=== PATIENT | female | born 1970 | race Caucasian/White ===

== ENCOUNTER → 2018-01-03 11:31 | Outpatient (CLI) | payer OTHER, SELFPAY ==
[2018-01-03 16:05] LABS: Cholesterol 165 mg/dL (200); Glucose 85 mg/dL (74-106); High Density Lipoprotein 39 mg/dL; T4 Free Direct 1.28 ng/dL (0.76-1.46); Thyroid Stim Hormone (TSH) 2.58 uIU/mL (0.358-3.74); Triglycerides 93 mg/dL; Very Low Density Lipoprotein 19 mg/dL (5-40)
== END ==
PROVIDERS: Family Provider Family Medicine; PCP Family Medicine; Visit Provider Family Medicine
DX: E03.9 Hypothyroidism, unspecified (principal); Z13.1 Encounter for screening for diabetes mellitus
CPT/HCPCS: 36415; 80061; 82947; 84439; 84443

== ENCOUNTER → 2018-07-21 08:22 | Outpatient (CLI) | payer OTHER, SELFPAY ==
[2018-07-21 12:10] LABS: Basophil# 0.02 X10^3/uL; Basophil% 0.4 % (0-1); Eosinophil# 0.02 X10^3/uL; Eosinophils% 0.4 % (0-5); Hematocrit 40.8 % (37-47); Hemoglobin 13.6 g/dl (12.0-15.0); Lymphocyte % 30.6 % (19-41); Mean Corp Hgb Conc 33.3 g/gl (32-36); Mean Corpuscular Volume 89.9 fL (81-99); Monocyte# 0.38 X10^3/uL; Monocyte% 7.8 % (0-10); Neutrophil # 2.97 X10^3/uL (2.7-7.7); Neutrophil % 60.6 % (47-70); Platelet Count 266 K/mm3 (150-450); RBC Distribution Width SD 45.6 fl (35.1-43.9); Red Blood Count 4.54 M/mm3 (4.2-5.4); White Blood Count 4.9 K/mm3 (4.4-11.0)
[2018-07-21 12:14] LABS: POSITIVE COUNT NO; POSITIVE DIFFERENTIAL NO; POSITIVE MORPHOLOGY NO
[2018-07-21 12:38] LABS: Anion Gap 9 (5-15); BUN 12 mg/dL (7-18); BUN/Creat Ratio 14.6 RATIO (10-20); Calcium,Total 8.8 mg/dL (8.5-10.1); Chloride 105 mmol/L (98-107); Creatinine, Serum 0.82 mg/dL (0.55-1.02); EST Glomerular Filtration Rate 79 mL/min (>60); Est Glom Filt Rate - Afr Amer 96 mL/min (>60); Glucose 87 mg/dL (74-106); Sodium Level 140 mmol/L (136-145); T4 Free Direct 1.25 ng/dL (0.76-1.46); Thyroid Stim Hormone (TSH) 4.13 uIU/mL (0.358-3.74)
== END ==
PROVIDERS: Visit Provider Family Medicine
DX: E03.9 Hypothyroidism, unspecified (principal); R53.83 Other fatigue
CPT/HCPCS: 36415; 80048; 84439; 84443; 85025

== ENCOUNTER 2019-01-28 16:47 | Emergency (ER) | payer OTHER, SELFPAY ==
[2019-01-28 16:49] VITALS: BP 125/76; PULSE 104; RESP 20; TEMP 37.5; O2SAT 100; BMI 37.8
--- NOTE | 2019-01-28 17:33 | ED.VIS.GEN ---
History of Present Illness Chief Complaint: General Illness Detail of Chief Complaint: Flulike symptoms Informant: Patient Onset: Yesterday Context: Sudden Onset Timing: Continuous Quality: Right-sided head pain, right ocular pain, respiratory symptoms Location: Not applicable Current Severity: Mild Maximum Severity: Moderate Worsened by: Lightheadedness with standing Relieved by: Nothing Associated Symptoms: Read narrative Narrative: Mike is a middle-aged woman who presents with flulike symptoms that started within the last 24 hours. She complains of headache predominant the right side, right eye pain, photophobia right eye only, nasal congestion, mouth and throat pain, facial rash with burning sensation, nonproductive cough and documented temperature to 101.0 degrees. She also reports generalized weakness. She states she feels wheezy when she is upright and walks. She has been in bed all day. She has not eaten much. She has had many ill contacts. She apparently is been in the hospital past week with her mother. Prior similar symptoms: No Recent Illness/Hospitalization: No Past Medical History - Allergies and Home Meds Allergies/Adverse Reactions: Allergies azithromycin [From Zithromax Z-Miky] Allergy (Verified 01/28/19 16:49) Hives cyclobenzaprine HCl [From Flexeril] Allergy (Verified 01/28/19 16:49) Unknown esomeprazole magnesium [From Nexium] Allergy (Verified 01/28/19 16:49) Unknown Sulfa (Sulfonamide Antibiotics) Allergy (Verified 01/28/19 16:49) Unknown Primary Care Physician: Octaviano Olvera MD [Primary Care Provider] - Prior records reviewed: Yes Surgical History: noncontributory Lives: Spouse/ Significant Other, With Family Smoking Status: Never smoker Alcohol: Rare Drugs: None Review of Systems General: Reports: Chills, Fever, Malaise, Sweats. Denies: Weight loss Eyes: Denies: Visual changes - bilaterally, Blurred vision - left - Is pretty funny, Blurred Vision - bilaterally ENT: Reports: Rhinorrhea, Sore throat. Denies: Bilateral ear pain Cardiovascular: Denies: Chest pain, Palpitations Respiratory: Reports: Dyspnea, Cough, Dyspnea on exertion, Paroxysmal nocturnal dyspnea. Denies: Sputum, Orthopnea Gastrointestinal: Denies: Abdominal pain, Nausea, Vomiting, Diarrhea, Melena, Hematochezia Genitourinary: Denies: Dysuria, Hematuria, Frequency Musculoskeletal: Reports: Myalgias. Denies: Neck pain, Back pain, Swelling Skin: Denies: Rash, Wounds Neurological: Reports: Headache, Weakness. Denies: Parasthesia, Numbness Hematologic: Denies: Easy bruising, Easy bleeding Allergy: Denies: Uticaria Physical Exam Vital Signs/Narrative: Vital Signs Temp Pulse Resp BP Pulse Ox 01/28/19 16:49 99.5 F H 104 H 20 H 125/76 H 100 Inital Vital Signs reviewed: Yes General: Well nourished, Well developed, Obese, No Acute Distress Head: Normocephalic, Atraumatic Eyes: Perrl, EOMI, - - Conjunctive are injected bilaterally without drainage. Funduscopic exam reveals normal cup-to-disc ratio. There is no papilledema. Vessels appear normal. Venous pulsations were noted bilaterally.. Negative for: Pale conjunctiva, Scleral icterus ENT: Moist mucous membranes, No rhinorrhea, TM's clear, Sinus tenderness - Right frontal region, - - Slight erythema to face. No induration, warmth. There is no fluctuance. Back: Nontender, Normal Inspection. Negative for: CVA tenderness Extremities: Nontender, No edema. Negative for: Calf Tenderness Skin: Normal color, No rash. Negative for: Cyanosis, Diaphoresis, Jaundice, Rash Neurological: Alert, Oriented x3, Cranial nerves II-XII grossly intact, Normal Strength, Normal Sensation, Normal DTR Psychological: Normal affect Diagnostic/Tx/Re-eval 01/28/19 17:50 Mucosa - Nose Influenza Types A,B Direct FA (EMILY) - Final - Medical Decision Making , Patient with viral-like symptoms. Suspect she has influenza. Will obtain rapid influenza test. Since patient has no photophobia no nuchal rigidity or meningeal findings lumbar puncture is not indicated. Influenza screen was negative. Patient was informed symptomatic treatment i.e. rest, oral antipyretics and drink plenty of fluids. She was informed she may be ill for another 7-10 days. ED Disposition - Plan for ED Patient: Disposition: Home or Assisted Living Diagnosis: Viral upper respiratory tract infection Instructions: ED Viral Syndrome Referrals: Octaviano Olvera MD [Primary Care Provider] - 10-14 Days if not better Additional Instructions: You may be ill for additional 7-10 days.
[2019-01-28 18:40] VITALS: TEMP 38.1
== END 2019-01-28 19:07 | disposition home or self-care (01) ==
PROVIDERS: Emergency Provider Emergency Medicine; Family Provider Family Medicine; PCP Family Medicine
DX: J06.9 Acute upper respiratory infection, unspecified (principal); H53.8 Other visual disturbances; E66.9 Obesity, unspecified; Z79.899 Other long term (current) drug therapy
CPT/HCPCS: 87804; 99282

== ENCOUNTER → 2019-02-27 10:33 | Outpatient (CLI) | payer OTHER, SELFPAY ==
[2019-01-28 16:49] VITALS: BMI 37.8
[2019-02-27 12:39] LABS: Thyroid Stim Hormone (TSH) 0.86 uIU/mL (0.358-3.74)
== END ==
LOC: LAB.FUTURE 01-23 14:59 → BFHLAB 01-23 14:59
PROVIDERS: Family Provider Family Medicine; PCP Family Medicine; Visit Provider Family Medicine
DX: E03.9 Hypothyroidism, unspecified (principal)
CPT/HCPCS: 36415; 84439; 84443

== ENCOUNTER → 2019-12-26 08:15 | Outpatient (CLI) | payer OTHER, SELFPAY ==
[2019-12-26 13:25] LABS: Hepatitis B Surface Antibody Non-Reactive
== END ==
PROVIDERS: PCP Family Medicine; Visit Provider Family Medicine
DX: Z11.59 Encounter for screening for other viral diseases (principal)
CPT/HCPCS: 36415; 86706

== ENCOUNTER → 2020-01-16 13:39 | Outpatient (CLI) | payer OTHER, SELFPAY ==
[2020-01-16 15:48] LABS: Absolute Lymphocyte Count 2.15 X10^3/uL (0.83-4.51); Absolute Neutrophil Count 3.5 X10^3/uL (2.0-7.7); Basophil# 0.03 X10^3/uL; Basophil% 0.5 % (0-1); Eosinophil# 0.05 X10^3/uL; Eosinophils% 0.8 % (0-5); Hematocrit 43.4 % (37-47); Hemoglobin 13.9 g/dL (12.0-15.0); Lymphocyte # 2.15 X10^3/ul (4.0); Mean Corpuscular Hgb 28.4 pg (27.0-32.0); Mean Corpuscular Volume 88.6 fL (81-99); Mean Platelet Vol. 9.9 fl (6.2-12.0); Monocyte% 6.5 % (0-10); NRBC Flagged by Analyzer 0 % (0-5); Neutrophil # 3.49 X10^3/uL (2.7-7.7); Neutrophil % 56.9 % (47-70); Platelet Count 255 K/mm3 (150-450); RBC Distribution Width CV 13.7 % (11.6-14.6); RBC Distribution Width SD 44.5 fl (35.1-43.9); White Blood Count 6.1 K/mm3 (4.4-11.0)
[2020-01-16 16:17] LABS: T4 Free Direct 1.24 ng/dL (0.76-1.46); Thyroid Stim Hormone (TSH) 2.58 uIU/mL (0.358-3.74)
[2020-01-18 16:11] LABS: CMV Acute Antibody IgM < 30.0 AU/mL (0.0-29.9); CMV Antibody IgG > 10.00 U/mL (0.00-0.59); EBV Acute VCA IgM < 36.0 U/mL (0.0-35.9)
== END ==
PROVIDERS: PCP Family Medicine; Visit Provider Family Medicine
DX: E03.9 Hypothyroidism, unspecified (principal); B27.90 Infectious mononucleosis, unspecified without complication
CPT/HCPCS: 36415; 84439; 84443; 85025; 86644; 86645; 86664; 86665

== ENCOUNTER → 2020-07-22 15:57 | Outpatient (CLI) | payer OTHER, SELFPAY ==
[2020-07-22 17:40] LABS: T4 Free Direct 1.47 ng/dL (0.76-1.46); Thyroid Stim Hormone (TSH) 0.54 uIU/mL (0.358-3.74)
== END ==
PROVIDERS: PCP Family Medicine; Visit Provider Family Medicine
DX: E03.9 Hypothyroidism, unspecified (principal)
CPT/HCPCS: 36415; 84439; 84443

== ENCOUNTER → 2020-07-25 17:38 | Outpatient (CLI) | payer OTHER, SELFPAY | PROVIDERS: PCP Family Medicine | DX: U07.1 COVID-19 (principal) | CPT/HCPCS: 87635; C9803; U0003 ==

== ENCOUNTER → 2020-10-31 11:42 | Outpatient (CLI) | payer OTHER, SELFPAY ==
--- NOTE | 2020-10-31 11:45 | RAD_ITS ---
HISTORY: right hand injury a week ago, crushed from thumb to 3rd mcstill having pain and swelling Technique: Right hand AP, lateral, and oblique radiographs Comparison: None available Findings: No acute fracture or dislocation. Osseous mineralization, joint spaces, and alignment otherwise appear preserved as imaged. No focal abnormality or radiopaque foreign body is seen in the surrounding soft tissues. RAD/Hand Min 3 Views IMPRESSION: No acute osseous abnormality identified in the Right hand. at 0545 Reported and signed by: Say Das MD Electronically Signed: Say Das MD at 5:44 EST Tel , Service support ,
== END ==
PROVIDERS: PCP Family Medicine; Referring Provider Family Medicine; Visit Provider Family Medicine
DX: S67.01XA Crushing injury of right thumb, initial encounter (principal); S67.21XA Crushing injury of right hand, initial encounter; X58.XXXA Exposure to other specified factors, initial encounter
CPT/HCPCS: 73130

== ENCOUNTER 2022-07-29 22:35 | Emergency (ER) | payer BC, SELFPAY ==
[2022-07-29 22:36] VITALS: BP 170/95; PULSE 82; RESP 15; TEMP 36.8; O2SAT 96; BMI 42.5
--- NOTE | 2022-07-29 23:06 | EKG12_ITS ---
Test Reason : ABD PAIN Blood Pressure : / mmHG Vent. Rate : 072 BPM Atrial Rate : 072 BPM P-R Int : 146 ms QRS Dur : 092 ms QT Int : 394 ms P-R-T Axes : 024 004 019 degrees QTc Int : 431 ms Normal sinus rhythm Normal ECG Confirmed by FRANDY AGUILLON, JUSTICE ([id number]), sports editor SUSANNA MARINA ([id number]) on 08/02/2022 10:50:17 AM Referred By: JESSY Confirmed By:JUSTICE WISE MD
--- NOTE | 2022-07-29 23:07 | CT_ITS ---
EXAM: CT Abdomen And Pelvis W/ Contrast Injection HISTORY: upper abd pain TECHNIQUE: CT Abdomen And Pelvis W/ Contrast Injection A radiation dose optimization technique was used for this scan. COMPARISON: CT abdomen pelvis 10/13/2015 LIMITATIONS: None. FINDINGS: LOWER CHEST: Normal. LIVER: Normal. GALLBLADDER/BILE DUCTS: Normal. PANCREAS: Normal. SPLEEN: Normal. ADRENAL GLANDS: Normal. KIDNEYS/URETERS/BLADDER: Normal. RETROPERITONEUM/AORTA: Normal. BOWEL/MESENTERY: No bowel dilatation or bowel wall thickening. Mild increased stool. APPENDIX: Identified and normal. PERITONEUM: Normal. REPRODUCTIVE ORGANS: Myomatous uterus. BONES/SOFT TISSUES: No acute abnormality. OTHER: None. CT/Abdomen/Pelvis W IV Cont ONLY IMPRESSION: No acute intra-abdominal process. Mild increased stool. Electronically Signed: Kojo Velasquez MD at 0:34 EDT ,
[2022-07-29] MEDS: 0.9% Normal Saline 1,000 ML 1000 ML IV (23:29)
[2022-07-29] MEDS: Morphine 4 MG/ML Syringe IV (23:30)
[2022-07-29] MEDS: Ondansetron 4 MG/2 ML Vial IV (23:30)
[2022-07-29] MEDS: Famotidine 200 MG/20 ML MDV 20 MG in 0.9% Normal Saline (Pres. free 8 ML 300 MG IV (23:30)
[2022-07-29 23:31] LABS: Absolute Lymphocyte Count 2.59 X10^3/uL (0.83-4.51); Absolute Neutrophil Count 5.6 X10^3/uL (2.0-7.7); Basophil# 0.04 X10^3/uL; Basophil% 0.5 % (0-1); Eosinophil# 0.06 X10^3/uL; Eosinophils% 0.7 % (0-5); Hematocrit 39.4 % (37-47); Hemoglobin 12.9 g/dL (12.0-15.0); Lymphocyte # 2.59 X10^3/ul (0.83-4.51); Lymphocyte % 29.2 % (19-41); Mean Corp Hgb Conc 32.7 g/dL (32-36); Mean Corpuscular Hgb 28.5 pg (27.0-32.0); Mean Corpuscular Volume 87.2 fL (81-99); Mean Platelet Vol. 9.7 fl (6.2-12.0); Monocyte# 0.56 X10^3/uL; Monocyte% 6.3 % (0-10); Mucous, Urine 0 SEEN /hpf (<or=2+); NRBC Flagged by Analyzer 0 % (0-5); Neutrophil # 5.58 X10^3/uL (2.7-7.7); Neutrophil % 62.8 % (47-70); Platelet Count 270 K/mm3 (150-450); RBC Distribution Width CV 13.8 % (11.6-14.6); RBC Distribution Width SD 43.8 fl (35.1-43.9); Red Blood Count 4.52 M/mm3 (4.2-5.4); White Blood Count 8.9 K/mm3 (4.4-11.0)
[2022-07-29 23:33] LABS: Color, Urine Yellow (Yellow); Glucose, Dipstick Normal (Normal); Ketone-Dipstick Negative (Negative); Leukocyte Esterase-Dipstick 25 /ul (Negative); Nitrite-Dipstick Negative (Negative); Occult Blood-Urine 25 /ul (Negative); Protein-Dipstick Negative (Negative); Urine Bilirubin Dipstick Negative (Negative); Urine Clarity Clear (Clear); Urine Urobilinogen Normal (Normal)
[2022-07-29 23:51] LABS: ALB/GLOB Ratio 0.7 RATIO (0.9-2.4); AST(SGOT) 13 U/L (15-37); Alanine Aminotransfer ALT/SGPT 16 U/L (13-56); Albumin, Serum 3.1 g/dL (3.2-5.0); Alkaline Phosphatase 139 U/L (45-117); Anion Gap 9 (5-15); BUN 17 mg/dL (7-18); BUN/Creat Ratio 22.9 RATIO (10-20); Bacteria 2+ /hpf (None Seen); Calcium,Total 9.2 mg/dL (8.5-10.1); Chloride 101 mmol/L (98-107); Creatinine, Serum 0.74 mg/dL (0.55-1.02); EST Glomerular Filtration Rate 88 mL/min (>60); Est Glom Filt Rate - Afr Amer 106 mL/min (>60); Estimated Creatinine Clearance 91.75 ml/min; Globulin 4.4 g/dL (2.2-4.2); Glucose 100 mg/dL (74-106); Lipase 177 U/L (73-393); Potassium 3.9 mmol/L (3.5-5.1); Protein, Total 7.5 g/dL (6.4-8.2); Red Blood Cells-Urine 0-5 SEEN /hpf (0-5); Sodium Level 137 mmol/L (136-145); Squamous Epithelial Cells - UA 0-5 SEEN /hpf (5-10); Troponin-I HS 4 pg/mL (3.0-54.0); White Blood Cells 0-5 SEEN /hpf (0-5)
--- NOTE | 2022-07-30 00:18 | EDS_ITS ---
HPI History of Present Illness Chief Complaint: Other, Pain/Inj Informant: patient Narrative Narrative: Patient is a 51-year-old female with history of hypothyroid, depression and GERD presenting with abdominal pain. Patient states she has been feeling unwell for the past few days and saw her doctor. She had lab work including titers for Ronnie-Dennison virus as well as a CMP. She states her liver enzymes are elevated and her monotest was positive. She knows she is had mono in the past. She showed me the results on her phone and she had positive IgG but equivocal IgM and her elevated liver enzyme was an alkaline phosphatase of 151 with a normal AST and ALT. She is a history of cholecystectomy. Patient states she has been feeling worse today and every time she tries to drink or eat anything her stomach hurts. Is in her epigastric region and radiates to her back. She has nausea but no vomiting. She feels that her face has been flushing. She did have diarrhea earlier today but denies any blood in her stool. States she cannot lay down because it hurts to mention her back. She did take Motrin around 7 PM which worked for about an hour and a half and then her pain came back. No other complaints at this time. [facility] Medical History Anxiety Asthma Hypothyroidism Non-smoker Home Medications levothyroxine 125 mcg tablet 125 mcg PO DAILY 01/28/19 [History Last Taken Unknown] escitalopram oxalate 20 mg tablet 20 mg PO DAILY 07/29/22 [History Last Taken Unknown] omeprazole 20 mg capsule,delayed release 20 mg PO DAILY 07/29/22 [History Last Taken Unknown] ondansetron 4 mg disintegrating tablet 4 mg PO Q6H PRN nausea and vomiting #10 tabs 07/30/22 [Rx Last Taken Unknown] Allergy/AdvReac Type Severity Reaction Status Date / Time azithromycin Allergy Hives Verified 07/29/22 22:41 [From Zithromax Z-Miky] cyclobenzaprine HCl Allergy Unknown Verified 07/29/22 22:41 [From Flexeril] esomeprazole magnesium Allergy Unknown Verified 07/29/22 22:41 [From Nexium] Sulfa (Sulfonamide Allergy Unknown Verified 07/29/22 22:41 Antibiotics) Surgical History History of cholecystectomy Social History Smoking Status: Never smoker ROS ROS ED Constitutional Constitutional ED: Denies chills or fever(s) Eyes Eyes: Denies change in vision ENT ENT ED: Denies rhinorrhea or sore throat Cardiovascular Cardiovascular: Denies chest pain or palpitations Respiratory/Chest Respiratory/Chest: Denies cough or dyspnea Gastrointestinal Gastrointestinal: Reports abdominal pain, diarrhea, nausea and vomiting Genitourinary Genitourinary ED: Denies dysuria or hematuria Musculoskeletal Musculoskeletal: Reports back pain; Denies arthralgias or myalgias Integumentary Denies rash Neurologic Neurologic: Denies headache(s), paresthesias or weakness Psychiatric Psychiatric: Reports anxiety EXAM Physical Exam Const Vital Signs: 07/29/22 22:36 07/29/22 22:44 07/30/22 01:59 Temperature 98.3 F Temperature Source Temporal Pulse Rate 82 74 Respiratory Rate 15 17 Respiratory Effort Normal Respiratory Pattern Normal Blood Pressure 170/95 H 156/90 H Blood Pressure Mean 120 112 Pulse Ox 96 98 Oxygen Delivery Method Room Air Room Air Positive well nourished and well developed General Appearance ED: well developed and NAD HEENT Reports moist mucous membranes Eyes PERRL and EOMs intact bilaterally Neck supple Chest Wall inspection of chest normal Resp normal respiratory effort and clear to auscultation bilaterally Cardio regular rate, regular rhythm and no murmurs GI normal to inspection, nondistended, normoactive bowel sounds and non-distended Palpation: tender epigastric; Negative for guarding Back/Spine no CVA tenderness Thoracic Spine / Upper Back: paraspinal muscle tenderness; Negative for thoracic spinal tenderness Lumbar Spine / Lower Back: Negative for lumbar spinal tenderness Neuro oriented x3 Neuro Narrative: No focal deficits appreciated Sensorium / Orientation: alert Motor Exam: Negative for general weakness Psych mental status grossly normal Mood & Affect: tearful Skin no rashes or lesions noted MDM MDM MDM Narrative Medical decision making narrative: Patient is evaluated for abdominal pain, back pain and generalized fatigue. Abdominal exam is nonspecific. She has muscle skeletal back pain. Patient is given IV Pepcid, morphine and Zofran as well as IV fluids. On repeat evaluation she is feeling a little better but continues to have back pain. She is given Tylenol and a GI cocktail. She has improvement of her symptoms with this. Her work-up is largely unremarkable. She does not have a transaminitis. Her alkaline phosphatase is 139 which is downtrending compared to her recent blood work where it was 150. Urinalysis is not consistent with infection. CT of a bdomen pelvis shows no acute intra-abdominal process but does show mild increased stool. The exact cause for patient's discomfort is not clear however I do not think there is an acute surgical emergency. I suspect it is either of viral syndrome versus a flareup of her GERD/gastritis.no signs of acute bacterial intra-abdominal infection requiring antibiotics or admission at this time. Patient be discharged with a prescription for Zofran. Instructed to follow-up with primary care doctor. Lab Data Attestation: I reviewed the patient's lab results. Labs: Laboratory Results - last 24 hr 07/29/22 07/29/22 07/29/22 23:24 23:24 23:24 WBC 8.9 RBC 4.52 Hgb 12.9 Hct 39.4 MCV 87.2 MCH 28.5 MCHC 32.7 RDW Std Deviation 43.8 RDW Coeff of Renée 13.8 Plt Count 270 MPV 9.7 Immature Gran % (Auto) 0.500 Neut % (Auto) 62.8 Lymph % (Auto) 29.2 [place] % (Auto) 6.3 Eos % (Auto) 0.7 Baso % (Auto) 0.5 Absolute Neuts (auto) 5.6 Absolute Lymphs (auto) 2.59 Nucleated RBC % 0 Sodium 137 Potassium 3.9 Chloride 101 Carbon Dioxide 27.0 Anion Gap 9 BUN 17 Creatinine 0.74 Estim Creat Clear Calc 91.75 Est GFR (MDRD) Af Amer 106 Est GFR (MDRD) Non-Af 88 BUN/Creatinine Ratio 22.9 H Glucose 100 Calcium 9.2 Total Bilirubin 0.20 AST 13 L ALT 16 Alkaline Phosphatase 139 H Troponin I High Sens 4 Total Protein 7.5 Albumin 3.1 L Globulin 4.4 H Albumin/Globulin Ratio 0.7 L Lipase 177 Urine Color Yellow Urine Clarity Clear Urine pH 6.0 Ur Specific [place] 1.010 Urine Protein Negative Urine Glucose (UA) Normal Urine Ketones Negative Urine Occult Blood 25 H Urine Nitrite Negative Urine Bilirubin Negative Urine Urobilinogen Normal Ur Leukocyte Esterase 25 H Urine RBC 0-5 SEEN Urine WBC 0-5 SEEN Ur Squamous Epith Cells 0-5 SEEN Urine Bacteria 2+ Urine Mucus 0 SEEN Radiography Diagnostic Testing: Clinical Impression(s) from Imaging Studies Abdomen/Pelvis CT 07/29/22 23:07 IMPRESSION: No acute intra-abdominal process. Mild increased stool. Electronically Signed: Kojo Velasquez MD at 0:34 EDT , Rhythm Strip Rhythm Strip: Sinus Rhythm Rate: 72 Ectopy: None EKG Initial EKG: Attestation: I personally reviewed and interpreted this EKG as follows: Interpretation: Sinus Rhythm Comments: Normal sinus rhythm at a rate of 72 Normal axis Normal intervals Normal ST segments Discharge Plan Triage Chief Complaint: Other, Pain/Inj ED Provider: Yulia Philippe Dx/Rx/DC Orders Clinical Impression: Abdominal pain, Nausea & vomiting, Malaise and fatigue, Muscle strain of upper back Instructions: ED Abdominal Pain Unkn Cause Fem, ED Back Sprain/Strain Prescriptions: New ondansetron 4 mg tablet,disintegrating 4 mg PO Q6H PRN (Reason: nausea and vomiting) Qty: 10 0RF No Action levothyroxine 125 MCG tablet 125 mcg PO DAILY omeprazole 20 mg capsule,delayed release(DR/EC) 20 mg PO DAILY escitalopram oxalate 20 mg tablet 20 mg PO DAILY Primary Care Provider: BHAVIN STEVENS Referrals: BHAVIN STEVENS [Other] Activity Restrictions/Additional Instructions: take frequent small sips. Take Tylenol, not Ibuprofen/motrin for pain. Disposition Disposition: Home, Self Care Discharge Date/Time: 07/30/22 02:08
[2022-07-30] MEDS: Acetaminophen 325 MG Tablet 650 MG PO (01:31)
[2022-07-30] MEDS: Mag Hydrox/Al Hydrox/Simeth 30 ML UDC PO (01:31)
[2022-07-30 01:59] VITALS: BP 156/90; PULSE 74; RESP 17; O2SAT 98
== END 2022-07-30 02:08 | disposition home or self-care (01) ==
PROVIDERS: Emergency Provider Emergency Medicine; Visit Provider Emergency Medicine
DX: R10.9 Unspecified abdominal pain (principal); S39.012A Strain of muscle, fascia and tendon of lower back, initial encounter; R74.8 Abnormal levels of other serum enzymes; K21.9 Gastro-esophageal reflux disease without esophagitis; R11.2 Nausea with vomiting, unspecified; R53.83 Other fatigue; Z90.49 Acquired absence of other specified parts of digestive tract; E03.9 Hypothyroidism, unspecified; F32.A Depression, unspecified
CPT/HCPCS: 74177; 80053; 81001; 83690; 84484; 85025; 93005; 96361; 96374; 96375; 99285; J7030; Q9967; A4216; J2405; J3490

== ENCOUNTER → 2022-09-14 | Outpatient (CLI) | payer BC, SELFPAY ==
--- NOTE | 2022-09-14 07:51 | US_ITS ---
STUDY: ABDOMINAL ULTRASOUND - ELASTOGRAPHY REASON FOR VISIT: Female, 51 years old. Fatty infiltration of liver. TECHNIQUE: Liver stiffness measurements were obtained on a [employer] RS 85 ultrasound machine using a CA 1-7 probe following the SRU guidelines. 3 measurements were obtained using a 2-D-SWE method. The IQR/M was 21% suggesting a quality data set. TECHNICAL QUALITY: Adequate. COMPARISON: Comparison is made with prior study done earlier today. FINDINGS: Liver: Fatty infiltration of the liver. Median liver stiffness measured 8.3 kPa. US/Elastography Parenchyma/Organ IMPRESSION: Liver stiffness measures 8.3 kPa compatible with F2-F3 (Mild to moderate liver fibrosis) Metavir score. Electronically Signed: Michi Vega MD at 13:47 EDT ,
--- NOTE | 2022-09-14 07:52 | US_ITS ---
STUDY: ABDOMINAL ULTRASOUND - RIGHT UPPER QUADRANT REASON FOR VISIT: Female, 51 years old . Fatty infiltration of the liver. TECHNIQUE: Ultrasound evaluation of the right upper quadrant was performed with real-time and static olguin-scale imaging. TECHNICAL QUALITY: Adequate. COMPARISON: Comparison is made with prior CT scan abdomen and pelvis dated 07/30/2022. FINDINGS: Liver: The liver is enlarged and measures 17.4 cm. There is increased echogenicity consistent with fatty infiltration. The bile ducts are within normal limits. There is hepatic color flow. The direction of portal flow is hepatopetal. There is no demonstrated mass lesion. Gallbladder: The patient is status post cholecystectomy. Common Bile Duct (C.B.D.): The common bile duct measures 5.6 mm. Pancreas: Normal size of the head, body and tail of the pancreas. There is increased echogenicity of the pancreas. There is no demonstrated pancreatic mass or cyst. Right Kidney: Normal size of the right kidney. The right kidney measures 10.8 cm x 4.6 cm x 3.8 cm. Normal renal cortex. The right cortex measures 1.2 cm. There is no demonstrated renal mass or cyst. There is no right hydronephrosis. US/Abdomen Limited IMPRESSION: Hepatomegaly and fatty infiltration of the liver. Electronically Signed: Michi Vega MD at 13:39 EDT ,
[2022-09-14 08:55] LABS: International Normalized Ratio 1.1
[2022-09-14 08:56] LABS: Erythrocyte Sedimentation Rate 37 mm/hr (0-30)
[2022-09-14 08:57] LABS: Absolute Lymphocyte Count 2.02 X10^3/uL (0.83-4.51); Absolute Neutrophil Count 3.4 X10^3/uL (2.0-7.7); Basophil# 0.02 X10^3/uL; Basophil% 0.3 % (0-1); Eosinophil# 0.03 X10^3/uL; Eosinophils% 0.5 % (0-5); Hematocrit 39.9 % (37-47); Hemoglobin 13.1 g/dL (12.0-15.0); Lymphocyte # 2.02 X10^3/ul (0.83-4.51); Lymphocyte % 34.3 % (19-41); Mean Corp Hgb Conc 32.8 g/dL (32-36); Mean Corpuscular Hgb 28.7 pg (27.0-32.0); Mean Corpuscular Volume 87.3 fL (81-99); Mean Platelet Vol. 9.8 fl (6.2-12.0); Monocyte# 0.38 X10^3/uL; Monocyte% 6.5 % (0-10); NRBC Flagged by Analyzer 0 % (0-5); Neutrophil # 3.42 X10^3/uL (2.7-7.7); Neutrophil % 58.1 % (47-70); Platelet Count 246 K/mm3 (150-450); RBC Distribution Width CV 14.9 % (11.6-14.6); RBC Distribution Width SD 47.6 fl (35.1-43.9); Red Blood Count 4.57 M/mm3 (4.2-5.4); White Blood Count 5.9 K/mm3 (4.4-11.0)
[2022-09-14 09:15] LABS: ALB/GLOB Ratio 0.8 RATIO (0.9-2.4); AST(SGOT) 15 U/L (15-37); Alanine Aminotransfer ALT/SGPT 17 U/L (13-56); Alkaline Phosphatase 113 U/L (45-117); Anion Gap 4 (5-15); BUN 7 mg/dL (7-18); BUN/Creat Ratio 9.9 RATIO (10-20); Calcium,Total 8.6 mg/dL (8.5-10.1); Chloride 107 mmol/L (98-107); Creatinine, Serum 0.71 mg/dL (0.55-1.02); EST Glomerular Filtration Rate 93 mL/min (>60); Est Glom Filt Rate - Afr Amer 112 mL/min (>60); Ferritin 51 ng/mL (8-252); Globulin 3.9 g/dL (2.2-4.2); Glucose 85 mg/dL (74-106); LDH 147 U/L (84-246); Potassium 3.7 mmol/L (3.5-5.1); Protein, Total 6.9 g/dL (6.4-8.2); Sodium Level 138 mmol/L (136-145)
[2022-09-14 09:19] LABS: Hemoglobin A1c 5.3 % (3.8-5.6)
[2022-09-14 09:40] LABS: HIV - WCH Non-Reactive (Nonreactive)
[2022-09-15 15:08] LABS: Anti-Centromere B Ab <0.2 AI (0.0-0.9); Anti-Chromatin <0.2 AI (0.0-0.9); Anti-Jo <0.2 AI (0.0-0.9); Anti-Scleroderma-70 AB <0.2 AI (0.0-0.9); RNP Ab 0.2 AI (0.0-0.9); SJOGREN'S Anti-SS-A test < 0.2 AI (0.0-0.9); SJOGREN'S Anti-SS-B test < 0.2 AI (0.0-0.9); Smith Ab <0.2 AI (0.0-0.9)
[2022-09-16 15:08] LABS: Angiotensin Convert Enzyme 29 U/L (14-82); Ceruloplasmin 29.7 mg/dL (19.0-39.0); Cytoplasmic Ab (C-ANCA) <1:20 titer (Neg:<1:20); HEPATITIS B SURFACE AG Negative (Negative); Hep C Antibodies <0.1 s/co ratio (0.0-0.9); Hepatitis A IgM Antibody Negative (Negative); Hepatitis B Core AB IgM Negative (Negative)
[2022-09-16 17:24] LABS: Anti-Mitochondrial AB <20.0 Units (0.0-20.0); Anti-dsDNA Ab <1 IU/mL (0-9)
[2022-09-17 15:42] LABS: AFP, Tumor Marker 1.3 ng/mL (0.0-6.4); Anti-Smooth Muscle ABS 8 Units (0-19); Copper, Serum or Plasma 125 ug/dL (80-158); Haptoglobin 217 mg/dL (42-296); Perinuclear Ab (P-ANCA) <1:20 titer (Neg:<1:20)
== END | disposition home or self-care (01) ==
PROVIDERS: PCP Family Medicine; Referring Provider Nurse Practitioner Adult Health; Visit Provider Nurse Practitioner Adult Health
DX: K76.0 Fatty (change of) liver, not elsewhere classified (principal)
CPT/HCPCS: 36415; 76705; 76981; 80053; 80074; 82105; 82140; 82164; 82390; 82525; 82728; 83010; 83036; 83516; 83615; 85025; 85610; 85652; 86140; 86225; 86235; 86256; 86703

== ENCOUNTER 2022-11-01 08:35 | Day surgery (SDC) | payer BC, SELFPAY ==
[2022-11-01] VITALS (7 sets, daily range): BP systolic 98–131; BP diastolic 64–93; PULSE 58–76; RESP 16–18; TEMP 36.2–36.6; O2SAT 93–98; BMI 41.8
--- NOTE | 2022-11-01 08:47 | HP.PCM_ITS ---
History and Physical Date of Admission: 11/01/22 ?51 F who presents to the office today for epigastric pain. She presented to [facility] ED on 07/30/22 for epigastric pain, nausea, pain radiated through to her back. [place] somewhat similar to when she had gallbladder pain. She was diagnosed with mono at that ED visit. Has had an US since then which showed fatty liver. She is very concerned that alk phos was high, AST and ALT were normal. Her nephew had HCC diagnosed age 13, age 16. She was referred to GI at [facility]; treated with PPI and sucralfate, but unable to get endoscopy til next yr, therefore she wants to establish here. No nausea or vomiting, no dysphagia. GI increased her omeprazole to 40 mg daily. Taking sucralfate, still with mild epigastric discomfort but tolerable. Started having acid reflux at age 18.? She takes meloxicam daily. Remote hx of upper and lower endoscopy. Just saw Manager Training [facility] Development at [facility], plan is to start Ozempic 08/25/22 US: Mildly heterogeneous echotexture of the liver with increased echogenicity likely representing hepatic steatosis.? No splenomegaly 07/29/22 CT/Abdomen/Pelvis W IV Cont ONLY IMPRESSION: No acute intra-abdominal process. Mild increased stool. ROS Const Constitutional: No fatigue ENT ENT: No difficulty swallowing Gastro GI: No abdominal pain, belching, bloating, change in bowel habits, change in stool character, coffee ground emesis, constipation, cramping, diarrhea, hear tburn, difficulty swallowing, feeling full early, excessive flatus, incontinent of stools, Vomiting blood/hematemesis, Blood in stool, loose stools, Black,tarry stools, nausea/dyspepsia, pain with swallowing, vomiting or other Musc Musculoskeletal: No joint pain Skin Skin: No yellowing of the eye or itchy eyes Psych Psychiatric: No anxiety and No depression Endo Endocrine: No fatigue Aller/Imm Allergy/Immunologic: No itchy eyes Iban/Lymp Hematologic/Lymphatic: No easy bleeding or easy bruising Exam Const General: cooperative, comfortable and no acute distress Nutritional Appearance: obese Orientation: alert, awake and oriented x3 HENMT Head: normal to inspection Eyes General: appearance normal, both eyes and all related structures Resp Effort & Inspection: normal respiratory effort GI Inspection: obesity Palpation: soft, no hepatosplenomegaly, no masses and nontender Quality Reporting Tobacco Screening ([facility] 138) Smoking Status: Never smoker Assessment and Plan Assessment and Plan (1) Epigastric pain: ?Status:?Acute ?Plan: 51-year-old female with a long history of GERD already on omeprazole 20 mg daily developed epigastric pain last month, she was seen at the ER where she was diagnosed with mono.? She is worried because alk phos is elevated.? She had an ultrasound at [facility] which showed a fatty liver, normal spleen.? She saw a GI nurse practitioner at [facility], omeprazole was increased to 40 mg daily and she was put on sucralfate 4 times daily which has helped significantly with the abdominal pain.? She is unable to get an appointment for endoscopy until next year there, therefore she would like to establish with us.? We will schedule her for EGD to evaluate for esophagitis, hiatal hernia, Gray's, peptic ulcer disease, gastritis, H. pylori.? We will schedule her for a screening colonoscopy. (2) Fatty liver: ?Status:?Acute ?Plan: We discussed the finding of fatty liver on her recent ultrasound.? We discussed the work-up of liver elastography and biochemical evaluation.? She plans to check with insurance and if covered she will proceed with the work-up. (3) GERD (gastroesophageal reflux disease): ?Status:?Acute ?Plan: As above ? ? ? Orders: Orders HIV - [facility] Today K76.0 - Fatty (change of) liver, not elsewhere classified ? Comprehensive Metabolic Profil Today K76.0 - Fatty (change of) liver, not elsewhere classified ? CRP Today K76.0 - Fatty (change of) liver, not elsewhere classified ? Ferritin Today K76.0 - Fatty (change of) liver, not elsewhere classified ? LDH Today K76.0 - Fatty (change of) liver, not elsewhere classified ? Hemoglobin A1c Today K76.0 - Fatty (change of) liver, not elsewhere classified ? Prothrombin Time w/INR Today K76.0 - Fatty (change of) liver, not elsewhere classified ? CBC W/Diff, Automated Today K76.0 - Fatty (change of) liver, not elsewhere classified ? Erythrocyte Sed Rate Today K76.0 - Fatty (change of) liver, not elsewhere classified ? Anti-Mitochondrial AB Today K76.0 - Fatty (change of) liver, not elsewhere classified ? REBEKAH Comprehensive Panel Today K76.0 - Fatty (change of) liver, not elsewhere classified ? Hepatitis Panel Acute Today K76.0 - Fatty (change of) liver, not elsewhere classified ? Angiotensin Convert Enzyme Today K76.0 - Fatty (change of) liver, not elsewhere classified ? AFP, Tumor Marker Today K76.0 - Fatty (change of) liver, not elsewhere classified ? ANCA Today K76.0 - Fatty (change of) liver, not elsewhere classified ? Anti-Smooth Muscle ABS Today K76.0 - Fatty (change of) liver, not elsewhere classified ? Ceruloplasmin Today K76.0 - Fatty (change of) liver, not elsewhere classified ? Copper, Serum or Plasma Today K76.0 - Fatty (change of) liver, not elsewhere classified ? Haptoglobin Today K76.0 - Fatty (change of) liver, not elsewhere classified ? Ammonia Today K76.0 - Fatty (change of) liver, not elsewhere classified ? Abdomen Limited Today K76.0 - Fatty (change of) liver, not elsewhere classified ? Elastography Parenchyma/Organ Today K76.0 - Fatty (change of) liver, not elsewhere classified ? I have examined the patient and the H&P has been reviewed. There are no clinical changes since date of exam.
[2022-11-01] MEDS: Lactated Ringers 1,000 ML 15 ML IV (09:18)
[2022-11-01 09:19] LABS: Internal QC Validated? YES +Cl - CLEAR BKGD; Pregnancy, Urine Negative Negative
--- NOTE | 2022-11-01 09:45 | IMM_PTH ---
PATIENT: JAMMIE TROY LOC: EN U#:[id number] AGE/SX: 52/F ROOM: RE11/01/[address]: Dr. Christian Sarmiento DO : 1970 BED: DIS: 11/01/2022 SPEC #: [id number] RECD: 11/02/22 08:52 STATUS: DASIA REQ #: [id number] ZA: 11/01/22 09:[address]: Christian Sarmiento DEPT: IMMUNOHISTOCHEMISTRY RECD BY: Sulma Madrigal ENTERED: 11/02/22 08:53 SP TYPE: IMMUNO OTHR DR: Leticia Amor, [employer]-C Tissues: C - Stomach, NOS Procedures: H Pylori (initial) PHYSICIAN & INSTITUTION [place] [id number] SPECIMEN INFORMATION: Tissue Source: C ? Antrum Clinical Info: Epigastric pain Specimen Number: [id number] CPT code: 22721 METHODOLOGY: Deparaffinized sections of prefer/formalin-fixed tissue or PAP/DQ stained slides are incubated with monoclonal/polyclonal antibodies/oligonucleotide probes. Localization is made via biotin free immunoperoxidase method. Appropriate controls are performed and reacted as expected. Results on target cell population are indicated in the following table: RESULTS: ANTIBODY / CLONE RESULT Block C H Pylori (polyclonal) negative These tests were developed and their performance characteristics determined by [facility]. They may not have been cleared or approved by the U.S. Food and Drug Administration. The FDA has determined that such clearance or approval is not necessary. The above immunohistochemical/dualISH markers are ordered and reviewed by the Pathologist. INTERPRETATION: C. Antrum, biopsy: Negative for Helicobacter pylori organisms. AM:roselyn 11/03/2022
--- NOTE | 2022-11-01 09:45 | EGD_PTH ---
PATIENT: JAMMIE TROY LOC: EN U#:[id number] AGE/SX: 52/F ROOM: RE11/01/[address]: Dr. Christian Sarmiento DO : 1970 BED: DIS: 11/01/2022 SPEC #: [id number] RECD: 11/01/22 14:02 STATUS: DASIA REJarad #: [id number] ZA: 11/01/22 09:[address]: Christian Sarmiento DEPT: SURGICAL PATHOLOGY RECD BY: Hanny Gardner ENTERED: 11/02/22 07:31 SP TYPE: EGD BIOPSY OTHR DR: Leticia Amor, SMALL ORDER CUTTER-C Tissues: A - Esophagus, NOS B - Gastric mucous membrane C - Gastric mucous membrane Procedures: Special Stain Group II Surgery Specimen Level IV Alcian Blue/PAS (control) HEADER OPERATION: Colonoscopy, EGD ([facility] [place]) PRE-OP DIAGNOSIS: Epigastric pain TISSUE SUBMITTED: A ? Distal esophagus biopsy, B ? Gastric body biopsy, C ? Antrum for H. pylori and path MICROSCOPIC DIAGNOSIS A. Distal esophagus, biopsy: Gastroesophageal junctional mucosa with chronic inflammation. Focal changes of reflux. No evidence of goblet cell metaplasia. See comment. B. Gastric body, biopsy: Chronic gastritis. C. Gastric antrum, biopsy: Chronic gastritis. See comment. AM:roselyn 11/03/2022 COMMENT A. Alcian blue/PAS stain with matched control supports the above diagnosis. C. The results of immunohistochemistry for Helicobacter pylori will be reported separately ([id number]). MICROSCOPIC DESCRIPTION Slides are reviewed. GROSS DESCRIPTION A - Received in fixative is one container labeled with the patient's name and designated distal esophagus biopsy. The specimen consists of multiple irregular fragments of light colin soft tissue that in aggregate measure 1 x 0.4 x 0.1 cm. The specimen is totally submitted in one cassette. B - Received in fixative is one container labeled with the patient's name and designated gastric body biopsy. The specimen consists of two irregular fragments of light colin soft tissue that in aggregate measure 0.7 x 0.4 x 0.1 cm. The specimen is totally submitted in one cassette. C - Received in fixative is one container labeled with the patient's name and designated antrum biopsy. The specimen consists of two irregular fragments of light colin soft tissue that in aggregate measure 0.6 x 0.5 x 0.1 cm. The specimen is totally submitted in one cassette. / SJ:rg 11/02/2022 TC:3 CPT: 77247 x3, [id number]
--- NOTE | 2022-11-01 09:45 | SUR.PREOP ---
Pt questioning bowel prep after questioning, determined pt is still having some formed stool with liquid, enema given till clear in BR.
--- NOTE | 2022-11-01 10:49 | OP.CCLET_ITS ---
11/01/2022 Leticia Amor Re : Upper GI endoscopy procedure for Dae Dukeberyl Amor This procedure was performed on Tuesday, November 01, 2022. My impressions and recommendations are as follows: Impressions : - Z-line irregular, 38 cm from the incisors. Biopsied. - Small hiatal hernia. - Gastritis. Biopsied. - No gross lesions in the first portion of the duodenum. Recommendations : - Discharge patient to home. - Resume previous diet. - Continue present medications. - Await pathology results. My findings are described in the full procedure note, which is enclosed. If I can be of further assistance, please feel free to contact me at . Sincerely, Christian Sarmiento, 11/01/2022 10:49:16 AM This report has been signed electronically.
--- NOTE | 2022-11-01 10:49 | OP.EGD_ITS ---
Patient Name: Dae Lucas Procedure Date: 11/01/2022 10:17 AM Date of : 1970 Age: 52 Procedure: Upper GI endoscopy Indications: Epigastric abdominal pain Providers: Christian Sarmiento DO Referring MD: Leticia Amor Medicines: Monitored Anesthesia Care Patient Profile: This is a 52 year old female. Refer to note in patient chart for documentation of history and physical. Patient has symptoms of acute epigastric abdominal pain and chronic dyspepsia. Complications: No immediate complications. Procedure: Pre-Anesthesia Assessment: - Prior to the procedure, a History and Physical was performed, and patient medications and allergies were reviewed. The risks and benefits of the procedure and the sedation options and risks were discussed with the patient. All questions were answered and informed consent was obtained. Patient identification and proposed procedure were verified by the physician. Mental Status Examination: normal. Respiratory Examination: clear to auscultation. CV Examination: normal. Prophylactic Antibiotics: The patient does not require prophylactic antibiotics. Prior Anticoagulants: The patient has taken no previous anticoagulant or antiplatelet agents. After reviewing the risks and benefits, the patient was deemed in satisfactory condition to undergo the procedure. The anesthesia plan was to use monitored anesthesia care (MAC). Immediately prior to administration of medications, the patient was re-assessed for adequacy to receive sedatives. The heart rate, respiratory rate, oxygen saturations, blood pressure, adequacy of pulmonary ventilation, and response to care were monitored throughout the procedure. The physical status of the patient was re-assessed after the procedure. After obtaining informed consent, the endoscope was passed under direct vision. Throughout the procedure, the patient's blood pressure, pulse, and oxygen saturations were monitored continuously. The pediatric colonoscope was introduced through the mouth, and advanced to the second part of duodenum. The upper GI endoscopy was accomplished without difficulty. The patient tolerated the procedure well. Scope In: 10:25:07 AM Scope Out: 10:30:03 AM Total Procedure Duration Time 0 hours 4 minutes 56 seconds Findings: The Z-line was irregular and was found 38 cm from the incisors. Biopsies were taken with a cold forceps for histology. Verification of patient identification for the specimen was done. Estimated blood loss was minimal. A small hiatal hernia was present. Patchy mild inflammation characterized by congestion (edema) was found in the gastric body. Biopsies were taken with a cold forceps for histology. Verification of patient identification for the specimen was done. Estimated blood loss was minimal. No gross lesions were noted in the first portion of the duodenum. Impression: - Z-line irregular, 38 cm from the incisors. Biopsied. - Small hiatal hernia. - Gastritis. Biopsied. - No gross lesions in the first portion of the duodenum. Recommendation: - Discharge patient to home. - Resume previous diet. - Continue present medications. - Await pathology results. Procedure Code(s): --- Professional --- 95290, Esophagogastroduodenoscopy, flexible, transoral; with biopsy, single or multiple CPT copyright 2017 [employer]. All rights reserved. The codes documented in this report are preliminary and upon lining ironer review may be revised to meet current compliance requirements. Christian Sarmiento DO 11/01/2022 10:49:16 AM This report has been signed electronically. Number of Addenda: 0 Note Initiated On: 11/01/2022 10:17 AM
--- NOTE | 2022-11-01 10:52 | OP.CCLET_ITS ---
11/01/2022 Leticia Amor Re : Colonoscopy procedure for Dae Christensen Zuleyma This procedure was performed on Tuesday, November 01, 2022. My impressions and recommendations are as follows: Impressions : - Preparation of the colon was poor. - Stool in the rectum, in the recto-sigmoid colon, in the sigmoid colon, in the descending colon, at the splenic flexure, in the transverse colon, in the ascending colon and in the cecum. - No specimens collected. Recommendations : - Discharge patient to home. - Resume previous diet. - Continue present medications. - Await pathology results. - Repeat colonoscopy in 6 months because the bowel preparation was poor. My findings are described in the full procedure note, which is enclosed. If I can be of further assistance, please feel free to contact me at . Sincerely, Christian Sarmiento, 11/01/2022 10:52:34 AM This report has been signed electronically.
--- NOTE | 2022-11-01 10:52 | OP.COLON_ITS ---
Patient Name: Dae Lucas Procedure Date: 11/01/2022 10:30 AM Date of : 1970 Age: 52 Procedure: Colonoscopy Indications: Screening for colorectal malignant neoplasm Providers: DO Elham Magaña MD: Leticia Amor Medicines: Monitored Anesthesia Care Patient Profile: This is a 52 year old female. Refer to note in patient chart for documentation of history and physical. Patient has symptoms of acute epigastric abdominal pain and chronic dyspepsia. Last Colonoscopy: none. The patient's first colonoscopy is today. Complications: No immediate complications. Procedure: Pre-Anesthesia Assessment: - Prior to the procedure, a History and Physical was performed, and patient medications and allergies were reviewed. The risks and benefits of the procedure and the sedation options and risks were discussed with the patient. All questions were answered and informed consent was obtained. Patient identification and proposed procedure were verified by the physician. Mental Status Examination: normal. Respiratory Examination: clear to auscultation. CV Examination: normal. Prophylactic Antibiotics: The patient does not require prophylactic antibiotics. Prior Anticoagulants: The patient has taken no previous anticoagulant or antiplatelet agents. After reviewing the risks and benefits, the patient was deemed in satisfactory condition to undergo the procedure. The anesthesia plan was to use monitored anesthesia care (MAC). Immediately prior to administration of medications, the patient was re-assessed for adequacy to receive sedatives. The heart rate, respiratory rate, oxygen saturations, blood pressure, adequacy of pulmonary ventilation, and response to care were monitored throughout the procedure. The physical status of the patient was re-assessed after the procedure. After I obtained informed consent, the scope was passed under direct vision. Throughout the procedure, the patient's blood pressure, pulse, and oxygen saturations were monitored continuously. The colonoscope was introduced through the anus and advanced to the cecum, identified by appendiceal orifice and ileocecal valve. The colonoscopy was performed without difficulty. The patient tolerated the procedure well. The quality of the bowel preparation was poor. Scope In: 10:32:33 AM Scope Withdrawal Time 0 hours 4 minutes 20 seconds Scope Out: 10:40:01 AM Total Procedure Duration Time 0 hours 7 minutes 28 seconds Findings: The perianal and digital rectal examinations were normal. A large amount of stool was found in the rectum, in the recto-sigmoid colon, in the sigmoid colon, in the descending colon, at the splenic flexure, in the transverse colon, in the ascending colon and in the cecum, interfering with visualization. Impression: - Preparation of the colon was poor. - Stool in the rectum, in the recto-sigmoid colon, in the sigmoid colon, in the descending colon, at the splenic flexure, in the transverse colon, in the ascending colon and in the cecum. - No specimens collected. Recommendation: - Discharge patient to home. - Resume previous diet. - Continue present medications. - Await pathology results. - Repeat colonoscopy in 6 months because the bowel preparation was poor. Procedure Code(s): --- Professional --- G0121, Colorectal cancer screening; colonoscopy on individual not meeting criteria for high risk CPT copyright 2017 [employer]. All rights reserved. The codes documented in this report are preliminary and upon computer language coder review may be revised to meet current compliance requirements. Christian Sarmiento DO 11/01/2022 10:52:34 AM This report has been signed electronically. Number of Addenda: 0 Note Initiated On: 11/01/2022 10:30 AM
== END 2022-11-01 11:28 | disposition home or self-care (01) ==
LOC: EN 08:35 → AC 08:36
PROVIDERS: Anesthesiology; PCP Registered Nurse; Referring Provider Registered Nurse; Visit Provider Internal Medicine Gastroenterology
PROC: 0DJD8ZZ Inspection of Lower Intestinal Tract, Via Natural or Artificial Opening Endoscopic (ICD-10-PCS; CPT 45378; principal; 2022-11-01 09:40)
DX: K44.9 Diaphragmatic hernia without obstruction or gangrene (principal); K29.50 Unspecified chronic gastritis without bleeding; K31.89 Other diseases of stomach and duodenum; K21.00 Gastro-esophageal reflux disease with esophagitis, without bleeding; K76.0 Fatty (change of) liver, not elsewhere classified; E66.9 Obesity, unspecified; E03.9 Hypothyroidism, unspecified; Z79.899 Other long term (current) drug therapy
CPT/HCPCS: 43239; 45378; 81025; 88305; 88313; 88342; J7120; J2405

== ENCOUNTER → 2023-03-02 | Outpatient (CLI) | payer BC, SELFPAY ==
--- NOTE | 2023-03-02 08:01 | US_ITS ---
STUDY: ABDOMINAL ULTRASOUND - ELASTOGRAPHY REASON FOR VISIT: Female, 52 years old. NAFLD TECHNIQUE: Liver stiffness measurements were obtained on a [employer] RS 85 ultrasound machine using a CA 1-7 probe following the SRU guidelines. 3 measurements were obtained using a 2-D-SWE method. TheIQR/M was 21 % suggesting a quality data set. TECHNICAL QUALITY: Adequate. COMPARISON: Comparison is made with prior study done earlier in the day. FINDINGS: Liver: Fatty infiltration of the liver. Mild hepatomegaly. Median liver stiffness measured 7.3 kPa. Abdomen: There is no demonstrated mass lesion. US/ABD Limited w/ Elastography IMPRESSION: Liver stiffness measures 7.3 kPa compatible with F2-F3 (Mild to moderate liver fibrosis) Metavir score. Electronically Signed: Michi Vega MD at 11:15 EDT ,
[2023-03-02 09:46] LABS: Erythrocyte Sedimentation Rate 37 mm/hr (0-30)
[2023-03-02 10:14] LABS: AST(SGOT) 15 U/L (15-37); Alanine Aminotransfer ALT/SGPT 15 U/L (13-56); Albumin, Serum 3.1 g/dL (3.2-5.0); Alkaline Phosphatase 152 U/L (45-117); Bilirubin, Direct 0.07 mg/dL (0.00-0.30); CRP 9.17 mg/L (0.0-3.0); Globulin 4.1 g/dL (2.2-4.2); Protein, Total 7.2 g/dL (6.4-8.2)
== END | disposition home or self-care (01) ==
PROVIDERS: PCP Registered Nurse; Referring Provider Nurse Practitioner Adult Health; Visit Provider Nurse Practitioner Adult Health
DX: K76.0 Fatty (change of) liver, not elsewhere classified (principal)
CPT/HCPCS: 36415; 76705; 76981; 80076; 85652; 86140

== ENCOUNTER 2023-07-11 18:25 | Emergency (ER) | payer BC, SELFPAY ==
[2023-07-11 18:28] VITALS: BP 156/82; PULSE 85; RESP 20; TEMP 36.3; O2SAT 98; BMI 44.8
--- NOTE | 2023-07-11 19:38 | ED.VIS.DYS ---
HPI History of Present Illness Chief Complaint: Shortness of Breath Narrative Narrative: 52-year-old female presenting with shortness of breath. She states this is becoming somewhat chronic in nature. She has a history of asthma and she states that yearly she has an exacerbation and she is typically treated with antibiotics and steroids. She states she initially had a round of Augmentin and a Medrol Dosepak. This did not work so she was given a second round of Medrol and placed on doxycycline. Apparently she has been placed on about 8 weeks of this because she has some kind of chronic rash on the lower lip and she has been taking this. She now has a hoarse voice and feels like her lungs are irritated. She has not had fever, chills. She does feel like she might be a little short of breath. Patient states has been able to eat and drink normally. She has been making normal urine and stools. She denies outright chest pain. No history of DVT/PE. PE Risk Factors: Negative for Cancer, OCP + Smoking + > 35, Prior DVT or PE, Recent immobilization, Recent surgery or Recent travel [facility] Medical History Anxiety Arthritis Asthma Gastric reflux History of echocardiogram History of IBS History of steroid therapy Hypothyroidism Non-smoker Thyroid disease Home Medications levothyroxine 125 mcg tablet 137 mcg PO DAILY 01/28/19 [History Last Taken 10/31/22] escitalopram oxalate 20 mg tablet 20 mg PO DAILY 07/29/22 [History Last Taken 10/31/22] omeprazole 20 mg capsule,delayed release 40 mg PO DAILY 07/29/22 [History Last Taken 10/31/22] albuterol sulfate 90 mcg/actuation aerosol inhaler 1 - 2 puff inhalation PRN PRN ASTHMA 10/29/22 [History Last Taken 10/31/22] doxycycline hyclate 100 mg tablet 100 mg PO Q12H 07/11/23 [History Last Taken Unknown] ursodiol 250 mg tablet 250 mg PO DAILY 07/11/23 [History Last Taken Unknown] Allergy/AdvReac Type Severity Reaction Status Date / Time azithromycin Allergy Hives Verified 07/11/23 18:27 [From Zithromax Z-Miky] cyclobenzaprine HCl Allergy Unknown Verified 07/11/23 18:27 [From Flexeril] esomeprazole magnesium Allergy Unknown Verified 07/11/23 18:27 [From Nexium] Sulfa (Sulfonamide Allergy Unknown Verified 07/11/23 18:27 Antibiotics) Surgical History History of cholecystectomy Hx of foot surgery Hx of knee surgery Hx of tonsillectomy Social History Smoking Status: Never smoker ROS ROS ED Constitutional Constitutional ED: Denies chills, fever(s) or sweats Eyes Eyes: Denies blurry vision or change in vision ENT ENT ED: Denies ear pain or sore throat Cardiovascular Cardiovascular: Denies chest pain, palpitations or racing heartbeat Respiratory/Chest Respiratory/Chest: Reports dyspnea; Denies cough or sputum Gastrointestinal Gastrointestinal: Denies abdominal pain, constipation, diarrhea, nausea or vomiting Genitourinary Genitourinary ED: Denies dysuria, hematuria or urinary frequency Musculoskeletal Musculoskeletal: Denies arthralgias, myalgias or neck pain Integumentary Denies abscess, Abrasions or rash Neurologic Neurologic: Denies headache(s), paresthesias or weakness Psychiatric Psychiatric: Denies anxiety, depression, suicidal ideation or suicidal thoughts Endocrine Endocrinology: Denies polydipsia or polyuria EXAM Physical Exam Const Vital Signs: 07/11/23 18:28 07/11/23 19:02 07/11/23 20:45 Temperature 97.4 F L Temperature Source Temporal Pulse Rate 85 65 Respiratory Rate 20 H 18 Respiratory Effort Normal Non-Labored Respiratory Depth Normal Respiratory Pattern Normal Blood Pressure 156/82 H Blood Pressure Mean 106 Pulse Ox 98 Oxygen Delivery Method Room Air 07/11/23 21:29 Temperature Temperature Source Pulse Rate Respiratory Rate Respiratory Effort Respiratory Depth Respiratory Pattern Blood Pressure 174/68 H Blood Pressure Mean 103 Pulse Ox Oxygen Delivery Method Positive well nourished General Appearance ED: NAD; Negative for pallor HEENT Reports dry mucous membranes Mouth ED: Yes dry mucous membranes Mouth: dry mucous membranes Neck no lymphadenopathy and supple Resp normal respiratory effort and clear to auscultation bilaterally Cardio regular rate and regular rhythm GI non-tender and non-distended Auscultation: normoactive bowel sounds Extremity normal to inspection Neuro oriented x3 and CN's II-XII intact bilaterally Sensorium / Orientation: alert Psych mental status grossly normal Skin no wounds General Skin Exam: Negative for jaundice or pallor MDM MDM MDM Narrative Medical decision making narrative: 52-year-old female presenting with discomfort in her chest but not really a cardiac issue. She had this since she had a viral syndrome and she has been on 2 courses of Medrol Dosepak without any relief. She is also been on Augmentin and doxycycline and this is not improving her symptoms either. She sees a nurse practitioner. She states that she supposed to be on an extended course of doxycycline because she had some irritation of the skin on her lip and her nurse practitioner wanted to treat this long-term to see if it would improve with doxycycline. Patient states that she was sent here to be reevaluated because she is not getting better with the treatment that she is on. She has a hoarse voice which has been there since her initial treatment. Her physical exam is within normal limits and her heart is regular rate and rhythm without murmur. Respiratory rate is normal. Lungs clear to auscultation bilaterally. Patient is not describing any sort of chest pain at all more of a dyspnea. She does have a history of asthma in the past but she is not wheezing on exam. Differential does include pneumonia or postviral syndrome. I do not suspect ACS or PE. She is currently PERC negative. Wells score for PE is also 0. I will obtain a chest x-ray two-view to rule out pneumonia. CBC and BMP were ordered to assess her hemoglobin, white blood cell count, electrolytes, renal function. These are all normal. We did discuss doing a DuoNeb to see if this would open up a little bit she says she feels better after a DuoNeb. This point feel the patient stable for discharge. I will have her follow-up with her PCP to ensure resolution. Impression: 1. Dyspnea Lab Data Attestation: I reviewed the patient's lab results. Labs: Laboratory Results - last 24 hr 07/11/23 19:10 WBC 9.3 RBC 4.73 Hgb 13.1 Hct 41.1 MCV 86.9 MCH 27.7 MCHC 31.9 L RDW Std Deviation 47.1 H RDW Coeff of Renée 14.7 H Plt Count 258 MPV 9.9 Immature Gran % (Auto) 0.800 Neut % (Auto) 52.1 Lymph % (Auto) 38.7 [place] % (Auto) 7.2 Eos % (Auto) 0.9 Baso % (Auto) 0.3 Absolute Neuts (auto) 4.8 Absolute Lymphs (auto) 3.59 Nucleated RBC % 0 Sodium 138 Potassium 3.5 Chloride 104 Carbon Dioxide 28.0 Anion Gap 6 BUN 21 H Creatinine 0.92 Estim Creat Clear Calc 72.98 Est GFR (MDRD) Af Amer 83 Est GFR (MDRD) Non-Af 69 BUN/Creatinine Ratio 22.9 H Glucose 108 H Calcium 8.9 Radiography Diagnostic Testing: Clinical Impression(s) from Imaging Studies Chest X-Ray 07/11/23 19:55 IMPRESSION: 1. No radiographic evidence of acute cardiopulmonary disease. Electronically Signed: Tariq Dueñas DO at 20:37 EDT , Discharge Plan Triage Chief Complaint: Shortness of Breath Other Complaint: Chest Pain ED Provider: Donald Arthur Dx/Rx/DC Orders Instructions: ED Dyspnea Prescriptions: No Action levothyroxine 125 MCG tablet 137 mcg PO DAILY omeprazole 20 mg capsule,delayed release(DR/EC) 40 mg PO DAILY escitalopram oxalate 20 mg tablet 20 mg PO DAILY albuterol sulfate 90 mcg/actuation HFA aerosol inhaler 1 - 2 puff INHALATION PRN PRN (Reason: ASTHMA) Patient Comments: INHALE 2 PUFFS BY MOUTH EVERY 4 TO 6 HOURS ursodiol 250 mg tablet 250 mg PO DAILY doxycycline hyclate 100 mg tablet 100 mg PO Q12H Primary Care Provider: Leticia Amor NP Referrals: Leticia Amor NP, [employer] [Primary Care Provider] - Disposition Disposition: Home, Self Care Discharge Date/Time: 07/11/23 21:30
--- NOTE | 2023-07-11 19:55 | RAD_ITS ---
INDICATION: dyspnea EXAMINATION/TECHNIQUE: X-RAY - XR Chest 2 Views COMPARISON: Chest x-ray October 09, 2015. FINDINGS: LINES/DEVICES: None. LUNGS: Symmetric normal lung volumes. No airspace opacity or abnormal interstitial pattern. No nodule or mass. No pleural effusion or pneumothorax. MEDIASTINUM AND CARDIOVASCULAR STRUCTURES: Normal size and contour of the cardiomediastinal silhouette. No evidence of pulmonary vascular congestion. BONES AND SOFT TISSUES: No fracture or focal osseous lesion. RAD/Chest PA and Lateral IMPRESSION: 1. No radiographic evidence of acute cardiopulmonary disease. Electronically Signed: Tariq Dueñas DO at 20:37 EDT ,
[2023-07-11 19:56] LABS: Absolute Lymphocyte Count 3.59 X10^3/uL (0.83-4.51); Absolute Neutrophil Count 4.8 X10^3/uL (2.0-7.7); Basophil# 0.03 X10^3/uL; Basophil% 0.3 % (0-1); Eosinophil# 0.08 X10^3/uL; Eosinophils% 0.9 % (0-5); Hematocrit 41.1 % (37-47); Hemoglobin 13.1 g/dL (12.0-15.0); Lymphocyte # 3.59 X10^3/ul (0.83-4.51); Lymphocyte % 38.7 % (19-41); Mean Corp Hgb Conc 31.9 g/dL (32-36); Mean Corpuscular Hgb 27.7 pg (27.0-32.0); Mean Corpuscular Volume 86.9 fL (81-99); Mean Platelet Vol. 9.9 fl (6.2-12.0); Monocyte# 0.67 X10^3/uL; Monocyte% 7.2 % (0-10); NRBC Flagged by Analyzer 0 % (0-5); Neutrophil # 4.83 X10^3/uL (2.7-7.7); Neutrophil % 52.1 % (47-70); Platelet Count 258 K/mm3 (150-450); RBC Distribution Width CV 14.7 % (11.6-14.6); RBC Distribution Width SD 47.1 fl (35.1-43.9); Red Blood Count 4.73 M/mm3 (4.2-5.4); White Blood Count 9.3 K/mm3 (4.4-11.0)
[2023-07-11 20:11] LABS: Anion Gap 6 (5-15); BUN 21 mg/dL (7-18); BUN/Creat Ratio 22.9 RATIO (10-20); Calcium,Total 8.9 mg/dL (8.5-10.1); Chloride 104 mmol/L (98-107); Creatinine, Serum 0.92 mg/dL (0.55-1.02); EST Glomerular Filtration Rate 69 mL/min (>60); Est Glom Filt Rate - Afr Amer 83 mL/min (>60); Estimated Creatinine Clearance 72.98 ml/min; Glucose 108 mg/dL (74-106); Potassium 3.5 mmol/L (3.5-5.1); Sodium Level 138 mmol/L (136-145)
[2023-07-11 20:45] VITALS: PULSE 65; RESP 18
[2023-07-11] MEDS: Ipratropium/Albuterol Sulfate 3 ML AMPUL.NEB INHALATION (20:45)
[2023-07-11 21:29] VITALS: BP 174/68
== END 2023-07-11 21:30 | disposition home or self-care (01) ==
PROVIDERS: Emergency Provider Student in an Organized Health Care Education/Training Program; PCP Registered Nurse; Visit Provider Student in an Organized Health Care Education/Training Program
DX: R06.02 Shortness of breath (principal)
CPT/HCPCS: 71046; 80048; 85025; 94640; 99284; A4216

== ENCOUNTER → 2023-09-28 | Outpatient (CLI) | payer BC, SELFPAY ==
--- NOTE | 2023-09-30 07:59 | PFTCOMP ---
COMPLETE PULMONARY FUNCTION TEST INTERPRETATION Brief HPI: Patient is a 52-year-old female, currently under the care of myself, who presents to [facility] for complete pulmonary function tests secondary to diagnosis of dyspnea. Respiratory therapist reports good effort and reproducible results. Interpretation: Forced expiration spirometry shows no large airways obstructive ventilatory defect with an FEV1 of 94% predicted. There is no significant bronchodilator response by strict ATS criteria. Spirograms are of good quality and plateau slowly, indicating slowly emptying areas of the lungs. The respiratory flow volume loop shows decreased expiratory flow rates at high lung volumes consistent with small airways obstruction. Lung volumes by body plethysmography show a normal total lung capacity at 5.4 L, 96% predicted. All other lung volumes are within normal limits. Diffusion capacity by carbon monoxide is normal at 100% predicted. The airway resistance is normal. No previous pulmonary function tests were available for review. Impression: These pulmonary function tests are grossly within normal limits, but there is some suggestion of possible small airways disease. Consider methacholine challenge if asthma is being considered
== END | disposition home or self-care (01) ==
LOC: PSN 09:30
PROVIDERS: PCP Registered Nurse; Referring Provider Internal Medicine Critical Care Medicine; Visit Provider Internal Medicine Critical Care Medicine
DX: R06.02 Shortness of breath (principal)
CPT/HCPCS: 94060; 94726; 94729

== ENCOUNTER → 2023-10-25 | Outpatient (CLI) | payer BC, SELFPAY | END | disposition home or self-care (01) | LOC: SL 09:20 | PROVIDERS: PCP Registered Nurse; Referring Provider Internal Medicine Critical Care Medicine; Visit Provider Internal Medicine Critical Care Medicine | DX: G47.10 Hypersomnia, unspecified (principal) | CPT/HCPCS: 95806 ==

== ENCOUNTER → 2023-12-14 | Outpatient (CLI) | payer BC, SELFPAY ==
--- OUTSIDE RECORDS SUMMARY | 2023-12-14 07:17 | XMS RPT_ITS | CCD ---
Author Name Unknown Address [address] [place] [address] Organization [facility] Care Team Providers Care Operator Electronic War[employer] Name Role Phone VICKI BOOKER Unavailable Unavailable ADE VICKI Unavailable Unavailable RENATE AUSTIN Unavailable Unavailable Machelle Harry MD Primary Care Provider Machelle Harry MD Primary Care Provider Machelle Harry MD Primary Care Provider DR MACHELLE HARRY MD Primary Care Physician PIERO AGUILLON., DR. CARTY Primary Care Unavail able JEFF CHILDERS Attending Unavailable PIREO AMARAL, DR. CARTY Primary Care Unavail JEFF Campos Attending Unavailable Machelle Harry MD Primary Care Provider LETICIA AMOR Referring Unavailable MACHELLE HARRY Primary Care Unavailable FREDDIE HANNA Referring Unavailable MACHELLE HARRY Primary Care Unavailable KATHE PARKER Attending Unavailable FREDDIE HANNA Referring Unavailable MACHELLE HARRY Primary Care Unavailable KATHE PARKER Attending Unavailable TESTFREDDIE ALMENDAREZ Referring Unavailable MACHELLE HARRY Primary Care Unavailable TESTFREDDIE ALMENDAREZ Attending Unavailable MACHELLE HARRY Primary Care Unavailable DIOGENES LETICIA Referring Unavailable MACHELLE HARRY Primary Care Unavailable DIOGENES LETICIA Attending Unavailable MACHELLE HARRY Primary Care Unavailable EVA GRIFFITH Attending Unavailable JODI KATHE Attending Unavailable TESTRADIONNE, FREDDIE Referring Unavailable MACHELLE HARRY Primary Care Unavailable PARKER, KATHE Attending Unavailable TESTRADIONNE, FREDDIE Referring Unavailable MACHELLE HARRY Primary Care Unavailable CHRIS PARKERA Attending Unavailable TESTRAFREDDIE TRUONG Referring Unavailable ELDERBROCK, MACHELLE D Primary Care Unavailable ELDERBROCK, MACHELLE D Primary Care Unavailable EVA GRIFFITH Referring Unavailable ELDERBROCK, MACHELLE D Primary Care Unavailable HAAGEN, LETICIA Referring Unavailable ELDERBROCK, MACHELLE D Primary Care Unavailable LORENZO MARS Referring Unavailable NEVILLE GRULLON Attending Unavailable TESTFREDDIE ALMENDAREZ Attending Unavailable TESTRAKE, FREDDIE Referring Unavailable ELDERBROCK, MACHELLE D Primary Care Unavailable ELDERBROCK, MACHELLE D Primary Care Unavailable KRISTIN CABRERA Attending Unavailab le ELDERBROCK, MACHELLE D Primary Care Unavailable HAAGEN, LETICIA Attending Unavailable ELDERBROCK, MACHELLE D Primary Care Unavailable HAAGEN, LETICIA Attending Unavailable ELDERBROCK, MACHELLE D Primary Care Unavailable HAAGEN, LETICIA Referring Unavailable ANTOINE NAM Attending Unavailable ELDERBROCK, MACHELLE D Primary Care Unavailable HAAGEN, LETICIA Referring Unavailable ELDERBROCK, MACHELLE D Primary Care Unavailable LAUREN CRISOSTOMO Attending Unavailable ELDERBROCK, MACHELLE D Primary Care Unavailable ELDERBROCK, MACHELLE D Primary Care Unavailable ELDERBROCK, MACHELLE D Primary Care Unavailable HAAGEN, LETICIA Attending Unavailable ELDERBROCK, MACHELLE D Primary Care Unavailable HAAGEN, LETICIA Attending Unavailable TESTFREDDIE ALMENDAREZ Referring Unavailable ELDERBROCK, MACHELLE D Primary Care Unavailable ELDERBROCK, MACHELLE D Primary Care Unavailable HAAGEN, LETICIA Attending Unavailable ELDERBROCK, MACHELLE D Primary Care Unavailable ELDERBROCK, MACHELLE D Primary Care Unavailable HAAGEN, LETICIA Attending Unavailable ELDERBROCK, MACHELLE D Primary Care Unavailable HAAGEN, LETICIA Attending Unavailable CRISOSTOMO, LAUREN Attending Unavailable ELDERBROCK, MACHELLE D Primary Care Unavailable ELDERBROCK, MACHELLE D Primary Care Unavailable ELDERBROCK, MACHELLE D Primary Care Unavailable SILVIA THOMAS R Referring Unavailable ELDERBROCK, MACHELLE D Primary Care Unavailable DURGA MARSE Attending Unavailable ELDERBROCK, MACHELLE D Primary Care Unavailable Allergies Allergy Classification Reported Allergen(s) Allergy Type Date of Onset Reaction(s) Facility (20 sources) Adhesive Tape; Translations: [ADHESIVE TAPE (ROSINS)] Allergy to substance 07-15-20 11 Rash, Swelling [facility] Work Phone: (20 sources) cyclobenzaprine; Translations: [CYCLOBENZAPRINE HCL] Drug Allergy 07-07-20 06 [facility] Work Phone: (20 sources) Esomeprazole; Translations: [ESOMEPRAZOLE MAGNESIUM] Drug Allergy 07-07-20 [facility] Work Phone: (20 sources) Minocycline; Translations: [MINOCYCLINE] Drug Allergy 07-21-20 11 GI Upset [facility] (20 sources) Sulfamethoxazole / Trimethoprim; Translations: [SULFAMETHOXAZOLE-TR IMETHOPRIM] Drug Allergy 07-07-20 [facility] Work Phone: [phone] (20 sources) Sulfonamides (Antibiotic); Translations: [sulfa drugs] Propensity to adverse reactions 07-07-20 Fever, Hives [facility] Work Phone: (20 sources) zithromaxz [Other] Propensity to adverse reactions 07-07-20 [facility] Work Phone: (2 sources) Codeine; Translations: [codeine] Drug Allergy [facility] Medications Current Medications Medication Drug Class(es) Dates Sig (Normalized) Sig (Original) albuterol MDI (90 mcg/inh) CFC free inhalation aerosol (2 sources) Start: 09-27-2022 take 2 puff(s) by inhalation every six hours as needed for wheezing albuterol MDI (90 mcg/inh) CFC free inhalation aerosol 2 puff(s), Inhalation, q6h, PRN as needed for wheezing, # 8.5 gram(s), 0 Refill(s) Start Date: 09/27/22 Status: Ordered amoxicillin 875 mg / clavulanate 125 mg oral tablet (3 sources) Penicillin-class Antibacterial Start: 06-01-2023 End: 06-06-2023 take 1 tablet by mouth twice daily amoxicillin-clav ulanic acid (AUGMENTIN) 875-125 mg per tablet Take 1 tablet by mouth twice daily for 5 days. 10 tablet 0 06/01/2023 06/06/2023 Active Completed/Discontinued Medications Medication Drug Class(es) Dates Sig (Normalized) Sig (Original) [id number] 200 actuat albuterol 0.09 mg/actuat metered dose inhaler (9 sources) beta2-Adrenergic Agonist Start: 11-09-2023 take 2 puff(s) by inhalation every four hours as needed for wheezing albuterol HFA (VENTOLIN HFA) 90 mcg/actuation inhaler Inhale 2 Puffs as instructed every 4 hours as needed for wheezing/shortnes s of breath. 1 Each 0 11/09/2023 Active Problems Active Problems Problem Classification Problem Date Documented Da te Episodic/Chronic Abdominal pain (3 sources) Epigastric pain; Translations: [Epigastric pain] Episodic Anxiety disorders (20 sources) Generalized anxiety disorder; Translations: [Generalized anxiety disorder] Onset: 06-11-2022 06-11-2022 Chronic Diabetes mellitus without complication (1 source) Impaired fasting glycemia; Translations: [Impaired fasting glucose] 07-20-2023 Episodic Influenza (2 sources) Influenza due to Influenza A virus; Translations: [Influenza due to other identified influenza virus with other respiratory manifestations] 11-10-2023 Episodic Malaise and fatigue (1 source) Fatigue; Translations: [Other fatigue] Episodic Neoplasms of unspecified nature or uncertain behavior (3 sources) Neoplasm of ear; 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] Onset: 10-19-2023 10-04-2023 Episodic Other connective tissue disease (2 sources) Muscle pain; Translations: [Myalgia, unspecified site] Episodic Other connective tissue disease (13 sources) Pain in both feet; Translations: [Pain in right foot] Onset: 02-16-2023 Episodic Other connective tissue disease (13 sources) Plantar fasciitis; Translations: [Plantar fascial fibromatosis] Onset: 02-16-2023 Episodic Other connective tissue disease (1 source) Subjective muscle weakness; Translations: [Muscle weakness (generalized)] Episodic Other connective tissue disease (1 source) Right achilles tendonitis; Translations: [Achilles tendinitis, right leg] 2023 Episodic Other ear and sense organ disorders (8 sources) Otalgia, left ear; Translations: [Otalgia, unspecified] Onset: 10-04-2023 10-04-2023 Episodic Other inflammatory condition of skin (1 source) Perioral dermatitis; Translations: [Perioral dermatitis] 07-04-2023 Chronic Other inflammatory condition of skin (1 source) Perioral dermatitis; Translations: [Perioral dermatitis] Onset: 07-04-2023 Chronic Other injuries and conditions due to external causes (1 source) Contusion; Translations: [Other injury of unspecified body region, initial encounter] Episodic Other injuries and conditions due to external causes (1 source) Local infection of wound; Translations: [Other injury of unspecified body region, initial encounter] Episodic Other injuries and conditions due to external causes (1 source) Injury of right ankle; Translations: [Unspecified injury of right ankle, initial encounter] 2023 Episodic Other injuries and conditions due to external causes (1 source) Unspecified injury of right ankle, initial encounter; Translations: [Injury of right ankle, initial encounter] Onset: 2023 Episodic Other liver diseases (5 sources) Alkaline phosphatase raised; Translations: [Abnormal levels of other serum enzymes] Episodic Other lower respiratory disease (2 sources) Cough; Translations: [Acute cough] Episodic Other lower respiratory disease (1 source) Dyspnea; Translations: [Shortness of breath] 07-11-2023 Episodic Other nervous system disorders (1 source) Other chronic pain; Translations: [Chronic pain of right ankle] Onset: 03-30-2023 Chronic Other non-traumatic joint disorders (6 sources) Acute ankle pain; Translations: [Pain in right ankle and joints of right foot] Episodic Other non-traumatic joint disorders (3 sources) Chronic ankle pain; Translations: [Pain in right ankle and joints of right foot] Episodic Other non-traumatic joint disorders (1 source) Joint pain; Translations: [Pain in unspecified joint] Episodic Other non-traumatic joint disorders (1 source) Pain in right hip joint; Translations: [Pain in right hip] Episodic Other nutritional; endocrine; and metabolic disorders (20 sources) Body mass index 40+ - severely obese; Translations: [Morbid (severe) obesity due to excess calories] Onset: 09-01-2022 Chronic Other nutritional; endocrine; and metabolic disorders (2 sources) Weight gain; Translations: [Abnormal weight gain] Episodic Other upper respiratory infections (4 sources) Chronic sinusitis; Translations: [Chronic sinusitis, unspecified] Onset: 07-04-2023 Chronic Other upper respiratory infections (2 sources) Acute sinusitis; Translations: [Other acute sinusitis] Episodic Residual codes; unclassified (2 sources) Pain; Translations: [Pain, unspecified] Episodic Thyroid disorders (20 sources) Hypothyroidism; Translations: [Hypothyroidism, unspecified] Onset: 10-10-2017 02-14-2019 Chronic Unclassified (1 source) Acute cough; Translations: [Acute cough] Onset: 06-01-2023 Viral infection (3 sources) Viral disease; Translations: [Viral infection, unspecified] Episodic Past or Other Problems Problem Classification Problem Date Documented Da te Episodic/Chronic Allergic reactions (3 sources) Disorder of lip; Translations: [Dermatitis, unspecified] Onset: 03-09-2023 Episodic Anal and rectal conditions (20 sources) Anal fissure; Translations: [Anal fissure, unspecified] Onset: 07-07-2006 07-07-2006 Episodic Chronic obstructive pulmonary disease and bronchiectasis (1 source) Bronchitis, not specified as acute or chronic; Translations: [Sinobronchitis] Onset: 07-04-2023 Episodic Nonspecific chest pain (2 sources) Chest discomfort; Translations: [Other chest pain] Onset: 07-11-2023 07-11-2023 Episodic Other connective tissue disease (20 sources) Paraparesis; Translations: [Other symptoms and signs involving the musculoskeletal system] Onset: 04-22-2021 04-22-2021 Episodic Other connective tissue disease (1 source) Other symptoms and signs involving the musculoskeletal system; Translations: [Other musculoskeletal symptoms referable to limbs] Onset: 04-22-2021 04-22-2021 Episodic Other connective tissue disease (1 source) Myalgia, unspecified site; Translations: [Myalgia] Onset: 05-25-2023 Episodic Other connective tissue disease (1 source) Plantar fascial fibromatosis; Translations: [Plantar fasciitis] Onset: 02-16-2023 Episodic Other connective tissue disease (1 source) Pain in right foot; Translations: [Foot pain, bilateral] Onset: 02-09-2023 Episodic Other connective tissue disease (1 source) Pain in left foot; Translations: [Foot pain, bilateral] Onset: 02-09-2023 Episodic Other gastrointestinal disorders (20 sources) Diarrhea; Translations: [Diarrhea, unspecified] Onset: 08-11-2006 08-11-2006 Episodic Other inflammatory condition of skin (20 sources) Pruritus ani; Translations: [Pruritus ani] Onset: 07-07-2006 07-07-2006 Episodic Other injuries and conditions due to external causes (2 sources) Other injury of unspecified body region, initial encounter; Translations: [Bruising] Onset: 03-09-2023 Episodic Other lower respiratory disease (1 source) Shortness of breath; Translations: [SOB (shortness of breath)] Onset: 07-11-2023 Episodic Other nervous system disorders (20 sources) Paresthesia of lower extremity; Translations: [Anesthesia of skin] Onset: 04-22-2021 04-22-2021 Episodic Other non-traumatic joint disorders (20 sources) Hip pain; Translations: [Pain in right hip] Onset: 04-22-2021 04-22-2021 Episodic Other non-traumatic joint disorders (7 sources) Pain in left knee; Translations: [Pain in joint, lower leg] Onset: 03-09-2023 Episodic Other non-traumatic joint disorders (2 sources) Pain in right ankle and joints of right foot; Translations: [Chronic pain of right ankle] Onset: 03-09-2023 Episodic Other non-traumatic joint disorders (1 source) Pain in unspecified joint; Translations: [Arthralgia, unspecified joint] Onset: 05-25-2023 Episodic Other screening for suspected conditions (not mental disorders or infectious disease) (10 sources) Patient encounter status; Translations: [Encounter for screening mammogram for malignant neoplasm of breast] Onset: 03-09-2023 Episodic Residual codes; unclassified (1 source) Pain, unspecified; Translations: [Pain] Onset: 02-09-2023 Episodic Results Test Name Value Interpretation Reference Range Facil ity Vital Signs Date Time Vital Sign Value Performing Clinician Faci yasmine 11-10-2023 10:15-0500 Body temperature 99 [degF] Dallas Cardenas MD Work Phone: [facility] 11-10-2023 10:15-0500 Body weight 127.73 kg Dallas Cardenas MD Work Phone: [facility] 11-10-2023 10:15-0500 Diastolic blood pressure 90 mm[Hg] Dallas Cardenas MD Work Phone: [facility] 11-10-2023 10:15-0500 Heart rate 115 /min Dallas Cardenas MD Work Phone: [facility] 11-10-2023 10:15-0500 Respiratory rate 21 /min Dallas Cardenas MD Work Phone: [facility] 11-10-2023 10:15-0500 SaO2% (BldA) [Mass fraction] 97 % Dallas Cardenas MD Work Phone: [facility] 11-10-2023 10:15-0500 Systolic blood pressure 132 mm[Hg] Dallas Cardenas MD Work Phone: [facility] 2023 08:34-0500 Body temperature 97.3 [degF] Silvia Athy PA-C Work Phone: [facility] 2023 08:34-0500 Diastolic blood pressure 81 mm[Hg] Silvia Athy PA-C Work Phone: [facility] 2023 08:34-0500 Heart rate 76 /min Silvia Athy PA-C Work Phone: [facility] 2023 08:34-0500 Respiratory rate 18 /min Silvia Athy PA-C Work Phone: [facility] 2023 08:34-0500 SaO2% (BldA) [Mass fraction] 98 % Silvia Athy PA-C Work Phone: [facility] 2023 08:34-0500 Systolic blood pressure 119 mm[Hg] Silvia Athy PA-C Work Phone: [facility] 10-04-2023 09:30-0500 Body height 172.7 cm Eva Griffith DO Work Phone: [facility] 10-04-2023 09:30-0500 Body weight 127.01 kg Eva Griffith DO Work Phone: [facility] 10-04-2023 09:30-0500 Diastolic blood pressure 85 mm[Hg] Eva Griffith DO Work Phone: [facility] 10-04-2023 09:30-0500 Heart rate 67 /min Eva Griffith DO Work Phone: [facility] 10-04-2023 09:30-0500 Systolic blood pressure 124 mm[Hg] Eva Griffith DO Work Phone: [facility] 07-20-2023 08:36-0400 Body weight 133.18 kg Lauren Crisostomo DIRECT ENTRY MIDWIFE.C INFANTRYMAN Work Phone: [facility] 07-20-2023 08:36-0400 Diastolic blood pressure 70 mm[Hg] Lauren Crisostomo DIRECT ENTRY MIDWIFE.[employer] Work Phone: [facility] 07-20-2023 08:36-0400 Heart rate 64 /min Lauren Crisostomo DIRECT ENTRY MIDWIFE.C INFANTRYMAN Work Phone: [facility] 07-20-2023 08:36-0400 Respiratory rate 14 /min Lauren Crisostomo DIRECT ENTRY MIDWIFE.C INFANTRYMAN Work Phone: [facility] 07-20-2023 08:36-0400 Systolic blood pressure 138 mm[Hg] Lauren Crisostomo DIRECT ENTRY MIDWIFE.[employer] Work Phone: [facility] 07-11-2023 17:26-0400 Diastolic blood pressure 92 mm[Hg] Leticia Haagen DIRECT ENTRY MIDWIFE.[employer] Work Phone: [facility] 07-11-2023 17:26-0400 Heart rate 76 /min Leticia Haagen DIRECT ENTRY MIDWIFE.[employer] Work Phone: [facility] 07-11-2023 17:26-0400 Respiratory rate 16 /min Leticia Haagen DIRECT ENTRY MIDWIFE.[employer] Work Phone: [facility] 07-11-2023 17:26-0400 SaO2% (BldA) [Mass fraction] 96 % Leticia Haagen DIRECT ENTRY MIDWIFE.[employer] Work Phone: [facility] 07-11-2023 17:26-0400 Systolic blood pressure 138 mm[Hg] Leticia Haagen DIRECT ENTRY MIDWIFE.[employer] Work Phone: [facility] 07-04-2023 17:36-0400 Body temperature 98.71 [degF] Leticia Haagen DIRECT ENTRY MIDWIFE.[employer] Work Phone: [facility] 07-04-2023 17:36-0400 Diastolic blood pressure 90 mm[Hg] Leticia Haagen DIRECT ENTRY MIDWIFE.[employer] Work Phone: [facility] 07-04-2023 17:36-0400 Heart rate 64 /min Leticia Haagen DIRECT ENTRY MIDWIFE.[employer] Work Phone: [facility] 07-04-2023 17:36-0400 Respiratory rate 16 /min Leticia Haagen DIRECT ENTRY MIDWIFE.[employer] Work Phone: [facility] 07-04-2023 17:36-0400 SaO2% (BldA) [Mass fraction] 98 % Leticia Haagen DIRECT ENTRY MIDWIFE.[employer] Work Phone: [facility] 07-04-2023 17:36-0400 Systolic blood pressure 128 mm[Hg] Leticia Haagen DIRECT ENTRY MIDWIFE.[employer] Work Phone: [facility] 06-01-2023 14:33-0400 Body temperature 98.6 [degF] Krislyn Aberegg PA Work Phone: [facility] 06-01-2023 14:33-0400 Body weight 131.54 kg Krislyn Aberegg PA Work Phone: [facility] 06-01-2023 14:33-0400 Diastolic blood pressure 64 mm[Hg] Krislyn Aberegg PA Work Phone: [facility] 06-01-2023 14:33-0400 Heart rate 84 /min Krislyn Aberegg PA Work Phone: [facility] 06-01-2023 14:33-0400 Respiratory rate 18 /min Krislyn Aberegg PA Work Phone: [facility] 06-01-2023 14:33-0400 SaO2% (BldA) [Mass fraction] 97 % Krislyn Aberegg PA Work Phone: [facility] 06-01-2023 14:33-0400 Systolic blood pressure 106 mm[Hg] Krislyn Aberegg PA Work Phone: [facility] 05-25-2023 08:04-0400 Body temperature 98.01 [degF] Neville Ziganti PA-C Work Phone: [facility] 05-25-2023 08:04-0400 Body weight 131.72 kg Neville Ikerganti PA-C Work Phone: [facility] 05-25-2023 08:04-0400 Diastolic blood pressure 74 mm[Hg] Neville Ziganti PA-C Work Phone: [facility] 05-25-2023 08:04-0400 Heart rate 74 /min Nevillejustin Rutledgeti PA-C Work Phone: [facility] 05-25-2023 08:04-0400 Systolic blood pressure 125 mm[Hg] Neville Ziganti PA-C Work Phone: [facility] 05-21-2023 13:02-0400 Body temperature 98.01 [degF] Betty Veras APRN.[employer] Work Phone: [facility] 05-21-2023 13:02-0400 Diastolic blood pressure 78 mm[Hg] Betty Veras APRN.[employer] Work Phone: [facility] 05-21-2023 13:02-0400 Heart rate 80 /min Betty eVras APRN.[employer] Work Phone: [facility] 05-21-2023 13:02-0400 Respiratory rate 16 /min Betty Veras APRN.[employer] Work Phone: [facility] 05-21-2023 13:02-0400 SaO2% (BldA) [Mass fraction] 97 % Betty Veras APRN.[employer] Work Phone: [facility] 05-21-2023 13:02-0400 Systolic blood pressure 132 mm[Hg] Betty Veras APRN.[employer] Work Phone: [facility] 05-09-2023 08:38-0400 Body temperature 98.6 [degF] Lorenzo Bennett DIRECT ENTRY MIDWIFE.[employer] Work Phone: [facility] 05-09-2023 08:38-0400 Body weight 130.09 kg Lorenzo Bennett DIRECT ENTRY MIDWIFE.[employer] Work Phone: [facility] 05-09-2023 08:38-0400 Diastolic blood pressure 83 mm[Hg] Lorenzo Bennett DIRECT ENTRY MIDWIFE.[employer] Work Phone: [facility] 05-09-2023 08:38-0400 Heart rate 79 /min Lorenzo Bennett DIRECT ENTRY MIDWIFE.[employer] Work Phone: [facility] 05-09-2023 08:38-0400 Respiratory rate 16 /min Lorenzo Bennett DIRECT ENTRY MIDWIFE.[employer] Work Phone: [facility] 05-09-2023 08:38-0400 SaO2% (BldA) [Mass fraction] 97 % Lorenzo Mars DIRECT ENTRY MIDWIFE.[employer] Work Phone: [facility] 05-09-2023 08:38-0400 Systolic blood pressure 128 mm[Hg] Lorenzo Bennett DIRECT ENTRY MIDWIFE.[employer] Work Phone: [facility] 03-21-2023 08:00-0400 Body height 174 cm Antoine Nam MD Work Phone: [facility] 03-21-2023 08:00-0400 Body weight 122.47 kg Antoine Nam MD Work Phone: [facility] 03-09-2023 08:39-0400 Diastolic blood pressure 82 mm[Hg] Leticia Amor DIRECT ENTRY MIDWIFE.[employer] Work Phone: [facility] 03-09-2023 08:39-0400 Heart rate 82 /min Leticia Amor DIRECT ENTRY MIDWIFE.[employer] Work Phone: [facility] 03-09-2023 08:39-0400 Respiratory rate 18 /min Leticia Amor DIRECT ENTRY MIDWIFE.[employer] Work Phone: [facility] 03-09-2023 08:39-0400 SaO2% (BldA) [Mass fraction] 96 % Leticia Amor DIRECT ENTRY MIDWIFE.[employer] Work Phone: [facility] 03-09-2023 08:39-0400 Systolic blood pressure 132 mm[Hg] Leticia Haagen DIRECT ENTRY MIDWIFE.[employer] Work Phone: [facility] 01-24-2023 18:47-0500 Diastolic blood pressure 88 mm[Hg] Leticia Haagen DIRECT ENTRY MIDWIFE.[employer] Work Phone: [facility] 01-24-2023 18:47-0500 Heart rate 73 /min Leitcia Haagen DIRECT ENTRY MIDWIFE.[employer] Work Phone: [facility] 01-24-2023 18:47-0500 Respiratory rate 16 /min Leticia Haagen DIRECT ENTRY MIDWIFE.[employer] Work Phone: [facility] 01-24-2023 18:47-0500 SaO2% (BldA) [Mass fraction] 98 % Leticia Haagen DIRECT ENTRY MIDWIFE.[employer] Work Phone: [facility] 01-24-2023 18:47-0500 Systolic blood pressure 128 mm[Hg] Leticia Haagen DIRECT ENTRY MIDWIFE.[employer] Work Phone: [facility] 01-19-2023 09:42-0500 Body height 172.7 cm Kristin Montiel i, MD Work Phone: [facility] 01-19-2023 09:42-0500 Body weight 124.74 kg Kristin Montiel i, MD Work Phone: [facility] 01-19-2023 09:42-0500 Diastolic blood pressure 75 mm[Hg] Kristin Cabrera MD Work Phone: [facility] 01-19-2023 09:42-0500 Heart rate 75 /min Kristin Montiel i, MD Work Phone: [facility] 01-19-2023 09:42-0500 SaO2% (BldA) [Mass fraction] 98 % Kristin Cabrera MD Work Phone: [facility] 01-19-2023 09:42-0500 Systolic blood pressure 118 mm[Hg] Kristin Cabrera MD Work Phone: [facility] 10-18-2022 08:49-0500 Body height 172.[address] [facility] 10-18-2022 08:49-0500 Body weight 125.[address] [facility] 10-01-2022 10:00-0500 Diastolic Blood Pressure Non-Invasive 71 1 JEFF SUPPAN DPM [facility] 10-01-2022 10:00-0500 Heart rate 56 /min JEFF SUPPAN DPM [facility] 10-01-2022 10:00-0500 Systolic Blood Pressure Non-Invasive 108 1 JEFF SUPPAN DPM [facility] 10-01-2022 09:45-0500 Diastolic Blood Pressure Non-Invasive 66 1 JEFF SUPPAN DPM [facility] 10-01-2022 09:45-0500 Heart rate 60 /min JEFF SUPPAN DPM [facility] 10-01-2022 09:45-0500 Systolic Blood Pressure Non-Invasive 112 1 JEFF SUPPAN DPM [facility] 10-01-2022 09:40-0500 Diastolic Blood Pressure Non-Invasive 57 1 JEFF SUPPAN DPM [facility] 10-01-2022 09:40-0500 Heart rate 60 /min JEFF SUPPAN DPM [facility] 10-01-2022 09:40-0500 Systolic Blood Pressure Non-Invasive 107 1 JEFF SUPPAN DPM [facility] 10-01-2022 09:30-0500 Body temperature 97.7 [degF] JEFF SUPPAN DPM [facility] 10-01-2022 09:30-0500 Respiratory Rate - Anes 0 br/min JEFF SUPPAN DPM [facility] 10-01-2022 09:25-0500 Respiratory Rate - Anes 10 br/min JEFF SUPPAN DPM [facility] 10-01-2022 09:20-0500 Respiratory Rate - Anes 10 br/min JEFF SUPPAN DPM [facility] 10-01-2022 07:46-0500 Body height 172.7 cm JEFF SUPPAN DPM [facility] 10-01-2022 07:46-0500 Body temperature 97.52 [degF] JEFF SUPPAN DPM [facility] 10-01-2022 07:46-0500 Body weight 127.3 kg JEFF SUPPAN DPM [facility] 10-01-2022 07:46-0500 Heart rate 63 /min JEFF SUPPAN DPM [facility] 10-01-2022 07:46-0500 Respiratory rate 13 /min JEFF SUPPAN DPM [facility] 09-27-2022 10:40-0500 Body height 172.7 cm JEFF SUPPAN DPM [facility] 09-27-2022 10:40-0500 Body weight 127.3 kg JEFF SUPPAN DPM [facility] 09-27-2022 10:40-0500 Body weight 42.68 kg/m2 JEFF SUPPAN DPM [facility] 09-27-2022 10:40-0500 diastolic 88 mm[Hg] JEFF SUPPAN DPM [facility] 09-27-2022 10:40-0500 Heart rate 72 /min JEFF SUPPAN DPM [facility] 09-27-2022 10:40-0500 Respiratory rate 16 /min JEFF SUPPAN DPM [facility] 09-27-2022 10:40-0500 systolic 120 mm[Hg] JEFF SUPPAN DPM [facility] 09-20-2022 12:12-0400 Body height 172.7 cm Earlene Lima [facility] 09-20-2022 12:12-0400 Body weight 127.91 kg Earlene Lima [facility] 09-01-2022 08:53-0400 Body height 172.7 cm Kristin Montiel i, MD Work Phone: [facility] 09-01-2022 08:53-0400 Body weight 132 kg Kristin Montiel i, MD Work Phone: [facility] 09-01-2022 08:53-0400 Diastolic blood pressure 76 mm[Hg] Kristin Cabrera MD Work Phone: [facility] 09-01-2022 08:53-0400 Heart rate 68 /min Kristin Montiel i, MD Work Phone: [facility] 09-01-2022 08:53-0400 SaO2% (BldA) [Mass fraction] 98 % Kristin Cabrera MD Work Phone: [facility] 09-01-2022 08:53-0400 Systolic blood pressure 116 mm[Hg] Kristin Cabrera MD Work Phone: [facility] 08-12-2022 15:20-0400 Body weight 132 kg Stephanie Pack DIRECT ENTRY MIDWIFE[employer] Work Phone: [facility] 08-12-2022 15:20-0400 Diastolic blood pressure 83 mm[Hg] Stephanie Pack DIRECT ENTRY MIDWIFE[employer] Work Phone: [facility] 08-12-2022 15:20-0400 Heart rate 80 /min Stephanie Pack DIRECT ENTRY MIDWIFE[employer] Work Phone: [facility] 08-12-2022 15:20-0400 Systolic blood pressure 134 mm[Hg] Stephanie Pack DIRECT ENTRY MIDWIFE[employer] Work Phone: [facility] 06-01-2022 14:40-0400 Body temperature 97.81 [degF] Betty Veras APRN.[employer] Work Phone: [facility] 06-01-2022 14:40-0400 Body weight 130.64 kg Betty Veras APRN.[employer] Work Phone: [facility] 06-01-2022 14:40-0400 Diastolic blood pressure 78 mm[Hg] Betty Veras APRN.[employer] Work Phone: [facility] 06-01-2022 14:40-0400 Heart rate 68 /min Betty Veras APRN.[employer] Work Phone: [facility] 06-01-2022 14:40-0400 Respiratory rate 16 /min Betty Veras APRN.[employer] Work Phone: [facility] 06-01-2022 14:40-0400 SaO2% (BldA) [Mass fraction] 96 % Betty Veras APRN.[employer] Work Phone: [facility] 06-01-2022 14:40-0400 Systolic blood pressure 122 mm[Hg] Betty Veras APRN.[employer] Work Phone: [facility] 05-24-2022 08:23-0400 Body temperature 97.39 [degF] Ole Alegria DIRECT ENTRY MIDWIFE[employer] Work Phone: [facility] 05-24-2022 08:23-0400 Body weight 130.09 kg Ole Pendlebury DIRECT ENTRY MIDWIFE[employer] Work Phone: [facility] 05-24-2022 08:23-0400 Diastolic blood pressure 92 mm[Hg] Ole Pendlebury DIRECT ENTRY MIDWIFE[employer] Work Phone: [facility] 05-24-2022 08:23-0400 Heart rate 90 /min Ole Pendlebury DIRECT ENTRY MIDWIFE[employer] Work Phone: [facility] 05-24-2022 08:23-0400 Respiratory rate 20 /min Ole Pendlebury DIRECT ENTRY MIDWIFE[employer] Work Phone: [facility] 05-24-2022 08:23-0400 SaO2% (BldA) [Mass fraction] 98 % Ole Pendlebury DIRECT ENTRY MIDWIFE[employer] Work Phone: [facility] 05-24-2022 08:23-0400 Systolic blood pressure 118 mm[Hg] Ole Pendlebury DIRECT ENTRY MIDWIFE[employer] Work Phone: [facility] 04-13-2022 08:26-0400 Diastolic blood pressure 86 mm[Hg] Leticia Haagen DIRECT ENTRY MIDWIFE[employer] Work Phone: [facility] 04-13-2022 08:26-0400 Heart rate 68 /min Leticia Haagen DIRECT ENTRY MIDWIFE[employer] Work Phone: [facility] 04-13-2022 08:26-0400 Respiratory rate 18 /min Leticia Haagen DIRECT ENTRY MIDWIFE[employer] Work Phone: [facility] 04-13-2022 08:26-0400 SaO2% (BldA) [Mass fraction] 98 % Leticia Haagen DIRECT ENTRY MIDWIFE[employer] Work Phone: [facility] 04-13-2022 08:26-0400 Systolic blood pressure 118 mm[Hg] Leticia Haagen DIRECT ENTRY MIDWIFE[employer] Work Phone: [facility] 03-04-2022 12:04-0400 Body temperature 97.7 [degF] Ole Pendlebury DIRECT ENTRY MIDWIFE[employer] Work Phone: [facility] 03-04-2022 12:04-0400 Body weight 129.28 kg Ole Raji DIRECT ENTRY MIDWIFE[employer] Work Phone: [facility] 03-04-2022 12:04-0400 Diastolic blood pressure 80 mm[Hg] Ole Alegria DIRECT ENTRY MIDWIFE[employer] Work Phone: [facility] 03-04-2022 12:04-0400 Respiratory rate 18 /min Ole Alegria DIRECT ENTRY MIDWIFE[employer] Work Phone: [facility] 03-04-2022 12:04-0400 SaO2% (BldA) [Mass fraction] 98 % Ole Raji DIRECT ENTRY MIDWIFE[employer] Work Phone: [facility] 03-04-2022 12:04-0400 Systolic blood pressure 124 mm[Hg] [facility]TRY MIDWIFE.[employer] Work Phone: [facility] Encounters Encounter Date Encounter Type Care Provider Facility Start: 11-16-2023 End: 11-16-2023 ambulatory [facility] Facility:[facility] Start: 11-10-2023 End: 11-10-2023 [facility] Facility:[facility] Start: 11-10-2023 End: 11-10-2023 Patient encounter procedure Dallas Cardenas MD Work Phone: [facility] Procedures Date Procedure Procedure Detail Performing Clinician Start: 11-10-2023 INFLUENZA A&B MOLECULAR (POC) Dallas Ca MD Work Phone: Start: 10-19-2023 Electroencephalogram w/rec awake&drowsy Eva Griffith DO Work Phone: Start: 03-30-2023 Mri any jt lower extrem w/o contrast matrl Freddie Hanna Work Phone: Start: 02-09-2023 Radex foot complete minimum 3 views Freddie Hanna Work Phone: Start: 08-25-2022 Us abdominal real time w/image limited Leticia Amor DIRECT ENTRY MIDWIFE[employer] Work Phone: Start: 05-24-2022 STREP A MOLECULAR (POC) Ole infante DIRECT ENTRY MIDWIFE[employer] Work Phone: Start: 12-08-2021 Lipid 1996 panel - Serum or Plasma Xr Mob Work Phone: Start: 03-13-2021 Endoscopic plantar fasciotomy JEFF SUPP AN DPM Plan of Treatment Date Care Activity Detail Author Start: 03-31-2030 Urine microalbumin profile [facility] Start: 12-08-2026 Lipid 1996 panel - S dc or Plasma Lipid Screening [facility] Start: 12-08-2026 Lipid panel Lipid Screening [facility] Start: 12-08-2026 LIPID SCREEN LIPID SCREEN [facility] Start: 07-21-2025 DIABETES SCREEN DIABETES SCREEN [facility] Start: 07-21-2025 Diabetes Screening Diabetes Screenin g [facility] Start: 04-13-2025 DIABETES SCREEN DIABETES SCREEN [facility] Start: 12-08-2024 DIABETES SCREEN DIABETES SCREEN [facility] Start: 11-09-2024 Annual PCP Team Licensed Insurance Sales Agent julio Disease Visit Annual PCP Team Chronic Disease Visit [facility] Start: 09-19-2024 Annual PCP Team Licensed Insurance Sales Agent julio Disease Visit Annual PCP Team Chronic Disease Visit [facility] Start: 07-20-2024 ANNUAL PCP TEAM SANITARIAN JULIO DISEASE VISIT ANNUAL PCP TEAM CHRONIC DISEASE VISIT [facility] Start: 07-20-2024 COVID-19 VACCINE (3 - Pfizer series) COVID-19 VACCINE (3 - Pfizer series) [facility] Immunizations Immunization Date Immunization Notes Care Provider Nirav washington 07-07-2021 COVID-19 vaccine, ag e 12+ yr (PFIZER-BIONTECH - PURPLE TOP) Ole Alegria DIRECT ENTRY MIDWIFE[employer] Work Phone: [facility] 03-31-2020 tetanus toxoid, reduced diphtheria toxoid, and acellular pertussis vaccine, adsorbed Ole Alegria DIRECT ENTRY MIDWIFE[employer] Work Phone: [facility] Work Phone: 03-31-2020 tetanus toxoid, reduced diphtheria toxoid, and acellular pertussis vaccine, adsorbed JEFF CHILDERS DPM [facility] 07-28-2007 measles, mumps and rubella virus vaccine Ole Alegria APRN.[employer] Work Phone: [facility] Work Phone: Payers Date Payer Category Payer Unknown [id number] 2022 Unknown [id number] 2021 Unknown [employer] PPO [id number] 2021-Present [phone] [address] [place] [address] PPO [id number] 2021 Unknown [id number] 1971 Unknown [id number] 1971 Unknown [id number] Unknown [id number] Social History Date Type Detail Facility Start: 06-16-2011 End: 03-31-2020 Tobacco smoking status NHIS Never smoked tobacco [facility] Work Phone: Start: 03-04-2022 End: 11-10-2023 Alcohol intake Current non-drinker of alcohol (finding) [facility] Start: 02-24-2021 End: 02-02-2023 History SDOH Alcohol Frequency 1 [facility] Start: 02-24-2021 End: 02-02-2023 History SDOH Social Connections Phone 4 [facility] Start: 02-24-2021 End: 02-02-2023 History SDOH Social Connections Get Together 2 [facility] Start: 02-24-2021 End: 02-02-2023 History SDOH Social Connections Living 3 [facility] Start: 02-24-2021 History SDOH Physica l Activity MPS 6 [facility] Start: 02-24-2021 End: 02-02-2023 History SDOH Financial 5 [facility] Start: 02-24-2021 Education 17 [facility] Start: 1970 Sex Assigned At Female [facility] Start: 02-22-2022 End: 09-01-2022 Exposure to SARS-CoV-2 (event) Not sure [facility] Start: 06-16-2011 Tobacco use and exposure Smoke less tobacco non-user [facility] Work Phone: Start: 02-02-2023 History SDOH Alcohol Std Drinks 0 [facility] Start: 02-02-2023 History SDOH Social Connections Meetings 98 [facility] Start: 02-02-2023 End: 05-09-2023 History of Social function [facility] Start: 02-02-2023 End: 05-09-2023 Social connection and isolation panel [facility] Do you belong to any clubs or organizations such as yazdanism groups, unions, fraternal or athletic groups, or school groups? No [facility] How often do you att end meetings of the clubs or organizations you belong to? Patient refused [facility] Are you now , , , , never or living with a partner? [facility] How often to you hav e a drink containing alcohol? Never [facility] Do you feel stress - tense, restless, nervous, or anxious, or unable to sleep at night because your mind is troubled all the time - these days [OSQ] Only a little [facility] (I/We) worried wheth er (my/our) food would run out before (I/we) got money to buy more. Never true [facility] Start: 02-09-2021 Gender identity Identifies as female gender (finding) [facility] Functional Status Date Assessment Result Facility 10-01-2022 Functional Status Awake, Up ad olga [facility] 10-01-2022 Functional Status Maintained [facility] lonnie [facility] 09-27-2022 Functional Status Sensory Deficits None A [facility] Mental Status Date Assessment Result Facility 10-01-2022 Mental Status Oriented x 4 [facility] 10-01-2022 Mental Status [facility] Clinical Notes 03-04-2022 to 12-06-2023 Dallas Cardenas MD - 11/10/2023 10:34 AM Silvia Valerio PA-C - 2023 8:58 AM Eva Duval DO - 10/20/2023 8:31 AM ESTPatient InstructionsPatient InstructionsPatient Instructions Note Date & Type Note Facility 12-06-2023 Note HNO ID: [id number] Author: EVA GRIFFITH DO Service: ? Author Type: Physician Type: Progress Notes Filed: 12/06/2023 07:26 Note Text: Opened in error [facility] 11-16-2023 Note HNO ID: [id number] Author: Leticia Amor APRN.EBONY Service: ? Author Type: Nurse Practitioner Type: Progress Notes Filed: 11/16/2023 1:25 PM Note Text: Chief Complaint Patient presents with: Telemedicine I have communicated my name and active licensure. The patient's identity and physical location were verified at the time of this visit. Either the patient or their legal event marketing representative has been informed of the risks and benefits of -- and alternatives to -- treatment through a remote evaluation and consents to proceed with the evaluation remotely. Video was used for evaluation of this patient. Patient is aware of limitations of performing the visit without a face to face visit in the office setting and agrees. Patient agrees to the visit: Yes Patient Location: [facility] Jammie Troy is a 53 year old female who is contacted today for a virtual visit This is an established patient of Machelle Harry MD Reports: Pt presents today with complaints of ongoing flu symptoms. She presented to urgent care on 11/10 with URI symptoms X 1 week, but had worsening that day. + influenza. Ordered tamiflu and finished that. Two days ago had a headache. Yesterday, no headache, but was vomiting. Today has a headache. Was able to eat soup yesterday. Did go to work yesterday but did have some nausea and vomiting. This morning, a little nausea after some water. No diarrhea. Still has a lot of coughing. Dry cough. + sweating a lot. Took tylenol on and off. 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 Gonzales Friend- repeat colonoscopy in 6 months d/t poor bowel prep DILATION AND CURETTAGE DXAND/THER NONOBSTETRIC Dilation AND curettage DILATION AND CURETTAGE DXAND/THER NONOBSTETRIC Dilation AND curettage EGD W/O BRSH SPEC VARICIES INJ 11/01/2022 Dr. Gonzales Friend, small hiatal hernia LAPAROSCOPY SURG CHOLECYSTECTOMY Cholecystectomy, lap SIGMOIDOSCOPY FLX W/BIOPSY SINGLE/MULTIPLE 08/11/2006 TONSILLECTOMY PRIMARY/SECONDARY Tonsillectomy Family History FAMILY HISTORY Problem Relation Age of Onset Arthritis Mother Diabetes Father Thyroid Father Coronary Artery Disease Father Stroke Maternal Grandmother TIA Cancer Paternal Grandmother Patient Allergies ALLERGIES Allergen Reactions Adhesive Tape (Aranza* Rash, Swelling Bactrim [Sulfametho* Flexeril [Cyclobenz* Minocycline GI Upset Severe nausea Nexium [Esomeprazol* Sulfa (Sulfonamide * Current Medications Current Outpatient Medications on File Prior to Visit Medication Sig etodolac (LODINE) 400 mg tablet Take 1 tablet by mouth once daily. Phentermine HCl 37.5 mg capsule Take 1 capsule by mouth daily before breakfast. albuterol HFA (VENTOLIN HFA) 90 mcg/actuation inhaler Inhale 2 Puffs as instructed every 4 hours as needed for wheezing/shortness of breath. escitalopram oxalate (LEXAPRO) 20 mg tablet Take 1 tablet by mouth once daily. omeprazole (PRILOSEC) 40 mg capsule Take 1 capsule by mouth once daily. levothyroxine (SYNTHROID) 137 mcg tablet Take 1 tablet by mouth daily before breakfast. No current facility-administered medications on file prior to visit. Social History Social History Tobacco Use Smoking status: Never Smokeless tobacco: Never Vaping Use Vaping Use: Never used Substance Use Topics Alcohol use: No Drug use: No EXAM: LMP (LMP Unknown) Limited exam as visit was completed over the virtual platform. Virtual visit completed using video, limited exam completed. Patient sounds or appears ill: No General Appearance: Well appearing, alert, in no acute distress, well-hydrated, well nourished. Skin: Skin color normal Head: Normocephalic. No facial swelling or redness. EENT: Eyes nonreddened. No discharge. External ears nonreddened and no swelling. Neck: No mass or lesions. No swelling. FROM Patient is unable to speak in complete sentences: No Patient has labored breathing: No. Patient is audibly coughing: No Psych: Attitude - cooperative, easily engaged in conversation Affect - Euthymic, normal mood Mental status: Alert. Speech is clear and fluent with good repetition, comprehension Appearance - Normal hygiene and grooming appropriate Coordination: No abnormal or extraneous movements. Gait/Stance: Posture is normal. Health Maintenance List Hepatitis B Vaccine(1 of 3 - 3-dose series) Never done Colorectal Cancer (more content not included)... [facility] 11-10-2023 Note HNO ID: [id number] Author: Dallas Cardenas MD Service: ? Author Type: Physician Type: Progress Notes Filed: 11/10/2023 11:10 AM Note Text: Patient presents with: Cough: NAYAK, fever, sore throat, chest congestion x 1 week HPI: Feeling sick for 1 week with URI which had been improving; feeling much worse today. Her has had flu-like illness the last 3 days with negative home COVID tests. She had 2 negative COVID tests at work today. Positive symptoms: Cough, Sore throat, Fever, Headache, Post nasal drainage, Chills, Body Aches, Malaise, Fatigue, Nausea, eyes burning Negative symptoms: Shortness of breath, Vomiting, Diarrhea, OTC: Tylenol MEDICATIONS: Current Outpatient Medications Medication Sig etodolac (LODINE) 400 mg tablet Take 1 tablet by mouth once daily. Phentermine HCl 37.5 mg capsule Take 1 capsule by mouth daily before breakfast. albuterol HFA (VENTOLIN HFA) 90 mcg/actuation inhaler Inhale 2 Puffs as instructed every 4 hours as needed for wheezing/shortness of breath. escitalopram oxalate (LEXAPRO) 20 mg tablet Take 1 tablet by mouth once daily. omeprazole (PRILOSEC) 40 mg capsule Take 1 capsule by mouth once daily. levothyroxine (SYNTHROID) 137 mcg tablet Take 1 tablet by mouth daily before breakfast. No current facility-administered medications for this visit. ALLERGIES: ALLERGIES Allergen Reactions Adhesive Tape (Aranza* Rash, Swelling Bactrim [Sulfametho* Flexeril [Cyclobenz* Minocycline GI Upset Severe nausea Nexium [Esomeprazol* Sulfa (Sulfonamide * VITALS: BP 132/90 Pulse 115 Temp 37.2 ?C (99 ?F) Resp 21 Wt 127.7 kg (281 lb 9.6 oz) LMP (LMP Unknown) SpO2 97% BMI 42.82 kg/m? PHYSICAL EXAM: GEN: ill appearing, pleasant, alert HEENT: PERRL, EOMI, conjunctiva clear Ears: canals clear. TMs without erythema, bulge, or effusion Sinuses: pressure on frontal sinuses induces nausea Throat: moist mucous membranes, no erythema, no exudate Neck: supple, no thyromegaly, no lymphadenopathy HEART: regular rate and rhythm, no murmurs LUNGS: clear to auscultation, no wheezes or crackles, no increased WOB; coughing on drainage ASSESSMENT/PLAN: 1. Influenza A - ICD9: 487.1, ICD10: J10.1 (primary diagnosis) 2. Influenza-like illness - ICD9: 487.1, ICD10: J11.1 - INFLUENZA AANDB MOLECULAR (POC) - positive - OSELTAMIVIR 75 MG CAPSULE - stay home until fever free 48 hours - Discussed supportive care treatment with rest, cold medicine, and analgesia. Dallas Cardenas MD [facility] 11-10-2023 History of Present illness Narrative Patient presents with: Cough: NAYAK, fever, sore throat, chest congestion x 1 week HPI: Feeling sick for 1 week with URI which had been improving; feeling much worse today. Her has had flu-like illness the last 3 days with negative home COVID tests. She had 2 negative COVID tests at work today. Positive symptoms: Cough, Sore throat, Fever, Headache, Post nasal drainage, Chills, Body Aches, Malaise, Fatigue, Nausea, eyes burning Negative symptoms: Shortness of breath, Vomiting, Diarrhea, OTC: Tylenol MEDICATIONS: Current Outpatient Medications Medication Sig etodolac (LODINE) 400 mg tablet Take 1 tablet by mouth once daily. Phentermine HCl 37.5 mg capsule Take 1 capsule by mouth daily before breakfast. albuterol HFA (VENTOLIN HFA) 90 mcg/actuation inhaler Inhale 2 Puffs as instructed every 4 hours as needed for wheezing/shortness of breath. escitalopram oxalate (LEXAPRO) 20 mg tablet Take 1 tablet by mouth once daily. omeprazole (PRILOSEC) 40 mg capsule Take 1 capsule by mouth once daily. levothyroxine (SYNTHROID) 137 mcg tablet Take 1 tablet by mouth daily before breakfast. No current facility-administered medications for this visit. ALLERGIES: ALLERGIES Allergen Reactions Adhesive Tape (Aranza* Rash, Swelling Bactrim [Sulfametho* Flexeril [Cyclobenz* Minocycline GI Upset Severe nausea Nexium [Esomeprazol* Sulfa (Sulfonamide * VITALS: BP 132/90 Pulse 115 Temp 37.2 C (99 F) Resp 21 Wt 127.7 kg (281 lb 9.6 oz) LMP (LMP Unknown) SpO2 97% BMI 42.82 kg/m PHYSICAL EXAM: GEN: ill appearing, pleasant, alert HEENT: PERRL, EOMI, conjunctiva clear Ears: canals clear. TMs without erythema, bulge, or effusion Sinuses: pressure on frontal sinuses induces nausea Throat: moist mucous membranes, no erythema, no exudate Neck: supple, no thyromegaly, no lymphadenopathy HEART: regular rate and rhythm, no murmurs LUNGS: clear to auscultation, no wheezes or crackles, no increased WOB; coughing on drainage ASSESSMENT/PLAN: 1. Influenza A - ICD9: 487.1, ICD10: J10.1 (primary diagnosis) 2. Influenza-like illness - ICD9: 487.1, ICD10: J11.1 - INFLUENZA A&B MOLECULAR (POC) - positive - OSELTAMIVIR 75 MG CAPSULE - stay home until fever free 48 hours - Discussed supportive care treatment with rest, cold medicine, and analgesia. Dallas Cardenas MD documented in this encounter [facility] 11-09-2023 Note HNO ID: [id number] Author: Lauren Crisostomo APRN.[employer] Service: ? Author Type: Nurse Practitioner Type: Progress Notes Filed: 11/09/2023 9:29 AM Note Text: Chief Complaint Patient presents with: adipex check HPI Jammie rToy is a 53 year old female who presents here today for Above Complaints. Jammie is an established patient of Dr. Piero MD. Following up with me today due to starting on Adipex regimen 3 months ago. Weight management -- Started on Adipex regimen on 07/20/23. Tolerating well. Only side effect of dry mouth. Startin weight: 293 lbs Current weight: 274 lbs Feeling good about weight loss amount. Does report no weight loss in the last 2 weeks, hard to resist sweets at work for the holidays. No other concerns or complaints. Past medical history, appointments, medications, allergies reviewed. 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 Christian Sarmiento- repeat colonoscopy in 6 months d/t poor bowel prep DILATION AND CURETTAGE DXAND/THER NONOBSTETRIC Dilation AND curettage DILATION AND CURETTAGE DXAND/THER NONOBSTETRIC Dilation AND curettage EGD W/O BRSH SPEC VARICIES INJ 11/01/2022 Dr. Christian Sarmiento, small hiatal hernia LAPAROSCOPY SURG CHOLECYSTECTOMY Cholecystectomy, lap SIGMOIDOSCOPY FLX W/BIOPSY SINGLE/MULTIPLE 08/11/2006 TONSILLECTOMY PRIMARY/SECONDARY Tonsillectomy Family History FAMILY HISTORY Problem Relation Age of Onset Arthritis Mother Diabetes Father Thyroid Father Coronary Artery Disease Father Stroke Maternal Grandmother TIA Cancer Paternal Grandmother Patient Allergies ALLERGIES Allergen Reactions Adhesive Tape (Aarnza* Rash, Swelling Bactrim [Sulfametho* Flexeril [Cyclobenz* Minocycline GI Upset Severe nausea Nexium [Esomeprazol* Sulfa (Sulfonamide * Current Medications Current Outpatient Medications on File Prior to Visit Medication Sig etodolac (LODINE) 400 mg tablet Take by mouth. Phentermine HCl 37.5 mg capsule Take 1 capsule by mouth daily before breakfast. escitalopram oxalate (LEXAPRO) 20 mg tablet Take 1 tablet by mouth once daily. albuterol HFA (VENTOLIN HFA) 90 mcg/actuation inhaler Inhale 2 Puffs as instructed every 4 hours as needed for wheezing/shortness of breath. omeprazole (PRILOSEC) 40 mg capsule Take 1 capsule by mouth once daily. levothyroxine (SYNTHROID) 137 mcg tablet Take 1 tablet by mouth daily before breakfast. No current facility-administered medications on file prior to visit. Social History Social History Tobacco Use Smoking status: Never Smokeless tobacco: Never Vaping Use Vaping Use: Never used Substance Use Topics Alcohol use: No Drug use: No REVIEW OF SYSTEMS: as above Reviewed relevant PMHx, PSHx, Social Hx, current medications and allergies. Review of Symptoms REVIEW OF SYSTEMS See HPI. EXAM: BP 136/62 (BP Site: Left Arm, BP Position: Sitting, BP Cuff Size: Large Adult) Pulse 64 Resp 14 Wt 124.3 kg (274 lb) LMP (LMP Unknown) BMI 41.66 kg/m? General Appearance: Well appearing, alert, in no acute distress, well-hydrated, well nourished.. Skin: Skin color, texture, turgor normal, no suspicious rashes or lesions. Lungs: Lungs clear to auscultation. No wheezing, rhonchi, rales.. Heart: RRR without murmur, gallop, or rubs. No ectopy. Health Maintenance List Hepatitis B Vaccine(1 of 3 - 3-dose series) Never done Colorectal Cancer Screening due on 2016 Mammogram Screening due on 02/26/2022 Pap Testing due on 01/26/2023 HPV Testing due on 01/26/2023 Influenza Vaccine(1) Never done Covid-19 Vaccine(3 - 2022- season) due on 07/22/2023 Shingrix Vaccine(1 of 2) due on 07/20/2024 Annual PCP Team Chronic Disease Visit due on 09/19/2024 Diabetes Screening due on 07/21/2025 Lipid Screening due on 12/08/2026 DTaP,Tdap,Td Vaccine(2 - Td or Tdap) due on 03/31/2030 Depression Assessment Completed Hepatitis C Screening Completed HIV Screening Completed ASSESSMENT/PLAN: 1. Obesity, Class III, BMI 40-49.9 (morbid obesity) (HCC) - ICD9: 278.01, ICD10: E66.01 Weight decreasing. Met 5% weight loss requirement to continue on regimen. Follow-up in 3 months. - Behavioral intervention, - Pharmacological intervention, - Eat well program, and - Continue current medications - PHENTERMINE 37.5 MG CAPSULE 2. IFG (impaired fasting glucose) - ICD9: 790.21, ICD10: R73.01 See above. - PHENTERMINE 37.5 MG CAPSULE RTO in 3 months, sooner if needed. Prescription instructions re (more content not included)... [facility] [place] 2023 Note HNO ID: [id number] Author: Kathi Metz RT(R) Service: Radiology Author Type: Technologist Type: Progress Notes Filed: 2023 9:08 AM Note Text: Radiology Service Progress Note PATIENT NAME: Jammie Troy DATE OF SERVICE: 2023 TIME: 9:00 AM PATIENT IDENTITY VERIFICATION COMPLETED USING TWO (2) IDENTIFIERS: Name and Date of confirmed by patient verbally. FALL SCREENING: Has the patient had 2 falls in the last year or 1 fall with injury or currently using an Ambulatory Assistive Device (Walker, Cane, Wheelchair, Crutches, etc.)? No PATIENT GENDER DATA: Female. status: : No status: NO. PATIENT RELEVANT IMPLANT DATA REVIEWED: Not Applicable RADIOLOGY DEPARTMENT: General X-ray: Exam(s) Completed: Chest X-Ray PERIPHERAL IV DATA: Not applicable SIGNED BY: RT Kike(R) 2023 9:00 AM [facility] [place] 2023 Note HNO ID: [id number] Author: Silvia Thomas PA-C Service: ? Author Type: Physician Manager Unix Type: Progress Notes Filed: 2023 9:56 AM Note Text: This note was created using [employer]. Subjective Jammie Troy is a 53 year old female. HPI She presents with a chief complaint of right ankle pain for 2 weeks. She was walking down the steps in her garage when she fell. She states she bent her ankle at an awkward angle. It has been hurting on the outside of the ankle and back of the ankle. She has pain when she tries to walk up steps. She did have an injury to her ankle in March and had an MRI. She states she really had not followed up after that and it had improved. She does have a lace up ankle brace she has been wearing. Review of Systems Constitutional: Negative. HENT: Negative. Respiratory: Negative. Cardiovascular: Negative. Gastrointestinal: Negative. Musculoskeletal: Right ankle pain All other systems reviewed and are negative. 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 Phentermine HCl 37.5 mg capsule Take 1 capsule by mouth daily before breakfast. 30 capsule 0 escitalopram oxalate (LEXAPRO) 20 mg tablet Take 1 tablet by mouth once daily. 30 tablet 5 albuterol HFA (VENTOLIN HFA) 90 mcg/actuation inhaler Inhale 2 Puffs as instructed every 4 hours as needed for wheezing/shortness of breath. 1 Each 0 omeprazole (PRILOSEC) 40 mg capsule Take 1 capsule by mouth once daily. 90 capsule 3 levothyroxine (SYNTHROID) 137 mcg tablet Take 1 tablet by mouth daily before breakfast. 90 tablet 3 No current facility-administered medications for this visit. PAST SURGICAL HISTORY Procedure Laterality Date ARTHROSCOPY KNEE DIAGNOSTIC W/WO SYNOVIAL BX SPX Arthroscopy, knee, left knee COLONOSCOPY SCREENING 11/01/2022 Dr. Gonzales Friend- repeat colonoscopy in 6 months d/t poor bowel prep DILATION AND CURETTAGE DXAND/THER NONOBSTETRIC Dilation AND curettage DILATION AND CURETTAGE DXAND/THER NONOBSTETRIC Dilation AND curettage EGD W/O BRSH SPEC VARICIES INJ 11/01/2022 Dr. Gonzales Friend, small hiatal hernia LAPAROSCOPY SURG CHOLECYSTECTOMY Cholecystectomy, lap SIGMOIDOSCOPY FLX W/BIOPSY SINGLE/MULTIPLE 08/11/2006 TONSILLECTOMY PRIMARY/SECONDARY Tonsillectomy FAMILY HISTORY Problem Relation Age of Onset Arthritis Mother Diabetes Father Thyroid Father Coronary Artery Disease Father Stroke Maternal Grandmother TIA Cancer Paternal Grandmother Social History Tobacco Use Smoking status: Never Smokeless tobacco: Never Vaping Use Vaping Use: Never used Substance Use Topics Alcohol use: No Drug use: No Objective BP 119/81 Pulse 76 Temp 36.3 ?C (97.3 ?F) Resp 18 LMP (LMP Unknown) SpO2 98% Physical Exam Vitals reviewed. Constitutional: Appearance: Normal appearance. HENT: Head: Normocephalic and atraumatic. Musculoskeletal: Comments: Exam of the right ankle reveals minimal tenderness of the lateral malleolus. No tenderness medially or to the anterior ankle. Some mild tenderness to the Achilles. Pain with dorsiflexion and plantarflexion. Able to ambulate. Pedal pulses 2+. No tenderness to the metatarsals of the foot. Skin: General: Skin is warm and dry. Neurological: Mental Status: She is alert. Assessment and Plan ASSESSMENT/PLAN: 1. Achilles tendinitis of right lower extremity - ICD9: 726.71, ICD10: M76.61 (primary diagnosis) X-rays of the ankle show no acute fractures. Patient likely has a strain/tendinitis of the Achilles. I did place her in a boot. Will have her follow-up with Dr. Hanna., Rest, elevate. Patient agreeable. - CONSULT TO PODIATRY 2. Injury of right ankle, initial encounter - ICD9: 959.7, ICD10: S99.911A - XR ANKLE GENERAL 3V AP/LAT/OBL RIGHT - CONSULT TO PODIATRY Silvia Thomas PA-C [facility] [place] 2023 History of Present illness Narrative This note was created using [employer]. Subjective Jammie Troy is a 53 year old female. HPI She presents with a chief complaint of right ankle pain for 2 weeks. She was walking down the steps in her garage when she fell. She states she bent her ankle at an awkward angle. It has been hurting on the outside of the ankle and back of the ankle. She has pain when she tries to walk up steps. She did have an injury to her ankle in March and had an MRI. She states she really had not followed up after that and it had improved. She does have a lace up ankle brace she has been wearing. Review of Systems Constitutional: Negative. HENT: Negative. Respiratory: Negative. Cardiovascular: Negative. Gastrointestinal: Negative. Musculoskeletal: Right ankle pain All other systems reviewed and are negative. 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 Phentermine HCl 37.5 mg capsule Take 1 capsule by mouth daily before breakfast. 30 capsule 0 escitalopram oxalate (LEXAPRO) 20 mg tablet Take 1 tablet by mouth once daily. 30 tablet 5 albuterol HFA (VENTOLIN HFA) 90 mcg/actuation inhaler Inhale 2 Puffs as instructed every 4 hours as needed for wheezing/shortness of breath. 1 Each 0 omeprazole (PRILOSEC) 40 mg capsule Take 1 capsule by mouth once daily. 90 capsule 3 levothyroxine (SYNTHROID) 137 mcg tablet Take 1 tablet by mouth daily before breakfast. 90 tablet 3 No current facility-administered medications for this visit. PAST SURGICAL HISTORY Procedure Laterality Date ARTHROSCOPY KNEE DIAGNOSTIC W/WO SYNOVIAL BX SPX Arthroscopy, knee, left knee COLONOSCOPY SCREENING 11/01/2022 Dr. Christian Sarmiento- repeat colonoscopy in 6 months d/t poor bowel prep DILATION & CURETTAGE DX&/THER NONOBSTETRIC Dilation & curettage DILATION & CURETTAGE DX&/THER NONOBSTETRIC Dilation & curettage EGD W/O BRSH SPEC VARICIES INJ 11/01/2022 Dr. Gonzales Friend, small hiatal hernia LAPAROSCOPY SURG CHOLECYSTECTOMY Cholecystectomy, lap SIGMOIDOSCOPY FLX W/BIOPSY SINGLE/MULTIPLE 08/11/2006 TONSILLECTOMY PRIMARY/SECONDARY <AGE 12 Tonsillectomy FAMILY HISTORY Problem Relation Age of Onset Arthritis Mother Diabetes Father Thyroid Father Coronary Artery Disease Father Stroke Maternal Grandmother TIA Cancer Paternal Grandmother Social History Tobacco Use Smoking status: Never Smokeless tobacco: Never Vaping Use Vaping Use: Never used Substance Use Topics Alcohol use: No Drug use: No Objective BP 119/81 Pulse 76 Temp 36.3 C (97.3 F) Resp 18 LMP (LMP Unknown) SpO2 98% Physical Exam Vitals reviewed. Constitutional: Appearance: Normal appearance. HENT: Head: Normocephalic and atraumatic. Musculoskeletal: Comments: Exam of the right ankle reveals minimal tenderness of the lateral malleolus. No tenderness medially or to the anterior ankle. Some mild tenderness to the Achilles. Pain with dorsiflexion and plantarflexion. Able to ambulate. Pedal pulses 2+. No tenderness to the metatarsals of the foot. Skin: General: Skin is warm and dry. Neurological: Mental Status: She is alert. Assessment and Plan ASSESSMENT/PLAN: 1. Achilles tendinitis of right lower extremity - ICD9: 726.71, ICD10: M76.61 (primary diagnosis) X-rays of the ankle show no acute fractures. Patient likely has a strain/tendinitis of the Achilles. I did place her in a boot. Will have her follow-up with Dr. Hanna., Rest, elevate. Patient agreeable. - CONSULT TO PODIATRY 2. Injury of right ankle, initial encounter - ICD9: 959.7, ICD10: S99.911A - XR ANKLE GENERAL 3V AP/LAT/OBL RIGHT - CONSULT TO PODIATRY Silvia Thomas PA-C documented in this encounter [facility] 10-20-2023 Note HNO ID: [id number] Author: Eva Griffith DO Service: ? Author Type: Physician Type: Progress Notes Filed: 10/20/2023 8:31 AM Note Text: Normal EEG study [facility] [place] 10-20-2023 History of Present illness Narrative Normal EEG study documented in this encounter [facility] 10-19-2023 Miscellaneous Notes Please let Jammie know that her EEG is normal, no evidence of seizure-like patterns to explain her symptoms. documented in this encounter [facility] 10-04-2023 Note HNO ID: [id number] Author: Eva Griffith DO Service: ? Author Type: Physician Type: Progress Notes Filed: 10/04/2023 10:53 AM Note Text: [facility] New Patient Evaluation Consulting Provider: No referring provider defined for this encounter. Individuals who were included in, or assisted with the encounter were: Jammie Troy Eva Griffith DO Chief Complaint/Issues: Jammie Troy is a 52 year old female seen in the [facility] for: Extreme pain left ear and TMJ joint, pre auricular. 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 History of right sided cochlear nerve tumor, identified on prior MRI brain years ago. Notes 'whooshing' noise on the right which is worsening. She went to dentist recently, feels her teeth are misaligned. She puts her tongue between the upper and lower rows of teeth to prevent them from clenching, and has been biting her tongue. On left side of head, feels tingling wormlike sensation supra and infra auricular, and includes the external auditory canal. It feels weird , and described as a wavy line that moves. Quality is tingling sensation that is not painful but disturbing, lasts 5 seconds when present. Episodes occur 6-12 times a day. Treats by pushing on it and moving her jaw. During episodes, her speech pauses, with difficulty producing speech for a few seconds during events. She does not think that brushing her teeth, wind blowing on face, sleeping on left side, brushing hair triggers the episodes. No known triggers, occurs at unpredictable times. In the ear, she feels strange sensation. Pain is worse with chewing, but chewing does not trigger the tingling. Her PCP examined the EAC and no abnormalities noted. No hearing changes in left ear. No tinnitus in left ear. No vertigo or spinning sensation. No vomiting. No abnormal weight changes. No memory changes. No episodes of LOC. No unexpected/unexplained loss of bowel or bladder continence. She has an HSAT scheduled, not yet completed. Her dentist wants her to 'get checked out' by neurology before he treats her TMJ. General Examination: BP 124/85 Pulse 67 Ht 172.7 cm (5' 8 ) Wt 127 kg (280 lb) LMP (LMP Unknown) BMI 42.57 kg/m? She is alone. General: Awake, alert, interactive, no acute distress, good nutritional status, normal development, well-kept Neurological Exam Mental Status Alert, fully oriented, attentive, with normal cognition, memory, speech and affect. Cranial Nerves Visual hampton: intact to confrontation Extraocular movements: conjugate and full Nystagmus: absent Pupils: R 2mm L 2mm equal reactive Ptosis: absent Trigeminal: left V2 region slightly decreased pinprick when compared to right side Facial: face symmetric and strong Palate: central, normal movement, no dysphonia Tongue: normal bulk, strength, and rapid movements, no fasciculations XI: normal sternocleidomastoids and trapezius Left vs right ear tuning fork: left ear sounds like higher pitch Motor Examination and Coordination Neuromuscular Examination Axial Muscles Ptosis: R: none L: none Face-eye closure: normal Face-mouth closure: normal Tongue: normal Tongue atrophy: no Head drop: no Extremity Muscles Upper Extremity Right Left Shoulder abduction 5 5 Elbow flexion 5 5 Finger flexion/shaper operator 5 5 Lower Extremity Right Left Hip flexion 5 5 Knee extension 5 5 Ankle plantarflexion 5 5 Ankle dorsiflexion 5 5 Extensor hallucis longus 5 5 Flexor digitorum longus 5 5 Reflexes Deep tendon reflexes graded by [facility] Deep Tendon Reflexes Right Left Biceps 2 2 Brachioradialis 2 2 Patellar 2+ 2+ Achilles 1 1 Plantar Downgoing Downgoing Sensation Decreased pin left arm,left leg, all dermatomes tested on left side Gait Arises easily. Casual gait normal. Can rise on heels and toes. Assessment AND Plan 10/04/2023 - General Neurology, Eva Griffith, DO ASSESSMENT Patient is 52-year-old right-handed female with history of right sided cochlear nerve tumor identified on prior imaging not available to me today. Her other significant history includes TMJ, hypothyroidism, reflux disease, anxiety. She is here for serial typical left periauricular sensory changes that occur 5-15 times per day, lasting approximately 5 seconds and somewhat interrupting production of speech when it occurs. It is not triggered by toothbrushing, wind b (more content not included)... [facility] [place] 10-04-2023 Instructions Eva Griffith DO - 10/04/2023 10:42 AM EST Today we discuss the history of right cochlear nerve tumor, and new left sided sensory changes near the left ear that occur multiple times a day without known trigger, and are short lived but cause speech disruption during the episodes. I would like to rule out central nervous system cause by completing an MRI of the brain with and without contrast, ordered today, with medication to be administered at the appointment for anxiety. You will need a emergency vehicle driver. I have also ordered an EEG in the event these are small, atypical seizure events. The speech disruption is concerning for seizure as a cause. If the scan is normal, then this could be the TMJ causing symptoms. Lets see you back when testing is done. documented in this encounter [facility] 10-04-2023 History of Present illness Narrative Images from the original note were not included. [facility] New Patient Evaluation Consulting Provider: No referring provider defined for this encounter. Individuals who were included in, or assisted with the encounter were: Jammie Troy Eva Griffith DO Chief Complaint/Issues: Jammie Troy is a 52 year old female seen in the [facility] for: Extreme pain left ear and TMJ joint, pre auricular. 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 History of right sided cochlear nerve tumor, identified on prior MRI brain years ago. Notes 'whooshing' noise on the right which is worsening. She went to dentist recently, feels her teeth are misaligned. She puts her tongue between the upper and lower rows of teeth to prevent them from clenching, and has been biting her tongue. On left side of head, feels tingling wormlike sensation supra and infra auricular, and includes the external auditory canal. It feels weird , and described as a wavy line that moves. Quality is tingling sensation that is not painful but disturbing, lasts 5 seconds when present. Episodes occur 6-12 times a day. Treats by pushing on it and moving her jaw. During episodes, her speech pauses, with difficulty producing speech for a few seconds during events. She does not think that brushing her teeth, wind blowing on face, sleeping on left side, brushing hair triggers the episodes. No known triggers, occurs at unpredictable times. In the ear, she feels strange sensation. Pain is worse with chewing, but chewing does not trigger the tingling. Her PCP examined the EAC and no abnormalities noted. No hearing changes in left ear. No tinnitus in left ear. No vertigo or spinning sensation. No vomiting. No abnormal weight changes. No memory changes. No episodes of LOC. No unexpected/unexplained loss of bowel or bladder continence. She has an HSAT scheduled, not yet completed. Her dentist wants her to 'get checked out' by neurology before he treats her TMJ. General Examination: BP 124/85 Pulse 67 Ht 172.7 cm (5' 8 ) Wt 127 kg (280 lb) LMP (LMP Unknown) BMI 42.57 kg/m She is alone. General: Awake, alert, interactive, no acute distress, good nutritional status, normal development, well-kept Neurological Exam Mental Status Alert, fully oriented, attentive, with normal cognition, memory, speech and affect. Cranial Nerves Visual hampton: intact to confrontation Extraocular movements: conjugate and full Nystagmus: absent Pupils: R 2mm L 2mm equal reactive Ptosis: absent Trigeminal: left V2 region slightly decreased pinprick when compared to right side Facial: face symmetric and strong Palate: central, normal movement, no dysphonia Tongue: normal bulk, strength, and rapid movements, no fasciculations XI: normal sternocleidomastoids and trapezius Left vs right ear tuning fork: left ear sounds like higher pitch Motor Examination and Coordination Neuromuscular Examination Axial Muscles Ptosis: R: none L: none Face-eye closure: normal Face-mouth closure: normal Tongue: normal Tongue atrophy: no Head drop: no Extremity Muscles Upper Extremity Right Left Shoulder abduction 5 5 Elbow flexion 5 5 Finger flexion/shaper operator 5 5 Lower Extremity Right Left Hip flexion 5 5 Knee extension 5 5 Ankle plantarflexion 5 5 Ankle dorsiflexion 5 5 Extensor hallucis longus 5 5 Flexor digitorum longus 5 5 Reflexes Deep tendon reflexes graded by MRC Deep Tendon Reflexes Right Left Biceps 2 2 Brachioradialis 2 2 Patellar 2+ 2+ Achilles 1 1 Plantar Downgoing Downgoing Sensation Decreased pin left arm,left leg, all dermatomes tested on left side Gait Arises easily. Casual gait normal. Can rise on heels and toes. Assessment & Plan 10/04/2023 - General Neurology, Eva Griffith, DO ASSESSMENT Patient is 52-year-old right-handed female with history of right sided cochlear nerve tumor identified on prior imaging not available to me today. Her other significant history includes TMJ, hypothyroidism, reflux disease, anxiety. She is here for serial typical left periauricular sensory changes that occur 5-15 times per day, lasting approximately 5 seconds and somewhat interrupting production of speech when it occurs. It is not triggered by toothbrushing, wind blowing on her face, sleeping on her left side, or brushing her hair on the left. No known triggers. She has 1 event during our visit today. Denies memory change, episodes of loss of consciousness, unexplained loss of bowel or bladder continence. She has a home sleep test scheduled does not been completed. She is also being worked up/treated by her dentist for TMJ. Her exam is notable for decreased pinprick in the left V2 region, left arm, and left leg that is very mild. Tuning fork testing pitch is different in left ear (higher) than the right ear. My concern is for possible [employer] structural abnormality. This could include mass effect, demyelination, or other inflammatory cranial nerve problem. Also to be considered is atypical seizure event based on its stereotypical presentation and difficulty with speech production when present. I do not suspect trigeminal neuralgia or trigeminal neuropathy. I have ordered an MRI of the brain with and without contrast, with IV anxiolysis, and an EEG. I like to see her back once completed. PLAN I would like to rule out central nervous system cause by completing an MRI of the brain with and without contrast, ordered today, with medication to be administered at the appointment for anxiety. You will need a emergency vehicle driver. I have also ordered an EEG in the event these are small, atypical seizure events. The speech disruption is concerning for seizure as a cause. If the scan is normal, then this could be the TMJ causing symptoms. Lets see you back when testing is done. Encounter Diagnosis ICD-10-CM 1. Left ear pain H92.02 MRI BRAIN WO/W IVCON EPIL EEG LONG 2. Cochlear tumor D49.1 MRI BRAIN WO/W IVCON EPIL EEG LONG Return if symptoms worsen or fail to improve. Data Review Objective Current Outpatient Medications Medication Sig Phentermine HCl 37.5 mg capsule Take 1 capsule by mouth daily before breakfast. escitalopram oxalate (LEXAPRO) 20 mg tablet Take 1 tablet by mouth once daily. albuterol HFA (VENTOLIN HFA) 90 mcg/actuation inhaler Inhale 2 Puffs as instructed every 4 hours as needed for wheezing/shortness of breath. omeprazole (PRILOSEC) 40 mg capsule Take 1 capsule by mouth once daily. levothyroxine (SYNTHROID) 137 mcg tablet Take 1 tablet by mouth daily before breakfast. iv contrast (will be provided with radiology test) MRI Brain Inject, intravenously, once for 1 dose.No IV access, insert saline lock prior to beginning of sedation, infusion, injection of imaging exam.Discontinue saline lock post exam. If Pt. has a central line or IVAD, may access for administration according to line specific nursing protocol.Once exam is complete flush line and de-access according to line specific nursing protocol in the MR contrast administration guidelines link fluticasone-salmeterol (ADVAIR DISKUS) 250-50 mcg/dose inhaler Inhale 1 Puff as instructed twice daily. Rinse and gargle mouth after use with water. ursodiol (RETA) 250 mg tablet Take by mouth. (Patient not taking: Reported on 10/04/2023) Vitamin E, dl, acetate, (VITAMIN E) 200 unit capsule Take by mouth. (Patient not taking: Reported on 10/04/2023) tiZANidine (ZANAFLEX) 4 mg tablet Take 1 tablet by mouth every 8 hours as needed (pain). (Patient not taking: Reported on 10/04/2023) No current facility-administered medications for this visit. 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 Christian Sarmiento- repeat colonoscopy in 6 months d/t poor bowel prep DILATION & CURETTAGE DX&/THER NONOBSTETRIC Dilation & curettage DILATION & CURETTAGE DX&/THER NONOBSTETRIC Dilation & curettage EGD W/O BRSH SPEC VARICIES INJ 11/01/2022 Dr. Christian Sarmiento, small hiatal hernia LAPAROSCOPY SURG CHOLECYSTECTOMY Cholecystectomy, lap SIGMOIDOSCOPY FLX W/BIOPSY SINGLE/MULTIPLE 08/11/2006 TONSILLECTOMY PRIMARY/SECONDARY <AGE 13 Tonsillectomy Social History Tobacco Use Smoking status: Never Smokeless tobacco: Never Vaping Use Vaping Use: Never used Substance Use Topics Alcohol use: No Drug use: No FAMILY HISTORY Problem Relation Age of Onset Arthritis Mother Diabetes Father Thyroid Father Coronary Artery Disease Father Stroke Maternal Grandmother TIA Cancer Paternal Grandmother Review of Systems HENT: Positive for ear pain. Negative for hearing loss, tinnitus and trouble swallowing. Musculoskeletal: Negative for neck pain and neck stiffness. Gastrointestinal: Positive for reflux. Lab and Test Review: Results for orders placed or performed in visit on 05/21/23 HSV1,2/VZV NAAT LESION Result Value Ref Range Herpes Simplex Virus 1 (HSV-1) DNA Not Detected Not Detected Herpes Simplex Virus 2 (HSV-2) DNA Not Detected Not Detected Varicella-Zoster Virus (VZV) DNA Not Detected Not Detected ABSCESS AND WOUND CULTURE WITH GRAM STAIN Specimen: WOUND; Micro Specimen Result Value Ref Range Culture, Wound Rare mixed oral and respiratory saul (A) Gram Stain No organisms seen Gram Stain No Polymorphonuclear Leukocytes Outside Data/Labs: Subjective Patient-Entered Data: 09/26/23 - GENERAL NEUROLOGY SCORES PROMIS 10 02/02/2023 05/21/2023 09/19/2023 In general, would you say your health is: Good Good Good In general, would you say your quality of life is: Good Very good Good In general, how would you rate your physical health? Good Fair Good In general, how would you rate your mental health, including your mood and your ability to think? Good Good Good In general, how would you rate your satisfaction with your social activities and relationships? Good Good Very good To what extent are you able to carry out your everyday physical activities such as walking, climbing stairs, carrying groceries, or moving a chair? Completely - Mostly In general, please rate how well you carry out your usual social activities and roles. (This includes activities at home, at work and in your community, and responsibilities as a parent, child, spouse, employee, friend, etc.) Good Fair Fair How would you rate your pain on average? 0 - No Pain 5 5 How would you rate your fatigue on average? Mild Moderate Moderate How often have you been bothered by emotional problems such as feeling anxious, depressed or irritable? Rarely Rarely Rarely PROMIS Adult Short Form-Global Health Score (Physical) 54.1 (Very Good) Incomplete 42.3 (Good) PROMIS Adult Short Form-Global Health Score (Mental) 45.8 (Good) 48.3 (Very Good) 48.3 (Very Good) Depression Screening 02/24/2021 05/09/2023 05/21/2023 PHQ-2 Score 0 0 0 SLEEP APNEA SCORE 09/27/2023 Probability of moderate-severe sleep apnea (%) SAPS V2 22 (Sleep study not recommended) No flowsheet data found. No flowsheet data found. I spent a total of 70 minutes on the date of the service which included preparing to see the patient, [id number] patient care, completing clinical documentation, obtaining and/or reviewing separately obtained history, performing a medically appropriate examination, counseling and educating the patient/family/caregiver, and ordering medications, tests, or procedures. Eva Griffith DO documented in this encounter [facility] 09-19-2023 Miscellaneous Notes Faxed demographics, most recent xray of left knee, and most recent ov notes to Darryl Siddiqui, per Silva request. . documented in this encounter [facility] 09-19-2023 Note HNO ID: [id number] Author: Leticia Amor APRN.EBONY Service: ? Author Type: Nurse Practitioner Type: Progress Notes Filed: 09/19/2023 8:22 AM Note Text: Chief Complaint Patient presents with: Telemedicine I have communicated my name and active licensure. The patient's identity and physical location were verified at the time of this visit. Either the patient or their legal event marketing representative has been informed of the risks and benefits of -- and alternatives to -- treatment through a remote evaluation and consents to proceed with the evaluation remotely. Video was used for evaluation of this patient. Patient is aware of limitations of performing the visit without a face to face visit in the office setting and agrees. Patient agrees to the visit: Yes Patient Location: [place] Pt was driving and pulled off during visit. HPI Jammie Troy is a 52 year old female who is contacted today for a virtual visit This is an established patient of Machelle Harry MD Reports: left knee pain. Refers years ago had surgery on the left knee. Refers the tissue would get stuck under the knee cap. Refers that was told that she had a small meniscus tear. Knee was feeling kind of funny last week and then popped really loud. Refers that her knee would feel numb. Hard to tell how much strength. It swelled for a few days. Hurt to touch. Weak to do stairs. Thinks that she may have torn further. She would like a referral to [facility]. Refers hurts on both sides of knee cap and had some achiness behind the knee last night. 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 Gonzales Friend- repeat colonoscopy in 6 months d/t poor bowel prep DILATION AND CURETTAGE DXAND/THER NONOBSTETRIC Dilation AND curettage DILATION AND CURETTAGE DXAND/THER NONOBSTETRIC Dilation AND curettage EGD W/O BRSH SPEC VARICIES INJ 11/01/2022 Dr. Gonzales Friend, small hiatal hernia LAPAROSCOPY SURG CHOLECYSTECTOMY Cholecystectomy, lap SIGMOIDOSCOPY FLX W/BIOPSY SINGLE/MULTIPLE 08/11/2006 TONSILLECTOMY PRIMARY/SECONDARY Tonsillectomy Family History FAMILY HISTORY Problem Relation Age of Onset Arthritis Mother Diabetes Father Thyroid Father Coronary Artery Disease Father Stroke Maternal Grandmother TIA Cancer Paternal Grandmother Patient Allergies ALLERGIES Allergen Reactions Adhesive Tape (Aranza* Rash, Swelling Bactrim [Sulfametho* Flexeril [Cyclobenz* Minocycline GI Upset Severe nausea Nexium [Esomeprazol* Sulfa (Sulfonamide * Zithromaxz [Other] Current Medications Current Outpatient Medications on File Prior to Visit Medication Sig Phentermine HCl 37.5 mg capsule Take 1 capsule by mouth daily before breakfast. escitalopram oxalate (LEXAPRO) 20 mg tablet Take 1 tablet by mouth once daily. fluticasone-salmeterol (ADVAIR DISKUS) 250-50 mcg/dose inhaler Inhale 1 Puff as instructed twice daily. Rinse and gargle mouth after use with water. albuterol HFA (VENTOLIN HFA) 90 mcg/actuation inhaler Inhale 2 Puffs as instructed every 4 hours as needed for wheezing/shortness of breath. omeprazole (PRILOSEC) 40 mg capsule Take 1 capsule by mouth once daily. ursodiol (RETA) 250 mg tablet Take by mouth. Vitamin E, dl, acetate, (VITAMIN E) 200 unit capsule Take by mouth. levothyroxine (SYNTHROID) 137 mcg tablet Take 1 tablet by mouth daily before breakfast. tiZANidine (ZANAFLEX) 4 mg tablet Take 1 tablet by mouth every 8 hours as needed (pain). No current facility-administered medications on file prior to visit. Social History Social History Tobacco Use Smoking status: Never Smokeless tobacco: Never Vaping Use Vaping Use: Never used Substance Use Topics Alcohol use: No Drug use: No EXAM: LMP (LMP Unknown) Limited exam as visit was completed over the virtual platform. Virtual visit completed using video, limited exam completed. Patient sounds or appears ill: No General Appearance: Well appearing, alert, in no acute distress, well-hydrated, well nourished. Skin: Skin color normal Head: Normocephalic. No facial swelling or redness. EENT: Eyes nonreddened. No discharge. External ears nonreddened and no swelling. Neck: No mass or lesions. No swelling. FROM Patient is unable to speak in complete sentences: No Patient has labored breathing: No. Patient is audibly coughing: No Psych: Attitude - cooperative, easily engaged in conver (more content not included)... [facility] [place] 07-20-2023 Note HNO ID: [id number] Author: Lauren Crisostomo APRN.[employer] Service: ? Author Type: Nurse Practitioner Type: Progress Notes Filed: 07/20/2023 9:43 AM Note Text: Chief Complaint Patient presents with: discussion: Discussion about adipex HPI Jammie Troy is a 52 year old female who presents here today for Above Complaints. Jammie is an established patient of Dr. Piero MD. She is a new patient to me today. Concerns today... Weight management -- Started on ozempic for weight management by endocrinology about 6 months ago. Did lose weight but was unable to tolerate medication due to severe nausea. Stopped this regimen about 3-4 months ago. Looking to possibly start on Adipex instead. Reports that when she starts on something, she is very strict on herself. 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 Starting weight today: 293 lbs. Past medical history, appointments, medications, allergies reviewed. 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 Gonzales Friend- repeat colonoscopy in 6 months d/t poor bowel prep DILATION AND CURETTAGE DXAND/THER NONOBSTETRIC Dilation AND curettage DILATION AND CURETTAGE DXAND/THER NONOBSTETRIC Dilation AND curettage EGD W/O BRSH SPEC VARICIES INJ 11/01/2022 Dr. Gonzales Friend, small hiatal hernia LAPAROSCOPY SURG CHOLECYSTECTOMY Cholecystectomy, lap SIGMOIDOSCOPY FLX W/BIOPSY SINGLE/MULTIPLE 08/11/2006 TONSILLECTOMY PRIMARY/SECONDARY Tonsillectomy Family History FAMILY HISTORY Problem Relation Age of Onset Arthritis Mother Diabetes Father Thyroid Father Coronary Artery Disease Father Stroke Maternal Grandmother TIA Cancer Paternal Grandmother Patient Allergies ALLERGIES Allergen Reactions Adhesive Tape (Aranza* Rash, Swelling Bactrim [Sulfametho* Flexeril [Cyclobenz* Minocycline GI Upset Severe nausea Nexium [Esomeprazol* Sulfa (Sulfonamide * Zithromaxz [Other] Current Medications Current Outpatient Medications on File Prior to Visit Medication Sig fluticasone-salmeterol (ADVAIR DISKUS) 250-50 mcg/dose inhaler Inhale 1 Puff as instructed twice daily. Rinse and gargle mouth after use with water. albuterol HFA (VENTOLIN HFA) 90 mcg/actuation inhaler Inhale 2 Puffs as instructed every 4 hours as needed for wheezing/shortness of breath. omeprazole (PRILOSEC) 40 mg capsule Take 1 capsule by mouth once daily. ursodiol (RETA) 250 mg tablet Take by mouth. Vitamin E, dl, acetate, (VITAMIN E) 200 unit capsule Take by mouth. escitalopram oxalate (LEXAPRO) 20 mg tablet Take 1 tablet by mouth once daily. levothyroxine (SYNTHROID) 137 mcg tablet Take 1 tablet by mouth daily before breakfast. tiZANidine (ZANAFLEX) 4 mg tablet Take 1 tablet by mouth every 8 hours as needed (pain). doxycycline (VIBRA-TABS) 100 mg tablet One pill twice daily X 10 days; then decrease to once daily for a total of 8 weeks. (Patient not taking: Reported on 07/20/2023) etodolac (LODINE) 400 mg tablet Take 1 tablet by mouth twice daily. (Patient not taking: Reported on 07/20/2023) No current facility-administered medications on file prior to visit. Social History Social History Tobacco Use Smoking status: Never Smokeless tobacco: Never Vaping Use Vaping Use: Never used Substance Use Topics Alcohol use: No Drug use: No REVIEW OF SYSTEMS: as above Reviewed relevant PMHx, PSHx, Social Hx, current medications and allergies. Review of Symptoms REVIEW OF SYSTEMS See HPI. EXAM: BP 138/70 (BP Site: Left Arm, BP Position: Sitting, BP Cuff Size: Large Adult) Pulse 64 Resp 14 Wt 133.2 kg (293 lb 9.6 oz) LMP (LMP Unknown) BMI 43.99 kg/m? General Appearance: Well appearing, alert, in no acute distress, well-hydrated, well nourished.. Skin: Skin color, texture, turgor normal, no suspicious rashes or lesions. Head: Normocephalic, no masses, lesions, tenderness or abnormalities. Lungs: Lungs clear to auscultation. No wheezing, rhonchi, rales.. Heart: RRR without murmur, gallop, or rubs. No ectopy. Health Maintenance List HEPATITIS B(1 of 3 - 3-dose series) Never done COLORECTAL CANCER SCREENING due on 2016 MAMMOGRAM due on 02/26/2022 PAP TESTING due on 01/26/2023 HPV TESTING due on 01/26/2023 SHINGRIX VACCINE(1 of 2) due on 07/20/2024 COVID-19 VACCINE(3 - Pfizer series) due on 07/20/2024 INFLUENZA(1) due on 07/22/2023 ANNUAL PCP TEAM CHRONIC DISEASE VISIT due on 07/20/2024 DIABETES SCREEN due on 07/21/2025 LIPID SCREE (more content not included)... [facility] [place] 07-20-2023 History of Present illness Narrative Chief Complaint Patient presents with: discussion: Discussion about adipex HPI Jammie Troy is a 52 year old female who presents here today for Above Complaints. Jammie is an established patient of Dr. Piero MD. She is a new patient to me today. Concerns today... Weight management -- Started on ozempic for weight management by endocrinology about 6 months ago. Did lose weight but was unable to tolerate medication due to severe nausea. Stopped this regimen about 3-4 months ago. Looking to possibly start on Adipex instead. Reports that when she starts on something, she is very strict on herself. 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 Starting weight today: 293 lbs. Past medical history, appointments, medications, allergies reviewed. 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 Christian Sarmiento- repeat colonoscopy in 6 months d/t poor bowel prep DILATION & CURETTAGE DX&/THER NONOBSTETRIC Dilation & curettage DILATION & CURETTAGE DX&/THER NONOBSTETRIC Dilation & curettage EGD W/O BRSH SPEC VARICIES INJ 11/01/2022 Dr. Christian Sarmiento, small hiatal hernia LAPAROSCOPY SURG CHOLECYSTECTOMY Cholecystectomy, lap SIGMOIDOSCOPY FLX W/BIOPSY SINGLE/MULTIPLE 08/11/2006 TONSILLECTOMY PRIMARY/SECONDARY <AGE 13 Tonsillectomy Family History FAMILY HISTORY Problem Relation Age of Onset Arthritis Mother Diabetes Father Thyroid Father Coronary Artery Disease Father Stroke Maternal Grandmother TIA Cancer Paternal Grandmother Patient Allergies ALLERGIES Allergen Reactions Adhesive Tape (Aranaz* Rash, Swelling Bactrim [Sulfametho* Flexeril [Cyclobenz* Minocycline GI Upset Severe nausea Nexium [Esomeprazol* Sulfa (Sulfonamide * Zithromaxz [Other] Current Medications Current Outpatient Medications on File Prior to Visit Medication Sig fluticasone-salmeterol (ADVAIR DISKUS) 250-50 mcg/dose inhaler Inhale 1 Puff as instructed twice daily. Rinse and gargle mouth after use with water. albuterol HFA (VENTOLIN HFA) 90 mcg/actuation inhaler Inhale 2 Puffs as instructed every 4 hours as needed for wheezing/shortness of breath. omeprazole (PRILOSEC) 40 mg capsule Take 1 capsule by mouth once daily. ursodiol (RETA) 250 mg tablet Take by mouth. Vitamin E, dl, acetate, (VITAMIN E) 200 unit capsule Take by mouth. escitalopram oxalate (LEXAPRO) 20 mg tablet Take 1 tablet by mouth once daily. levothyroxine (SYNTHROID) 137 mcg tablet Take 1 tablet by mouth daily before breakfast. tiZANidine (ZANAFLEX) 4 mg tablet Take 1 tablet by mouth every 8 hours as needed (pain). doxycycline (VIBRA-TABS) 100 mg tablet One pill twice daily X 10 days; then decrease to once daily for a total of 8 weeks. (Patient not taking: Reported on 07/20/2023) etodolac (LODINE) 400 mg tablet Take 1 tablet by mouth twice daily. (Patient not taking: Reported on 07/20/2023) No current facility-administered medications on file prior to visit. Social History Social History Tobacco Use Smoking status: Never Smokeless tobacco: Never Vaping Use Vaping Use: Never used Substance Use Topics Alcohol use: No Drug use: No REVIEW OF SYSTEMS: as above Reviewed relevant PMHx, PSHx, Social Hx, current medications and allergies. Review of Symptoms REVIEW OF SYSTEMS See HPI. EXAM: BP 138/70 (BP Site: Left Arm, BP Position: Sitting, BP Cuff Size: Large Adult) Pulse 64 Resp 14 Wt 133.2 kg (293 lb 9.6 oz) LMP (LMP Unknown) BMI 43.99 kg/m General Appearance: Well appearing, alert, in no acute distress, well-hydrated, well nourished.. Skin: Skin color, texture, turgor normal, no suspicious rashes or lesions. Head: Normocephalic, no masses, lesions, tenderness or abnormalities. Lungs: Lungs clear to auscultation. No wheezing, rhonchi, rales.. Heart: RRR without murmur, gallop, or rubs. No ectopy. Health Maintenance List HEPATITIS B(1 of 3 - 3-dose series) Never done COLORECTAL CANCER SCREENING due on 2016 MAMMOGRAM due on 02/26/2022 PAP TESTING due on 01/26/2023 HPV TESTING due on 01/26/2023 SHINGRIX VACCINE(1 of 2) due on 07/20/2024 COVID-19 VACCINE(3 - Pfizer series) due on 07/20/2024 INFLUENZA(1) due on 07/22/2023 ANNUAL PCP TEAM CHRONIC DISEASE VISIT due on 07/20/2024 DIABETES SCREEN due on 07/21/2025 LIPID SCREEN due on 12/08/2026 DTAP,TDAP,TD(2 - Td or Tdap) due on 03/31/2030 DEPRESSION ASSESSMENT Completed HEPATITIS C SCREENING Completed HIV SCREENING Completed ASSESSMENT/PLAN: 1. Obesity, Class III, BMI 40-49.9 (morbid obesity) (HCC) - ICD9: 278.01, ICD10: E66.01 (primary diagnosis) Weight increasing - Behavioral intervention, - Pharmacological intervention, - Eat well program, and - Add Phentermine Start adipex regimen daily. Follow-up in 3 months. Pt aware of side effects. Pt aware of needed 5% weight loss within 3 months to continue on regimen. Needs to lose 15 lbs to meet this. Continue off of ozempic. Discussed diet plan and exercise regimen. - PHENTERMINE 37.5 MG CAPSULE PDMP website checked and validated. All prescriptions have been APPROPRIATELY filled. No suspicious activity was identified. 07/20/2023 by Lauren Crisostomo APRN.[employer] 2. IFG (impaired fasting glucose) - ICD9: 790.21, ICD10: R73.01 See above. - PHENTERMINE 37.5 MG CAPSULE RTO in 3 months, sooner if needed. Prescription instructions reviewed with patient as applicable. Potential red flag symptoms discussed with the patient. Reviewed appropriate action plan to take if red flag symptoms occur. Patient agreeable to treatment plan. Lauren Leiva APRN.[employer] [address] [place] [address] documented in this encounter [facility] 07-12-2023 Miscellaneous Notes PLEASE SEE [facility] MESSAGE 07/11/23. Jolanta Hodge MA documented in this encounter [facility] 07-11-2023 Note HNO ID: [id number] Author: Leticia Amor APRN.EBONY Service: ? Author Type: Nurse Practitioner Type: Progress Notes Filed: 07/11/2023 5:57 PM Note Text: This is a 52 year old female who presents today with: Patient presents with: Recheck: Follow up URI- worsening symptoms HISTORY OF PRESENT ILLNESS: Jammie Troy is a 52 year old female. Patient presents with: Recheck: Follow up URI- worsening symptoms Pt presents today with ongoing/worsening symptoms. Was in with URI symptoms. Started doxy and medrol dose pack. Change in symptoms about 4 days ago. Refers that she has a weird feeling in her lungs. Initially started in just the right side, now in both. Doesn't feel like she is getting enough oxygen. Hard to take a deep breath. Doesn't feel like her lungs are full. Refers that she will feel that she will get more winded with activity. Decreased appetite. + chest discomfort. Finished the medrol dose pack. Refers that she is taking the doxycycline. Refers that she tried the inhaler, which seemed to help for the first couple of minutes. Refers that she has been using cough drops, which will help with talking for a little bit, but not so much the breathing. 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 Christian Sarmiento- repeat colonoscopy in 6 months d/t poor bowel prep DILATION AND CURETTAGE DXAND/THER NONOBSTETRIC Dilation AND curettage DILATION AND CURETTAGE DXAND/THER NONOBSTETRIC Dilation AND curettage EGD W/O BRSH SPEC VARICIES INJ 11/01/2022 Dr. Gonzales Friend, small hiatal hernia LAPAROSCOPY SURG CHOLECYSTECTOMY Cholecystectomy, lap SIGMOIDOSCOPY FLX W/BIOPSY SINGLE/MULTIPLE 08/11/2006 TONSILLECTOMY PRIMARY/SECONDARY Tonsillectomy ALLERGIES Adhesive Tape (Rosins), Bactrim [Sulfamethoxazole-Trimethoprim], Flexeril [Cyclobenzaprine Hcl], Minocycline, Nexium [Esomeprazole Magnesium], Sulfa (Sulfonamide Antibiotics), and Zithromaxz [Other] MEDICATIONS Current Outpatient Medications Medication Sig albuterol HFA (VENTOLIN HFA) 90 mcg/actuation inhaler Inhale 2 Puffs as instructed every 4 hours as needed for wheezing/shortness of breath. doxycycline (VIBRA-TABS) 100 mg tablet One pill twice daily X 10 days; then decrease to once daily for a total of 8 weeks. omeprazole (PRILOSEC) 40 mg capsule Take 1 capsule by mouth once daily. etodolac (LODINE) 400 mg tablet Take 1 tablet by mouth twice daily. ursodiol (RETA) 250 mg tablet Take by mouth. Vitamin E, dl, acetate, (VITAMIN E) 200 unit capsule Take by mouth. escitalopram oxalate (LEXAPRO) 20 mg tablet Take 1 tablet by mouth once daily. levothyroxine (SYNTHROID) 137 mcg tablet Take 1 tablet by mouth daily before breakfast. tiZANidine (ZANAFLEX) 4 mg tablet Take 1 tablet by mouth every 8 hours as needed (pain). No current facility-administered medications for this visit. FAMILY HISTORY Problem Relation Age of Onset Arthritis Mother Diabetes Father Thyroid Father Coronary Artery Disease Father Stroke Maternal Grandmother TIA Cancer Paternal Grandmother Social History Tobacco Use Smoking status: Never Smokeless tobacco: Never Vaping Use Vaping Use: Never used Substance Use Topics Alcohol use: No Drug use: No EXAM: BP 138/92 Pulse 76 Resp 16 LMP (LMP Unknown) SpO2 96% PHYSICAL EXAM: General Appearance: Well appearing, alert, in no acute distress, well-hydrated, well nourished.. Skin: Skin color, texture, turgor normal, no suspicious rashes or lesions. Head: Normocephalic, no masses, lesions, tenderness or abnormalities. Eyes: Anicteric sclera. Pupils are equally round and reactive to light. Extraocular movements are intact. . Ears: External ears normal, canals clear. Oropharynx: Lips, mucosa, and tongue normal, teeth and gums normal, oropharynx normal. Neck: Supple, no adenopathy Lungs: Lungs clear to auscultation. No wheezing, rhonchi, rales.. Heart: RRR without murmur, gallop, or rubs. No ectopy. Extremities: No deformities, skin discoloration, clubbing or cyanosis. Chronic non-pitting BLE edema. No redness, increased warmth. Neg abelardo's. Good capillary refill. . Neurologic: Gait normal. ASSESSMENT/PLAN: 1. SOB (shortness of breath) - ICD9: 786.05, ICD10: R06.02 (primary diagnosis) 2. Chest discomfort - ICD9: 786.59, ICD10: R07.89 Due to complaints of shortness of breath and chest discomfort and unable to complete diagnostics at this hour at clinic, will refer to ER for further evaluation of discomfort and difficulty breathing. She i (more content not included)... [facility] 07-11-2023 History of Present illness Narrative This is a 52 year old female who presents today with: Patient presents with: Recheck: Follow up URI- worsening symptoms HISTORY OF PRESENT ILLNESS: Jammie Troy is a 52 year old female. Patient presents with: Recheck: Follow up URI- worsening symptoms Pt presents today with ongoing/worsening symptoms. Was in with URI symptoms. Started doxy and medrol dose pack. Change in symptoms about 4 days ago. Refers that she has a weird feeling in her lungs. Initially started in just the right side, now in both. Doesn't feel like she is getting enough oxygen. Hard to take a deep breath. Doesn't feel like her lungs are full. Refers that she will feel that she will get more winded with activity. Decreased appetite. + chest discomfort. Finished the medrol dose pack. Refers that she is taking the doxycycline. Refers that she tried the inhaler, which seemed to help for the first couple of minutes. Refers that she has been using cough drops, which will help with talking for a little bit, but not so much the breathing. 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 Christian Sarmiento- repeat colonoscopy in 6 months d/t poor bowel prep DILATION & CURETTAGE DX&/THER NONOBSTETRIC Dilation & curettage DILATION & CURETTAGE DX&/THER NONOBSTETRIC Dilation & curettage EGD W/O [facility] SPEC VARICIES INJ 11/01/2022 Dr. Christian Sarmiento, small hiatal hernia LAPAROSCOPY SURG CHOLECYSTECTOMY Cholecystectomy, lap SIGMOIDOSCOPY FLX W/BIOPSY SINGLE/MULTIPLE 08/11/2006 TONSILLECTOMY PRIMARY/SECONDARY <AGE 12 Tonsillectomy ALLERGIES Adhesive Tape (Rosins), Bactrim [Sulfamethoxazole-Trimethoprim], Flexeril [Cyclobenzaprine Hcl], Minocycline, Nexium [Esomeprazole Magnesium], Sulfa (Sulfonamide Antibiotics), and Zithromaxz [Other] MEDICATIONS Current Outpatient Medications Medication Sig albuterol HFA (VENTOLIN HFA) 90 mcg/actuation inhaler Inhale 2 Puffs as instructed every 4 hours as needed for wheezing/shortness of breath. doxycycline (VIBRA-TABS) 100 mg tablet One pill twice daily X 10 days; then decrease to once daily for a total of 8 weeks. omeprazole (PRILOSEC) 40 mg capsule Take 1 capsule by mouth once daily. etodolac (LODINE) 400 mg tablet Take 1 tablet by mouth twice daily. ursodiol (RETA) 250 mg tablet Take by mouth. Vitamin E, dl, acetate, (VITAMIN E) 200 unit capsule Take by mouth. escitalopram oxalate (LEXAPRO) 20 mg tablet Take 1 tablet by mouth once daily. levothyroxine (SYNTHROID) 137 mcg tablet Take 1 tablet by mouth daily before breakfast. tiZANidine (ZANAFLEX) 4 mg tablet Take 1 tablet by mouth every 8 hours as needed (pain). No current facility-administered medications for this visit. FAMILY HISTORY Problem Relation Age of Onset Arthritis Mother Diabetes Father Thyroid Father Coronary Artery Disease Father Stroke Maternal Grandmother TIA Cancer Paternal Grandmother Social History Tobacco Use Smoking status: Never Smokeless tobacco: Never Vaping Use Vaping Use: Never used Substance Use Topics Alcohol use: No Drug use: No EXAM: BP 138/92 Pulse 76 Resp 16 LMP (LMP Unknown) SpO2 96% PHYSICAL EXAM: General Appearance: Well appearing, alert, in no acute distress, well-hydrated, well nourished.. Skin: Skin color, texture, turgor normal, no suspicious rashes or lesions. Head: Normocephalic, no masses, lesions, tenderness or abnormalities. Eyes: Anicteric sclera. Pupils are equally round and reactive to light. Extraocular movements are intact. . Ears: External ears normal, canals clear. Oropharynx: Lips, mucosa, and tongue normal, teeth and gums normal, oropharynx normal. Neck: Supple, no adenopathy Lungs: Lungs clear to auscultation. No wheezing, rhonchi, rales.. Heart: RRR without murmur, gallop, or rubs. No ectopy. Extremities: No deformities, skin discoloration, clubbing or cyanosis. Chronic non-pitting BLE edema. No redness, increased warmth. Neg abelardo's. Good capillary refill. . Neurologic: Gait normal. ASSESSMENT/PLAN: 1. SOB (shortness of breath) - ICD9: 786.05, ICD10: R06.02 (primary diagnosis) 2. Chest discomfort - ICD9: 786.59, ICD10: R07.89 Due to complaints of shortness of breath and chest discomfort and unable to complete diagnostics at this hour at clinic, will refer to ER for further evaluation of discomfort and difficulty breathing. She is going to [facility]. Passport complete. Will fax notes over. Discussed treatment plan and patient voices understanding. Patient's questions answered appropriately. Medications and potential side effects were discussed and patient voices understanding. Return to the office as scheduled or as needed for worsening/no improvement. Leticia Amor APRN.[employer] documented in this encounter [facility] 07-04-2023 Note HNO ID: [id number] Author: Leticia Amor APRN.[employer] Service: ? Author Type: Nurse Practitioner Type: Progress Notes Filed: 07/04/2023 7:57 PM Note Text: 52 year old female with c/o URI sx over the last 5 days with Sore throat: a little towards the start. Runny/stuffy nose: Yes. Postnasal drip: No. Throat clearing: Yes. Sinus pain/ pressure: not bad. Teeth pain: No. Headache No. Body aches Yes. Ear pain: No. Cough: Yes. Production: once. Fever: No. Hx asthma Yes. Hx pneumonia Yes. Smoker: No. OTC meds tried: generic dayquil and cough drops. Refers that she continues with the lip rash. Refers that every time she goes on antibiotics, it clears up for a few days. ACTIVE PROBLEM LIST Anal Fissure Pruritus Ani Diarrhea Hypothyroidism, Unspecified Bilateral Hip Pain Weakness of Both Lower Extremities Numbness and Tingling of Both Lower Extremities Garcia (Generalized Anxiety Disorder) Obesity, Class Iii, Bmi 40-49.9 (Morbid Obesity) (Hcc) Current Outpatient Medications Medication Sig Dispense Refill omeprazole (PRILOSEC) 40 mg capsule Take 1 capsule by mouth once daily. 90 capsule 3 etodolac (LODINE) 400 mg tablet Take 1 tablet by mouth twice daily. 60 tablet 1 ursodiol (RETA) 250 mg tablet Take by mouth. Vitamin E, dl, acetate, (VITAMIN E) 200 unit capsule Take by mouth. escitalopram oxalate (LEXAPRO) 20 mg tablet Take 1 tablet by mouth once daily. 30 tablet 5 levothyroxine (SYNTHROID) 137 mcg tablet Take 1 tablet by mouth daily before breakfast. 90 tablet 3 tiZANidine (ZANAFLEX) 4 mg tablet Take 1 tablet by mouth every 8 hours as needed (pain). 40 tablet 1 No current facility-administered medications for this visit. OBJECTIVE: BP 128/90 Pulse 64 Temp 37.1 ?C (98.7 ?F) Resp 16 LMP (LMP Unknown) SpO2 98% General Appearance: Well appearing, alert, in no acute distress, well-hydrated, well nourished.. Skin: Skin color, texture, turgor normal, scaley rash above left upper lip. Head: Normocephalic, no masses, lesions, tenderness or abnormalities. Eyes: Anicteric sclera. Pupils are equally round and reactive to light. Extraocular movements are intact. . Ears: External ears normal, canals clear, Normal TMs bilaterally. Nose/Sinuses: Nares normal, septum midline, mucosa normal, no drainage or sinus tenderness. Oropharynx: Lips, mucosa, and tongue normal, teeth and gums normal, oropharynx normal. Neck: Supple, no adenopathy; thyroid symmetric, normal size, no bruits. Lungs: Lungs clear to auscultation. No wheezing, rhonchi, rales.. Heart: RRR without murmur, gallop, or rubs. No ectopy. Neurologic: Gait normal. ASSESSMENT/PLAN: 1. Sinobronchitis - ICD9: 473.9, 490, ICD10: J32.9, J40 (primary diagnosis) - Will begin treatment with Doxycycline - The patient should also be given OTC cough and cold meds as needed for the first 5-7 days of treatment. - Supportive care with plenty of fluids, rest, and analgesia prn. - METHYLPREDNISOLONE 4 MG TABLETS IN A DOSE PACK - DOXYCYCLINE HYCLATE 100 MG TABLET 2. Perioral dermatitis - ICD9: 695.3, ICD10: L71.0 Reports that the last two times on antibiotics, the rash briefly cleared up. Will go ahead and continue doxy treatment daily for 8 weeks and eval if this cleared facial rash. - DOXYCYCLINE HYCLATE 100 MG TABLET Discussed treatment plan and patient voices understanding. Patient's questions answered appropriately. Medications and potential side effects were discussed and patient voices understanding. Return to the office as scheduled or as needed for worsening/no improvement. Leticia Amor APRN.CNP [facility] 07-04-2023 Instructions Leticia Amor APRN.CNP - 07/04/2023 6:05 PM EDT Start the doxycycline twice daily X 10 days, then continue once daily for a total of 8 weeks. Start the medrol dose pack. documented in this encounter [facility] 07-04-2023 History of Present illness Narrative 52 year old female with c/o URI sx over the last 5 days with Sore throat: a little towards the start. Runny/stuffy nose: Yes. Postnasal drip: No. Throat clearing: Yes. Sinus pain/ pressure: not bad. Teeth pain: No. Headache No. Body aches Yes. Ear pain: No. Cough: Yes. Production: once. Fever: No. Hx asthma Yes. Hx pneumonia Yes. Smoker: No. OTC meds tried: generic dayquil and cough drops. Refers that she continues with the lip rash. Refers that every time she goes on antibiotics, it clears up for a few days. ACTIVE PROBLEM LIST Anal Fissure Pruritus Ani Diarrhea Hypothyroidism, Unspecified Bilateral Hip Pain Weakness of Both Lower Extremities Numbness and Tingling of Both Lower Extremities Garcia (Generalized Anxiety Disorder) Obesity, Class Iii, Bmi 40-49.9 (Morbid Obesity) (Hcc) Current Outpatient Medications Medication Sig Dispense Refill omeprazole (PRILOSEC) 40 mg capsule Take 1 capsule by mouth once daily. 90 capsule 3 etodolac (LODINE) 400 mg tablet Take 1 tablet by mouth twice daily. 60 tablet 1 ursodiol (RETA) 250 mg tablet Take by mouth. Vitamin E, dl, acetate, (VITAMIN E) 200 unit capsule Take by mouth. escitalopram oxalate (LEXAPRO) 20 mg tablet Take 1 tablet by mouth once daily. 30 tablet 5 levothyroxine (SYNTHROID) 137 mcg tablet Take 1 tablet by mouth daily before breakfast. 90 tablet 3 tiZANidine (ZANAFLEX) 4 mg tablet Take 1 tablet by mouth every 8 hours as needed (pain). 40 tablet 1 No current facility-administered medications for this visit. OBJECTIVE: BP 128/90 Pulse 64 Temp 37.1 C (98.7 F) Resp 16 LMP (LMP Unknown) SpO2 98% General Appearance: Well appearing, alert, in no acute distress, well-hydrated, well nourished.. Skin: Skin color, texture, turgor normal, scaley rash above left upper lip. Head: Normocephalic, no masses, lesions, tenderness or abnormalities. Eyes: Anicteric sclera. Pupils are equally round and reactive to light. Extraocular movements are intact. . Ears: External ears normal, canals clear, Normal TMs bilaterally. Nose/Sinuses: Nares normal, septum midline, mucosa normal, no drainage or sinus tenderness. Oropharynx: Lips, mucosa, and tongue normal, teeth and gums normal, oropharynx normal. Neck: Supple, no adenopathy; thyroid symmetric, normal size, no bruits. Lungs: Lungs clear to auscultation. No wheezing, rhonchi, rales.. Heart: RRR without murmur, gallop, or rubs. No ectopy. Neurologic: Gait normal. ASSESSMENT/PLAN: 1. Sinobronchitis - ICD9: 473.9, 490, ICD10: J32.9, J40 (primary diagnosis) - Will begin treatment with Doxycycline - The patient should also be given OTC cough and cold meds as needed for the first 5-7 days of treatment. - Supportive care with plenty of fluids, rest, and analgesia prn. - METHYLPREDNISOLONE 4 MG TABLETS IN A DOSE PACK - DOXYCYCLINE HYCLATE 100 MG TABLET 2. Perioral dermatitis - ICD9: 695.3, ICD10: L71.0 Reports that the last two times on antibiotics, the rash briefly cleared up. Will go ahead and continue doxy treatment daily for 8 weeks and eval if this cleared facial rash. - DOXYCYCLINE HYCLATE 100 MG TABLET Discussed treatment plan and patient voices understanding. Patient's questions answered appropriately. Medications and potential side effects were discussed and patient voices understanding. Return to the office as scheduled or as needed for worsening/no improvement. Leticia Amor APRN.EBONY documented in this encounter [facility] 06-20-2023 Note HNO ID: [id number] Author: Leticia Amor APRN.CNP Service: ? Author Type: Nurse Practitioner Type: Progress Notes Filed: 06/20/2023 8:36 AM Note Text: Chief Complaint Patient presents with: Telemedicine I have communicated my name and active licensure. The patient's identity and physical location were verified at the time of this visit. Either the patient or their legal event marketing representative has been informed of the risks and benefits of -- and alternatives to -- treatment through a remote evaluation and consents to proceed with the evaluation remotely. Video was used for evaluation of this patient. Patient is aware of limitations of performing the visit without a face to face visit in the office setting and agrees. Patient agrees to the visit: Yes Patient Location: [facility] Jammie Troy is a 52 year old female who is contacted today for a virtual visit This is an established patient of Machelle Harry MD Reports: Pt presents today with complaint of left upper lip excoriation. She was seen for this in the past and treated with triamcinolone, which initially helped, but then symptoms returned. She has tried multiple OTC products. Recently was in urgent care for bronchitis/pneumonia. Treated with augmentin and oral steroids. Refers rash improved with this treatment. Reports the rash is on the left upper lip. It can extend up between the lip and nose. Scaly and the skin can peel off, but then will be raw underneath. HSV culture was negative. Wound culture normal saul. She has been having trouble scheduling her aquatic PT. Reports that they want her to physically go in to schedule. Refers that she is only off on Wednesdays, so has been problematic trying to get in. She is still taking the etodolac and omprazole -- and needs refills. 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 Christian Sarmiento- repeat colonoscopy in 6 months d/t poor bowel prep DILATION AND CURETTAGE DXAND/THER NONOBSTETRIC Dilation AND curettage DILATION AND CURETTAGE DXAND/THER NONOBSTETRIC Dilation AND curettage EGD W/O BRSH SPEC VARICIES INJ 11/01/2022 Dr. Christian Sarmiento, small hiatal hernia LAPAROSCOPY SURG CHOLECYSTECTOMY Cholecystectomy, lap SIGMOIDOSCOPY FLX W/BIOPSY SINGLE/MULTIPLE 08/11/2006 TONSILLECTOMY PRIMARY/SECONDARY Tonsillectomy Family History FAMILY HISTORY Problem Relation Age of Onset Arthritis Mother Diabetes Father Thyroid Father Coronary Artery Disease Father Stroke Maternal Grandmother TIA Cancer Paternal Grandmother Patient Allergies ALLERGIES Allergen Reactions Adhesive Tape (Aranza* Rash, Swelling Bactrim [Sulfametho* Flexeril [Cyclobenz* Minocycline GI Upset Severe nausea Nexium [Esomeprazol* Sulfa (Sulfonamide * Zithromaxz [Other] Current Medications Current Outpatient Medications on File Prior to Visit Medication Sig etodolac (LODINE) 400 mg tablet Take 1 tablet by mouth twice daily ursodiol (RETA) 250 mg tablet Take by mouth. Vitamin E, dl, acetate, (VITAMIN E) 200 unit capsule Take by mouth. (Patient not taking: Reported on 05/25/2023) escitalopram oxalate (LEXAPRO) 20 mg tablet Take 1 tablet by mouth once daily. omeprazole (PRILOSEC) 40 mg capsule Take 1 capsule by mouth once daily. levothyroxine (SYNTHROID) 137 mcg tablet Take 1 tablet by mouth daily before breakfast. tiZANidine (ZANAFLEX) 4 mg tablet Take 1 tablet by mouth every 8 hours as needed (pain). No current facility-administered medications on file prior to visit. Social History Social History Tobacco Use Smoking status: Never Smokeless tobacco: Never Vaping Use Vaping Use: Never used Substance Use Topics Alcohol use: No Drug use: No EXAM: LMP (LMP Unknown) Limited exam as visit was completed over the virtual platform. Virtual visit completed using video, limited exam completed. Patient sounds or appears ill: No General Appearance: Well appearing, alert, in no acute distress, well-hydrated, well nourished. Skin: Skin color normal. Some redness of the left upper lip. Head: Normocephalic. No facial swelling or redness. EENT: Eyes nonreddened. No discharge. External ears nonreddened and no swelling. Neck: No mass or lesions. No swelling. FROM Patient is unable to speak in complete sentences: No Patient has labored breathing: No. Patient is audibly coughing: No Psych: Attitude - cooperative, easily engaged in (more content not included)... [facility] 06-20-2023 History of Present illness Narrative Chief Complaint Patient presents with: Telemedicine I have communicated my name and active licensure. The patient's identity and physical location were verified at the time of this visit. Either the patient or their legal event marketing representative has been informed of the risks and benefits of -- and alternatives to -- treatment through a remote evaluation and consents to proceed with the evaluation remotely. Video was used for evaluation of this patient. Patient is aware of limitations of performing the visit without a face to face visit in the office setting and agrees. Patient agrees to the visit: Yes Patient Location: [facility] Jammie Troy is a 52 year old female who is contacted today for a virtual visit This is an established patient of Machelle Harry MD Reports: Pt presents today with complaint of left upper lip excoriation. She was seen for this in the past and treated with triamcinolone, which initially helped, but then symptoms returned. She has tried multiple OTC products. Recently was in urgent care for bronchitis/pneumonia. Treated with augmentin and oral steroids. Refers rash improved with this treatment. Reports the rash is on the left upper lip. It can extend up between the lip and nose. Scaly and the skin can peel off, but then will be raw underneath. HSV culture was negative. Wound culture normal saul. She has been having trouble scheduling her aquatic PT. Reports that they want her to physically go in to schedule. Refers that she is only off on Wednesdays, so has been problematic trying to get in. She is still taking the etodolac and omprazole -- and needs refills. 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 Christian Sarmiento- repeat colonoscopy in 6 months d/t poor bowel prep DILATION & CURETTAGE DX&/THER NONOBSTETRIC Dilation & curettage DILATION & CURETTAGE DX&/THER NONOBSTETRIC Dilation & curettage EGD W/O BRSH SPEC VARICIES INJ 11/01/2022 Dr. Christian Sarmiento, small hiatal hernia LAPAROSCOPY SURG CHOLECYSTECTOMY Cholecystectomy, lap SIGMOIDOSCOPY FLX W/BIOPSY SINGLE/MULTIPLE 08/11/2006 TONSILLECTOMY PRIMARY/SECONDARY <AGE 13 Tonsillectomy Family History FAMILY HISTORY Problem Relation Age of Onset Arthritis Mother Diabetes Father Thyroid Father Coronary Artery Disease Father Stroke Maternal Grandmother TIA Cancer Paternal Grandmother Patient Allergies ALLERGIES Allergen Reactions Adhesive Tape (Aranza* Rash, Swelling Bactrim [Sulfametho* Flexeril [Cyclobenz* Minocycline GI Upset Severe nausea Nexium [Esomeprazol* Sulfa (Sulfonamide * Zithromaxz [Other] Current Medications Current Outpatient Medications on File Prior to Visit Medication Sig etodolac (LODINE) 400 mg tablet Take 1 tablet by mouth twice daily ursodiol (RETA) 250 mg tablet Take by mouth. Vitamin E, dl, acetate, (VITAMIN E) 200 unit capsule Take by mouth. (Patient not taking: Reported on 05/25/2023) escitalopram oxalate (LEXAPRO) 20 mg tablet Take 1 tablet by mouth once daily. omeprazole (PRILOSEC) 40 mg capsule Take 1 capsule by mouth once daily. levothyroxine (SYNTHROID) 137 mcg tablet Take 1 tablet by mouth daily before breakfast. tiZANidine (ZANAFLEX) 4 mg tablet Take 1 tablet by mouth every 8 hours as needed (pain). No current facility-administered medications on file prior to visit. Social History Social History Tobacco Use Smoking status: Never Smokeless tobacco: Never Vaping Use Vaping Use: Never used Substance Use Topics Alcohol use: No Drug use: No EXAM: LMP (LMP Unknown) Limited exam as visit was completed over the virtual platform. Virtual visit completed using video, limited exam completed. Patient sounds or appears ill: No General Appearance: Well appearing, alert, in no acute distress, well-hydrated, well nourished. Skin: Skin color normal. Some redness of the left upper lip. Head: Normocephalic. No facial swelling or redness. EENT: Eyes nonreddened. No discharge. External ears nonreddened and no swelling. Neck: No mass or lesions. No swelling. FROM Patient is unable to speak in complete sentences: No Patient has labored breathing: No. Patient is audibly coughing: No Psych: Attitude - cooperative, easily engaged in conversation Affect - Euthymic, normal mood Mental status: Alert. Speech is clear and fluent with good repetition, comprehension Appearance - Normal hygiene and grooming appropriate Coordination: No abnormal or extraneous movements. Gait/Stance: Posture is normal. Health Maintenance List HEPATITIS B(1 of 3 - 3-dose series) Never done COLORECTAL CANCER SCREENING due on 2016 SHINGRIX VACCINE(1 of 2) Never done COVID-19 VACCINE(3 - Pfizer series) due on 01/06/2022 MAMMOGRAM due on 02/26/2022 PAP TESTING due on 01/26/2023 HPV TESTING due on 01/26/2023 INFLUENZA(1) due on 07/22/2023 ANNUAL PCP TEAM CHRONIC DISEASE VISIT due on 05/09/2024 DIABETES SCREEN due on 07/21/2025 LIPID SCREEN due on 12/08/2026 DTAP,TDAP,TD(2 - Td or Tdap) due on 03/31/2030 DEPRESSION ASSESSMENT Completed HEPATITIS C SCREENING Completed HIV SCREENING Completed Data reviewed Last 5 Encounter BP Readings: Date: BP: 06/01/2023 106/64 05/25/2023 125/74 05/21/2023 132/78 05/09/2023 128/83 03/09/2023 132/82 BMI Readings from Last 5 Encounters: 06/01/23 : 43.45 kg/m 05/25/23 : 43.51 kg/m 05/09/23 : 42.97 kg/m 03/21/23 : 40.46 kg/m 01/19/23 : 41.81 kg/m Last 5 Encounter Wt Readings: Date: Wt: 06/01/2023 131.5 kg (290 lb) 05/25/2023 131.7 kg (290 lb 6.4 oz) 05/21/2023 0 kg () 05/09/2023 130.1 kg (286 lb 12.8 oz) 03/21/2023 122.5 kg (270 lb) Medication and allergy list reviewed, reconciled and updated 06/20/2023 ASSESSMENT/PLAN: 1. Dermatitis of lip - ICD9: 692.9, ICD10: L30.9 (primary diagnosis) - will start doxycycline since topical steroids didn't help in the past. ? Perioral dermatitis vs chronic inflammation and lichenification. Consult to dermatology for possible bx. - CONSULT TO DERMATOLOGY Will fax order to dermatology - Tray Maldonado. 2. Epigastric pain - ICD9: 789.06, ICD10: R10.13 Refill: - OMEPRAZOLE 40 MG CAPSULE,DELAYED RELEASE 3. Acute pain of left knee - ICD9: 719.46, ICD10: M25.562 Refill: - ETODOLAC 400 MG TABLET 4. Acute right ankle pain - ICD9: 719.47, 338.19, ICD10: M25.571 Refill: Pt encouraged to get scheduled w/ PT. - ETODOLAC 400 MG TABLET 5. Pain in left hip - ICD9: 719.45, ICD10: M25.552 Refill: - ETODOLAC 400 MG TABLET Discussed treatment plan and patient voices understanding. Patient's questions answered appropriately. Medications and potential side effects were discussed and patient voices understanding. Return to the office as scheduled or as needed for worsening/no improvement. Leticia Amor APRN.[employer] documented in this encounter [facility] 06-01-2023 Note HNO ID: [id number] Author: RT My(R) Service: Radiology Author Type: Technologist Type: Progress Notes Filed: 06/01/2023 2:59 PM Note Text: Radiology Service Progress Note PATIENT NAME: Jammie Troy DATE OF SERVICE: June 01, 2023 TIME: 2:48 PM PATIENT IDENTITY VERIFICATION COMPLETED USING TWO (2) IDENTIFIERS: Name and Date of confirmed by patient verbally. FALL SCREENING: Has the patient had 2 falls in the last year or 1 fall with injury or currently using an Ambulatory Assistive Device (Walker, Cane, Wheelchair, Crutches, etc.)? No PATIENT GENDER DATA: Female. status: : No status: NO. PATIENT RELEVANT IMPLANT DATA REVIEWED: Yes RADIOLOGY DEPARTMENT: General X-ray: Exam(s) Completed: Pelvis X-Ray: Pelvis with Hip Right PERIPHERAL IV DATA: Not applicable SIGNED BY: RT My(R) June 01, 2023 2:48 PM [facility] 06-01-2023 Note HNO ID: [id number] Author: HEAVEN Galvan Service: ? Author Type: Physician Manager Unix Type: Progress Notes Filed: 06/01/2023 3:13 PM Note Text: This note was created using NoteWriter. Subjective Jammie Troy is a 52 year old female. HPI 2-year-old female presents for cough, congestion x1 week. Patient states she started getting cough about a week ago. She states it has become worse and more productive. She is coughing up thick yellow mucus. She does have history of asthma. No chest pain or shortness of breath. She does have a little bit of nasal congestion. No sinus pain. No sore throat. She did a home COVID test that was negative. 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 No other complaints. 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 Gonzales Friend- repeat colonoscopy in 6 months d/t poor bowel prep DILATION AND CURETTAGE DXAND/THER NONOBSTETRIC Dilation AND curettage DILATION AND CURETTAGE DXAND/THER NONOBSTETRIC Dilation AND curettage EGD W/O BRSH SPEC VARICIES INJ 11/01/2022 Dr. Gonzales Friend, small hiatal hernia LAPAROSCOPY SURG CHOLECYSTECTOMY Cholecystectomy, lap SIGMOIDOSCOPY FLX W/BIOPSY SINGLE/MULTIPLE 08/11/2006 TONSILLECTOMY PRIMARY/SECONDARY Tonsillectomy ALLERGIES Adhesive Tape (Rosins), Bactrim [Sulfamethoxazole-Trimethoprim], Flexeril [Cyclobenzaprine Hcl], Minocycline, Nexium [Esomeprazole Magnesium], Sulfa (Sulfonamide Antibiotics), and Zithromaxz [Other] MEDICATIONS etodolac (LODINE) 400 mg tablet Take 1 tablet by mouth twice daily ursodiol (RETA) 250 mg tablet Take by mouth. Vitamin E, dl, acetate, (VITAMIN E) 200 unit capsule Take by mouth. (Patient not taking: Reported on 05/25/2023) escitalopram oxalate (LEXAPRO) 20 mg tablet Take 1 tablet by mouth once daily. omeprazole (PRILOSEC) 40 mg capsule Take 1 capsule by mouth once daily. levothyroxine (SYNTHROID) 137 mcg tablet Take 1 tablet by mouth daily before breakfast. tiZANidine (ZANAFLEX) 4 mg tablet Take 1 tablet by mouth every 8 hours as needed (pain). FAMILY HISTORY Problem Relation Age of Onset Arthritis Mother Diabetes Father Thyroid Father Coronary Artery Disease Father Stroke Maternal Grandmother TIA Cancer Paternal Grandmother Social History Tobacco Use Smoking status: Never Smokeless tobacco: Never Vaping Use Vaping Use: Never used Substance Use Topics Alcohol use: No Drug use: No Review of Systems Constitutional: Negative for chills and fever. HENT: Positive for congestion. Negative for ear pain and sore throat. Respiratory: Positive for cough. Negative for shortness of breath. Cardiovascular: Negative for chest pain. Gastrointestinal: Negative for diarrhea and vomiting. Objective BP 106/64 Pulse 84 Temp 37 ?C (98.6 ?F) Resp 18 Wt 131.5 kg (290 lb) LMP (LMP Unknown) SpO2 97% BMI 43.45 kg/m? Physical Exam Vitals and nursing note reviewed. Constitutional: General: She is not in acute distress. Appearance: Normal appearance. She is not toxic-appearing. HENT: Right Ear: Tympanic membrane and ear canal normal. Left Ear: Tympanic membrane and ear canal normal. Nose: Nose normal. Mouth/Throat: Mouth: Mucous membranes are moist. Pharynx: No oropharyngeal exudate or posterior oropharyngeal erythema. Eyes: Conjunctiva/sclera: Conjunctivae normal. Cardiovascular: Rate and Rhythm: Normal rate and regular rhythm. Pulmonary: Effort: Pulmonary effort is normal. Breath sounds: Rhonchi present. Comments: Mild rhonchi cleared with cough. Neurological: Mental Status: She is alert. Assessment and Plan ASSESSMENT/PLAN: 1. Sinobronchitis - ICD9: 473.9, 490, ICD10: J32.9, J40 (primary diagnosis) - Will begin treatment with Augmentin 875 mg PO BID for 5 days -Patient has history of asthma, some rhonchi and mild wheezing on exam. Will treat with prednisone. Patient states Medrol Dosepak works better than prednisone. Medrol Dosepak sent to pharmacy. -Continue inhalers at home. - Supportive care with plenty of fluids, rest, and analgesia prn. 2. Acute cough - ICD9: 786.2, ICD10: R05.1 - XR CHEST 2V FRONTAL/LAT -No acute findings. See above for treatment. Rx for prednisone and Augmentin. Diagnosis and treatment plan were discussed and questions were answered to the patient's satisfaction. Pt acknowledged understanding of concepts and follow up plan. Specific signs and symptoms that would indicate the need for higher level of care were discussed in detail warranting prompt ER evaluation. HEAVEN Galvan [facility] 06-01-2023 History of Present illness Narrative This note was created using [employer] Studios[employer]. Subjective Jammie Troy is a 52 year old female. HPI 2-year-old female presents for cough, congestion x1 week. Patient states she started getting cough about a week ago. She states it has become worse and more productive. She is coughing up thick yellow mucus. She does have history of asthma. No chest pain or shortness of breath. She does have a little bit of nasal congestion. No sinus pain. No sore throat. She did a home COVID test that was negative. 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 No other complaints. 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 Christian Sarmiento- repeat colonoscopy in 6 months d/t poor bowel prep DILATION & CURETTAGE DX&/THER NONOBSTETRIC Dilation & curettage DILATION & CURETTAGE DX&/THER NONOBSTETRIC Dilation & curettage EGD W/O BRSH SPEC VARICIES INJ 11/01/2022 Dr. Christian Sarmiento, small hiatal hernia LAPAROSCOPY SURG CHOLECYSTECTOMY Cholecystectomy, lap SIGMOIDOSCOPY FLX W/BIOPSY SINGLE/MULTIPLE 08/11/2006 TONSILLECTOMY PRIMARY/SECONDARY <AGE 13 Tonsillectomy ALLERGIES Adhesive Tape (Rosins), Bactrim [Sulfamethoxazole-Trimethoprim], Flexeril [Cyclobenzaprine Hcl], Minocycline, Nexium [Esomeprazole Magnesium], Sulfa (Sulfonamide Antibiotics), and Zithromaxz [Other] MEDICATIONS etodolac (LODINE) 400 mg tablet Take 1 tablet by mouth twice daily ursodiol (RETA) 250 mg tablet Take by mouth. Vitamin E, dl, acetate, (VITAMIN E) 200 unit capsule Take by mouth. (Patient not taking: Reported on 05/25/2023) escitalopram oxalate (LEXAPRO) 20 mg tablet Take 1 tablet by mouth once daily. omeprazole (PRILOSEC) 40 mg capsule Take 1 capsule by mouth once daily. levothyroxine (SYNTHROID) 137 mcg tablet Take 1 tablet by mouth daily before breakfast. tiZANidine (ZANAFLEX) 4 mg tablet Take 1 tablet by mouth every 8 hours as needed (pain). FAMILY HISTORY Problem Relation Age of Onset Arthritis Mother Diabetes Father Thyroid Father Coronary Artery Disease Father Stroke Maternal Grandmother TIA Cancer Paternal Grandmother Social History Tobacco Use Smoking status: Never Smokeless tobacco: Never Vaping Use Vaping Use: Never used Substance Use Topics Alcohol use: No Drug use: No Review of Systems Constitutional: Negative for chills and fever. HENT: Positive for congestion. Negative for ear pain and sore throat. Respiratory: Positive for cough. Negative for shortness of breath. Cardiovascular: Negative for chest pain. Gastrointestinal: Negative for diarrhea and vomiting. Objective BP 106/64 Pulse 84 Temp 37 C (98.6 F) Resp 18 Wt 131.5 kg (290 lb) LMP (LMP Unknown) SpO2 97% BMI 43.45 kg/m Physical Exam Vitals and nursing note reviewed. Constitutional: General: She is not in acute distress. Appearance: Normal appearance. She is not toxic-appearing. HENT: Right Ear: Tympanic membrane and ear canal normal. Left Ear: Tympanic membrane and ear canal normal. Nose: Nose normal. Mouth/Throat: Mouth: Mucous membranes are moist. Pharynx: No oropharyngeal exudate or posterior oropharyngeal erythema. Eyes: Conjunctiva/sclera: Conjunctivae normal. Cardiovascular: Rate and Rhythm: Normal rate and regular rhythm. Pulmonary: Effort: Pulmonary effort is normal. Breath sounds: Rhonchi present. Comments: Mild rhonchi cleared with cough. Neurological: Mental Status: She is alert. Assessment and Plan ASSESSMENT/PLAN: 1. Sinobronchitis - ICD9: 473.9, 490, ICD10: J32.9, J40 (primary diagnosis) - Will begin treatment with Augmentin 875 mg PO BID for 5 days -Patient has history of asthma, some rhonchi and mild wheezing on exam. Will treat with prednisone. Patient states Medrol Dosepak works better than prednisone. Medrol Dosepak sent to pharmacy. -Continue inhalers at home. - Supportive care with plenty of fluids, rest, and analgesia prn. 2. Acute cough - ICD9: 786.2, ICD10: R05.1 - XR CHEST 2V FRONTAL/LAT -No acute findings. See above for treatment. Rx for prednisone and Augmentin. Diagnosis and treatment plan were discussed and questions were answered to the patient's satisfaction. Pt acknowledged understanding of concepts and follow up plan. Specific signs and symptoms that would indicate the need for higher level of care were discussed in detail warranting prompt ER evaluation. HEAVEN Galvan documented in this encounter [facility] 05-26-2023 Miscellaneous Notes Phone call placed patient advised (see prior provider encounter) Patient verbalized understanding, agreed with plan of care. Areli Barboza LPN Wound culture looks like it had mixed saul. Her herpes swab was negative. If her symptoms are worsening, she needs to follow up with PCP. Pt calling for her lab results from a wound culture 05/21/23. Pt states her lip is getting worse. Please advise. Reina Vazquez LPN documented in this encounter [facility] 05-25-2023 Note HNO ID: [id number] Author: Neville Grullon PA-C Service: ? Author Type: Physician Manager Unix Type: Progress Notes Filed: 05/25/2023 9:22 AM Note Text: Rheumatology Outpatient Clinic Date of Service: 05/25/2023 Patient: Jammie Troy Medical Record: [id number] Primary Care Physician: Machelle Harry MD Last Rheumatology visit: None at [facility] Referring Provider: Lorenzo Mars CNP [address] [facility] [address] Consultation requested by Lorenzo Mars CNP for an opinion regarding Joint Pain and Abnormal Lab. My final recommendations will be communicated back to the requesting physician by way of shared Medical record or letter to requesting physician via US mail. History of Present Illness Jammie Troy is a 52 year old White female who presents on 05/25/2023 for an in-person visit for evaluation of Joint Pain and Abnormal Lab. Jammie is RF negative - 9 (04/13/2021). Her most recent REBEKAH was negative (04/13/2021). HISTORY OF PRESENT ILLNESS Jammie Troy is a very pleasant 52 year old female with PMH hypothyroidism, and GARCIA presenting for rheumatologic evaluation of joint pain and abnormal lab work. She has negative RF and REBEKAH from 2020. CRP has been 1.1 (03/30/23) and 1.0 (05/04/2023) and ESR 39 (03/30/23) and 40 (05/04/2023). MRI of right ankle showed tenosynovitis of the peroneal tendons as well as posterior tibialis and flexor digitorum longus. Also showed thickened anterior talofibular and calcaneofibular ligaments, likely related to prior injury/sprain. Patient reports worsening joint pains in the ankles, knees, and hips. She also has muscle pain in the thighs and perceived muscle weakness with ascending stairs. She denies known triggers. Did hit right ankle against an object a few months ago and thought significantly injured it, but reports xrays are fine. 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 Does note significant right ankle pain with ankle rolls. Also will have discomfort in the right hip with hip flexion. Feels like core may be weak. Reports arm muscles are fine. Pain is worse with movement. Will have pain in joints if she sleeps on them at night. Will notice ankle stiffness in the morning. Not sure if has joint swelling. No pertinent family history. No personal history of psoriasis, IBD, inflammatory eye disease, or DVT/PE. Patient-Entered Data PAIN EVALUATION 05/21/2023 2305 05/25/2023 0801 Pain Level: 5 2 Description: Aching;Sharp;Stabbing;Stiffness -- Duration Amount of Time: 8 -- Duration Units: Hours Unknown Frequency: Intermittent Continuous Intervention/Comfort measure: Medication;Exercise -- Comments: Joints nd muscles. Especially hips, knees, legs -- PROMIS Assessments PROMIS Assessments 02/02/2023 02/27/2023 05/21/2023 Physical Health Percentile 66 % - - Mental Health Percentile 34 % - 43 % Pain Score 5 - 3 Pain Interference Percentile - - 5 % Fatigue Percentile - - 46 % Physical Function Percentile - 18 % 14 % RAPID 3 [place] Activities of Daily Living 05/21/2023 11:10 PM Dress self? With SOME difficulty Get in and out of bed? Without ANY difficulty Walk outdoors? Without ANY difficulty Wash and dry body? Without ANY difficulty Get in and out of car? With SOME difficulty RAPID 3 Disease Activity Weighed Score Levels: 0 - 1: Near Remission 1.3 - 2.0: Low Severity 2.3 - 4.0: Moderate Severity 4.3 - 10.0: High Severity RAPID-3 Weighed Score 05/21/2023 RAPID 3 Weighed Score 3.72 (Moderate Severity (MS)) Review of Systems Review of Systems CONSTITUTION: Negative for: Fever and Recent weight change HEENT: Negative for: Nosebleeds, Mouth sores, Trouble swallowing and Dry mouth RESPIRATORY: Negative for: Cough, Shortness of breath and Pain with breathing GASTROINTESTINAL: Negative for: Melena, Diarrhea, Heartburn and Abdominal pain MUSCULOSKELETAL: Positive for: Arthralgias, Myalgias, Muscle weakness, Joint swelling and Morning Joint Stiffness NEUROLOGICAL: Negative for: Headaches, Numbness and Memory loss SKIN: Negative for: Rash, Skin changes, Hair loss and Nail changes EYES: Negative for: Eye pain, Eye redness, Eye dryness and visual disturbance CARDIOVASCULAR: Positive for: Leg swelling Negative for: Chest pain GENITOURINARY: Negative for: Dysuria and Hematuria HEMATOLOGIC/LYMPHATIC: Negative for: Swollen glands All other reviewed and negative other than HPI. 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 Gonzales Friend- repeat colo (more content not included)... [facility] 05-25-2023 History of Present illness Narrative Images from the original note were not included. Rheumatology Outpatient Clinic Date of Service: 05/25/2023 Patient: Jammie Troy Medical Record: [id number] Primary Care Physician: Machelle Harry MD Last Rheumatology visit: None at [facility] Referring Provider: Lorenzo Mars CNP [address] [facility] [address] Consultation requested by Lorenzo Mars CNP for an opinion regarding Joint Pain and Abnormal Lab. My final recommendations will be communicated back to the requesting physician by way of shared Medical record or letter to requesting physician via [place] mail. History of Present Illness Jammie Troy is a 52 year old White female who presents on 05/25/2023 for an in-person visit for evaluation of Joint Pain and Abnormal Lab. Jammie is RF negative - 9 (04/13/2021). Her most recent REBEKAH was negative (04/13/2021). HISTORY OF PRESENT ILLNESS Jammie Troy is a very pleasant 52 year old female with PMH hypothyroidism, and GARCIA presenting for rheumatologic evaluation of joint pain and abnormal lab work. She has negative RF and REBEKAH from 2020. CRP has been 1.1 (03/30/23) and 1.0 (05/04/2023) and ESR 39 (03/30/23) and 40 (05/04/2023). MRI of right ankle showed tenosynovitis of the peroneal tendons as well as posterior tibialis and flexor digitorum longus. Also showed thickened anterior talofibular and calcaneofibular ligaments, likely related to prior injury/sprain. Patient reports worsening joint pains in the ankles, knees, and hips. She also has muscle pain in the thighs and perceived muscle weakness with ascending stairs. She denies known triggers. Did hit right ankle against an object a few months ago and thought significantly injured it, but reports xrays are fine. 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 Does note significant right ankle pain with ankle rolls. Also will have discomfort in the right hip with hip flexion. Feels like core may be weak. Reports arm muscles are fine. Pain is worse with movement. Will have pain in joints if she sleeps on them at night. Will notice ankle stiffness in the morning. Not sure if has joint swelling. No pertinent family history. No personal history of psoriasis, IBD, inflammatory eye disease, or DVT/PE. Patient-Entered Data PAIN EVALUATION 05/21/2023 2305 05/25/2023 0801 Pain Level: 5 2 Description: Aching;Sharp;Stabbing;Stiffness -- Duration Amount of Time: 8 -- Duration Units: Hours Unknown Frequency: Intermittent Continuous Intervention/Comfort measure: Medication;Exercise -- Comments: Joints nd muscles. Especially hips, knees, legs -- PROMIS Assessments PROMIS Assessments 02/02/2023 02/27/2023 05/21/2023 Physical Health Percentile 66 % - - Mental Health Percentile 34 % - 43 % Pain Score 5 - 3 Pain Interference Percentile - - 5 % Fatigue Percentile - - 46 % Physical Function Percentile - 18 % 14 % RAPID 3 [place] Activities of Daily Living 05/21/2023 11:10 PM Dress self? With SOME difficulty Get in and out of bed? Without ANY difficulty Walk outdoors? Without ANY difficulty Wash and dry body? Without ANY difficulty Get in and out of car? With SOME difficulty RAPID 3 Disease Activity Weighed Score Levels: 0 - 1: Near Remission 1.3 - 2.0: Low Severity 2.3 - 4.0: Moderate Severity 4.3 - 10.0: High Severity RAPID-3 Weighed Score 05/21/2023 RAPID 3 Weighed Score 3.72 (Moderate Severity (MS)) Review of Systems Review of Systems CONSTITUTION: Negative for: Fever and Recent weight change HEENT: Negative for: Nosebleeds, Mouth sores, Trouble swallowing and Dry mouth RESPIRATORY: Negative for: Cough, Shortness of breath and Pain with breathing GASTROINTESTINAL: Negative for: Melena, Diarrhea, Heartburn and Abdominal pain MUSCULOSKELETAL: Positive for: Arthralgias, Myalgias, Muscle weakness, Joint swelling and Morning Joint Stiffness NEUROLOGICAL: Negative for: Headaches, Numbness and Memory loss SKIN: Negative for: Rash, Skin changes, Hair loss and Nail changes EYES: Negative for: Eye pain, Eye redness, Eye dryness and visual disturbance CARDIOVASCULAR: Positive for: Leg swelling Negative for: Chest pain GENITOURINARY: Negative for: Dysuria and Hematuria HEMATOLOGIC/LYMPHATIC: Negative for: Swollen glands All other reviewed and negative other than HPI. 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 Gonzales Friend- repeat colonoscopy in 6 months d/t poor bowel prep DILATION & CURETTAGE DX&/THER NONOBSTETRIC Dilation & curettage DILATION & CURETTAGE DX&/THER NONOBSTETRIC Dilation & curettage EGD W/O BRSH SPEC VARICIES INJ 11/01/2022 Dr. Gonzales Friend, small hiatal hernia LAPAROSCOPY SURG CHOLECYSTECTOMY Cholecystectomy, lap SIGMOIDOSCOPY FLX W/BIOPSY SINGLE/MULTIPLE 08/11/2006 TONSILLECTOMY PRIMARY/SECONDARY <AGE 12 Tonsillectomy Family History FAMILY HISTORY Problem Relation Age of Onset Arthritis Mother Diabetes Father Thyroid Father Coronary Artery Disease Father Stroke Maternal Grandmother TIA Cancer Paternal Grandmother Social History Social History Tobacco Use Smoking status: Never Smokeless tobacco: Never Vaping Use Vaping Use: Never used Substance Use Topics Alcohol use: No Drug use: No Current Medications Current Outpatient Medications on File Prior to Visit Medication Sig etodolac (LODINE) 400 mg tablet Take 1 tablet by mouth twice daily ursodiol (RETA) 250 mg tablet Take by mouth. escitalopram oxalate (LEXAPRO) 20 mg tablet Take 1 tablet by mouth once daily. omeprazole (PRILOSEC) 40 mg capsule Take 1 capsule by mouth once daily. levothyroxine (SYNTHROID) 137 mcg tablet Take 1 tablet by mouth daily before breakfast. tiZANidine (ZANAFLEX) 4 mg tablet Take 1 tablet by mouth every 8 hours as needed (pain). triamcinolone acetonide (KENALOG) 0.1 % ointment Apply to affected area twice daily. (Patient not taking: No sig reported) semaglutide (OZEMPIC) 0.25 mg or 0.5 mg(2 mg/1.5 mL) pen Inject 0.25 mg subcutaneously one time a week. (Patient not taking: Reported on 03/16/2023) Vitamin E, dl, acetate, (VITAMIN E) 200 unit capsule Take by mouth. (Patient not taking: Reported on 05/25/2023) No current facility-administered medications on file prior to visit. Labs CBC Latest Ref Rng & Units 12/08/2021 04/13/2022 07/21/2022 03/30/2023 WBC 3.70 - 11.00 k/uL 6.69 5.74 6.68 6.15 HEMOGLOBIN 11.5 - 15.5 g/dL 13.9 14.0 14.3 13.1 HEMATOCRIT 36.0 - 46.0 % 42.6 42.2 42.7 41.8 PLATELETS 150 - 400 k/uL 239 250 295 267 ABS NEUT (ANC) 1.45 - 7.50 k/uL 4.02 3.43 3.86 3.74 ABS LYMPH 1.00 - 4.00 k/uL 2.03 1.88 2.28 1.84 CMP Latest Ref Rng & Units 12/08/2021 04/13/2022 07/21/2022 08/12/2022 SODIUM 136 - 144 mmol/L 138 136 136 - POTASSIUM 3.7 - 5.1 mmol/L 3.8 3.4(L) 4.4 - CHLORIDE 97 - 105 mmol/L 103 103 100 - CO2 22 - 30 mmol/L 24 20(L) 22 - GLUCOSE 74 - 99 mg/dL 88 140(H) 88 - BUN 7 - 21 mg/dL 9 11 15 - CREATININE 0.58 - 0.96 mg/dL 0.66 0.63 0.72 - CALCIUM, TOTAL 8.5 - 10.2 mg/dL 9.3 8.7 9.6 - AST 13 - 35 U/L 15 18 24 - ALT 7 - 38 U/L 11 12 13 - ALKALINE PHOSPHATASE 34 - 123 U/L 137(H) 130(H) 151(H) 128(H) ESR, WSR Latest Ref Rng & Units 04/13/2021 04/13/2022 03/30/2023 05/04/2023 WSR 0 - 20 mm/hr 30(H) 29(H) 39(H) 40(H) CRP Latest Ref Rng & Units 04/13/2021 04/13/2022 03/30/2023 05/04/2023 CRP <0.9 mg/dL 0.7 0.6 1.1(H) 1.0(H) CK Latest Ref Rng & Units 04/13/2022 CK 42 - 196 U/L 53 RF and CCP Latest Ref Rng & Units 04/13/2021 RHEUMATOID FACTOR <16 IU/mL <10 Hepatitis Screen Latest Ref Rng & Units 02/26/2021 HEPCABEIA Negative Negative Antibodies Latest Ref Rng & Units 04/13/2021 03/30/2023 REBEKAH BY EIA OD Ratio 0.4 - REBEKAH BY EIA, QUAL Negative Negative - PT SEC <13.1 sec - 9.3 PT INR 0.9 - 1.3 - 1.0 PTT 23.0 - 32.4 sec - 23.3 Urinalysis Latest Ref Rng & Units 04/23/2021 05/01/2021 05/11/2021 12/31/2021 PROTEIN, URINE Negative - Negative 1+(A) Negative PROTEIN UA (POCT) Negative mg/dL Negative - - - RBC, URINE 0 - 3 /HPF - 0-3 /HPF 0-3 0-3 Imaging Last XR Hand/Finger - Impression Only XR HAND GENERAL 3V PA/LAT/OBL RT Exam End: 10/27/2020 8:19 AM (Final result) Impression: IMPRESSION: No traumatic osseous abnormality Retail Associate Manager Bilingual: BARBI Transcribe Date/Time: Oct 27 2020 8:27A ... Last MRI Hand - Impression Only No resulted procedures found. Last XR Chest - Impression Only XR CHEST 2V FRONTAL/LAT Exam End: 06/01/2022 3:08 PM (Final result) Impression: IMPRESSION: No acute radiographic abnormality. ... Last XR Cervical Spine - Impression Only No resulted procedures found. Health Maintenance HEPATITIS B(1 of 3 - 3-dose series) Never done COLORECTAL CANCER SCREENING due on 2016 SHINGRIX VACCINE(1 of 2) Never done COVID-19 VACCINE(3 - Booster for Pfizer series) due on 01/06/2022 MAMMOGRAM due on 02/26/2022 PAP TESTING due on 01/26/2023 HPV TESTING due on 01/26/2023 INFLUENZA(1) due on 07/22/2023 ANNUAL PCP TEAM CHRONIC DISEASE VISIT due on 05/09/2024 DIABETES SCREEN due on 07/21/2025 LIPID SCREEN due on 12/08/2026 DTAP,TDAP,TD(2 - Td or Tdap) due on 03/31/2030 DEPRESSION ASSESSMENT Completed HEPATITIS C SCREENING Completed HIV SCREENING Completed Physical Exam GENERAL APPEARANCE: Well groomed. Alert and oriented x 3. In no distress. VITAL SIGNS: BP 125/74 Pulse 74 Temp (Src) 98 (Temporal) Wt 290 lb 6.4 oz (131.7kg) Physical Exam Constitutional: General: She is not in acute distress. Appearance: Normal appearance. She is not ill-appearing, toxic-appearing or diaphoretic. HENT: Head: Normocephalic and atraumatic. Right Ear: External ear normal. Left Ear: External ear normal. Nose: Nose normal. Eyes: General: No scleral icterus. Conjunctiva/sclera: Conjunctivae normal. Cardiovascular: Rate and Rhythm: Normal rate and regular rhythm. Pulses: Normal pulses. Heart sounds: Normal heart sounds. Pulmonary: Effort: Pulmonary effort is normal. No respiratory distress. Breath sounds: Normal breath sounds. No stridor. No wheezing, rhonchi or rales. Musculoskeletal: Comments: All joints without effusion unless stated. Muscle Strength 5/5 and symmetric unless otherwise specified. 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 Hip strength is 5/5 and symmetric though with increased perceived effort. Hip strength 5/5 on adduction and abduction Knees FROM Ankles FROM. There is tenderness to the right ankle. No MTP squeeze tenderness Skin: General: Skin is warm and dry. Coloration: Skin is not jaundiced. Findings: No bruising, erythema, lesion or rash. Neurological: General: No focal deficit present. Mental Status: She is alert and oriented to person, place, and time. Motor: No weakness. Psychiatric: Mood and Affect: Mood normal. Behavior: Behavior normal. Thought Content: Thought content normal. Judgment: Judgment normal. Impression Diagnoses: (M25.551) Pain in right hip (primary encounter diagnosis) (M25.571, G89.29) Chronic pain of right ankle (M62.81) Subjective muscle weakness Jammie Troy is a very pleasant 52 year old female with PMH hypothyroidism, and GARCIA presenting for rheumatologic evaluation of joint pain and abnormal lab work. Patient presents with clear mechanical joint pains. She has chronic tendonitis in right ankle. Does admit to not giving right ankle proper rest after injury. She was given a lace up ankle brace to wear daily. She was advised to rest the right ankle as much as possible and ice in the evening. She may return to activity as tolerated after two weeks. She should continue to take the etodolac twice daily as prescribed. Other joint pains in the load bearing joints. Unclear exact cause of right hip pain, but likely mechanical. Could be OA exacerbation vs labrum tear vs iliopsoas bursitis. Recommend aquatic PT. Muscle pains likely combination of referred pain from joints as well as muscular deconditioning. Mild elevated inflammatory markers CRP 1.1 and ESR 40 not clinically significant at this time for inflammatory disease and could be related to either patient's new baseline levels, other metabolic processes, or to her chronic tendonitis as seen on MRI. CRP and ESR are both directly linked to obesity and elevate with increased BMI. Patient may follow up with rheumatology as needed. Plan Orders this visit: Office Visit on 05/25/23 CONSULT TO RHEUM/IMMUN DISEASE CONSULT TO PHYSICAL THERAPY (M25.551) Pain in right hip (primary encounter diagnosis) (M25.571, G89.29) Chronic pain of right ankle (M62.81) Subjective muscle weakness Aquatic PT Wear brace on the right ankle daily for stability as needed Ask PT about KT taping for right ankle Rest the right ankle for two weeks, ice at night, and return to gentle activity as tolerated after two weeks Continue to take etodolac 400 mg, 1 tablet, BID as needed for pain. Return if symptoms worsen or fail to improve. I spent a total of 60 minutes on the date of the service which included preparing to see the patient, [id number] patient care, completing clinical documentation, obtaining and/or reviewing separately obtained history, performing a medically appropriate examination, counseling and educating the patient/family/caregiver, and ordering medications, tests, or procedures. ___ Neville Grullon PA-C [facility] Date: May 25, 2023 Time: 8:54 AM documented in this encounter [facility] 05-21-2023 Note HNO ID: [id number] Author: Betty Veras APRN.[facility] Service: ? Author Type: Nurse Practitioner Type: Progress Notes Filed: 05/21/2023 1:30 PM Note Text: Subjective With complaints of sore on upper left lip. Patient says she has had it since mid March. Patient says that it seems to be getting worse. Patient says it feels like a burning fire pain. Patient does consistently pulled the scab off of it. Patient says it feels like something is eating her lip. Patient has tried all the [id number] creams and steroid all prescription cream prescribed by PCP. Patient says everything she puts on it makes it worse. Patient would like some testing done to see what it is. The history is provided by the patient. No foreign languages professor was used. Mouth/Lip Problem Review of Systems Constitutional: Negative. Skin: Negative. Objective Physical Exam Constitutional: Appearance: Normal appearance. HENT: Head: Comments: Has erythematous crusted area where the purple spot is marked above. No swelling or drainage noted. Pulmonary: Effort: Pulmonary effort is normal. Neurological: Mental Status: She is alert. 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 Christian Sarmiento- repeat colonoscopy in 6 months d/t poor bowel prep DILATION AND CURETTAGE DXAND/THER NONOBSTETRIC Dilation AND curettage DILATION AND CURETTAGE DXAND/THER NONOBSTETRIC Dilation AND curettage EGD W/O BRSH SPEC VARICIES INJ 11/01/2022 Dr. Christian Sarmiento, small hiatal hernia LAPAROSCOPY SURG CHOLECYSTECTOMY Cholecystectomy, lap SIGMOIDOSCOPY FLX W/BIOPSY SINGLE/MULTIPLE 08/11/2006 TONSILLECTOMY PRIMARY/SECONDARY Tonsillectomy ALLERGIES Adhesive Tape (Rosins), Bactrim [Sulfamethoxazole-Trimethoprim], Flexeril [Cyclobenzaprine Hcl], Minocycline, Nexium [Esomeprazole Magnesium], Sulfa (Sulfonamide Antibiotics), and Zithromaxz [Other] MEDICATIONS etodolac (LODINE) 400 mg tablet Take 1 tablet by mouth twice daily ursodiol (RETA) 250 mg tablet Take by mouth. Vitamin E, dl, acetate, (VITAMIN E) 200 unit capsule Take by mouth. escitalopram oxalate (LEXAPRO) 20 mg tablet Take 1 tablet by mouth once daily. omeprazole (PRILOSEC) 40 mg capsule Take 1 capsule by mouth once daily. levothyroxine (SYNTHROID) 137 mcg tablet Take 1 tablet by mouth daily before breakfast. tiZANidine (ZANAFLEX) 4 mg tablet Take 1 tablet by mouth every 8 hours as needed (pain). triamcinolone acetonide (KENALOG) 0.1 % ointment Apply to affected area twice daily. (Patient not taking: No sig reported) semaglutide (OZEMPIC) 0.25 mg or 0.5 mg(2 mg/1.5 mL) pen Inject 0.25 mg subcutaneously one time a week. (Patient not taking: Reported on 03/16/2023) FAMILY HISTORY Problem Relation Age of Onset Arthritis Mother Diabetes Father Thyroid Father Coronary Artery Disease Father Stroke Maternal Grandmother TIA Cancer Paternal Grandmother Social History Tobacco Use Smoking status: Never Smokeless tobacco: Never Vaping Use Vaping Use: Never used Substance Use Topics Alcohol use: No Drug use: No ASSESSMENT/PLAN: 1. Wound infection - ICD9: 958.3, ICD10: T14.8XXA, L08.9 - ABSCESS AND WOUND CULTURE WITH GRAM STAIN - HSV1,2/VZV NAAT LESION Tests were sent out but patient was instructed to call around to get a dermatology appointment for follow-up. If anything comes back please treat accordingly. No treatment was given at this time. Betty Veras APRN.[facility] 05-21-2023 History of Present illness Narrative Images from the original note were not included. Subjective With complaints of sore on upper left lip. Patient says she has had it since mid March. Patient says that it seems to be getting worse. Patient says it feels like a burning fire pain. Patient does consistently pulled the scab off of it. Patient says it feels like something is eating her lip. Patient has tried all the [id number] creams and steroid all prescription cream prescribed by PCP. Patient says everything she puts on it makes it worse. Patient would like some testing done to see what it is. The history is provided by the patient. No foreign languages professor was used. Mouth/Lip Problem Review of Systems Constitutional: Negative. Skin: Negative. Objective Physical Exam Constitutional: Appearance: Normal appearance. HENT: Head: Comments: Has erythematous crusted area where the purple spot is marked above. No swelling or drainage noted. Pulmonary: Effort: Pulmonary effort is normal. Neurological: Mental Status: She is alert. 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 Gonzales Friend- repeat colonoscopy in 6 months d/t poor bowel prep DILATION & CURETTAGE DX&/THER NONOBSTETRIC Dilation & curettage DILATION & CURETTAGE DX&/THER NONOBSTETRIC Dilation & curettage EGD W/O BRSH SPEC VARICIES INJ 11/01/2022 Dr. Gonzales Friend, small hiatal hernia LAPAROSCOPY SURG CHOLECYSTECTOMY Cholecystectomy, lap SIGMOIDOSCOPY FLX W/BIOPSY SINGLE/MULTIPLE 08/11/2006 TONSILLECTOMY PRIMARY/SECONDARY <AGE 13 Tonsillectomy ALLERGIES Adhesive Tape (Rosins), Bactrim [Sulfamethoxazole-Trimethoprim], Flexeril [Cyclobenzaprine Hcl], Minocycline, Nexium [Esomeprazole Magnesium], Sulfa (Sulfonamide Antibiotics), and Zithromaxz [Other] MEDICATIONS etodolac (LODINE) 400 mg tablet Take 1 tablet by mouth twice daily ursodiol (RETA) 250 mg tablet Take by mouth. Vitamin E, dl, acetate, (VITAMIN E) 200 unit capsule Take by mouth. escitalopram oxalate (LEXAPRO) 20 mg tablet Take 1 tablet by mouth once daily. omeprazole (PRILOSEC) 40 mg capsule Take 1 capsule by mouth once daily. levothyroxine (SYNTHROID) 137 mcg tablet Take 1 tablet by mouth daily before breakfast. tiZANidine (ZANAFLEX) 4 mg tablet Take 1 tablet by mouth every 8 hours as needed (pain). triamcinolone acetonide (KENALOG) 0.1 % ointment Apply to affected area twice daily. (Patient not taking: No sig reported) semaglutide (OZEMPIC) 0.25 mg or 0.5 mg(2 mg/1.5 mL) pen Inject 0.25 mg subcutaneously one time a week. (Patient not taking: Reported on 03/16/2023) FAMILY HISTORY Problem Relation Age of Onset Arthritis Mother Diabetes Father Thyroid Father Coronary Artery Disease Father Stroke Maternal Grandmother TIA Cancer Paternal Grandmother Social History Tobacco Use Smoking status: Never Smokeless tobacco: Never Vaping Use Vaping Use: Never used Substance Use Topics Alcohol use: No Drug use: No ASSESSMENT/PLAN: 1. Wound infection - ICD9: 958.3, ICD10: T14.8XXA, L08.9 - ABSCESS AND WOUND CULTURE WITH GRAM STAIN - HSV1,2/VZV NAAT LESION Tests were sent out but patient was instructed to call around to get a dermatology appointment for follow-up. If anything comes back please treat accordingly. No treatment was given at this time. Betty Veras APRN.[facility] documented in this encounter [facility] 05-09-2023 Note HNO ID: [id number] Author: Lorenzo aMrs APRN.CNP Service: ? Author Type: Nurse Practitioner Type: Progress Notes Filed: 05/09/2023 8:58 AM Note Text: Chief Complaint Patient presents with: Joint Pain HPI Jammie Troy is a 52 year old female who presents here today for Above Complaints. follow up for inflammatory lab elevation. Patient here to follow-up on lab results. Patient saw Leticia Block. Has been following elevated C-reactive protein levels. CRP was 1.0, previously 1.1. Sed rate was 40, previously 39. RF, REBEKAH in 2020 was negative. Patient has been under the care of orthopedics for pain in her left hip. Also under the care of podiatry for Planter fasciitis, chronic right ankle pain. She is taking etodolac 400 mg. At this time, the patient states that she believes that her joint pain is progressing. States that if she walks up the stairs, she needs the handrail to move up the steps. She has complaints of bilateral hip, ankle, knee pain. Also feels like her pain alternates between muscle and joint pain. 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 She can walk long distances on flat ground without any difficulty. At this time denies any chest pain, shortness of breath, passing out. Depression Screening 03/28/2019 02/24/2021 05/09/2023 PHQ-2 Score 0 0 0 Depression screening tool completed and reviewed. Based on score and interview, patient is not at risk for depression. Screening tool discussed with patient, and I recommended no further intervention at this time. Past medical history, appointments, medications, allergies reviewed. EXAM: BP 128/83 Pulse 79 Temp 37 ?C (98.6 ?F) (Left Tympanic) Resp 16 Wt 130.1 kg (286 lb 12.8 oz) LMP 06/21/2022 (Approximate) SpO2 97% BMI 42.97 kg/m? General Appearance: Well appearing, alert, in no acute distress, well-hydrated, well nourished.. Lungs: Lungs clear to auscultation. No wheezing, rhonchi, rales.. Heart: RRR without murmur, gallop, or rubs. No ectopy. Component Latest Ref Rng AND Units 03/30/2023 05/04/2023 WBC 3.70 - 11.00 k/uL 6.15 RBC 3.90 - 5.20 m/uL 4.71 Hemoglobin 11.5 - 15.5 g/dL 13.1 Hematocrit 36.0 - 46.0 % 41.8 MCV 80.0 - 100.0 fL 88.7 MCH 26.0 - 34.0 pg 27.8 MCHC 30.5 - 36.0 g/dL 31.3 RDW-CV 11.5 - 15.0 % 15.0 Platelet Count 150 - 400 k/uL 267 MPV 9.0 - 12.7 fL 9.4 Neut% % 60.9 Abs Neut (ANC) 1.45 - 7.50 k/uL 3.74 Lymph% % 29.9 Abs Lymph 1.00 - 4.00 k/uL 1.84 [place]% % 7.3 Abs [place] <0.87 k/uL 0.45 Eosin% % 1.1 Abs Eosin <0.46 k/uL 0.07 Baso% % 0.3 Abs Baso <0.11 k/uL <0.03 Immature Gran % % 0.5 IMMATURE GRANS (ABS) <0.10 k/uL 0.03 DTYPE Auto PT Sec <13.1 sec 9.3 PT INR 0.9 - 1.3 1.0 CRP <0.9 mg/dL 1.1 (H) 1.0 (H) WSR 0 - 20 mm/hr 39 (H) 40 (H) APTT 23.0 - 32.4 sec 23.3 ASSESSMENT/PLAN: 1. Elevated C-reactive protein (CRP) - ICD9: 790.95, ICD10: R79.82 (primary diagnosis) -Continued elevation in ESR and CRP. REBEKAH and RF were negative in the past. See rheumatology for second opinion, evaluation. - CONSULT TO RHEUM/IMMUN DISEASE 2. Acute pain of left knee - ICD9: 719.46, ICD10: M25.562 -Continue following with orthopedics 3. Acute right ankle pain - ICD9: 719.47, 338.19, ICD10: M25.571 -Continue following with podiatry 4. Myalgia - ICD9: 729.1, ICD10: M79.10 See #1 - CONSULT TO RHEUM/IMMUN DISEASE 5. Arthralgia, unspecified joint - ICD9: 719.40, ICD10: M25.50 -See #1 - CONSULT TO RHEUM/IMMUN DISEASE Lorenzo Mars, MARGARITA.[employer] This note was partly generated using [employer] voice recognition dictation and may contain some misspelled or inaccurate words missed on review. [facility] [place] 05-09-2023 History of Present illness Narrative Chief Complaint Patient presents with: Joint Pain HPI Jammie Troy is a 52 year old female who presents here today for Above Complaints. follow up for inflammatory lab elevation. Patient here to follow-up on lab results. Patient saw Leticia Block. Has been following elevated C-reactive protein levels. CRP was 1.0, previously 1.1. Sed rate was 40, previously 39. RF, REBEKAH in 2020 was negative. Patient has been under the care of orthopedics for pain in her left hip. Also under the care of podiatry for Planter fasciitis, chronic right ankle pain. She is taking etodolac 400 mg. At this time, the patient states that she believes that her joint pain is progressing. States that if she walks up the stairs, she needs the handrail to move up the steps. She has complaints of bilateral hip, ankle, knee pain. Also feels like her pain alternates between muscle and joint pain. 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 She can walk long distances on flat ground without any difficulty. At this time denies any chest pain, shortness of breath, passing out. Depression Screening 03/28/2019 02/24/2021 05/09/2023 PHQ-2 Score 0 0 0 Depression screening tool completed and reviewed. Based on score and interview, patient is not at risk for depression. Screening tool discussed with patient, and I recommended no further intervention at this time. Past medical history, appointments, medications, allergies reviewed. EXAM: BP 128/83 Pulse 79 Temp 37 C (98.6 F) (Left Tympanic) Resp 16 Wt 130.1 kg (286 lb 12.8 oz) LMP 06/21/2022 (Approximate) SpO2 97% BMI 42.97 kg/m General Appearance: Well appearing, alert, in no acute distress, well-hydrated, well nourished.. Lungs: Lungs clear to auscultation. No wheezing, rhonchi, rales.. Heart: RRR without murmur, gallop, or rubs. No ectopy. Component Latest Ref Rng & Units 03/30/2023 05/04/2023 WBC 3.70 - 11.00 k/uL 6.15 RBC 3.90 - 5.20 m/uL 4.71 Hemoglobin 11.5 - 15.5 g/dL 13.1 Hematocrit 36.0 - 46.0 % 41.8 MCV 80.0 - 100.0 fL 88.7 MCH 26.0 - 34.0 pg 27.8 MCHC 30.5 - 36.0 g/dL 31.3 RDW-CV 11.5 - 15.0 % 15.0 Platelet Count 150 - 400 k/uL 267 MPV 9.0 - 12.7 fL 9.4 Neut% % 60.9 Abs Neut (ANC) 1.45 - 7.50 k/uL 3.74 Lymph% % 29.9 Abs Lymph 1.00 - 4.00 k/uL 1.84 [place]% % 7.3 Abs [place] <0.87 k/uL 0.45 Eosin% % 1.1 Abs Eosin <0.46 k/uL 0.07 Baso% % 0.3 Abs Baso <0.11 k/uL <0.03 Immature Gran % % 0.5 IMMATURE GRANS (ABS) <0.10 k/uL 0.03 DTYPE Auto PT Sec <13.1 sec 9.3 PT INR 0.9 - 1.3 1.0 CRP <0.9 mg/dL 1.1 (H) 1.0 (H) WSR 0 - 20 mm/hr 39 (H) 40 (H) APTT 23.0 - 32.4 sec 23.3 ASSESSMENT/PLAN: 1. Elevated C-reactive protein (CRP) - ICD9: 790.95, ICD10: R79.82 (primary diagnosis) -Continued elevation in ESR and CRP. REBEKAH and RF were negative in the past. See rheumatology for second opinion, evaluation. - CONSULT TO RHEUM/IMMUN DISEASE 2. Acute pain of left knee - ICD9: 719.46, ICD10: M25.562 -Continue following with orthopedics 3. Acute right ankle pain - ICD9: 719.47, 338.19, ICD10: M25.571 -Continue following with podiatry 4. Myalgia - ICD9: 729.1, ICD10: M79.10 See #1 - CONSULT TO RHEUM/IMMUN DISEASE 5. Arthralgia, unspecified joint - ICD9: 719.40, ICD10: M25.50 -See #1 - CONSULT TO RHEUM/IMMUN DISEASE Lorenzo Mars APRN.[employer] This note was partly generated using [employer] voice recognition dictation and may contain some misspelled or inaccurate words missed on review. documented in this encounter [facility] 05-04-2023 Miscellaneous Notes Patient informed and scheduled with Lorenzo for follow up. Katherin Pichardo Inflammatory markers are stable but mildly up. If still with a lot of joint pains etc. Follow up with one of the providers in her group. documented in this encounter [facility] 04-22-2023 Note HNO ID: [id number] Author: Kathe Parker PT Service: ? Author Type: Physical Therapist Type: Progress Notes Filed: 04/22/2023 8:56 AM Note Text: 04/22/2023 [facility] PHYSICAL THERAPY DISCONTINUANCE OF CARE Plan of Care Period: Start of Care Date: 02/16/23 Last Visit Date: 03/15/2023 Therapy Program: The following is a summary of the interventions provided for this episode of care; Therapeutic exercise, Self-halfway management, Patient/Family/Caregiver Education, and Modalities: Ultrasound Assessment: Based on most recent visit, patient was progressing as expected toward functional goals based on pain levels, documented subjective information on progress, and documented objective information regarding flexibility, gait, range of motion, and tissue tenderness. Unable to formally assess goal achievement, as patient has not returned to therapy or scheduled additional follow-up appointments. Reason for Discontinuation of Care: Patient has not returned to therapy or scheduled additional follow-up appointments. Kathe Parker, PT [facility] 03-30-2023 Note HNO ID: [id number] Author: Apolonia Schulz RT(R) Service: ? Author Type: Technologist Type: Progress Notes Filed: 03/30/2023 8:31 AM Note Text: Radiology Service Progress Note PATIENT NAME: Jammie Troy DATE OF SERVICE: March 30, 2023 TIME: 8:30 AM PATIENT IDENTITY VERIFICATION COMPLETED USING TWO (2) IDENTIFIERS: Name and Date of confirmed by patient verbally. FALL SCREENING: Has the patient had 2 falls in the last year or 1 fall with injury or currently using an Ambulatory Assistive Device (Walker, Cane, Wheelchair, Crutches, etc.)? No PATIENT GENDER DATA: Female. status: : No status: NO. PATIENT RELEVANT IMPLANT DATA REVIEWED: Not Applicable RADIOLOGY DEPARTMENT: MR; Exam(s) Completed: Lower MSK: Ankle/Hind Foot, right PERIPHERAL IV DATA: Not applicable SIGNED BY: [facility] March 30, 2023 8:30 AM [facility] 03-30-2023 History of Present illness Narrative Radiology Service Progress Note PATIENT NAME: Jammei Troy DATE OF SERVICE: March 30, 2023 TIME: 8:30 AM PATIENT IDENTITY VERIFICATION COMPLETED USING TWO (2) IDENTIFIERS: Name and Date of confirmed by patient verbally. FALL SCREENING: Has the patient had 2 falls in the last year or 1 fall with injury or currently using an Ambulatory Assistive Device (Walker, Cane, Wheelchair, Crutches, etc.)? No PATIENT GENDER DATA: Female. status: : No status: NO. PATIENT RELEVANT IMPLANT DATA REVIEWED: Not Applicable RADIOLOGY DEPARTMENT: MR; Exam(s) Completed: Lower MSK: Ankle/Hind Foot, right PERIPHERAL IV DATA: Not applicable SIGNED BY: [facility] March 30, 2023 8:30 AM documented in this encounter [facility] 03-21-2023 Note HNO ID: [id number] Author: Antoine Nam MD Service: ? Author Type: Physician Type: Progress Notes Filed: 03/21/2023 1:04 PM Note Text: Antoine Nam MD Department of Orthopaedics Orthopaedics [address] [facility] [address] Dept: [phone] Dept March 21, 2023 CHIEF COMPLAINT: New and Knee Pain of the Left Knee and Referred by Leticia COPELAND Patient here evaluation of right knee pain. No specific injury. Denies any pain today. Patient states she had a small meniscus tear in the past and feels it has progressed. She is having difficulty going and down steps. 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 Patient states she had an arthroscopic on that knee in the past. Patient states she is also having pain in her right ankle. She bumped it recently and is continuing to have swelling. X-rays done on 03/09/23. She is scheduled for an MRI on 03/30 for her ankle. ASSESSMENT: M25.562 Acute pain of left knee M25.571 Acute right ankle pain PLAN: We had a discussion about her knee films, likely mild arthritis and treatment options. Multimodality treatment including strengthening, anti-inflammatories, possible cortisone injection. She also needs to be seen for her foot and ankle which I will defer to the specialist. We will try some physical therapy for strengthening of the left leg as well FOLLOW UP INSTRUCTIONS: Possible cortisone injection or MRI after therapy. Ms. Jammie Troy was advised as to contrast therapies and/or to take analgesics/anti-inflammatories as needed and all contraindications were reviewed. OBJECTIVE: Ms. Jammie Troy is a pleasant 52 year old in no apparent distress. Gen:LMP 06/21/2022 nl development, morbidly obese , no deformities ENT: Normocephalic, normal hearing, moist mucosa CV: Pulses:DP/PT= 2+ and symmetric, capillary refill < 2 secs, no peripheral edema/varicosities Skin: no rash, bruising or lesions. Good turgor. Psych: cooperative and appropriate, alert and oriented x 3, good mood and affect. Musculoskeletal: Patient walks without antalgia, normal station. Hip motion without pain. Knee without effusion. Patella tracks normally. There is no patellar crepitance. No pain along the medial or lateral facets. Range of motion 5-125 degrees. Positive medial, without lateral joint line pain on palpation. Ligamentous exam stable on varus and valgus stress testing at 0 and 30 degrees. Negative McMurrays, without palpable click. Extremity is warm and well perfused. Sensation is grossly intact to light touch, subjectively. IMAGING: IMPRESSION: No acute abnormality Retail Associate Manager Bilingual: BARBI Transcribe Date/Time: Mar 10 2023 8:40P Dictated by : ANAMARIA SOTO MD This examination was interpreted and the report reviewed and electronically signed by: ANAMARIA SOTO MD on Mar 10 2023 8:41PM EST Results-Findings * * *Final Report* * * DATE OF EXAM: Mar 09 2023 9:40AM WOX 5202 - XR KNEE 4V AP/PA BOTH+LAT/JACKIE LT / PROCEDURE REASON: Acute pain of left knee * * * * Physician Interpretation * * * * PROCEDURE: Right ankle and left knee INDICATION: Acute right ankle pain .Lateral right ankle pain x 10 days after hitting it against a wood step and then falling. ( Chronic medial and lateral left knee pain that has increased medially x 10 days following a fall (accession [id number]) TECHNIQUE: XR ANKLE 3V AP/LAT/OBL RT, XR KNEE 4V AP/PA BOTH+LAT/JACKIE LT COMPARISON: None FINDINGS: Right ankle: No acute fracture or dislocation. Ankle mortise is symmetric. No focal soft tissue swelling or evidence for joint effusion. Tiny plantar calcaneal spur. Left knee: No acute fracture or dislocation. Joint spaces are maintained. No joint effusion. 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 Christian Sarmiento- repeat colonoscopy in 6 months d/t poor bowel prep DILATION AND CURETTAGE DXAND/THER NONOBSTETRIC Dilation AND curettage DILATION AND CURETTAGE DXAND/THER NONOBSTETRIC Dilation AND curettage EGD W/O BRSH SPEC VARICIES INJ 11/01/2022 Dr. Christian Sarmiento, small hiatal hernia LAPAROSCOPY SURG CHOLECYSTECTOMY Cholecystectomy, lap SIGMOIDOSCOPY FLX W/BIOPSY SINGLE/MULTIPLE 08/11/2006 TONSILLECTOMY PRIMARY/SECONDARY Tonsillectomy Family History: FAMILY HISTORY Problem Relation Age of Onset Arthritis Mother Diabetes Father Thyroid (more content not included)... [facility] 03-21-2023 History of Present illness Narrative Antoine Nam MD Department of Orthopaedics Orthopaedics [address] [facility] [address] Dept: [phone] Dept March 21, 2023 CHIEF COMPLAINT: New and Knee Pain of the Left Knee and Referred by Leticia COPELAND Patient here evaluation of right knee pain. No specific injury. Denies any pain today. Patient states she had a small meniscus tear in the past and feels it has progressed. She is having difficulty going and down steps. 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 Patient states she had an arthroscopic on that knee in the past. Patient states she is also having pain in her right ankle. She bumped it recently and is continuing to have swelling. X-rays done on 03/09/23. She is scheduled for an MRI on 03/30 for her ankle. ASSESSMENT: M25.562 Acute pain of left knee M25.571 Acute right ankle pain PLAN: We had a discussion about her knee films, likely mild arthritis and treatment options. Multimodality treatment including strengthening, anti-inflammatories, possible cortisone injection. She also needs to be seen for her foot and ankle which I will defer to the specialist. We will try some physical therapy for strengthening of the left leg as well FOLLOW UP INSTRUCTIONS: Possible cortisone injection or MRI after therapy. Ms. Jammie Troy was advised as to contrast therapies and/or to take analgesics/anti-inflammatories as needed and all contraindications were reviewed. OBJECTIVE: Ms. Jammie Troy is a pleasant 52 year old in no apparent distress. Gen:LMP 06/21/2022 nl development, morbidly obese , no deformities ENT: Normocephalic, normal hearing, moist mucosa CV: Pulses:DP/PT= 2+ and symmetric, capillary refill < 2 secs, no peripheral edema/varicosities Skin: no rash, bruising or lesions. Good turgor. Psych: cooperative and appropriate, alert and oriented x 3, good mood and affect. Musculoskeletal: Patient walks without antalgia, normal station. Hip motion without pain. Knee without effusion. Patella tracks normally. There is no patellar crepitance. No pain along the medial or lateral facets. Range of motion 5-125 degrees. Positive medial, without lateral joint line pain on palpation. Ligamentous exam stable on varus and valgus stress testing at 0 and 30 degrees. Negative McMurrays, without palpable click. Extremity is warm and well perfused. Sensation is grossly intact to light touch, subjectively. IMAGING: IMPRESSION: No acute abnormality Retail Associate Manager Bilingual: [facility] Transcribe Date/Time: Mar 10 2023 8:40P Dictated by : ANAMARIA SOTO MD This examination was interpreted and the report reviewed and electronically signed by: ANAMARIA SOTO MD on Mar 10 2023 8:41PM EST Results-Findings * * *Final Report* * * DATE OF EXAM: Mar 09 2023 9:40AM WOX 5202 - XR KNEE 4V AP/PA BOTH+LAT/JACKIE LT / PROCEDURE REASON: Acute pain of left knee * * * * Physician Interpretation * * * * PROCEDURE: Right ankle and left knee INDICATION: Acute right ankle pain .Lateral right ankle pain x 10 days after hitting it against a wood step and then falling. ( Chronic medial and lateral left knee pain that has increased medially x 10 days following a fall (accession [id number]) TECHNIQUE: XR ANKLE 3V AP/LAT/OBL RT, XR KNEE 4V AP/PA BOTH+LAT/JACKIE LT COMPARISON: None FINDINGS: Right ankle: No acute fracture or dislocation. Ankle mortise is symmetric. No focal soft tissue swelling or evidence for joint effusion. Tiny plantar calcaneal spur. Left knee: No acute fracture or dislocation. Joint spaces are maintained. No joint effusion. 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 Christian Sarmiento- repeat colonoscopy in 6 months d/t poor bowel prep DILATION & CURETTAGE DX&/THER NONOBSTETRIC Dilation & curettage DILATION & CURETTAGE DX&/THER NONOBSTETRIC Dilation & curettage EGD W/O BRSH SPEC VARICIES INJ 11/01/2022 Dr. Christian Sarmiento, small hiatal hernia LAPAROSCOPY SURG CHOLECYSTECTOMY Cholecystectomy, lap SIGMOIDOSCOPY FLX W/BIOPSY SINGLE/MULTIPLE 08/11/2006 TONSILLECTOMY PRIMARY/SECONDARY <AGE 12 Tonsillectomy Family History: FAMILY HISTORY Problem Relation Age of Onset Arthritis Mother Diabetes Father Thyroid Father Coronary Artery Disease Father Stroke Maternal Grandmother TIA Cancer Paternal Grandmother Social History: Social History Tobacco Use Smoking status: Never Smokeless tobacco: Never Vaping Use Vaping Use: Never used Substance Use Topics Alcohol use: No Drug use: No Medications: Current Outpatient Medications Medication Sig ursodiol (RETA) 250 mg tablet Take by mouth. Vitamin E, dl, acetate, (VITAMIN E) 200 unit capsule Take by mouth. meloxicam (MOBIC) 15 mg tablet Take 1 tablet by mouth once daily as needed. With food. escitalopram oxalate (LEXAPRO) 20 mg tablet Take 1 tablet by mouth once daily. omeprazole (PRILOSEC) 40 mg capsule Take 1 capsule by mouth once daily. levothyroxine (SYNTHROID) 137 mcg tablet Take 1 tablet by mouth daily before breakfast. tiZANidine (ZANAFLEX) 4 mg tablet Take 1 tablet by mouth every 8 hours as needed (pain). triamcinolone acetonide (KENALOG) 0.1 % ointment Apply to affected area twice daily. (Patient not taking: Reported on 03/21/2023) semaglutide (OZEMPIC) 0.25 mg or 0.5 mg(2 mg/1.5 mL) pen Inject 0.25 mg subcutaneously one time a week. (Patient not taking: Reported on 03/16/2023) No current facility-administered medications for this visit. Allergies: Adhesive Tape (Rosins), Bactrim [Sulfamethoxazole-Trimethoprim], Flexeril [Cyclobenzaprine Hcl], Minocycline, Nexium [Esomeprazole Magnesium], Sulfa (Sulfonamide Antibiotics), and Zithromaxz [Other] ROS: General (negative for fatigue, malaise, weight loss/gain) HEENT (negative for headache, earache, recent vision changes, sinus pain, sore throat) Respiratory (no recent shortness of breath, hemoptysis) CV (negative for chest tightness, palpitations) Musculoskeletal (see HPI) Psych (no depression, anxiety) REFERRING PHYSICIAN: Consultation requested by Leticia Amor for an opinion regarding left knee pain. My final recommendations will be communicated back to the requesting physician by way of shared Medical record or letter to requesting physician via US mail. Leticia Amor [address] [facility] [address] Machelle Harry MD [address] [facility] [address] Antoine Nam MD documented in this encounter [facility] 03-16-2023 Note HNO ID: [id number] Author: Freddie Hanna Service: ? Author Type: Physician Type: Progress Notes Filed: 03/16/2023 8:25 AM Note Text: FOLLOW UP PODIATRIC OFFICE VISIT Chief Complaint: This 52 year old who presents for follow up:right heel pain Patient presents to clinic for follow-up right plantar fasciitis. She has been going to physical therapy. She has found that some of her pain is not as bad but she still has pain and stiffness in the right heel. She states the pain is about 5/10. Since I saw her last, she states she stubbed her right leg/ankle into a wall and now has pain and swelling in right ankle. Overall, patient states that she has about 30% improvement with pain relief although she still has issues with stairs. PAIN EVALUATION 03/16/2023 0805 Pain Level: 5 Pain Location: Other: See Comment bilateral feet Duration Units: Years Frequency: Intermittent Comments: pain is bad at end of day or after being on feet a long time Hemoglobin A1C Date Value Ref Range Status 07/21/2022 5.3 4.3 - 5.6 % Final Comment: [place] [employer] guidelines indicate that patients with HgbA1c in the range 5.7-6.4% are at increased risk for development of diabetes, and intervention by lifestyle modification may be beneficial. HgbA1c greater or equal to 6.5% is considered diagnostic of diabetes. 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 ursodiol (RETA) 250 mg tablet Take by mouth. Vitamin E, dl, acetate, (VITAMIN E) 200 unit capsule Take by mouth. meloxicam (MOBIC) 15 mg tablet Take 1 tablet by mouth once daily as needed. With food. escitalopram oxalate (LEXAPRO) 20 mg tablet Take 1 tablet by mouth once daily. omeprazole (PRILOSEC) 40 mg capsule Take 1 capsule by mouth once daily. levothyroxine (SYNTHROID) 137 mcg tablet Take 1 tablet by mouth daily before breakfast. tiZANidine (ZANAFLEX) 4 mg tablet Take 1 tablet by mouth every 8 hours as needed (pain). semaglutide (OZEMPIC) 0.25 mg or 0.5 mg(2 mg/1.5 mL) pen Inject 0.25 mg subcutaneously one time a week. (Patient not taking: Reported on 03/16/2023) No current facility-administered medications for this visit. ALLERGIES Allergen Reactions Adhesive Tape (Aranza* Rash, Swelling Bactrim [Sulfametho* Flexeril [Cyclobenz* Minocycline GI Upset Severe nausea Nexium [Esomeprazol* Sulfa (Sulfonamide * Zithromaxz [Other] PAST SURGICAL HISTORY Procedure Laterality Date ARTHROSCOPY KNEE DIAGNOSTIC W/WO SYNOVIAL BX SPX Arthroscopy, knee, left knee COLONOSCOPY SCREENING 11/01/2022 Dr. Gonzales Friend- repeat colonoscopy in 6 months d/t poor bowel prep DILATION AND CURETTAGE DXAND/THER NONOBSTETRIC Dilation AND curettage DILATION AND CURETTAGE DXAND/THER NONOBSTETRIC Dilation AND curettage EGD W/O BRSH SPEC VARICIES INJ 11/01/2022 Dr. Gonzales Friend, small hiatal hernia LAPAROSCOPY SURG CHOLECYSTECTOMY Cholecystectomy, lap SIGMOIDOSCOPY FLX W/BIOPSY SINGLE/MULTIPLE 08/11/2006 TONSILLECTOMY PRIMARY/SECONDARY Tonsillectomy Physical Exam: OBJECTIVE: Constitutional: Pt is a well developed 52 year old female who is alert, oriented, cooperative and in no apparent distress. Eyes: Following during examination. No redness or drainage. Respiratory: RR normal and nonlabored. Even breathing. No evidence of distress. Psychology: Patient is engaged during conversation. Normal affect and mood. Does not appear depressed or anxious. NVSI unchanged from previous visit. Dermatological: Nails 1-5 b/l are normal. Webspaces clean and dry 1-4 b/l. Skin appears well hydrated and supple. good color, texture, turgor. No open lesions present. No callosities present. Musculoskeletal/Orthopaedic: Patient has pain to palpation of right plantar medial heel Mild swelling of right ankle at site of recent contusion ASSESSMENT: (M72.2) Plantar fasciitis (primary encounter diagnosis) (M25.571, G89.29) Chronic pain of right ankle PLAN: Discussed ongoing pain in right heel. She is 30% improved but she still has considerable pain despite one month of therapy, stretching, icing, insert and doing home therapy. She has history of plantar fasciotomy performed via endscope. Will obtain mri as patient continues to have pain in right heel/ankle Recommend tubigrip and icing for right ankle contusion [facility] 03-16-2023 Note HNO ID: [id number] Author: Deborah Jeffery RN Service: ? Author Type: Registered Nurse Type: Progress Notes Filed: 03/16/2023 8:25 AM Note Text: AMB ROOMING INTAKE FLOWSHEET DATA Pain Pain Level: 5 Pain Location: Other: See Comment (bilateral feet) Duration Units: Years Frequency: Intermittent Comments: pain is bad at end of day or after being on feet a long time Patient presents with: Left Foot - Established Patient, Follow Up, Pain Right Foot - Established Patient, Follow Up, Pain Patient presents for 1 month follow up of bilateral foot pain. States that she has been doing the physical therapy and it helps, but not enough where she can walk stairs comfortably. [facility] 03-16-2023 Instructions Freddie Hanna - 03/16/2023 8:21 AM EDT Continue with inserts Consider hoka or williamson tennis shoe documented in this encounter [facility] 03-16-2023 History of Present illness Narrative Images from the original note were not included. FOLLOW UP PODIATRIC OFFICE VISIT Chief Complaint: This 52 year old who presents for follow up:right heel pain Patient presents to clinic for follow-up right plantar fasciitis. She has been going to physical therapy. She has found that some of her pain is not as bad but she still has pain and stiffness in the right heel. She states the pain is about 5/10. Since I saw her last, she states she stubbed her right leg/ankle into a wall and now has pain and swelling in right ankle. Overall, patient states that she has about 30% improvement with pain relief although she still has issues with stairs. PAIN EVALUATION 03/16/2023 0805 Pain Level: 5 Pain Location: Other: See Comment bilateral feet Duration Units: Years Frequency: Intermittent Comments: pain is bad at end of day or after being on feet a long time Hemoglobin A1C Date Value Ref Range Status 07/21/2022 5.3 4.3 - 5.6 % Final Comment: [place] [employer] guidelines indicate that patients with HgbA1c in the range 5.7-6.4% are at increased risk for development of diabetes, and intervention by lifestyle modification may be beneficial. HgbA1c greater or equal to 6.5% is considered diagnostic of diabetes. 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 ursodiol (RETA) 250 mg tablet Take by mouth. Vitamin E, dl, acetate, (VITAMIN E) 200 unit capsule Take by mouth. meloxicam (MOBIC) 15 mg tablet Take 1 tablet by mouth once daily as needed. With food. escitalopram oxalate (LEXAPRO) 20 mg tablet Take 1 tablet by mouth once daily. omeprazole (PRILOSEC) 40 mg capsule Take 1 capsule by mouth once daily. levothyroxine (SYNTHROID) 137 mcg tablet Take 1 tablet by mouth daily before breakfast. tiZANidine (ZANAFLEX) 4 mg tablet Take 1 tablet by mouth every 8 hours as needed (pain). semaglutide (OZEMPIC) 0.25 mg or 0.5 mg(2 mg/1.5 mL) pen Inject 0.25 mg subcutaneously one time a week. (Patient not taking: Reported on 03/16/2023) No current facility-administered medications for this visit. ALLERGIES Allergen Reactions Adhesive Tape (Aranza* Rash, Swelling Bactrim [Sulfametho* Flexeril [Cyclobenz* Minocycline GI Upset Severe nausea Nexium [Esomeprazol* Sulfa (Sulfonamide * Zithromaxz [Other] PAST SURGICAL HISTORY Procedure Laterality Date ARTHROSCOPY KNEE DIAGNOSTIC W/WO SYNOVIAL BX SPX Arthroscopy, knee, left knee COLONOSCOPY SCREENING 11/01/2022 Dr. Christian Sarmiento- repeat colonoscopy in 6 months d/t poor bowel prep DILATION & CURETTAGE DX&/THER NONOBSTETRIC Dilation & curettage DILATION & CURETTAGE DX&/THER NONOBSTETRIC Dilation & curettage EGD W/O BRSH SPEC VARICIES INJ 11/01/2022 Dr. Christian Sarmiento, small hiatal hernia LAPAROSCOPY SURG CHOLECYSTECTOMY Cholecystectomy, lap SIGMOIDOSCOPY FLX W/BIOPSY SINGLE/MULTIPLE 08/11/2006 TONSILLECTOMY PRIMARY/SECONDARY <AGE 13 Tonsillectomy Physical Exam: OBJECTIVE: Constitutional: Pt is a well developed 52 year old female who is alert, oriented, cooperative and in no apparent distress. Eyes: Following during examination. No redness or drainage. Respiratory: RR normal and nonlabored. Even breathing. No evidence of distress. Psychology: Patient is engaged during conversation. Normal affect and mood. Does not appear depressed or anxious. NVSI unchanged from previous visit. Dermatological: Nails 1-5 b/l are normal. Webspaces clean and dry 1-4 b/l. Skin appears well hydrated and supple. good color, texture, turgor. No open lesions present. No callosities present. Musculoskeletal/Orthopaedic: Patient has pain to palpation of right plantar medial heel Mild swelling of right ankle at site of recent contusion ASSESSMENT: (M72.2) Plantar fasciitis (primary encounter diagnosis) (M25.571, G89.29) Chronic pain of right ankle PLAN: Discussed ongoing pain in right heel. She is 30% improved but she still has considerable pain despite one month of therapy, stretching, icing, insert and doing home therapy. She has history of plantar fasciotomy performed via endscope. Will obtain mri as patient continues to have pain in right heel/ankle Recommend tubigrip and icing for right ankle contusion AMB ROOMING INTAKE FLOWSHEET DATA Pain Pain Level: 5 Pain Location: Other: See Comment (bilateral feet) Duration Units: Years Frequency: Intermittent Comments: pain is bad at end of day or after being on feet a long time Patient presents with: Left Foot - Established Patient, Follow Up, Pain Right Foot - Established Patient, Follow Up, Pain Patient presents for 1 month follow up of bilateral foot pain. States that she has been doing the physical therapy and it helps, but not enough where she can walk stairs comfortably. documented in this encounter [facility] 03-15-2023 Note HNO ID: [id number] Author: Kathe Parker PT Service: ? Author Type: Physical Therapist Type: Progress Notes Filed: 03/15/2023 8:55 AM Note Text: Episode Visit Count: 5 Therapist That Will Accept/Oversee The Plan Of Care: Kathe Mcarthur PT Start of Care Date: 02/16/23 Onset Date: 11/22/22 (2000 left foot surgery, Sep 2022 right foot) Patient Identified by Name and Date of : Yes REHABILITATION AND SPORTS THERAPY PHYSICAL THERAPY TREATMENT NOTE ASSESSMENT: Jammie Richard Lance tolerated the session with no issues. She demonstrated improvements in pain in B feet. The patient will continue to benefit from ongoing skilled physical therapy to progress toward set goals. PLAN FOR NEXT VISIT: POC SUBJECTIVE: Patient Reason for Visit: Pt notes that left calf feels sore when she stretches it and she notes that it feels that it tightens back up afterwards. She notes that she feels the ultrasound and use of ball are helping. She is to see Dr. Hanna tomorrow Pain: Pain Pain Level: 0 Pain Location: Foot - Right, Finger - Left Description: Sore Frequency: Continuous Post Treatment Pain Post Treatment Pain Level: Better OBJECTIVE MEASURES WITH LEVEL OF FUNCTION: LE AROM R Ankle Dorsiflexion: 10 Degrees L Ankle Dorsiflexion: 10 Degrees TREATMENT: Therapeutic Exercise: 1: AROM DF/PF B 2: towel gastroc stretch 30 sec x3 3: seated heel slide for soleus stretch 30 sec x3 4: plantar fascia stretch with lacorsse ball push to tolerance x2 min B Skilled Intervention: Skilled judgment was provided in selection of appropriate interventions. Correct performance of therapeutic exercises was facilitated with verbal and visual cuing. Modalities: Ultrasound Body Region Treated - Ultrasound: B plantar fascia Patient Position: supine wtih legs on bolster. Mode: 50% w/cm2: 1.2 MHZ: 1 Minutes: 8 Skilled Intervention: Proper administration and selection of modality based on clinical presentation, deficits, and needs. Patient response monitored throughout treatment. Billing Therapeutic Exercise Treatment Minutes: 22 Ultrasound Treatment Minutes: 16 Total Treatment Time Minutes (timed/untimed): 38 Kathe Parker PT [facility] [place] 03-11-2023 Note HNO ID: [id number] Author: Kathe Parker PT Service: ? Author Type: Physical Therapist Type: Progress Notes Filed: 03/11/2023 8:28 AM Note Text: Episode Visit Count: 4 Therapist That Will Accept/Oversee The Plan Of Care: Kathe Mcarthur PT Start of Care Date: 02/16/23 Onset Date: 11/22/22 (2000 left foot surgery, Sep 2022 right foot) Patient Identified by Name and Date of : Yes REHABILITATION AND SPORTS THERAPY PHYSICAL THERAPY TREATMENT NOTE ASSESSMENT: Jammie Richard Lance tolerated the session with no issues. She demonstrated improvements in foot pain B . The patient will continue to benefit from ongoing skilled physical therapy to progress toward set goals. PLAN FOR NEXT VISIT: measure DF ROM SUBJECTIVE: Patient Reason for Visit: Pt notes that she feels that she is doing pretty well in regards to plantar fascia pain. Saw her doctor regarding pain in lateral ankle from hitting it on stairs and left knee which has bothered her a long time. They referred her to orthopedics. Pain: Pain Pain Level: 1 Pain Location: Foot - Right, Finger - Left Description: Sore Frequency: Continuous Post Treatment Pain Post Treatment Pain Level: Better Post Treatment Symptoms: just my knee hurts OBJECTIVE MEASURES WITH LEVEL OF FUNCTION: TREATMENT: Therapeutic Exercise: 1: AROM DF/PF B 2: towel gastroc stretch 30 sec x3 3: seated heel slide for soleus stretch 30 sec x3 4: plantar fascia stretch with lacorsse ball push to tolerance x2 min B Skilled Intervention: Skilled judgment was provided in selection of appropriate interventions. Correct performance of therapeutic exercises was facilitated with verbal and visual cuing. Modalities: Ultrasound Body Region Treated - Ultrasound: B plantar fascia Patient Position: supine wtih legs on bolster. Mode: 50% w/cm2: 1.2 MHZ: 1 Minutes: 8 Skilled Intervention: Proper administration and selection of modality based on clinical presentation, deficits, and needs. Patient response monitored throughout treatment. Billing Therapeutic Exercise Treatment Minutes: 22 Ultrasound Treatment Minutes: 16 Total Treatment Time Minutes (timed/untimed): 38 Kathe Parker, PT [facility] [place] 03-11-2023 History of Present illness Narrative Episode Visit Count: 4 Therapist That Will Accept/Oversee The Plan Of Care: Kathe Mcarthur PT Start of Care Date: 02/16/23 Onset Date: 11/22/22 (2000 left foot surgery, Sep 2022 right foot) Patient Identified by Name and Date of : Yes REHABILITATION AND SPORTS THERAPY PHYSICAL THERAPY TREATMENT NOTE ASSESSMENT: Jammie Troy tolerated the session with no issues. She demonstrated improvements in foot pain B . The patient will continue to benefit from ongoing skilled physical therapy to progress toward set goals. PLAN FOR NEXT VISIT: measure DF ROM SUBJECTIVE: Patient Reason for Visit: Pt notes that she feels that she is doing pretty well in regards to plantar fascia pain. Saw her doctor regarding pain in lateral ankle from hitting it on stairs and left knee which has bothered her a long time. They referred her to orthopedics. Pain: Pain Pain Level: 1 Pain Location: Foot - Right, Finger - Left Description: Sore Frequency: Continuous Post Treatment Pain Post Treatment Pain Level: Better Post Treatment Symptoms: just my knee hurts OBJECTIVE MEASURES WITH LEVEL OF FUNCTION: TREATMENT: Therapeutic Exercise: 1: AROM DF/PF B 2: towel gastroc stretch 30 sec x3 3: seated heel slide for soleus stretch 30 sec x3 4: plantar fascia stretch with lacorsse ball push to tolerance x2 min B Skilled Intervention: Skilled judgment was provided in selection of appropriate interventions. Correct performance of therapeutic exercises was facilitated with verbal and visual cuing. Modalities: Ultrasound Body Region Treated - Ultrasound: B plantar fascia Patient Position: supine wtih legs on bolster. Mode: 50% w/cm2: 1.2 MHZ: 1 Minutes: 8 Skilled Intervention: Proper administration and selection of modality based on clinical presentation, deficits, and needs. Patient response monitored throughout treatment. Billing Therapeutic Exercise Treatment Minutes: 22 Ultrasound Treatment Minutes: 16 Total Treatment Time Minutes (timed/untimed): 38 Kathe Parker PT documented in this encounter [facility] 03-09-2023 Note HNO ID: [id number] Author: RT My(R) Service: Radiology Author Type: Technologist Type: Progress Notes Filed: 03/09/2023 9:41 AM Note Text: Radiology Service Progress Note PATIENT NAME: Jammie Troy DATE OF SERVICE: March 09, 2023 TIME: 9:23 AM PATIENT IDENTITY VERIFICATION COMPLETED USING TWO (2) IDENTIFIERS: Name and Date of confirmed by patient verbally. FALL SCREENING: Has the patient had 2 falls in the last year or 1 fall with injury or currently using an Ambulatory Assistive Device (Walker, Cane, Wheelchair, Crutches, etc.)? No PATIENT GENDER DATA: Female. status: : No status: NO. PATIENT RELEVANT IMPLANT DATA REVIEWED: Yes RADIOLOGY DEPARTMENT: General X-ray: Exam(s) Completed: Lower Extremity X-Ray(s): Knee, AP / Lat / Tunne / Merchant Left and Wt. Bearing and Ankle, Right and Wt. Bearing PERIPHERAL IV DATA: Not applicable SIGNED BY: RT My(R) March 09, 2023 9:23 AM [facility] [place] 03-09-2023 Note HNO ID: [id number] Author: Leticia Amor APRN.[employer] Service: ? Author Type: Nurse Practitioner Type: Progress Notes Filed: 03/09/2023 5:45 PM Note Text: This is a 52 year old female who presents today with: Patient presents with: Pain (foot): R foot after falling on stairs going into house Left Knee Pain: After falling on stairs going into house Derm Problem: Dry patch on upper lip, has been using otc ointments without relief HISTORY OF PRESENT ILLNESS: Jammie Troy is a 52 year old female. Patient presents with: Pain (foot): R foot after falling on stairs going into house Left Knee Pain: After falling on stairs going into house Derm Problem: Dry patch on upper lip, has been using otc ointments without relief Pt presents today with a couple of complaints. Dry patch upper left lip. Maybe a little swelling today. Maybe a little itchy. No other rashes around chin/nose. Tried antibiotic ointment, vaseline, carmex, blistex. Ankle pain. She hit ankle on a step about 1 1/2 weeks ago. Developed a large bruise. She noticed that has more discomfort. She is currently in PT with that foot and foot is loosening up some, but now with more pain. Refers that she fell on the left knee. Refers hx of partial torn menicus. I think I finished it off. Refers that the left knee is always larger than the right. No worsening swelling/redness/bruising. Chronic pain along the lateral aspect, but now with some discomfort medially. Has noticed that she frequently has bruises. Not always able to identify the source. No other abnormal bleeding. 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 Gonzales Friend- repeat colonoscopy in 6 months d/t poor bowel prep DILATION AND CURETTAGE DXAND/THER NONOBSTETRIC Dilation AND curettage DILATION AND CURETTAGE DXAND/THER NONOBSTETRIC Dilation AND curettage EGD W/O BRSH SPEC VARICIES INJ 11/01/2022 Dr. Gonzales Friend, small hiatal hernia LAPAROSCOPY SURG CHOLECYSTECTOMY Cholecystectomy, lap SIGMOIDOSCOPY FLX W/BIOPSY SINGLE/MULTIPLE 08/11/2006 TONSILLECTOMY PRIMARY/SECONDARY Tonsillectomy ALLERGIES Adhesive Tape (Rosins), Bactrim [Sulfamethoxazole-Trimethoprim], Flexeril [Cyclobenzaprine Hcl], Minocycline, Nexium [Esomeprazole Magnesium], Sulfa (Sulfonamide Antibiotics), and Zithromaxz [Other] MEDICATIONS Current Outpatient Medications Medication Sig semaglutide (OZEMPIC) 0.25 mg or 0.5 mg(2 mg/1.5 mL) pen Inject 0.25 mg subcutaneously one time a week. ursodiol (RETA) 250 mg tablet Take by mouth. Vitamin E, dl, acetate, (VITAMIN E) 200 unit capsule Take by mouth. meloxicam (MOBIC) 15 mg tablet Take 1 tablet by mouth once daily as needed. With food. escitalopram oxalate (LEXAPRO) 20 mg tablet Take 1 tablet by mouth once daily. omeprazole (PRILOSEC) 40 mg capsule Take 1 capsule by mouth once daily. levothyroxine (SYNTHROID) 137 mcg tablet Take 1 tablet by mouth daily before breakfast. tiZANidine (ZANAFLEX) 4 mg tablet Take 1 tablet by mouth every 8 hours as needed (pain). No current facility-administered medications for this visit. FAMILY HISTORY Problem Relation Age of Onset Arthritis Mother Diabetes Father Thyroid Father Coronary Artery Disease Father Stroke Maternal Grandmother TIA Cancer Paternal Grandmother Social History Tobacco Use Smoking status: Never Smokeless tobacco: Never Substance Use Topics Alcohol use: No Drug use: No EXAM: BP 132/82 Pulse 82 Resp 18 LMP 06/21/2022 (Approximate) SpO2 96% PHYSICAL EXAM: General Appearance: Well appearing, alert, in no acute distress, well-hydrated, well nourished.. Skin: Skin color, texture, turgor normal, no suspicious rashes or lesions. Head: Normocephalic, no masses, lesions, tenderness or abnormalities. Eyes: Anicteric sclera. Extraocular movements are intact. . Oropharynx: dry,scaley patch on the left upper lip. Lungs: Lungs clear to auscultation. No wheezing, rhonchi, rales.. Heart: RRR without murmur, gallop, or rubs. No ectopy. Extremities: shadow of bruise around the right ankle. ROM intact. +2dp/pt pulses. Left knee with snapping with flexion/extension. Neurologic: Gait normal. ASSESSMENT/PLAN: 1. Dermatitis of lip - ICD9: 692.9, ICD10: L30.9 (primary diagnosis) - Topical steriod tx with Rx for steriod cream/ointment- see orders - follow up if symptoms persist or worsen. - TRIAMCINOLONE ACETONIDE 0.1 % TOPICAL OINTMENT 2. Elevated C-reactive protein (CRP) - ICD9: 790.95, ICD10: R79.82 Recheck. Recently (more content not included)... [facility] [place] 03-09-2023 History of Present illness Narrative This is a 52 year old female who presents today with: Patient presents with: Pain (foot): R foot after falling on stairs going into house Left Knee Pain: After falling on stairs going into house Derm Problem: Dry patch on upper lip, has been using otc ointments without relief HISTORY OF PRESENT ILLNESS: Jammie Troy is a 52 year old female. Patient presents with: Pain (foot): R foot after falling on stairs going into house Left Knee Pain: After falling on stairs going into house Derm Problem: Dry patch on upper lip, has been using otc ointments without relief Pt presents today with a couple of complaints. Dry patch upper left lip. Maybe a little swelling today. Maybe a little itchy. No other rashes around chin/nose. Tried antibiotic ointment, vaseline, carmex, blistex. Ankle pain. She hit ankle on a step about 1 1/2 weeks ago. Developed a large bruise. She noticed that has more discomfort. She is currently in PT with that foot and foot is loosening up some, but now with more pain. Refers that she fell on the left knee. Refers hx of partial torn menicus. I think I finished it off. Refers that the left knee is always larger than the right. No worsening swelling/redness/bruising. Chronic pain along the lateral aspect, but now with some discomfort medially. Has noticed that she frequently has bruises. Not always able to identify the source. No other abnormal bleeding. 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 Christian Sarmiento- repeat colonoscopy in 6 months d/t poor bowel prep DILATION & CURETTAGE DX&/THER NONOBSTETRIC Dilation & curettage DILATION & CURETTAGE DX&/THER NONOBSTETRIC Dilation & curettage EGD W/O BRSH SPEC VARICIES INJ 11/01/2022 Dr. Christian Sarmiento, small hiatal hernia LAPAROSCOPY SURG CHOLECYSTECTOMY Cholecystectomy, lap SIGMOIDOSCOPY FLX W/BIOPSY SINGLE/MULTIPLE 08/11/2006 TONSILLECTOMY PRIMARY/SECONDARY <AGE 13 Tonsillectomy ALLERGIES Adhesive Tape (Rosins), Bactrim [Sulfamethoxazole-Trimethoprim], Flexeril [Cyclobenzaprine Hcl], Minocycline, Nexium [Esomeprazole Magnesium], Sulfa (Sulfonamide Antibiotics), and Zithromaxz [Other] MEDICATIONS Current Outpatient Medications Medication Sig semaglutide (OZEMPIC) 0.25 mg or 0.5 mg(2 mg/1.5 mL) pen Inject 0.25 mg subcutaneously one time a week. ursodiol (RETA) 250 mg tablet Take by mouth. Vitamin E, dl, acetate, (VITAMIN E) 200 unit capsule Take by mouth. meloxicam (MOBIC) 15 mg tablet Take 1 tablet by mouth once daily as needed. With food. escitalopram oxalate (LEXAPRO) 20 mg tablet Take 1 tablet by mouth once daily. omeprazole (PRILOSEC) 40 mg capsule Take 1 capsule by mouth once daily. levothyroxine (SYNTHROID) 137 mcg tablet Take 1 tablet by mouth daily before breakfast. tiZANidine (ZANAFLEX) 4 mg tablet Take 1 tablet by mouth every 8 hours as needed (pain). No current facility-administered medications for this visit. FAMILY HISTORY Problem Relation Age of Onset Arthritis Mother Diabetes Father Thyroid Father Coronary Artery Disease Father Stroke Maternal Grandmother TIA Cancer Paternal Grandmother Social History Tobacco Use Smoking status: Never Smokeless tobacco: Never Substance Use Topics Alcohol use: No Drug use: No EXAM: BP 132/82 Pulse 82 Resp 18 LMP 06/21/2022 (Approximate) SpO2 96% PHYSICAL EXAM: General Appearance: Well appearing, alert, in no acute distress, well-hydrated, well nourished.. Skin: Skin color, texture, turgor normal, no suspicious rashes or lesions. Head: Normocephalic, no masses, lesions, tenderness or abnormalities. Eyes: Anicteric sclera. Extraocular movements are intact. . Oropharynx: dry,scaley patch on the left upper lip. Lungs: Lungs clear to auscultation. No wheezing, rhonchi, rales.. Heart: RRR without murmur, gallop, or rubs. No ectopy. Extremities: shadow of bruise around the right ankle. ROM intact. +2dp/pt pulses. Left knee with snapping with flexion/extension. Neurologic: Gait normal. ASSESSMENT/PLAN: 1. Dermatitis of lip - ICD9: 692.9, ICD10: L30.9 (primary diagnosis) - Topical steriod tx with Rx for steriod cream/ointment- see orders - follow up if symptoms persist or worsen. - TRIAMCINOLONE ACETONIDE 0.1 % TOPICAL OINTMENT 2. Elevated C-reactive protein (CRP) - ICD9: 790.95, ICD10: R79.82 Recheck. Recently elevated at GI. - C-REACTIVE PROTEIN (CRP) - SED RATE WESTERGREN 3. Bruising - ICD9: 924.9, ICD10: T14.8XXA - CBC + DIFF - ACTIVATED PTT - PROTHROMBIN TIME/PT 4. Acute pain of left knee - ICD9: 719.46, ICD10: M25.562 - XR KNEE GENERAL 4V AP BOTH/PA BOTH/LAT/MERC LEFT - CONSULT TO ORTHOPAEDICS Discussed ice and compression/ 5. Acute right ankle pain - ICD9: 719.47, 338.19, ICD10: M25.571 - XR ANKLE GENERAL 3V AP/LAT/OBL RIGHT - CONSULT TO ORTHOPAEDICS Discussed ice and compression. Discussed treatment plan and patient voices understanding. Patient's questions answered appropriately. Medications and potential side effects were discussed and patient voices understanding. Return to the office as scheduled or as needed for worsening/no improvement. Leticia Amor APRN.[employer] documented in this encounter [facility] 03-08-2023 Note HNO ID: [id number] Author: Kathe Parker PT Service: ? Author Type: Physical Therapist Type: Progress Notes Filed: 03/08/2023 8:37 AM Note Text: Episode Visit Count: 3 Therapist That Will Accept/Oversee The Plan Of Care: Kathe Mcarthur PT Start of Care Date: 02/16/23 Onset Date: 11/22/22 (2000 left foot surgery, Sep 2022 right foot) Patient Identified by Name and Date of : Yes REHABILITATION AND SPORTS THERAPY PHYSICAL THERAPY TREATMENT NOTE ASSESSMENT: Jammie Troy tolerated the session with no issues. She demonstrated improvements in following ultrasound. The patient will continue to benefit from ongoing skilled physical therapy to progress toward set goals. PLAN FOR NEXT VISIT: consider adding standing stretches SUBJECTIVE: Patient Reason for Visit: Pt notes that she is having trouble with left knee which she is getting checked out by PCP. Pain: Pain Pain Level: 3 Pain Location: Foot - Right, Finger - Left (left not as bad) Description: Aching, Sharp Frequency: Continuous Post Treatment Pain Post Treatment Pain Level: Better OBJECTIVE MEASURES WITH LEVEL OF FUNCTION: Pt notes tenderness and pain in lateral right ankle where she hit it on a step TREATMENT: Therapeutic Exercise: 1: AROM all planes B ankles 2: towel gastroc stretch 30 sec x3 3: seated heel slide for soleus stretch 30 sec x3 4: plantar fascia stretch with lacorsse ball push to tolerance x2 min B Skilled Intervention: Skilled judgment was provided in selection of appropriate interventions. Correct performance of therapeutic exercises was facilitated with verbal and visual cuing. Modalities: Ultrasound Body Region Treated - Ultrasound: B plantar fascia Patient Position: supine wtih legs on bolster. Mode: 50% w/cm2: 1.2 MHZ: 1 Minutes: 8 Skilled Intervention: Proper administration and selection of modality based on clinical presentation, deficits, and needs. Patient response monitored throughout treatment. Billing Therapeutic Exercise Treatment Minutes: 23 Ultrasound Treatment Minutes: 16 Total Treatment Time Minutes (timed/untimed): 39 Kathe Parker PT [facility] [place] 03-02-2023 Note Patient Outreach (IN TMM[facility]) JAMMIE TROY ([id number]) 1970 F Date Time Provider Department 03/02/23 MACHELLE HARRY During your visit today, we recorded the following information about you: Allergies As of Date: 03/02/2023 Noted Allergy Reaction ADHESIVE TAPE (ROSINS) 07/15/2011 2 - Rash 7 - Swelling BACTRIM (SULFAMETHOXAZOLE-TRIMETH*07/07/20 06 FLEXERIL (CYCLOBENZAPRINE HCL) 07/07/2006 MINOCYCLINE 07/21/2011 8 - GI Upset Comments: Severe nausea NEXIUM (ESOMEPRAZOLE MAGNESIUM) 07/07/2006 SULFA (SULFONAMIDE ANTIBIOTICS) 07/07/2006 zithromaxz [Other] 07/07/2006 Date Reviewed: 02/09/2023 Reviewed by: Maria D Schaffer LPN - Fully Assessed Visit Diagnosis:Encounter for screening mammogram for breast cancer [Z12.31] Order(s):[facility] [[id number]] Order #: [id number] FUTURE Prescriptions as of 03/07/2023 - semaglutide (OZEMPIC) 0.25 mg or 0.5 mg(2 mg/1.5 mL) pen Inject 0.25 mg subcutaneously one time a week. - ursodiol (RETA) 250 mg tablet Take by mouth. - Vitamin E, dl, acetate, (VITAMIN E) 200 unit capsule Take by mouth. - meloxicam (MOBIC) 15 mg tablet Take 1 tablet by mouth once daily as needed. With food. - escitalopram oxalate (LEXAPRO) 20 mg tablet Take 1 tablet by mouth once daily. - omeprazole (PRILOSEC) 40 mg capsule Take 1 capsule by mouth once daily. - levothyroxine (SYNTHROID) 137 mcg tablet Take 1 tablet by mouth daily before breakfast. - tiZANidine (ZANAFLEX) 4 mg tablet Take 1 tablet by mouth every 8 hours as needed (pain). Problem List As Of Date 03/02/2023 Noted Resolved ANAL FISSURE [K60.2] 07/07/2006 PRURITUS ANI [L29.0] 07/07/2006 DIARRHEA NOS [R19.7] 08/11/2006 Hypothyroidism, unspecified [E03.9] 10/10/2017 Bilateral hip pain [M25.551, M25.552] 04/22/2021 Weakness of both lower extremities [R29.898] 04/22/2021 Numbness and tingling of both lower extremities*04/22/2021 GARCIA (generalized anxiety disorder) [F41.1] 06/11/2022 Obesity, Class III, BMI 40-49.9 (morbid obesity*09/01/2022 Foot pain, bilateral [M79.671, M79.672] 02/16/2023 Plantar fasciitis [M72.2] 02/16/2023 Encounter Status:Closed by EPIC, PRODUSER on 03/07/23 [facility] [place] 03-01-2023 Note HNO ID: [id number] Author: Kathe Parker, CHRISTOPHER Service: ? Author Type: Physical Therapist Type: Progress Notes Filed: 03/01/2023 8:30 AM Note Text: Episode Visit Count: 2 Therapist That Will Accept/Oversee The Plan Of Care: Kathe Mcarthur PT Start of Care Date: 02/16/23 Onset Date: 11/22/22 (2000 left foot surgery, Sep 2022 right foot) Patient Identified by Name and Date of : Yes REHABILITATION AND SPORTS THERAPY PHYSICAL THERAPY TREATMENT NOTE ASSESSMENT: Jammie Troy tolerated the session with decreased symptoms. She demonstrated improvements in pain at end of session. Pt doing well with stretching. The patient will continue to benefit from ongoing skilled physical therapy to progress toward set goals. PLAN FOR NEXT VISIT: assess response of ultrasound, continue stretching , consider BAPS SUBJECTIVE: Patient Reason for Visit: Pt notes that she is doing her stretching consistently . She has changed to new shoes which has helped. Does get some cramping in left calf at times even when stretching. Pain: Pain Pain Level: 1 Pain Location: Foot - Right, Foot - Left Description: Aching, Sharp Frequency: Continuous Post Treatment Pain Post Treatment Pain Level: Better Post Treatment Symptoms: they feel great except for one spot. OBJECTIVE MEASURES WITH LEVEL OF FUNCTION: tenderness mid plantar fascia and on right in area of tibialis posterior attachement TREATMENT: Therapeutic Exercise: 1: AROM all planes B ankles 2: towel gastroc stretch 30 sec x3 3: seated heel slide for soleus stretch 30 sec x3 4: plantar fascia stretch with lacorsse ball push to tolerance x2 min B Skilled Intervention: Skilled judgment was provided in selection of appropriate interventions. Correct performance of therapeutic exercises was facilitated with verbal and visual cuing. Modalities: Ultrasound Body Region Treated - Ultrasound: B plantar fascia Patient Position: supine wtih legs on bolster. Mode: 50% w/cm2: 1.2 MHZ: 1 Minutes: 8 Skilled Intervention: Proper administration and selection of modality based on clinical presentation, deficits, and needs. Patient response monitored throughout treatment. Billing Therapeutic Exercise Treatment Minutes: 23 Ultrasound Treatment Minutes: 16 Total Treatment Time Minutes (timed/untimed): 39 Kathe Parker, PT [facility] [place] 03-01-2023 History of Present illness Narrative Episode Visit Count: 2 Therapist That Will Accept/Oversee The Plan Of Care: Kathe Mcarthur PT Start of Care Date: 02/16/23 Onset Date: 11/22/22 (2000 left foot surgery, Sep 2022 right foot) Patient Identified by Name and Date of : Yes REHABILITATION AND SPORTS THERAPY PHYSICAL THERAPY TREATMENT NOTE ASSESSMENT: Jammie Troy tolerated the session with decreased symptoms. She demonstrated improvements in pain at end of session. Pt doing well with stretching. The patient will continue to benefit from ongoing skilled physical therapy to progress toward set goals. PLAN FOR NEXT VISIT: assess response of ultrasound, continue stretching , consider BAPS SUBJECTIVE: Patient Reason for Visit: Pt notes that she is doing her stretching consistently . She has changed to new shoes which has helped. Does get some cramping in left calf at times even when stretching. Pain: Pain Pain Level: 1 Pain Location: Foot - Right, Foot - Left Description: Aching, Sharp Frequency: Continuous Post Treatment Pain Post Treatment Pain Level: Better Post Treatment Symptoms: they feel great except for one spot. OBJECTIVE MEASURES WITH LEVEL OF FUNCTION: tenderness mid plantar fascia and on right in area of tibialis posterior attachement TREATMENT: Therapeutic Exercise: 1: AROM all planes B ankles 2: towel gastroc stretch 30 sec x3 3: seated heel slide for soleus stretch 30 sec x3 4: plantar fascia stretch with lacorsse ball push to tolerance x2 min B Skilled Intervention: Skilled judgment was provided in selection of appropriate interventions. Correct performance of therapeutic exercises was facilitated with verbal and visual cuing. Modalities: Ultrasound Body Region Treated - Ultrasound: B plantar fascia Patient Position: supine wtih legs on bolster. Mode: 50% w/cm2: 1.2 MHZ: 1 Minutes: 8 Skilled Intervention: Proper administration and selection of modality based on clinical presentation, deficits, and needs. Patient response monitored throughout treatment. Billing Therapeutic Exercise Treatment Minutes: 23 Ultrasound Treatment Minutes: 16 Total Treatment Time Minutes (timed/untimed): 39 Kathe Parker PT documented in this encounter [facility] documented as of this encounter (statuses as of 05/05/2023) [facility]03-29-2023 History of Past illness Narrative* Problem Noted Date Resolved Date Foot pain, bilateral 02/16/2023 04/22/2023 Plantar fasciitis 02/16/2023 04/22/2023 documented as of this encounter (statuses as of 05/09/2023) [facility]03-29-2023 History of Past illness Narrative* Problem Noted Date Resolved Date Foot pain, bilateral 02/16/2023 04/22/2023 Plantar fasciitis 02/16/2023 04/22/2023 documented as of this encounter (statuses as of 05/15/2023) [facility]03-29-2023 History of Past illness Narrative* Problem Noted Date Resolved Date Foot pain, bilateral 02/16/2023 04/22/2023 Plantar fasciitis 02/16/2023 04/22/2023 documented as of this encounter (statuses as of 05/21/2023) [facility]03-29-2023 History of Past illness Narrative* Problem Noted Date Resolved Date Foot pain, bilateral 02/16/2023 04/22/2023 Plantar fasciitis 02/16/2023 04/22/2023 documented as of this encounter (statuses as of 05/25/2023) [facility]-2023 History of Past illness Narrative* Problem Noted Date Resolved Date Foot pain, bilateral 02/16/2023 04/22/2023 Plantar fasciitis 02/16/2023 04/22/2023 documented as of this encounter (statuses as of 05/27/2023) [address]29-2023 History of Past illness Narrative* Problem Noted Date Diagnosed Date Resolved Date Foot pain, bilateral 02/16/2023 023 Plantar fasciitis 02/16/2023 04/22/2023 documented as of this encounter (statuses as of 06/02/2023) [address]29-2023 History of Past illness Narrative* Problem Noted Date Diagnosed Date Resolved Date Foot pain, bilateral 02/16/2023 023 Plantar fasciitis 02/16/2023 04/22/2023 documented as of this encounter (statuses as of 06/20/2023) [address]29-2023 History of Past illness Narrative* Problem Noted Date Diagnosed Date Resolved Date Foot pain, bilateral 02/16/2023 023 Plantar fasciitis 02/16/2023 04/22/2023 documented as of this encounter (statuses as of 06/21/2023) [address]29-2023 History of Past illness Narrative* Problem Noted Date Diagnosed Date Resolved Date Foot pain, bilateral 02/16/2023 023 Plantar fasciitis 02/16/2023 04/22/2023 documented as of this encounter (statuses as of 07/05/2023) [address]29-2023 History of Past illness Narrative* Problem Noted Date Diagnosed Date Resolved Date Foot pain, bilateral 02/16/2023 023 Plantar fasciitis 02/16/2023 04/22/2023 documented as of this encounter (statuses as of 07/08/2023) [address]29-2023 History of Past illness Narrative* Problem Noted Date Diagnosed Date Resolved Date Foot pain, bilateral 02/16/2023 023 Plantar fasciitis 02/16/2023 04/22/2023 documented as of this encounter (statuses as of 07/12/2023) [address]29-2023 History of Past illness Narrative* Problem Noted Date Diagnosed Date Resolved Date Foot pain, bilateral 02/16/2023 023 Plantar fasciitis 02/16/2023 04/22/2023 documented as of this encounter (statuses as of 07/12/2023) [address]29-2023 History of Past illness Narrative* Problem Noted Date Diagnosed Date Resolved Date Foot pain, bilateral 02/16/2023 023 Plantar fasciitis 02/16/2023 04/22/2023 documented as of this encounter (statuses as of 07/20/2023) [address]29-2023 History of Past illness Narrative* Problem Noted Date Diagnosed Date Resolved Date Foot pain, bilateral 02/16/2023 023 Plantar fasciitis 02/16/2023 04/22/2023 documented as of this encounter (statuses as of 10/04/2023) [address]29-2023 History of Past illness Narrative* Problem Noted Date Diagnosed Date Resolved Date Foot pain, bilateral 02/16/2023 023 Plantar fasciitis 02/16/2023 04/22/2023 documented as of this encounter (statuses as of 10/12/2023) [address]29-2023 History of Past illness Narrative* Problem Noted Date Diagnosed Date Resolved Date Foot pain, bilateral 02/16/2023 023 Plantar fasciitis 02/16/2023 04/22/2023 documented as of this encounter (statuses as of 10/20/2023) [address]29-2023 History of Past illness Narrative* Problem Noted Date Diagnosed Date Resolved Date Foot pain, bilateral 02/16/2023 023 Plantar fasciitis 02/16/2023 04/22/2023 documented as of this encounter (statuses as of 2023) [address]29-2023 History of Past illness Narrative* Problem Noted Date Diagnosed Date Resolved Date Foot pain, bilateral 02/16/2023 023 Plantar fasciitis 02/16/2023 04/22/2023 documented as of this encounter (statuses as of 11/11/2023) [address]29-2023 NoteHNO ID: [id number] Author: Kathe Parker PT Service: ? Author Type: Physical Therapist Type: Progress Notes Filed: 02/16/2023 9:27 AM Note Text: Episode Visit Count: 1 Therapist That Will Accept/Oversee The Plan Of Care: Kathe Parker PT Start of Care Date: 02/16/23 Onset Date: 11/22/22 (2000 left foot surgery, Sep 2022 right foot) Patient Identified by Name and Date of : Yes REHABILITATION AND SPORTS THERAPY PHYSICAL THERAPY EVALUATION PLAN OF CARE: Assessment: Jammie Troy presents with diagnosis of bilateral plantar fascitis right greater than left that interferes with stair negotiation, walking in the community . She presents with impairments in ADL's, gait, overall function, range of motion, symptom management, and tissue tenderness. Patient did not complete the PROMIS? (Patient Reported Outcome Measures Information System). Prognosis for therapy is Fair due to: chronic nature of impairments . She will benefit from skilled therapy services to meet the goals established for this plan of care as noted below. Goals for Episode of Care: created on 02/16/23 through 03/16/23 [facility] in home exercise program. Patient will decrease pain to 2/10 with functional activities to allow patient to improve ambulation and standing tolerance for ADLs. Patient will increase active ROM of DF to 15degrees to allow pt to to improve performance of ADLs, to improve gait mechanics / gait pattern , and decreased pain . Perform ambulation without pain. increasing Patient Goals: alleviate pain in feet and strengthen legs Planned Interventions, Frequency, and Duration: Current Frequency: 2x/week Duration: 4 weeks Total Number of Visits Planned: 8 Planned Treatment Interventions: Therapeutic exercise (63847), Manual therapy (33497), Self-halfway management (95335), Patient/Family/Caregiver Education, Ultrasound (21807) PLAN FOR NEXT VISIT: will consider ultrasound to plantar fascia Patient demonstrates good understanding of plan of care and treatment. The above goals and plan of care were discussed and agreed upon by patient/family. SUBJECTIVE: Jammie Troy is a 52 year old female seen today for Pt notes pain in right foot greater than left foot. Has had several year history of pain and surgery to both feet. Pain on bottom of feet, heel particularly. 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 Intake Information: Prescription present Previous Treatment: Injections , Self prescribed exercises (surgery, orthotics in both shoes) Pain: Pain Pain Level: 2 (4/10 in the morning, 8/10 at worst.) Pain Location: Foot - Right, Foot - Left Description: Aching, Sharp Frequency: Continuous Post Treatment Pain Post Treatment Pain Level: No Change Post Treatment Pain Location: Foot - Right, Foot - Left Post Treatment Pain Description: Aching PROMIS Scales Higher is Better 04/22/2021 Phys Func - Score 39 (moderate dysfunction) Phys Func - Percentile 14 % Self-Eff Symptom - Score 35 (Low) Self-Eff Symptom - Percentile 7 % T-scores: mean of general population = 50. 5 points is clinically meaningfully difference Percentiles provide an indication of how the patient's score ranks in relation to the general population. Higher percentile rankings indicate better function/quality of life. 50th percentile is the average of the general population and indicates half of respondents had a worse score. OBJECTIVE MEASURES WITH LEVEL OF FUNCTION: Posture / Alignment R LE Anatomical Alignment Weight-Bearing: R Pes planus, R Low arch height L LE Anatomical Alignment Weight-Bearing: L Pes planus, L Low arch height R LE Anatomical Alignment Non Weight-Bearing: R Rearfoot varus L LE Anatomical Alignment Non Weight-Bearing: L Rearfoot varus Ankle Observations R Ankle Palpation Tenderness: Plantar fascia L Ankle Palpation Tenderness: No tenderness noted LE AROM R Ankle Dorsiflexion: 5 Degrees R Ankle Plantar Flexion: 44 Degrees R Ankle Inversion: 30 R Ankle Eversion: 18 L Ankle Dorsiflexion: 10 Degrees L Ankle Plantar Flexion: 50 Degrees L Ankle Inversion: 40 L Ankle Eversion: 22 LE Flexibility Flexibility: Gastrocnemius Flexibility R Gastrocnemius Flexibility: 5 L Gastrocnemius Flexibility: 10 LE Strength R Ankle Dorsiflexion (L4): 5/5 R Ankle Plantar Flexion: 5/5 R Ankle Inversion: 5/5 R Ankle Eversion: 5/5 L Ankle Dorsiflexion (L4): 5/5 L Ankle Plantar Flexion: 5/5 L Ankle Inversion: 5/5 L Ankle Eversion: 5/5 Gait Weight Bearing Status: FWB Gait: Independent Gait Device: None Gait Observation: pronation right greater than left Education: Education Learning Preference (more content not included)...[facility] [place] 02-16-2023 History of Present illness Narrative* Kathe Parker, PT - 02/16/2023 9:22 AM EDT Episode Visit Count: 1 Therapist That Will Accept/Oversee The Plan Of Care: Kathe Parker PT Start of Care Date: 02/16/23 Onset Date: 11/22/22 (2000 left foot surgery, Sep 2022 right foot) Patient Identified by Name and Date of : Yes REHABILITATION AND SPORTS THERAPY PHYSICAL THERAPY EVALUATION PLAN OF CARE: Assessment: Jammie Troy presents with diagnosis of bilateral plantar fascitis right greater than left that interferes with stair negotiation, walking in the community . She presents with impairments in ADL's, gait, overall function, range of motion, symptom management, and tissue tenderness. Patient did not complete the PROMIS (Patient Reported Outcome Measures Information System). Prognosis for therapy is Fair due to: chronic nature of impairments . She will benefit from skilled therapy services to meet the goals established for this plan of care as noted below. Goals for Episode of Care: created on 02/16/23 through 03/16/23 [facility] in home exercise program. Patient will decrease pain to 2/10 with functional activities to allow patient to improve ambulation and standing tolerance for ADLs. Patient will increase active ROM of DF to 15degrees to allow pt to to improve performance of ADLs, to improve gait mechanics / gait pattern , and decreased pain . Perform ambulation without pain. increasing Patient Goals: alleviate pain in feet and strengthen legs Planned Interventions, Frequency, and Duration: Current Frequency: 2x/week Duration: 4 weeks Total Number of Visits Planned: 8 Planned Treatment Interventions: Therapeutic exercise (75831), Manual therapy (84135), Self-halfway management (60050), Patient/Family/Caregiver Education, Ultrasound (62770) PLAN FOR NEXT VISIT: will consider ultrasound to plantar fascia Patient demonstrates good understanding of plan of care and treatment. The above goals and plan of care were discussed and agreed upon by patient/family. SUBJECTIVE: Jammie Troy is a 52 year old female seen today for Pt notes pain in right foot greater than left foot. Has had several year history of pain and surgery to both feet. Pain on bottom of feet, heel particularly. 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 Intake Information: Prescription present Previous Treatment: Injections , Self prescribed exercises (surgery, orthotics in both shoes) Pain: Pain Pain Level: 2 (4/10 in the morning, 8/10 at worst.) Pain Location: Foot - Right, Foot - Left Description: Aching, Sharp Frequency: Continuous Post Treatment Pain Post Treatment Pain Level: No Change Post Treatment Pain Location: Foot - Right, Foot - Left Post Treatment Pain Description: Aching PROMIS Scales Higher is Better 04/22/2021 Phys Func - Score 39 (moderate dysfunction) Phys Func - Percentile 14 % Self-Eff Symptom - Score 35 (Low) Self-Eff Symptom - Percentile 7 % T-scores: mean of general population = 50. 5 points is clinically meaningfully difference Percentiles provide an indication of how the patient's score ranks in relation to the general population. Higher percentile rankings indicate better function/quality of life. 50th percentile is the average of the general population and indicates half of respondents had a worse score. OBJECTIVE MEASURES WITH LEVEL OF FUNCTION: Posture / Alignment R LE Anatomical Alignment Weight-Bearing: R Pes planus, R Low arch height L LE Anatomical Alignment Weight-Bearing: L Pes planus, L Low arch height R LE Anatomical Alignment Non Weight-Bearing: R Rearfoot varus L LE Anatomical Alignment Non Weight-Bearing: L Rearfoot varus Ankle Observations R Ankle Palpation Tenderness: Plantar fascia L Ankle Palpation Tenderness: No tenderness noted LE AROM R Ankle Dorsiflexion: 5 Degrees R Ankle Plantar Flexion: 44 Degrees R Ankle Inversion: 30 R Ankle Eversion: 18 L Ankle Dorsiflexion: 10 Degrees L Ankle Plantar Flexion: 50 Degrees L Ankle Inversion: 40 L Ankle Eversion: 22 LE Flexibility Flexibility: Gastrocnemius Flexibility R Gastrocnemius Flexibility: 5 L Gastrocnemius Flexibility: 10 LE Strength R Ankle Dorsiflexion (L4): 5/5 R Ankle Plantar Flexion: 5/5 R Ankle Inversion: 5/5 R Ankle Eversion: 5/5 L Ankle Dorsiflexion (L4): 5/5 L Ankle Plantar Flexion: 5/5 L Ankle Inversion: 5/5 L Ankle Eversion: 5/5 Gait Weight Bearing Status: FWB Gait: Independent Gait Device: None Gait Observation: pronation right greater than left Education: Education Learning Preferences: Demonstration, Explanation, Performance, Printed Materials Barriers: None Learning/educational needs: Home exercise program, Plan of Care Education Provided: Yes, see treatment interventions for education provided Education Provided To: Patient Education Mode/Type: Demonstration, Explanation/Discussion, Performance Response to Education/Teach Back: States/Identifies, Return Demonstration TREATMENT: PT Treatment Interventions: Therapeutic Exercise, Self-Longterm Management Evaluation Therapeutic Exercise: 1: AROM all planes B ankles 2: towel gastroc stretch 30 sec x3 3: seated heel slide for soleus stretch 30 sec x3 4: plantar fascia stretch with lacorsse ball push to tolerance x2 min B Skilled Intervention: Patient was educated in proper exercise technique and purpose for exercises. Skilled judgment was provided in selection of appropriate interventions. Correct performance of therapeutic exercises was facilitated with verbal and visual cuing. Educated patient on rationale for performing exercises in regards to ROM and function . Patient education as noted. Self-Longterm Management: 1: education on use of shoes at home including getting out of bed 2: discussed use of AROM and stretching to decrease pain and stress to plantar fascia Skilled Intervention: Skilled judgment in the selection of proper modification for activity of daily living/home management based on clinical presentation, deficits, and needs. Home Exercise Program Assigned: 1: as outlined above Billing * Evaluation Low Complexity: 1 Unit Therapeutic Exercise Treatment Minutes: 20 Self-Care/Home Management Treatment Minutes: 5 Total Treatment Time Minutes (timed/untimed): 40 [facility]athe Parker [facility] NoteHNO ID: [id number] Author: Freddie Hanna Service: ? Author Type: Physician Type: Progress Notes Filed: 02/09/2023 10:17 AM Note Text: Consultation requested by Dr. Amor for an opinion regarding right heel pain. My final recommendations will be communicated back to the requesting physician by way of shared Medical record or letter to requesting physician via US mail. Initial Podiatric Office Visit: Chief Complaint: This 52 year old female who presents with chief complaint:b/l heel pain HPI Patient presents to clinic with complaint of b/l heel pain. She has severe pain in right heel and has to a lesser degree, left heel pain. She has history of plantar fasciitis on both feet that has been treated by Dr. Jeff Childers. She has been treated in the past with Dr. Childers with steroid injection (none of which worked). She was also treated with stretching, icing, nsaids, orthotics. Pain unfortntaely did not improve. Patient was treated with endoscopic plantar fasciotomy in February 2021 and right foot in September 2022. Patient states there is still some pain in the left foot but mostly because she finds herself compensating for the pain in right foot. She had surgeyr on the right foot and does not feel the endoscopic plantar fasciotomy did anything for her pain. Patient is currently treating the foot pain with mobic which she takes daily. Patient has custom orthotics that she wears on the right foot. Patient continues with stretching. Patient has yet to see dr. Childers this year because she is not sure if her insurance covers him. 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 ursodiol (RETA) 250 mg tablet Take by mouth. Vitamin E, dl, acetate, (VITAMIN E) 200 unit capsule Take by mouth. meloxicam (MOBIC) 15 mg tablet Take 1 tablet by mouth once daily as needed. With food. escitalopram oxalate (LEXAPRO) 20 mg tablet Take 1 tablet by mouth once daily. omeprazole (PRILOSEC) 40 mg capsule Take 1 capsule by mouth once daily. levothyroxine (SYNTHROID) 137 mcg tablet Take 1 tablet by mouth daily before breakfast. tiZANidine (ZANAFLEX) 4 mg tablet Take 1 tablet by mouth every 8 hours as needed (pain). No current facility-administered medications for this visit. ALLERGIES Allergen Reactions Adhesive Tape (Aranza* Rash, Swelling Bactrim [Sulfametho* Flexeril [Cyclobenz* Minocycline GI Upset Severe nausea Nexium [Esomeprazol* Sulfa (Sulfonamide * Zithromaxz [Other] PAST SURGICAL HISTORY Procedure Laterality Date ARTHROSCOPY KNEE DIAGNOSTIC W/WO SYNOVIAL BX SPX Arthroscopy, knee, left knee COLONOSCOPY SCREENING 11/01/2022 Dr. Christian Sarmiento- repeat colonoscopy in 6 months d/t poor bowel prep DILATION AND CURETTAGE DXAND/THER NONOBSTETRIC Dilation AND curettage DILATION AND CURETTAGE DXAND/THER NONOBSTETRIC Dilation AND curettage EGD W/O BRSH SPEC VARICIES INJ 11/01/2022 Dr. Christian Sarmiento, small hiatal hernia LAPAROSCOPY SURG CHOLECYSTECTOMY Cholecystectomy, lap SIGMOIDOSCOPY FLX W/BIOPSY SINGLE/MULTIPLE 08/11/2006 TONSILLECTOMY PRIMARY/SECONDARY Tonsillectomy FAMILY HISTORY Problem Relation Age of Onset Arthritis Mother Diabetes Father Thyroid Father Coronary Artery Disease Father Stroke Maternal Grandmother TIA Cancer Paternal Grandmother Social History Tobacco Use Smoking status: Never Smokeless tobacco: Never Substance Use Topics Alcohol use: No Drug use: No REVIEW OF SYSTEMS GENERAL: Negative for Malaise, significant weight loss, fever RESPIRATORY: Negative for cough, wheezing and shortness of breath CARDIOVASCULAR: Negative for chest pain, leg swelling and palpitations GI: Negative for abdominal discomfort, blood in stools or black stools and change in bowel habits : Negative for dysuria, frequency and incontinence MUSCULOSKELETAL: Negative for joint pain or swelling, back pain, and muscle pain. SKIN: Negative for lesions, rash, and itching. HEMATOLOGY/LYMPHOLOGY Negative for prolonged bleeding, bruising easily, and swollen nodes. ENDOCRINE: Negative for cold or heat intolerance, polyuria, polydipsia and goiter. NEURO: negative Physical Exam: Constitutional: Pt is a well developed 52 year old fema (more content not included)...[facility] [place]03-22-2023 NoteHNO ID: [id number] Author: Maria D Schaffer LPN Service: ? Author Type: LICENSED NURSE Type: Progress Notes Filed: 02/09/2023 10:17 AM Note Text: AMB ROOMING INTAKE FLOWSHEET DATA Pain Pain Level: 7 Pain Location: Foot-Right Description: Sharp, Radiating Duration Amount of Time: 4 Duration Units: Months Frequency: Continuous Intervention/Comfort measure: Reposition, Relaxation, Medication Patient presents with: Right Foot - New, Pain Left Foot - New, Pain Patient had surgery done in September at [facility] with jeff chliders. Maria D Schaffer, [facility]03-22-2023 NoteHNO ID: [id number] Author: RT Abel(R) Service: ? Author Type: Technologist Type: Progress Notes Filed: 02/09/2023 9:36 AM Note Text: Radiology Service Progress Note PATIENT NAME: Jammie Troy DATE OF SERVICE: February 09, 2023 TIME: 9:35 AM PATIENT IDENTITY VERIFICATION COMPLETED USING TWO (2) IDENTIFIERS: Name and Date of confirmed by patient verbally. FALL SCREENING: Has the patient had 2 falls in the last year or 1 fall with injury or currently using an Ambulatory Assistive Device (Walker, Cane, Wheelchair, Crutches, etc.)? No PATIENT GENDER DATA: Female. status: : No status: NO. PATIENT RELEVANT IMPLANT DATA REVIEWED: Not Applicable RADIOLOGY DEPARTMENT: General X-ray: Exam(s) Completed: Lower Extremity X-Ray(s): Feet, Bilateral and Wt. Bearing PERIPHERAL IV DATA: Not applicable SIGNED BY: RT Abel(R) February 09, 2023 9:35 [facility]03-22-2023 Instructions* Patient Instructions* Freddie Hanna - 02/09/2023 10:14 AM EDT Images from the original note were not included. What is Plantar Fasciitis? Plantar fasciitis is the most common cause of heel pain. The pain is caused by inflammation of the plantar fascia. If you strain your plantar fascia, it becomes weak, swollen and irritated (inflamed). The resulting pain may be isolated in the heel or may appear at different points on the bottom of the foot, from time to time; it may occur in one foot or both. Some think that plantar fasciitis pain is caused by irritation of nerves from tissue swelling or inflammation, but it is debatable. Plantar fasciitis is common in middle-aged people; it also occurs in younger people who are on their feeta lot, such as athletes or soldiers. The plantar fascia is a strong band of connective tissue that extends from the base of the toes, along the bottom of the foot, to the bottom of the heel (calcaneous bone); it acts like a bowstring tomaintain the arch of the foot. What are heel spurs? The inflammatory reaction of the heel bone may produce spike-like projections of new bone, called heel spurs. The spurs sometimes show on X-rays. They neither cause the initial pain nor do they causethe initial problem. However, later, having to walk on spurs may cause sharp pain. What causes plantar fasciitis? Plantar fasciitis is caused by straining the ligament that supports your arch. Repeated strain can cause tiny tears in the ligament. These lead to pain and swelling. During walking, the plantar fascia experiences tension up to twice the body weight with each step. While this is normal, those who spend much time on their feet, such as nurses, coin wrapping machine operator/waiters, andmail carriers, often experience plantar fasciitis. Athletes involved in tennis or other racquet sports, race walking, jogging or running also show a higher incidence of plantar fasciitis than do those participating in other activities. Thus, it's clear that plantar fasciitis is predominantly an overuse injury. In fact, any activity that results in prolonged tension and stress on the plantar fascia may cause plantar fasciitis. It is possible that changes in footwear may play a role in causing plantar fasciitis, no matter what activity is occurring. Those who are overweight are prone to plantarfasciitis. This is true even for sedentary people who get little physical activity. Abnormalities of the foot and ankle joints may predispose some individuals to development of plantar fasciitis (spec ifically, over pronation of the subtalar joint). Contributing Factors * Flat feet * Toe running, hill running * Sudden weight increase * High-arched, rigid feet * Soft terrain, e.g. running on sand * Obesity * Pronated feet (rolled inward) * Sudden increase in activity* Family tendency * Poor shoe support * Worn out or poorly fitted shoes * Increasing age * Walking,standing or running for long periods of time, especially on hard surfaces. How is the Injury Treated? Rest Your Feet: Limit, or if possible, stop activities that are causing your heel pain. Try to avoid running or walking on hard surfaces, such as concrete. Use pain as your guide. If your foot is toopainful, rest it. Ice: Ice the sore area for 30 to 60 minutes, several times a day, to reduce inflammation and relieve pain. Apply a plastic bag of crushed ice (or a bag of frozen peas) over a towel. Ice the sore areafor 15 minutes after activity/exercise. Application of heat is not generally recommended, as heat ex pands the bone and connective tissue, perhaps exerting greater pressure on nerves and thereby increasing pain. If heat is used, follow it with ice. Medication: If your condition developed recently, anti-inflammatory/analgesic medication, combined with heel pads (see below) may be all that is necessary to relieve pain and to reduce inflammation. If no pain relief has occurred after 2- 3 weeks, however, your doctor may inject either cortisone or local anesthetic directly into the tender area. Exercises: Do simple exercises, such as calf stretches and towel stretches (see below) several times a day, especially when you first get up in the morning. These can help your ligament become more flexible and strengthen the muscles that support your arch. Shoes: Poorly fitting shoes can cause plantar fasciitis. The best type of shoe to wear is a good walking or running shoe with good shock absorption and excellent arch support. You should choose the one that fits the best. Ken Caryl with your athletic shoes to find a pair that is comfortable and causes fewer symptoms. Put your shoes on as soon as you get out of bed; going barefoot or wearing slippers may make your pain worse. Good brands include (but are not limited to): New Balance, Asics, Saucony, SAS and Merrel s. Taping: Your doctor may tape your foot to maintain the arch. This takes some of the tension off theplantar fascia. Weight Loss: If your weight is putting extra stress on your feet, your doctor may encourage you to try a weight-loss program. Orthotics: An orthotic insole is a molded piece of rubber, plastic, or other material that you insert into your shoe. It corrects the alignment of your foot and cushions your foot from excessive pounding. These may be prescription or non-prescription. Prescription orthotics are custom-fitted and may fit better and control pain better, but are very expensive. Night Splints: A night splint holds the foot with the toes pointed up and the ankle at a 90-degree angle. This position applies a constant, gentle stretch to the plantar fascia. Corticosteroid Shots: Steroids may be injected into the tender area to reduce inflammation. REHAB Exercises to stretch the plantar fascia, the calf muscles, and the Achilles tendon. Tightness of the muscles of the calves may contribute to plantar fasciitis, so stretching the calf muscles is important to rehabilitation, as is stretching of the plantar fascia itself. Plantar fascial stretches Assisted Dorsiflexion/Plantar Fascia Stretch: Sit on the floor or ground, barefoot, with both legs outstretched. Use a towel or elastic band and wrap it around the ball (and not the toes) of the affected foot. Use the towel or elastic band to provide resistance to upward movement of the forefoot. Pull foot upward (toward your body) with the help of the elastic band or towel, and then return to the starting position. Ten repetitions are recommended. Perform the sequence at least three times a day. Alternate Plantar Fascia Stretch: Sit upright in a chair, barefoot. Place the ankle of the affectedfoot on your opposite knee. Using the same hand as the affected foot, reach across and grab the toes. Flex the ankle toward and pull the toes toward the guzman. To test the stretch, place the thumb of your hand on the bottom of the foot. You should be able to feel the cord-like plantar fascia, running the length of the foot. Hold the stretch for a count of 10, then relax. Repeat 10 times. Do the sequence at least three times a day. Achilles/Calf Stretches Strengthening the muscles of the calves may contribute to successful rehabilitation of plantar fasciitis, as well as prevent reoccurrence. The exercises below will help strengthen the calf muscles. Calf and Achilles Tendon Stretch (Gastrocnemius Stretch): Face a wall, standing an arm's length away. Place one foot back. Place both hands on the wall. Bend the elbows and knee of your forward leg, keeping the heel of the backward foot on the floor and keeping your body straight (aligned), until your forehead nearly touches the wall, or until significant stretch is felt in the muscles of the calf of the backward leg. Hold this position for 10 to 15 seconds. Extend elbows (straighten your arms and stand upright again) and maintain this position for 10 seconds. Repeat this cycle 15 to 20 times. Switch legs and repeat the exercise. [facility] History of Present illness Narrative* Freddie Hanna - 02/09/2023 9:59 AM EDT Consultation requested by Dr. Amor for an opinion regarding right heel pain. My final recommendations will be communicated back to the requesting physician by way of shared Medical record or letterto requesting physician via US mail. Initial Podiatric Office Visit: Chief Complaint: This 52 year old female who presents with chief complaint:b/l heel pain HPI Patient presents to clinic with complaint of b/l heel pain. She has severe pain in right heel and has to a lesser degree, left heel pain. She has history of plantar fasciitis on both feet that has been treated by Dr. Jeff Childers. She has been treated in the past with Dr. Childers with steroid injection (none of which worked). She was also treated with stretching, icing, nsaids, orthotics. Pain unfortntaely did not improve. Patient was treated with endoscopic plantar fasciotomy in February 2021 and right foot in September 2022. Patient states there is still some pain in the left foot but mostly because she finds herself compensating for the pain in right foot. She had surgeyr on the right foot and does not feel the endoscopic plantar fasciotomy did anything for her pain. Patient is currently treating the foot pain with mobic which she takes daily. Patient has custom orthotics that she wears on the right foot. Patient continues with stretching. Patient has yet to see dr. Childers this year because she is not sure if her insurance covers him. 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 ursodiol (RETA) 250 mg tablet Take by mouth. Vitamin E, dl, acetate, (VITAMIN E) 200 unit capsule Take by mouth. meloxicam (MOBIC) 15 mg tablet Take 1 tablet by mouth once daily as needed. With food. escitalopram oxalate (LEXAPRO) 20 mg tablet Take 1 tablet by mouth once daily. omeprazole (PRILOSEC) 40 mg capsule Take 1 capsule by mouth once daily. levothyroxine (SYNTHROID) 137 mcg tablet Take 1 tablet by mouth daily before breakfast. tiZANidine (ZANAFLEX) 4 mg tablet Take 1 tablet by mouth every 8 hours as needed (pain). No current facility-administered medications for this visit. ALLERGIES Allergen Reactions Adhesive Tape (Aranza* Rash, Swelling Bactrim [Sulfametho* Flexeril [Cyclobenz* Minocycline GI Upset Severe nausea Nexium [Esomeprazol* Sulfa (Sulfonamide * Zithromaxz [Other] PAST SURGICAL HISTORY Procedure Laterality Date ARTHROSCOPY KNEE DIAGNOSTIC W/WO SYNOVIAL BX SPX Arthroscopy, knee, left knee COLONOSCOPY SCREENING 11/01/2022 Dr. Gonzales Friend- repeat colonoscopy in 6 months d/t poor bowel prep DILATION & CURETTAGE DX&/THER NONOBSTETRIC Dilation & curettage DILATION & CURETTAGE DX&/THER NONOBSTETRIC Dilation & curettage EGD W/O BRSH SPEC VARICIES INJ 11/01/2022 Dr. Gonzales Friend, small hiatal hernia LAPAROSCOPY SURG CHOLECYSTECTOMY Cholecystectomy, lap SIGMOIDOSCOPY FLX W/BIOPSY SINGLE/MULTIPLE 08/11/2006 TONSILLECTOMY PRIMARY/SECONDARY <AGE 13 Tonsillectomy FAMILY HISTORY Problem Relation Age of Onset Arthritis Mother Diabetes Father Thyroid Father Coronary Artery Disease Father Stroke Maternal Grandmother TIA Cancer Paternal Grandmother Social History Tobacco Use Smoking status: Never Smokeless tobacco: Never Substance Use Topics Alcohol use: No Drug use: No REVIEW OF SYSTEMS GENERAL: Negative for Malaise, significant weight loss, fever RESPIRATORY: Negative for cough, wheezing and shortness of breath CARDIOVASCULAR: Negative for chest pain, leg swelling and palpitations GI: Negative for abdominal discomfort, blood in stools or black stools and change in bowel habits : Negative for dysuria, frequency and incontinence MUSCULOSKELETAL: Negative for joint pain or swelling, back pain, and muscle pain. SKIN: Negative for lesions, rash, and itching. HEMATOLOGY/LYMPHOLOGY Negative for prolonged bleeding, bruising easily, and swollen nodes. ENDOCRINE: Negative for cold or heat intolerance, polyuria, polydipsia and goiter. NEURO: negative Physical Exam: Constitutional: Pt is a well developed 52 year old female who is alert, oriented and cooperative Eyes: Following during examination. No redness or drainage. Respiratory: RR normal and nonlabored. Even breathing. No evidence of distress or shortness of breath. Psychology: Patient is engaged during conversation. Normal affect and mood. Does not appear depressed or anxious during encounter. Vascular: Dorsalis pedis and posterior tibial pulses palpable as b/l Capillary Fill time < 5 seconds to digits 1-5 b/l Skin temperature warm to warm proximal to distal b/l Hair growth present to digits Neurological: intact light touch/epicritic sensation - tinel b/l intact protective sensation no significant neurological deficits Dermatological: Nails 1-5 b/l appear normal. Webspaces clean and dry 1-4 b/l. Skin appears well hydrated and supple. good color, texture, turgor. No open lesions present. No callosities present. Musculoskeletal/Orthopaedic: Patient has no pain to palpation of b/l medial calcaneal tubercle Foot type is pronated structurally AJ ROM is full with knee extended and flexed 1st MPJ is full when loaded and no pain or crepitus are noted with ROM. MTJ, STJ are full and free of pain and crepitus. +5/5 muscle strength dorsiflexion, plantarflexion, inversion, eversion b/l Radiographs: 3 views b/l foot ordered February 09, 2023: I have personally reviewed and interpreted these XR myself: no acute fracture. Very small heel spur present. 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 History and physical examination performed. 2. XR reviewed with patient and interpreted today 3. Discussed pain in b/l heel R>L. She may have residual inflammation aroudn plantar fascia but no clear pain to palpation. I am going to recommend she continue with inserts but would recommend using both inserts as only using one could be causing leg length discrepancy. 4. I am going to have her contineu with icing, nsaids and stretching. Will make referral to therapy 5. If pain fails to improve, consider mri 6. F/u in1 month Freddie Hanna DPM Podiatry [address] [place] [address] Dept: [phone] Dept * Maria D Schaffer LPN - 02/09/2023 9:39 AM EDT AMB ROOMING INTAKE FLOWSHEET DATA Pain Pain Level: 7 Pain Location: Foot-Right Description: Sharp, Radiating Duration Amount of Time: 4 Duration Units: Months Frequency: Continuous Intervention/Comfort measure: Reposition, Relaxation, Medication Patient presents with: Right Foot - New, Pain Left Foot - New, Pain Patient had surgery done in September at [facility] with jeff childers. Maria D Schaffer LPN documented in this encounterB[facility] History of Present illness Narrative* Daily Bush RT(R) - 02/09/2023 9:00 AM EDT Radiology Service Progress Note PATIENT NAME: Jammie Troy DATE OF SERVICE: February 09, 2023 TIME: 9:35 AM PATIENT IDENTITY VERIFICATION COMPLETED USING TWO (2) IDENTIFIERS: Name and Date of confirmedby patient verbally. FALL SCREENING: Has the patient had 2 falls in the last year or 1 fall with injury or currently using an Ambulatory Assistive Device (Walker, Cane, Wheelchair, Crutches, etc.)? No PATIENT GENDER DATA: Female. status: : No status: NO. PATIENT RELEVANT IMPLANT DATA REVIEWED: Not Applicable RADIOLOGY DEPARTMENT: General X-ray: Exam(s) Completed: Lower Extremity X- Ray(s): Feet, Bilateral and Wt. Bearing PERIPHERAL IV DATA: Not applicable SIGNED BY: RT Abel(R) February 09, 2023 9:35 AM documented in this encounterBrec[facility]ville [facility]23 NoteHNO ID: [id number] Author: Leticia Amor APRN.EBONY Service: ? Author Type: Nurse Practitioner Type: Progress Notes Filed: 02/02/2023 2:06 PM Note Text: Chief Complaint Patient presents with: Telemedicine Patient was offered a virtual/telemedicine appointment in lieu of an office visit due to recommendations to reduce patient exposure to COVID-19. Video was used for evaluation of this patient. Patient is aware of limitations of performing the visit without a face to face visit in the office setting and agrees. Patient agrees to the visit: Yes Patient Location: [facility] Jammie Troy is a 52 year old female who is contacted today for a virtual visit This is an established patient of Dr. Machelle Harry MD Reports: + covid. Went to work on Tuesday, and there was a resident that had covid. She helped do other tasks d/t being short staffed. Refers that she woke Tuesday around 2:00 feeling hot, and eyes hurt, and didn't feel good. Went into work, and they gave her a covid test and sent her home. A little sore throat. + headache. + cough. Occ gagging. Feels like liquid dripping out of the ears. Refers some discomfort across sinuses/nose. Tiny bit of dizziness. No diarrhea. + fatigue. + body aches. Hasn't checked temperature. She did take ibuprofen yesterday. 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 Gonzales Friend- repeat colonoscopy in 6 months d/t poor bowel prep DILATION AND CURETTAGE DXAND/THER NONOBSTETRIC Dilation AND curettage DILATION AND CURETTAGE DXAND/THER NONOBSTETRIC Dilation AND curettage EGD W/O [facility] SPEC VARICIES INJ 11/01/2022 Dr. Gonzales Friend, small hiatal hernia LAPAROSCOPY SURG CHOLECYSTECTOMY Cholecystectomy, lap SIGMOIDOSCOPY FLX W/BIOPSY SINGLE/MULTIPLE 08/11/2006 TONSILLECTOMY PRIMARY/SECONDARY Tonsillectomy Family History FAMILY HISTORY Problem Relation Age of Onset Arthritis Mother Diabetes Father Thyroid Father Coronary Artery Disease Father Stroke Maternal Grandmother TIA Cancer Paternal Grandmother Patient Allergies ALLERGIES Allergen Reactions Adhesive Tape (Aranza* Rash, Swelling Bactrim [Sulfametho* Flexeril [Cyclobenz* Minocycline GI Upset Severe nausea Nexium [Esomeprazol* Sulfa (Sulfonamide * Zithromaxz [Other] Current Medications Current Outpatient Medications on File Prior to Visit Medication Sig semaglutide (OZEMPIC) 0.25 mg or 0.5 mg(2 mg/1.5 mL) pen Inject 0.25 mg subcutaneously one time a week. ursodiol (RETA) 250 mg tablet Take by mouth. Vitamin E, dl, acetate, (VITAMIN E) 200 unit capsule Take by mouth. meloxicam (MOBIC) 15 mg tablet Take 1 tablet by mouth once daily as needed. With food. escitalopram oxalate (LEXAPRO) 20 mg tablet Take 1 tablet by mouth once daily. omeprazole (PRILOSEC) 40 mg capsule Take 1 capsule by mouth once daily. levothyroxine (SYNTHROID) 137 mcg tablet Take 1 tablet by mouth daily before breakfast. sucralfate (CARAFATE) 1 gram tablet Take 1 tablet by mouth before meals and at bedtime. tiZANidine (ZANAFLEX) 4 mg tablet Take 1 tablet by mouth every 8 hours as needed (pain). No current facility-administered medications on file prior to visit. Social History Social History Tobacco Use Smoking status: Never Smokeless tobacco: Never Substance Use Topics Alcohol use: No Drug use: No EXAM: LMP 06/21/2022 (Approximate) Limited exam as visit was completed over the virtual platform. Virtual visit completed using video, limited exam completed. Patient sounds or appears ill: Yes, but non-toxic. General Appearance: Well appearing, alert, in no acute distress, well-hydrated, well nourished. Skin: Skin color normal Head: Normocephalic. No facial swelling or redness. EENT: Eyes nonreddened. No discharge. External ears nonreddened and no swelling. Neck: No mass or lesions. No swelling. FROM Patient is unable to speak in complete sentences: No Patient has labored breathing: No. Patient is audibly coughing: No Psych: Attitude - cooperative, easily engaged in conversation Affect - Euthymic, normal mood Mental status: Alert. Speech is clear and fluent with good repetition, comprehension Appearance - Normal hygiene and grooming appropriate Coordination: No abnormal or extraneous movements. Gait/Stance: Posture is normal. Health Maintenance List HEPATITIS B(1 of 3 - 3-dose series) N (more content not included)...[facility] [place]03-15-[facility]23 Instructions* Patient Instructions* Leticia Amor APRN.[employer] - 02/02/2023 1:51 PM EDT FACT SHEET FOR PATIENTS, PARENTS, AND CAREGIVERS EMERGENCY USE AUTHORIZATION (EUA) OF PAXLOVID FOR CORONAVIRUS DISEASE 2019 (COVID-19) You are being given this Fact Sheet because your healthcare provider believes it is necessary to provide you with PAXLOVID for the treatment of gtcl-fh-thsssycq coronavirus disease (COVID-19) caused by the SARS-CoV-2 virus. This Fact Sheet contains information to help you understand the risks and benefits of taking the PAXLOVID you have received or may receive. The U.S. Food and Drug Administration (FDA) has issued an Emergency Use Authorization (EUA) to makePAXLOVID available during the COVID-19 pandemic (for more details about an EUA please see What is an Emergency Use Authorization? at the end of this document). PAXLOVID is not an FDA-approved medicine in the [place]. Read this Fact Sheet for information about PAXLOVID. Talk to your healthcareprovider about your options or if you have any questions. It is your choice to take PAXLOVID. What is COVID-19? COVID-19 is caused by a virus called a coronavirus. You can get COVID-19 through close contact withanother person who has the virus. COVID-19 illnesses have ranged from very ovyd-yw-pdgqlu, including illness resulting in . While information so far suggests that most COVID-19 illness is mild, serious illness can happen and maycause some of your other medical conditions to become worse. Older people and people of all ages with severe, long lasting (chronic) medical conditions like heart disease, lung disease, and diabetes,for example seem to be at higher risk of being hospitalized for COVID-19. What is PAXLOVID? PAXLOVID is an investigational medicine used to treat iaec-bg-qqnwuecx COVID-19 in adults and children [12 years of age and older weighing at least 88 pounds (40 kg)] with positive results of direct SARS-CoV-2 viral testing, and who are at high risk for progression to severe COVID-19, including hospitalization or . PAXLOVID is investigational because it is still being studied. There is limited information about the safety and effectiveness of using PAXLOVID to treat people with hesv-rx-edygruvz COVID-19. The FDA has authorized the emergency use of PAXLOVID for the treatment of yhih-ny-aaknncfn COVID-19in adults and children [12 years of age and older weighing at least 88 pounds (40 kg)] with a positive test for the virus that causes COVID-19, and who are at high risk for progression to severe COVID-19, including hospitalization or , under an EUA. 1 Revised: 05 February 2022 What should I tell my healthcare provider before I take PAXLOVID? Tell your healthcare provider if you: Have any allergies Have liver or kidney disease Are or plan to become Are a child Have any serious illnesses Tell your healthcare provider about all the medicines you take, including prescription and nrap-bxy-bhelrob medicines, vitamins, and herbal supplements. Some medicines may interact with PAXLOVID and may cause serious side effects. Keep a list of your medicines to show your healthcare provider and pharmacist when you get a new medicine. You can ask your healthcare provider or pharmacist for a list of medicines that interact with PAXLOVID. Do not start taking a new medicine without telling your healthcare provider. Your healthcare provider can tell you if it is safe to take PAXLOVID with other medicines. Tell your healthcare provider if you are taking combined hormonal contraceptive. PAXLOVID may affect how your control pills work. Females who are able to become should use another effective alternative form of contraception or an additional barrier method of contraception. Talk to your healthcare provider if you have any questions about contraceptive methods thatmight be right for you. How do I take PAXLOVID? PAXLOVID consists of 2 medicines: nirmatrelvir and ritonavir. Take 2 pink tablets of nirmatrelvir with 1 white tablet of ritonavir by mouth 2 times each day (in the morning and in the evening) for 5 days. For each dose, take all 3 tablets at the same time. If you have kidney disease, talk to your healthcare provider. You may need a different dose. Swallow the tablets whole. Do not chew, break, or crush the tablets. Take PAXLOVID with or without food. Do not stop taking PAXLOVID without talking to your healthcare provider, even if you feel better. If you miss a dose of PAXLOVID within 8 hours of the time it is usually taken, take it as soon as you remember. If you miss a dose by more than 8 hours, skip the missed dose and take the next dose atyour regular time. Do not take 2 doses of PAXLOVID at the same time. If you take too much PAXLOVID, call your healthcare provider or go to the nearest hospital emergency room right away. If you are taking a ritonavir-or cobicistat-containing medicine to treat hepatitis C or Human Immunodeficiency Virus (HIV), you should continue to take your medicine as prescribed by your healthcare provider. Talk to your healthcare provider if you do not feel better or if you feel worse after 5 days. Who should generally not take PAXLOVID? Do not take PAXLOVID if: You are allergic to nirmatrelvir, ritonavir, or any of the ingredients in PAXLOVID You are taking any of the following medicines: Alfuzosin Pethidine, propoxyphene Ranolazine Amiodarone, dronedarone, flecainide, propafenone, quinidine Colchicine Lurasidone, pimozide, clozapine Dihydroergotamine, ergotamine, methylergonovine Lovastatin, simvastatin Sildenafil (Revatio ) for pulmonary arterial hypertension (PAH) Triazolam, oral midazolam Apalutamide Carbamazepine, phenobarbital, phenytoin Rifampin [place] s Wort (hypericum perforatum) Taking PAXLOVID with these medicines may cause serious or life-threatening side effects or affect how PAXLOVID works. These are not the only medicines that may cause serious side effects if taken with PAXLOVID. PAXLOVID may increase or decrease the levels of multiple other medicines. It is very important to tell your healthcare provider about all of the medicines you are taking because additional laboratory tests or changes in the dose of your other medicines may be necessary while you are taking PAXLOVID. Your healthcare provider may also tell you about specific symptoms to watch out for that may indicate that you need to stop or decrease the dose of some of your other medicines. What are the important possible side effects of PAXLOVID? Possible side effects of PAXLOVID are: Allergic Reactions. Allergic reactions can happen in people taking PAXLOVID, even after only 1 dose. Stop taking PAXLOVID and call your healthcare provider right away if you get any of the following symptoms of an allergic reaction: hives trouble swallowing or breathing swelling of the mouth, lips, or face throat tightness hoarseness skin rash Liver Problems. Tell your healthcare provider right away if you have any of these signs and symptoms of liver problems: loss of appetite, yellowing of your skin and the whites of eyes (jaundice), dark-colored urine, pale colored stools and itchy skin, stomach area (abdominal) pain. Resistance to HIV Medicines. If you have untreated HIV infection, PAXLOVID may lead to some HIV medicines not working as well in the future. Other possible side effects include: altered sense of taste diarrhea high blood pressure muscle aches These are not all the possible side effects of PAXLOVID. Not many people have taken PAXLOVID. Serious and unexpected side effects may happen. PAXLOVID is still being studied, so it is possible that all of the risks are not known at this time. What other treatment choices are there? Veklury (remdesivir) is FDA-approved for the treatment of xgxr-nv-zdvjqvoa COVID-19 in certain adults and children. Talk with your doctor to see if Veklury is appropriate for you. Like PAXLOVID, FDA may also allow for the emergency use of other medicines to treat people with COVID-19. Go to https://www.fda.gov/wbbojdnfv-zuerzgbqnram-ybkfxntqynv/ttn-dycxd-bowwnpauiy-and- policy-framework/ycnicobfj-qqd-zrqxfndfhonzl for information on the emergency use of other medicines that are authorized by FDA to treat people with COVID-19. Your healthcare provider may talk with you aboutclinical trials for which you may be eligible. It is your choice to be treated or not to be treated with PAXLOVID. Should you decide not to receive it or for your child not to receive it, it will not change your standard medical care. What if I am or ? There is director of knowledge management treating women or mothers with PAXLOVID. For a motherand unborn baby, the benefit of taking PAXLOVID may be greater than the risk from the treatment. Ifyou are , discuss your options and specific situation with your healthcare provider. It is recommended that you use effective barrier contraception or do not have sexual activity whiletaking PAXLOVID. If you are , discuss your options and specific situation with your healthcare provider. How do I report side effects with PAXLOVID? Contact your healthcare provider if you have any side effects that bother you or do not go away. Report side effects to [employer] at www.[employer].gov/medTOPSECtch or call 9-467-BPK8090 or you can reportside effects to [employer] at the contact information provided below. Website Fax number Telephone number [employer] How should I store PAXLOVID? Store PAXLOVID tablets at room temperature, between 68?F to 77?F (20?C to 25?C). How can I learn more about COVID-19? Ask your healthcare provider. Visit https://www.cdc.gov/COVID19. Contact your local or state public health department. What is an Emergency Use Authorization (EUA)? The [place] FDA has made PAXLOVID available under an emergency access mechanism called an Emergency Use Authorization (EUA). The EUA is supported by a [place] of Health and Human Service (HHS) declaration that circumstances exist to justify the emergency use of drugs and biological productsduring the COVID-19 pandemic. PAXLOVID for the treatment of mlly-jv-fdaeytex COVID-19 in adults and children [12 years of age andolder weighing at least 88 pounds (40 kg)] with positive results of direct SARS-CoV-2 viral testing, and who are at high risk for progression to severe COVID-19, including hospitalization or , has not undergone the same type of review as an FDA-approved product. In issuing an EUA under the COVID-19 public health emergency, the FDA has determined, among other things, that based on the total amount of scientific evidence available including data from adequate and well-controlled clinical trials, if available, it is reasonable to believe that the product may be effective for diagnosing, treating, or preventing COVID-19, or a serious or life-threatening disease or condition caused by COVID-19; that the known and potential benefits of the product, when used to diagnose, treat, or prevent such disease or condition, outweigh the known and potential risks of such product; and that there are no adequate, approved, and available alternatives. All of these criteria must be met to allow for the product to be used in the treatment of patients during the COVID-19 pandemic. The EUA for PAXLOVID is in effect for the duration of the COVID-19 declaration justifying emergency use of this product, unless terminated or revoked (after which the products may no longer be used under the EUA). Additional Information For general questions, visit the website or call the telephone number provided below. Website Telephone number [employer] (3-333-F80-WYXM) You can also go to www.brettapproved or call for more information. Pfizer Distributed by [employer] [place] [address] [id number] Revised: 05 February 2022 [facility] History of Present illness Narrative* Leticia Amor APRN.CNP - 02/02/2023 1:36 PM EDT Chief Complaint Patient presents with: Telemedicine Patient was offered a virtual/telemedicine appointment in lieu of an office visit due to recommendations to reduce patient exposure to COVID-19. Video was used for evaluation of this patient. Patient is aware of limitations of performing the visit without a face to face visit in the office setting and agrees. Patient agrees to the visit: Yes Patient Location: [facility] Jammie Troy is a 52 year old female who is contacted today for a virtual visit This is an established patient of Dr. Machelle Harry MD Reports: + covid. Went to work on Tuesday morning, and there was a resident that had covid. She helped do other tasks d/t being short staffed. Refers that she woke Tuesday around 2:00 feeling hot, and eyes hurt, and didn't feel good. Went into work, and they gave her a covid test and sent her home. A little sore throat. + headache. + cough. Occ gagging. Feels like liquid dripping out of the ears. Refers some discomfort across sinuses/nose. Tiny bit of dizziness. No diarrhea. + fatigue. + body aches. Hasn't checked temperature. She did take ibuprofen yesterday. 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 Gonzales Friend- repeat colonoscopy in 6 months d/t poor bowel prep DILATION & CURETTAGE DX&/THER NONOBSTETRIC Dilation & curettage DILATION & CURETTAGE DX&/THER NONOBSTETRIC Dilation & curettage EGD W/O BRSH SPEC VARICIES INJ 11/01/2022 Dr. Gonzales Friend, small hiatal hernia LAPAROSCOPY SURG CHOLECYSTECTOMY Cholecystectomy, lap SIGMOIDOSCOPY FLX W/BIOPSY SINGLE/MULTIPLE 08/11/2006 TONSILLECTOMY PRIMARY/SECONDARY <AGE 12 Tonsillectomy Family History FAMILY HISTORY Problem Relation Age of Onset Arthritis Mother Diabetes Father Thyroid Father Coronary Artery Disease Father Stroke Maternal Grandmother TIA Cancer Paternal Grandmother Patient Allergies ALLERGIES Allergen Reactions Adhesive Tape (Aranza* Rash, Swelling Bactrim [Sulfametho* Flexeril [Cyclobenz* Minocycline GI Upset Severe nausea Nexium [Esomeprazol* Sulfa (Sulfonamide * Zithromaxz [Other] Current Medications Current Outpatient Medications on File Prior to Visit Medication Sig semaglutide (OZEMPIC) 0.25 mg or 0.5 mg(2 mg/1.5 mL) pen Inject 0.25 mg subcutaneously one time a week. ursodiol (RETA) 250 mg tablet Take by mouth. Vitamin E, dl, acetate, (VITAMIN E) 200 unit capsule Take by mouth. meloxicam (MOBIC) 15 mg tablet Take 1 tablet by mouth once daily as needed. With food. escitalopram oxalate (LEXAPRO) 20 mg tablet Take 1 tablet by mouth once daily. omeprazole (PRILOSEC) 40 mg capsule Take 1 capsule by mouth once daily. levothyroxine (SYNTHROID) 137 mcg tablet Take 1 tablet by mouth daily before breakfast. sucralfate (CARAFATE) 1 gram tablet Take 1 tablet by mouth before meals and at bedtime. tiZANidine (ZANAFLEX) 4 mg tablet Take 1 tablet by mouth every 8 hours as needed (pain). No current facility-administered medications on file prior to visit. Social History Social History Tobacco Use Smoking status: Never Smokeless tobacco: Never Substance Use Topics Alcohol use: No Drug use: No EXAM: LMP 06/21/2022 (Approximate) Limited exam as visit was completed over the virtual platform. Virtual visit completed using video, limited exam completed. Patient sounds or appears ill: Yes, but non-toxic. General Appearance: Well appearing, alert, in no acute distress, well-hydrated, well nourished. Skin: Skin color normal Head: Normocephalic. No facial swelling or redness. EENT: Eyes nonreddened. No discharge. External ears nonreddened and no swelling. Neck: No mass or lesions. No swelling. FROM Patient is unable to speak in complete sentences: No Patient has labored breathing: No. Patient is audibly coughing: No Psych: Attitude - cooperative, easily engaged in conversation Affect - Euthymic, normal mood Mental status: Alert. Speech is clear and fluent with good repetition, comprehension Appearance - Normal hygiene and grooming appropriate Coordination: No abnormal or extraneous movements. Gait/Stance: Posture is normal. Health Maintenance List HEPATITIS B(1 of 3 - 3-dose series) Never done COLORECTAL CANCER SCREENING due on 2016 SHINGRIX VACCINE(1 of 2) Never done COVID-19 VACCINE(3 - Booster for Pfizer series) due on 01/06/2022 MAMMOGRAM due on 02/26/2022 INFLUENZA(1) Never done DEPRESSION ASSESSMENT Never done PAP TESTING due on 01/26/2023 HPV TESTING due on 01/26/2023 ANNUAL PCP TEAM CHRONIC DISEASE VISIT due on 01/25/2024 DIABETES SCREEN due on 07/21/2025 LIPID SCREEN due on 12/08/2026 DTAP,TDAP,TD(2 - Td or Tdap) due on 03/31/2030 HEPATITIS C SCREENING Completed HIV SCREENING Completed Data reviewed Last 5 Encounter BP Readings: Date: BP: 01/24/2023 128/88 01/19/2023 118/75 11/25/2022 110/72 09/01/2022 116/76 08/12/2022 134/83 BMI Readings from Last 5 Encounters: 01/19/23 : 41.81 kg/m 10/18/22 : 42.13 kg/m 09/20/22 : 42.89 kg/m 09/01/22 : 44.25 kg/m 08/12/22 : 43.60 kg/m Last 5 Encounter Wt Readings: Date: Wt: 01/19/2023 124.7 kg (275 lb) 10/18/2022 125.6 kg (277 lb) 09/20/2022 127.9 kg (282 lb) 09/01/2022 132 kg (291 lb) 08/12/2022 132 kg (291 lb) Medication and allergy list reviewed, reconciled and updated 02/02/2023 ASSESSMENT/PLAN: 1. COVID-19 - ICD9: 079.89, ICD10: U07.1 Discussed options and agreeable to paxlovid. Also discussed treatment of symptoms (ie OTC cold medicine, cough medication, increase fluids, rest, etc). - NIRMATRELVIR 300 MG (150 MG X2)-RITONAVIR 100 MG TABLET,DOSE PACK(EUA) Discussed treatment plan and patient voices understanding. Patient's questions answered appropriately. Medications and potential side effects were discussed and patient voices understanding. Return to the office as scheduled or as needed for worsening/no improvement. Nirmatrelvir/Ritonavir (Paxlovid) Eligibility and Patient Discussion [facility] Formulary Restriction Criteria: Adult outpatients 18 years and older with ALL of the following: [x] Patient has positive SARS-COV-2 viral test (PCR or antigen test) during current illness [x] Patient has symptoms for 5 days or less [x] Not requiring hospitalization at any time for management of COVID-19 [x] Not requiring supplemental oxygen or a change in baseline supplemental oxygen [x] Not utilized for pre-exposure or post-exposure prophylaxis for prevention of COVID-19 [x] Patient does not have severe renal impairment (eGFR < 30 mL/min) or severe hepatic impairment (Child-Perez Class C) [x] Meeting at least one of the criteria for high risk of progression to severe COVID-19: [] Age over 65 years [] Cancer [] Chronic kidney disease [] Chronic liver disease [] Chronic lung diseases, including cystic fibrosis [] Dementia or other neurological conditions [] Diabetes (type 1 or type 2) [] Disabilities, including Down syndrome and neurodevelopmental disorders [] Heart conditions [] HIV infection [] Immunocompromised state [] Mental health conditions [] Medical related technological dependence (tracheostomy, gastrostomy, or positive pressure ventilation (not related to COVID) [x] Overweight and obesity (BMI greater or equal to 25 for adults) [] Physical inactivity [] [] Sickle cell disease or thalassemia [] Smoking, current or former [] Solid organ or blood stem cell transplant [] Stroke or cerebrovascular disease [] Substance use disorders [] Tuberculosis [] People from racial and ethnic minority groups Criteria above are met: Yes Date of Positive Test: 02/01/23 Date of Symptom Onset: 02/01/23 Patient received COVID vaccine: Yes Drug-Drug interactions reviewed: Yes. Drug interactions were identified and the following actions were taken -- pt aware that levothyroxine efficacy may be reduced while on the antiviral. . I have discussed the use of the investigational therapeutic, nirmatrelvir/ritonavir, for the treatment of mild to moderate COVID-19 and its use under Emergency Use Authorization with the patient. The patient was informed that nirmatrelvir/ritonavir is not an FDA approved drug and that it is authorized for use under this Emergency Use Authorization. The patient was also informed of the significant known benefits and potential risks of nirmatrelvir/ritonavir, and the extent to which such potential risks and benefits are unknown. The patient was informed that there is mandatory reporting of all medication errors and serious adverse events potentially related to nirmatrelvir/ritonavir treatment within 7 calendar days from the onset of the event and that events up to 28 days after completion of therapy need to be reported. The discussion included alternatives to receiving nirmatrelvir/rit onavir, including clinical trials, and potential the risks and benefits of those alternatives. The patient was provided electronically with the Fact Sheet for Patients, Parents and Caregivers . The patient was also instructed that in addition to the treatment with nirmatrelvir/ritonavir, he/she should continue to self-isolate and use infection control measures (e.g., wear mask, isolate, social distance, avoid sharing personal items, clean and disinfect high touch surfaces, and frequent h andwashing) according to CDC guidelines. The patient stated understanding and gave verbal consent to proceeding with nirmatrelvir/ritonavir treatment. Leticia Amor APRN.CNP February 02, 2023 1:52 PM documented in this encounterBrecksville [facility] NoteHNO ID: [id number] Author: Leticia Amor APRN.CNP Service: ? Author Type: Nurse Practitioner Type: Progress Notes Filed: 01/24/2023 7:43 PM Note Text: This is a 52 year old female who presents today with: Patient presents with: Pain (foot): B/l foot pain; history of foot surgery; would like to see a new Veterinary Medical Officer HISTORY OF PRESENT ILLNESS: Jammie Troy is a 52 year old female. Patient presents with: Pain (foot): B/l foot pain; history of foot surgery; would like to see a new Veterinary Medical Officer Pt presents today for foot pain. Working a lot. On her feet for 10 hour days. She has a hx of bilateral foot surgery for plantar fascitis. Last September -- R plantar fascitis surgery. 1 1/2 years prior -- had on the left. Right foot is still painful. Compensating with left. By the time she gets off -- bad pain. Trouble with walking when getting out of bed in the morning and going down stairs. She is taking meloxicam. She has done ice and worked to keep feet dorsi-flexed. She has done warm salt-water soaks. She is interested in a referral to podiatry for further evaluation. 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 Christian Sarmiento- repeat colonoscopy in 6 months d/t poor bowel prep DILATION AND CURETTAGE DXAND/THER NONOBSTETRIC Dilation AND curettage DILATION AND CURETTAGE DXAND/THER NONOBSTETRIC Dilation AND curettage EGD W/O BRSH SPEC VARICIES INJ 11/01/2022 Dr. Christian Sarmiento, small hiatal hernia LAPAROSCOPY SURG CHOLECYSTECTOMY Cholecystectomy, lap SIGMOIDOSCOPY FLX W/BIOPSY SINGLE/MULTIPLE 08/11/2006 TONSILLECTOMY PRIMARY/SECONDARY Tonsillectomy ALLERGIES Adhesive Tape (Rosins), Bactrim [Sulfamethoxazole-Trimethoprim], Flexeril [Cyclobenzaprine Hcl], Minocycline, Nexium [Esomeprazole Magnesium], Sulfa (Sulfonamide Antibiotics), and Zithromaxz [Other] MEDICATIONS Current Outpatient Medications Medication Sig semaglutide (OZEMPIC) 0.25 mg or 0.5 mg(2 mg/1.5 mL) pen Inject 0.25 mg subcutaneously one time a week. ursodiol (RETA) 250 mg tablet Take by mouth. Vitamin E, dl, acetate, (VITAMIN E) 200 unit capsule Take by mouth. meloxicam (MOBIC) 15 mg tablet Take 1 tablet by mouth once daily as needed. With food. escitalopram oxalate (LEXAPRO) 20 mg tablet Take 1 tablet by mouth once daily. omeprazole (PRILOSEC) 40 mg capsule Take 1 capsule by mouth once daily. levothyroxine (SYNTHROID) 137 mcg tablet Take 1 tablet by mouth daily before breakfast. sucralfate (CARAFATE) 1 gram tablet Take 1 tablet by mouth before meals and at bedtime. tiZANidine (ZANAFLEX) 4 mg tablet Take 1 tablet by mouth every 8 hours as needed (pain). No current facility-administered medications for this visit. FAMILY HISTORY Problem Relation Age of Onset Arthritis Mother Diabetes Father Thyroid Father Coronary Artery Disease Father Stroke Maternal Grandmother TIA Cancer Paternal Grandmother Social History Tobacco Use Smoking status: Never Smokeless tobacco: Never Substance Use Topics Alcohol use: No Drug use: No EXAM: BP 128/88 Pulse 73 Resp 16 LMP 06/21/2022 (Approximate) SpO2 98% PHYSICAL EXAM: General Appearance: Well appearing, alert, in no acute distress, well-hydrated, well nourished.. Skin: Skin color, texture, turgor normal, no suspicious rashes or lesions. Head: Normocephalic, no masses, lesions, tenderness or abnormalities. Eyes: Anicteric sclera. Extraocular movements are intact. Extremities: No deformities, edema, skin discoloration, clubbing or cyanosis. Good capillary refill. Neurologic: Gait normal. ASSESSMENT/PLAN: 1. Foot pain, bilateral - ICD9: 729.5, ICD10: M79.671, M79.672 Requesting to get established with a [facility] sustainability specialist for ongoing care of her feet. She has had bilateral plantar fascitis surgery. Continues with discomfort. Doing conservative measures. - CONSULT TO PODIATRY Discussed treatment plan and patient voices understanding. Patient's questions answered appropriately. Medications and potential side effects were discussed and patient voices understanding. Return to the office as scheduled or as needed for worsening/no improvement. Leticia Amor APRN.CNP This note was partially generated using Sound Clips voice recognition system. Note was reviewed for accuracy. There may be minor misspellings or grammar miscues with Sound Clips voice recognition.[facility] [place]03-06-2023 Instructions* Patient Instructions* Leticia Amor APRN.CNP - 01/24/2023 7:18 PM EST Schedule with podiatry. documented in this encounterBrecksville [facility] History of Present illness Narrative* Leticia Amor APRN.CNP - 01/24/2023 6:59 PM EST This is a 52 year old female who presents today with: Patient presents with: Pain (foot): B/l foot pain; history of foot surgery; would like to see a new Veterinary Medical Officer HISTORY OF PRESENT ILLNESS: Jammie Troy is a 52 year old female. Patient presents with: Pain (foot): B/l foot pain; history of foot surgery; would like to see a new Veterinary Medical Officer Pt presents today for foot pain. Working a lot. On her feet for 10 hour days. She has a hx of bilateral foot surgery for plantar fascitis. Last September -- R plantar fascitis surgery. 1 1/2 years prior -- had on the left. Right foot is still painful. Compensating with left. By the time she gets off -- bad pain. Trouble with walking when getting out of bed in the morning and going down stairs. She is taking meloxicam. She has done ice and worked to keep feet dorsi-flexed. She has done warm salt-water soaks. She is interested in a referral to podiatry for further evaluation. 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 Christian Sarmiento- repeat colonoscopy in 6 months d/t poor bowel prep DILATION & CURETTAGE DX&/THER NONOBSTETRIC Dilation & curettage DILATION & CURETTAGE DX&/THER NONOBSTETRIC Dilation & curettage EGD W/O BRSH SPEC VARICIES INJ 11/01/2022 Dr. Christian Sarmiento, small hiatal hernia LAPAROSCOPY SURG CHOLECYSTECTOMY Cholecystectomy, lap SIGMOIDOSCOPY FLX W/BIOPSY SINGLE/MULTIPLE 08/11/2006 TONSILLECTOMY PRIMARY/SECONDARY <AGE 13 Tonsillectomy ALLERGIES Adhesive Tape (Rosins), Bactrim [Sulfamethoxazole-Trimethoprim], Flexeril [Cyclobenzaprine Hcl], Minocycline, Nexium [Esomeprazole Magnesium], Sulfa (Sulfonamide Antibiotics), and Zithromaxz [Other] MEDICATIONS Current Outpatient Medications Medication Sig semaglutide (OZEMPIC) 0.25 mg or 0.5 mg(2 mg/1.5 mL) pen Inject 0.25 mg subcutaneously one time a week. ursodiol (RETA) 250 mg tablet Take by mouth. Vitamin E, dl, acetate, (VITAMIN E) 200 unit capsule Take by mouth. meloxicam (MOBIC) 15 mg tablet Take 1 tablet by mouth once daily as needed. With food. escitalopram oxalate (LEXAPRO) 20 mg tablet Take 1 tablet by mouth once daily. omeprazole (PRILOSEC) 40 mg capsule Take 1 capsule by mouth once daily. levothyroxine (SYNTHROID) 137 mcg tablet Take 1 tablet by mouth daily before breakfast. sucralfate (CARAFATE) 1 gram tablet Take 1 tablet by mouth before meals and at bedtime. tiZANidine (ZANAFLEX) 4 mg tablet Take 1 tablet by mouth every 8 hours as needed (pain). No current facility-administered medications for this visit. FAMILY HISTORY Problem Relation Age of Onset Arthritis Mother Diabetes Father Thyroid Father Coronary Artery Disease Father Stroke Maternal Grandmother TIA Cancer Paternal Grandmother Social History Tobacco Use Smoking status: Never Smokeless tobacco: Never Substance Use Topics Alcohol use: No Drug use: No EXAM: BP 128/88 Pulse 73 Resp 16 LMP 06/21/2022 (Approximate) SpO2 98% PHYSICAL EXAM: General Appearance: Well appearing, alert, in no acute distress, well-hydrated, well nourished.. Skin: Skin color, texture, turgor normal, no suspicious rashes or lesions. Head: Normocephalic, no masses, lesions, tenderness or abnormalities. Eyes: Anicteric sclera. Extraocular movements are intact. Extremities: No deformities, edema, skin discoloration, clubbing or cyanosis. Good capillary refill. Neurologic: Gait normal. ASSESSMENT/PLAN: 1. Foot pain, bilateral - ICD9: 729.5, ICD10: M79.671, M79.672 Requesting to get established with a [facility] sustainability specialist for ongoing care of her feet. She has had bilateral plantar fascitis surgery. Continues with discomfort. Doing conservative measures. - CONSULT TO PODIATRY Discussed treatment plan and patient voices understanding. Patient's questions answered appropriately. Medications and potential side effects were discussed and patient voices understanding. Return to the office as scheduled or as needed for worsening/no improvement. Leticia Amor APRN.[employer] This note was partially generated using Find That File recognition system. Note was reviewed for accuracy. There may be minor misspellings or grammar miscues with Sound Clips voice recognition. documented in this encounterBrec[facility]ville [facility]23 NoteHNO ID: [id number] Author: Kristin Cabrera MD Service: ? Author Type: Physician Type: Progress Notes Filed: 01/19/2023 11:06 AM Note Text: Endocrinology and Metabolism [facility] - Follow-up Visit Last visit: 09/01/2022 Patient Name: Jammie Troy HPI: Jammie Troy is a 52 year old female who presents on January 18, 2023 for follow-up evaluation of medical weight management. Subjective: In our first visit we outlined a lifestyle intervention program involving a personalized dietary program Low carb we optimized the level of physical activity, provide the patient with an exercise program. We also reviewed the possibility of using appetite suppressants. She is currently using the appetite suppressant Ozempic 0.5mg weekly and she has lost 25 pounds since the beginning of the program. She is happy with the progress. Weight Graph: Target Weight : 180lbs pounds Weight Loss Medication: Ozempic 0.5mg weekly Patient is having symptoms of nausea with this dose. This may be partially related to large portion of liquid/food with hx of hiatal hernia and IBS. Diet: Low carb Appetite Control: Better Exercise: Has not started Sleep: No changes Stress: No changes Other pertinent comorbidities: - GERD and IBS: takes sucralfate PRN and omeprazole daily - Hypothyroidism: takes levothyroxine 137mcg daily REVIEW OF SYSTEMS: Review of Systems All other systems reviewed and are negative. MEDICATIONS: Current Outpatient Medications on File Prior to Visit Medication Sig semaglutide (OZEMPIC) 0.25 mg or 0.5 mg(2 mg/1.5 mL) pen Inject 0.25 mg subcutaneously one time a week for 28 days, THEN 0.5 mg one time a week for 28 days. ursodiol (RETA) 250 mg tablet Take by mouth. Vitamin E, dl, acetate, (VITAMIN E) 200 unit capsule Take by mouth. meloxicam (MOBIC) 15 mg tablet Take 1 tablet by mouth once daily as needed. With food. escitalopram oxalate (LEXAPRO) 20 mg tablet Take 1 tablet by mouth once daily. omeprazole (PRILOSEC) 40 mg capsule Take 1 capsule by mouth once daily. levothyroxine (SYNTHROID) 137 mcg tablet Take 1 tablet by mouth daily before breakfast. sucralfate (CARAFATE) 1 gram tablet Take 1 tablet by mouth before meals and at bedtime. tiZANidine (ZANAFLEX) 4 mg tablet Take 1 tablet by mouth every 8 hours as needed (pain). No current facility-administered medications on file prior to visit. 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 General: no acute distress Heart: regular rate and rhythm, no murmurs, rubs or gallops Chest: clear to auscultation bilaterally, no wheezing, Abd: benign, no pain on palpation Psychiatric: normal affect, humor is preserved Neuro: grossly non focal, AOx3 PERTINENT LABORATORY AND IMAGING: All pertinent laboratory results were reviewed. Please see HPI for further details. IMPRESSION/PLAN: Jammie Troy is a 52 year old female here for follow-up for weight management, obesity and its comorbidities treatment. 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 - Appetite control: Improved - Inverted Block Operator: not seen. - Sleep: Improved - Stress: no changes - Weight Loss medication: Continue Ozempic 0.25mg weekly, counseled again about diet and portion sizes especially with liquids, encouraged to drink water vs sugary beverages. Counseled on adverse effects and encouraged to drink 50oz of water throughout the day and increase fiber, atlesat 25g per day through diet and supplements. Ozempic rx renewed today. - Re-introduced the diet of bariatric surgery. Considering patient's BMI of 41 and PMHx of hiatal hernia and IBS, she may benefit from bariatric surgery. - Goals: Our overall goal weight loss, feeling healthier Continue lifestyle changes Changing eating, sleeping and behavior habits - OTHER MEDICAL PROBLEMS/ISSUES: Defer to PCP All questions answ (more content not included)...[facility] 01-19-2023 Instructions* Patient Instructions* Kristin Cabrera MD - 01/19/2023 10:03 AM EST Weight Management: Ozempic Doses: First four weeks: 0.25mg weekly Second four weeks: 0.5mg weekly Follow-up with me in 3 months, before you run out of medication. Side effects: Nausea: on the day of injection or if you eat a large meal or if you eat too quickly Constipation: drink atleast 50oz of water daily and daily fiber intake of atleast 25gms Acute pancreatitis: you may experience severe abdominal pain and vomiting, please go to ER if you experience these side effects documented in this encounterBrec[facility]ville [facility]03-[facility] History of Present illness Narrative* Kristin Cabrera MD - 01/19/2023 9:40 AM EST Images from the original note were not included. Endocrinology and Metabolism [facility] - Follow-up Visit Last visit: 09/01/2022 Patient Name: Jammie Troy HPI: Jammie Troy is a 52 year old female who presents on January 18, 2023 for follow-up evaluation ofmedical weight management. Subjective: In our first visit we outlined a lifestyle intervention program involving a personalized dietary program Low carb we optimized the level of physical activity, provide the patient with an exercise program. We also reviewed the possibility of using appetite suppressants. She is currently using the appetite suppressant Ozempic 0.5mg weekly and she has lost 25 pounds since the beginning of the program. She is happy with the progress. Weight Graph: Target Weight : 180lbs pounds Weight Loss Medication: Ozempic 0.5mg weekly Patient is having symptoms of nausea with this dose. This may be partially related to large portionof liquid/food with hx of hiatal hernia and IBS. Diet: Low carb Appetite Control: Better Exercise: Has not started Sleep: No changes Stress: No changes Other pertinent comorbidities: - GERD and IBS: takes sucralfate PRN and omeprazole daily - Hypothyroidism: takes levothyroxine 137mcg daily REVIEW OF SYSTEMS: Review of Systems All other systems reviewed and are negative. MEDICATIONS: Current Outpatient Medications on File Prior to Visit Medication Sig semaglutide (OZEMPIC) 0.25 mg or 0.5 mg(2 mg/1.5 mL) pen Inject 0.25 mg subcutaneously one time a week for 28 days, THEN 0.5 mg one time a week for 28 days. ursodiol (RETA) 250 mg tablet Take by mouth. Vitamin E, dl, acetate, (VITAMIN E) 200 unit capsule Take by mouth. meloxicam (MOBIC) 15 mg tablet Take 1 tablet by mouth once daily as needed. With food. escitalopram oxalate (LEXAPRO) 20 mg tablet Take 1 tablet by mouth once daily. omeprazole (PRILOSEC) 40 mg capsule Take 1 capsule by mouth once daily. levothyroxine (SYNTHROID) 137 mcg tablet Take 1 tablet by mouth daily before breakfast. sucralfate (CARAFATE) 1 gram tablet Take 1 tablet by mouth before meals and at bedtime. tiZANidine (ZANAFLEX) 4 mg tablet Take 1 tablet by mouth every 8 hours as needed (pain). No current facility-administered medications on file prior to visit. 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 Diarrhea Esophageal reflux Hypothyroid Irritable bowel syndrome Irritable bowel Mitral valve disorders(424.0) PMH - PAST MEDICAL HISTORY OF lactose intolerance FAMILY HISTORY Problem Relation Age of Onset Arthritis Mother Diabetes Father Thyroid Father Coronary Artery Disease Father Stroke Maternal Grandmother TIA Cancer Paternal Grandmother Social History Tobacco Use Smoking status: Never Smokeless tobacco: Never Substance Use Topics Alcohol use: No Drug use: No PHYSICAL EXAM: BP 118/75 Pulse 75 Ht 172.7 cm (5' 8 ) Wt 124.7 kg (275 lb) LMP 06/21/2022 (Approximate) SpO2 98% BMI 41.81 kg/m General: no acute distress Heart: regular rate and rhythm, no murmurs, rubs or gallops Chest: clear to auscultation bilaterally, no wheezing, Abd: benign, no pain on palpation Psychiatric: normal affect, humor is preserved Neuro: grossly non focal, AOx3 PERTINENT LABORATORY AND IMAGING: All pertinent laboratory results were reviewed. Please see HPI for further details. IMPRESSION/PLAN: Jammie Troy is a 52 year old female here for follow-up for weight management, obesity and its comorbidities treatment. 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 - Appetite control: Improved - Inverted Block Operator: not seen. - Sleep: Improved - Stress: no changes - Weight Loss medication: Continue Ozempic 0.25mg weekly, counseled again about diet and portion sizes especially with liquids, encouraged to drink water vs sugary beverages. Counseled on adverse effects and encouraged to drink 50oz of water throughout the day and increase fiber, atlesat 25g per day through diet and supplements. Ozempic rx renewed today. - Re-introduced the diet of bariatric surgery. Considering patient's BMI of 41 and PMHx of hiatal hernia and IBS, she may benefit from bariatric surgery. - Goals: Our overall goal weight loss, feeling healthier Continue lifestyle changes Changing eating, sleeping and behavior habits - OTHER MEDICAL PROBLEMS/ISSUES: Defer to PCP All questions answered today. Follow-up: 3 months Kristin Cabrera MD [facility] [place] Endocrinology and Met[facility] [phone] Medical Decision Making: Problems: Moderate: 1+ chronic illnesses with change Data: Unique source(s) for external note(s) reviewed: 1 Risk: Moderate: Drug management Medical Decision Making Level: 4 - Moderate documented in this encounterBrecksville [facility]01-12-[facility]23 Miscellaneous Notes* Telephone Encounter - Masha Lara MA - 12/02/2022 12:34 PM EST Requester: Patient Patients last Endocrinology visit occurred 09/01/22. Follow-up evaluation has been established Yes. Requested Prescriptions No prescriptions requested or ordered in this encounter Masha Lara MA documented in this encounterBrecksville [facility]11-28-[facility] Instructions* Patient Instructions* Earlene Lima RD - 10/18/2022 9:19 AM EST Changing to old fashioned oats at lunch, add protein (protein powder), then no additional carb, have veggies instead Change Fairlife skim milk As able get back to what we talked about previously documented in this encounterBrecksville [facility]11-28-[facility] History of Present illness Narrative* Earlene Lima RD - 10/18/2022 8:48 AM EST [facility] Nutrition Therapy: Virtual Consult - Re-assessment This visit was performed virtually due to the COVID-19 epidemic as an effort to protect patients and minimize exposure. Consent from patient received to conduct visit virtually. This Team Access Model visit is a virtual encounter. It required patient-provider interaction for the medical decision making as documented below. Nutrition Diagnosis: Overweight/obesity, related to, excess energy intake and physical inactivity, as evidenced by BMI above normative standard for age and gender RECOMMENDED MALNUTRITION DIAGNOSIS: NO MALNUTRITION IDENTIFIED NUTRITION CARE PLAN: Nutrition Intervention 10/18/2022: modify type and amount of food or beverage Changing to old fashioned oats at lunch, add protein (protein powder), then no additional carb, have veggies instead Change Fairlife skim milk As able get back to what we talked about previously Nutrition Monitoring & Evaluation: 1-2 lb weightloss per week Need for Follow up: 1 month PROGRESS: Interval History: Following as relates to class 3 obesity. Was following recommendations well before foot surgery, currently dependant on what people bring her, takes smaller portions of foods available. Has not been exercising with non weight bearing. Anticipates being able to get back to activityand preparing own meals next few days. Note 5 lbs lost per home scale as opposed to office scale. Nutrition Intervention 09/20/22 Modify type and amount of food at meals and snacks: Follow the Plate Method at lunch and dinner: Use a 9 plate - 1/2 plate vegetables-non starchy such as green beans, greens, broccoli, cauliflower, etc (1 serving of fruit optional outside of plate) - 1/4 plate lean protein-primarily chicken, turkey fish, lean red 1-2 x per week at most (size of palm) - 1/4 plate whole grain or starchy vegetable such as corn, peas, potatoes, beans (size of fist, 1 cup) 2. Make sure every meal has at least 20g of protein (beans, chickpeas, protein powder, protein shake) 3. Find high protein snacks 4. Incorporate exercise -- do what you can (seated exercise) 5. Track protein/calories 2 days per week Actions to implement interventions: Was tracking Protein drink Rubi dinner Diet History: Breakfast - Fairlife protien drink; Snack - no Lunch - instant oatmeal with toast lite bread with lite butter Snack - no Dinner - rubi based plant based protein Snack - no Beverages - water, flavored water, zero soda, occ milk Alcohol - no Vitamins/Supplements - vit E, Now what people are bringing - small portions. 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 Resting Metabolic Rate: 1927 Malnutrition Screening Significant unintentional weight loss? No Eating less than 75% of usual intake for more than 2 weeks? No Potential Signs of Inflammation: no identifiable sources Nutritional status: Education Materials Provided: None this visit READINESS TO LEARN Cognitive ability: Alert and oriented Motivation to learn: Interested Family support: Unable to assess - Family not present Instruction provided to: Patient Patient learns best by: Individual Instruction Factors affecting learning: None Physical limitations affecting learning: None Likelihood of Adherence: Moderate Referred/Supervised by: Piero/Imtiaz MONTES DE OCA Billing Type: Re-assess/15 min 2 units SIGNATURE: Earlene Lima RD PATIENT NAME: Jammie Troy DATE: 10/18/2022 TIME: 8:54 AM [facility] + Plan note Extracted from: Title:Clinical Document Author:JEFF CHILDERS PM Date:10/01/22 GUEYDAN ADMISSION HISTORY AN D PHYSICIAL CHIEF COMPLAINT: HISTORY OF PRESENT ILLNESS: REVIEW OF SYSTEMS: ACTIVE PROBLEMS: (7) Asthma (919951729) Bursitis (948443505) GERD (gastroesophageal reflux disease) (408613385) Hypothyroid (88645806) Leaky heart valve (53628200) Panic attack (048800109) Seasonal allergies ([id number]) MEDICATIONS: Active Inpt Meds: None Active PRN Meds: None One Time Meds: None Active IV Meds: Lactated Ringers Infusion 1,000 mL (LR 1,000 mL) Start: 10/01/22 7:33:00 EST, Rate: 125 mL/hr, 10/01/22 7:33:00 EST ALLERGIES: (4) codeine Flexeril naproxen sulfa drug FAMILY HISTORY: SOCIAL HISTORY: PHYSICAL EXAM: VITALS: JwmbasIvuaGVPwsoaFGPpB2XID2VandNi(kg) 10/01 07:4636.4--958122BF15/62259.3 24 Hr Tmax: 36.4 at 10/01 07:46 36 Hr Tmax: 36.4 at 10/01 07:46 Vital Signs are the last 5 in the past 48 hours. Weights display the last 5 within 7 days. Initial Wt: 10/01 127.3 kg 280 lb Current Wt: 10/01 127.3 kg 280 lb GENERAL: HEENT: CARDIOVASCULAR: RESPIRATORY: ABDOMEN: EXREMETIES: NEUROLOGICAL: PSYCHIATRIC: LABS: 36hr Labs 10/01 0737 TestSee Flowsheet testSee Flowsheet DIAGNOSTICS: IMPRESSION: PLAN: History and Physical Update I have examined the patient; reviewed the H&P and there are no changes to the H&P unless noted below. [facility] Discharge instructions Patient Education 10/01/2022 09:56:28 9. LUIS Outpatinet Surgery, Aftercare (01-19-2018)(CUSTOM) Homegoing Instructions Surgical Outpatient INSTRUCTIONS FOR THE AFTER-CARE OF YOUR SURGERY 1. Keep the area clean and dry. 2. Resume all routine home medications unless instructed otherwise. IF YOU HAVE ANY FURTHER QUESTIONS OR CONCERNS REGARDING COMFORT OR CARE, PLEASE CONTACT OUR OFFICE AT ANY TIME. If surgical area develops any pain, redness, bleeding, or drainage. If you have any problems, questions, or concerns call the office. IF YOU HAVE AN EMERGENCY, AND ARE UNABLE TO REACH THE DOCTOR, CALL OR GO TO THE EMERGENCY ROOM. FOR PATIENTS WHO HAVE HAD GENERAL ANESTHESIA: The medicine used to put you to sleep will be acting in your body for the next 24 hours, so you might feel a little sleepy. This feeling will slowly wear off. Because the medicine is still in your system, for the next 24 hours, the adult patient should not: - Drive a car, operate machinery or power tools - Drink any alcoholic drinks (not even beer) - Make any important decisions, ie: sign important papers. Children should rest at home, but may be up and about according to doctor's instructions. THE ABOVE POST-OPERATIVE INSTRUCTIONS HAVE BEEN EXPLAINED TO ME AND I UNDERSTAND THEM. Document Released: 09/07/2005 Document Re-Released: 11/29/2010 [facility] Patient Information 2010 [employer]. 10/01/2022 09:54:34 Monitored Anesthesia Care, Care After Monitored Anesthesia Care, Care After These instructions provide you with information about caring for yourself after your procedure. Your health care provider may also give you more specific instructions. Your treatment has been plannedaccording to current medical practices, but problems sometimes occur. Call your health care provider if you have any problems or questions after your procedure. What can I expect after the procedure? After your procedure, you may: Feel sleepy for several hours. Feel clumsy and have poor balance for several hours. Feel forgetful about what happened after the procedure. Have poor judgment for several hours. Feel nauseous or vomit. Have a sore throat if you had a breathing tube during the procedure. Follow these instructions at home: For at least 24 hours after the procedure: Have a responsible adult stay with you. It is important to have someone help care for you until youare awake and alert. Rest as needed. Do not: ?Participate in activities in which you could fall or become injured. ?Drive. ?Use heavy machinery. ?Drink alcohol. ?Take sleeping pills or medicines that cause drowsiness. ?Make important decisions or sign legal documents. ?Take care of children on your own. Eating and drinking Follow the diet that is recommended by your health care provider. If you vomit, drink water, juice, or soup when you can drink without vomiting. Make sure you have little or no nausea before eating solid foods. General instructions Take ufft-zlk-nwfcwie and prescription medicines only as told by your health care provider. If you have sleep apnea, surgery and certain medicines can increase your risk for breathing problems. Follow instructions from your health care provider about wearing your sleep device: ?Anytime you are sleeping, including during daytime naps. ?While taking prescription pain medicines, sleeping medicines, or medicines that make you drowsy. If you smoke, do not smoke without supervision. Keep all follow-up visits as told by your health care provider. This is important. Contact a health care provider if: You keep feeling nauseous or you keep vomiting. You feel light-headed. You develop a rash. You have a fever. Get help right away if: You have trouble breathing. Summary For several hours after your procedure, you may feel sleepy and have poor judgment. Have a responsible adult stay with you for at least 24 hours or until you are awake and alert. This information is not intended to replace advice given to you by your health care provider. Make sure you discuss any questions you have with your health care provider. Document Released: 02/27/2017 Document Revised: 02/05/2019 Document Reviewed: 02/27/2017 [employer] Patient Education 2020 [employer]. 10/01/2022 09:54:30 Nausea and Vomiting, Adult Nausea and Vomiting, Adult Nausea is the feeling that you have an upset stomach or that you are about to vomit. Vomiting is when stomach contents are thrown up and out of the mouth as a result of nausea. Vomiting can make you feel weak and cause you to become dehydrated. Dehydration can make you feel tired and thirsty, cause you to have a dry mouth, and decrease how often you urinate. Older adults and people with other diseases or a weak disease-fighting system (immune system) are at higher risk for dehydration. It is important to treat your nausea and vomiting as told by your health care provider. Follow these instructions at home: Watch your symptoms for any changes. Tell your health care provider about them. Follow these instructions to care for yourself at home. Eating and drinking Take an oral rehydration solution (ORS). This is a drink that is sold at pharmacies and retail stores. Drink clear fluids slowly and in small amounts as you are able. Clear fluids include water, ice chips, low-calorie sports drinks, and fruit juice that has water added (diluted fruit juice). Eat bland, uayy-if-udiwjk foods in small amounts as you are able. These foods include bananas, applesauce, rice, lean meats, toast, and crackers. Avoid fluids that contain a lot of sugar or caffeine, such as energy drinks, sports drinks, and soda. Avoid alcohol. Avoid spicy or fatty foods. General instructions Take aseb-ngo-erssgak and prescription medicines only as told by your health care provider. Drink enough fluid to keep your urine pale yellow. Wash your hands often using soap and water. If soap and water are not available, use hand brick maker. Make sure that all people in your household wash their hands well and often. Rest at home while you recover. Watch your condition for any changes. Breathe slowly and deeply when you feel nauseated. Keep all follow-up visits as told by your health care provider. This is important. Contact a health care provider if: Your symptoms get worse. You have new symptoms. You have a fever. You cannot drink fluids without vomiting. Your nausea does not go away after 2 days. You feel light-headed or dizzy. You have a headache. You have muscle cramps. You have a rash. You have pain while urinating. Get help right away if: You have pain in your chest, neck, arm, or jaw. You feel extremely weak or you faint. You have persistent vomiting. You have vomit that is bright red or looks like black coffee grounds. You have bloody or black stools or stools that look like tar. You have a severe headache, a stiff neck, or both. You have severe pain, cramping, or bloating in your abdomen. You have difficulty breathing, or you are breathing very quickly. Your heart is beating very quickly. Your skin feels cold and clammy. You feel confused. You have signs of dehydration, such as: ?Dark urine, very little urine, or no urine. ?Cracked lips. ?Dry mouth. ?Sunken eyes. ?Sleepiness. ?Weakness. These symptoms may represent a serious problem that is an emergency. Do not wait to see if the symptoms will go away. Get medical help right away. Call your local emergency services (911 in the [place] Do not drive yourself to the hospital. Summary Nausea is the feeling that you have an upset stomach or that you are about to vomit. As nausea getsworse, it can lead to vomiting. Vomiting can make you feel weak and cause you to become dehydrated. Follow instructions from your health care provider about eating and drinking to prevent dehydration. Take zjmu-chu-hixeetz and prescription medicines only as told by your health care provider. Contact your health care provider if your symptoms get worse, or you have new symptoms. Keep all follow-up visits as told by your health care provider. This is important. This information is not intended to replace advice given to you by your health care provider. Make sure you discuss any questions you have with your health care provider. Document Released: 11/07/2006 Document Revised: 02/29/2020 Document Reviewed: 04/17/2019 [employer] Patient Education 2020 [employer] Follow Up Care 09/20/2022 12:38:34 With:JEFF CHILDERS Address: [address], [address] [facility] [place] [address]- Business (1) When:10/07/2022 09:00:00 [facility] 11-11-2022 Summary of episode note Discharge Instructions Thank you for allowing [facility] to assist you with your healthcare needs. The following is importantdischarge information regarding your hospital visit. Your Care Team MACHELLE HARRY MD Your Diagnosis Panic attack What to do next Follow Up Appointments Follow Up with JEFF CHILDERS When 10/07/2022 09:00 AM EST Where: [address] [place] [place] [address] [facility] (1) The Following Activity and Diet Have Been Ordered for You Discharge Activity - Ordered -- Other, Follow the post-operative/post-procedure activity instructions provided by your physician's office., 10/01/22 9:45:00 EST No qualifying data available. The Following Equipment Has Been Ordered for You Discharge Home Equipment Discharge Wound Care - Ordered -- Follow the post-operative/post-procedure wound care instructions provided by your physician's office., 10/01/22 9:45:00 EST Allergies Flexeril codeine (Hives) naproxen (Disorientation) sulfa drug (Fever, Hives) Medications Please ask your primary doctor or pharmacist before taking any other medication not listed, including over the counter drugs, herbal medications, vitamins and or supplements as they may interact withyour home medications. What How Much When Instructions Last Dose Unchanged albuterol (albuterol MDI (90 mcg/ inh) CFC freeinhalation aerosol) 2 puff(s) by inhalation Every 6 hours as needed for as needed for wheezing Unchanged escitalopram (escitalopram 20 mg oral tablet) 1 tab(s) by mouth Every day Unchanged levothyroxine (levothyroxine 137 mcg (0.137 mg) oral tablet) by mouth Once a day Unchanged meloxicam (meloxicam 15 mg oral tablet) Unchanged omeprazole (omeprazole 40 mg oral delayed release capsule) 1 cap by mouth Once a day Unchanged semaglutide (Ozempic 2 mg/ 1.5 mL (0.25 mg or 0.5 mg dose) subcutaneous solution) 0.5 Milligram Subcutaneous Every week Duration: 4 week(s) rotate injection sites Unchanged sucralfate (sucralfate 1 g oral tablet) 1 tab(s) by mouth Once a day Please take this list to your next doctor s visit. Bring all medications you take, including over the counter medications, herbals and other supplements with you to your doctor s visit. Patients and families are reminded to discard old lists and to update any records with all medication providers or retail pharmacies. Education Materials Homegoing Instructions Surgical Outpatient INSTRUCTIONS FOR THE AFTER-CARE OF YOUR SURGERY 1. Keep the area clean and dry. 2. Resume all routine home medications unless instructed otherwise. IF YOU HAVE ANY FURTHER QUESTIONS OR CONCERNS REGARDING COMFORT OR CARE, PLEASE CONTACT OUR OFFICE AT ANY TIME. If surgical area develops any pain, redness, bleeding, or drainage. If you have any problems, questions, or concerns call the office. IF YOU HAVE AN EMERGENCY, AND ARE UNABLE TO REACH THE DOCTOR, CALL OR GO TO THE EMERGENCY ROOM. FOR PATIENTS WHO HAVE HAD GENERAL ANESTHESIA: The medicine used to put you to sleep will be acting in your body for the next 24 hours, so you might feel a little sleepy. This feeling will slowly wear off. Because the medicine is still in your system, for the next 24 hours, the adult patient should not: - Drive a car, operate machinery or power tools - Drink any alcoholic drinks (not even beer) - Make any important decisions, ie: sign important papers. Children should rest at home, but may be up and about according to doctor's instructions. THE ABOVE POST-OPERATIVE INSTRUCTIONS HAVE BEEN EXPLAINED TO ME AND I UNDERSTAND THEM. Document Released: 09/07/2005 Document Re-Released: 11/29/2010 [facility] Patient Information 2011 [facility] Monitored Anesthesia Care, Care After These instructions provide you with information about caring for yourself after your procedure. Your health care provider may also give you more specific instructions. Your treatment has been plannedaccording to current medical practices, but problems sometimes occur. Call your health care provider if you have any problems or questions after your procedure. What can I expect after the procedure? After your procedure, you may: Feel sleepy for several hours. Feel clumsy and have poor balance for several hours. Feel forgetful about what happened after the procedure. Have poor judgment for several hours. Feel nauseous or vomit. Have a sore throat if you had a breathing tube during the procedure. Follow these instructions at home: For at least 24 hours after the procedure: Have a responsible adult stay with you. It is important to have someone help care for you until youare awake and alert. Rest as needed. Do not: ? Participate in activities in which you could fall or become injured. ? Drive. ? Use heavy machinery. ? Drink alcohol. ? Take sleeping pills or medicines that cause drowsiness. ? Make important decisions or sign legal documents. ? Take care of children on your own. Eating and drinking Follow the diet that is recommended by your health care provider. If you vomit, drink water, juice, or soup when you can drink without vomiting. Make sure you have little or no nausea before eating solid foods. General instructions Take fhbi-rop-fgpimhs and prescription medicines only as told by your health care provider. If you have sleep apnea, surgery and certain medicines can increase your risk for breathing problems. Follow instructions from your health care provider about wearing your sleep device: ? Anytime you are sleeping, including during daytime naps. ? While taking prescription pain medicines, sleeping medicines, or medicines that make you drowsy. If you smoke, do not smoke without supervision. Keep all follow-up visits as told by your health care provider. This is important. Contact a health care provider if: You keep feeling nauseous or you keep vomiting. You feel light-headed. You develop a rash. You have a fever. Get help right away if: You have trouble breathing. Summary For several hours after your procedure, you may feel sleepy and have poor judgment. Have a responsible adult stay with you for at least 24 hours or until you are awake and alert. This information is not intended to replace advice given to you by your health care provider. Make sure you discuss any questions you have with your health care provider. Document Released: 02/27/2017 Document Revised: 02/05/2019 Document Reviewed: 02/27/2017 [employer] Patient Education 2020 [employer]. Nausea and Vomiting, Adult Nausea is the feeling that you have an upset stomach or that you are about to vomit. Vomiting is when stomach contents are thrown up and out of the mouth as a result of nausea. Vomiting can make you feel weak and cause you to become dehydrated. Dehydration can make you feel tired and thirsty, cause you to have a dry mouth, and decrease how often you urinate. Older adults and people with other diseases or a weak disease-fighting system (immune system) are at higher risk for dehydration. It is important to treat your nausea and vomiting as told by your health care provider. Follow these instructions at home: Watch your symptoms for any changes. Tell your health care provider about them. Follow these instructions to care for yourself at home. Eating and drinking Take an oral rehydration solution (ORS). This is a drink that is sold at pharmacies and retail stores. Drink clear fluids slowly and in small amounts as you are able. Clear fluids include water, ice chips, low-calorie sports drinks, and fruit juice that has water added (diluted fruit juice). Eat bland, hfci-ck-jtbsmo foods in small amounts as you are able. These foods include bananas, applesauce, rice, lean meats, toast, and crackers. Avoid fluids that contain a lot of sugar or caffeine, such as energy drinks, sports drinks, and soda. Avoid alcohol. Avoid spicy or fatty foods. General instructions Take haig-ffr-wxoyxzg and prescription medicines only as told by your health care provider. Drink enough fluid to keep your urine pale yellow. Wash your hands often using soap and water. If soap and water are not available, use hand brick maker. Make sure that all people in your household wash their hands well and often. Rest at home while you recover. Watch your condition for any changes. Breathe slowly and deeply when you feel nauseated. Keep all follow-up visits as told by your health care provider. This is important. Contact a health care provider if: Your symptoms get worse. You have new symptoms. You have a fever. You cannot drink fluids without vomiting. Your nausea does not go away after 2 days. You feel light-headed or dizzy. You have a headache. You have muscle cramps. You have a rash. You have pain while urinating. Get help right away if: You have pain in your chest, neck, arm, or jaw. You feel extremely weak or you faint. You have persistent vomiting. You have vomit that is bright red or looks like black coffee grounds. You have bloody or black stools or stools that look like tar. You have a severe headache, a stiff neck, or both. You have severe pain, cramping, or bloating in your abdomen. You have difficulty breathing, or you are breathing very quickly. Your heart is beating very quickly. Your skin feels cold and clammy. You feel confused. You have signs of dehydration, such as: ? Dark urine, very little urine, or no urine. ? Cracked lips. ? Dry mouth. ? Sunken eyes. ? Sleepiness. ? Weakness. These symptoms may represent a serious problem that is an emergency. Do not wait to see if the symptoms will go away. Get medical help right away. Call your local emergency services (911 in the [place] Do not drive yourself to the hospital. Summary Nausea is the feeling that you have an upset stomach or that you are about to vomit. As nausea getsworse, it can lead to vomiting. Vomiting can make you feel weak and cause you to become dehydrated. Follow instructions from your health care provider about eating and drinking to prevent dehydration. Take zsfu-pse-qeqsbcs and prescription medicines only as told by your health care provider. Contact your health care provider if your symptoms get worse, or you have new symptoms. Keep all follow-up visits as told by your health care provider. This is important. This information is not intended to replace advice given to you by your health care provider. Make sure you discuss any questions you have with your health care provider. Document Released: 11/07/2006 Document Revised: 02/29/2020 Document Reviewed: 04/17/2019 [employer] Patient Education 2020 [employer]. Additional Information VACCINATE! IT SAVES LIVES! Members of the community who have not yet received the COVID-19 vaccine and would like to receive it can visit one of [facility] vaccine clinics. There are many vaccine clinic locations within the [facility]. For locations and available times, please visit [email or web address]/. It is important to note that some COVID mobile vaccine clinics are held outdoors and may be canceled in rainy or stormy conditions. To learn more about pediatric vaccinations (ages 5-11), we invite you to visit the [facility] webpage. [email or web address]/[email or web address]-[email or web address] [email or web address] learn more about the COVID-19 vaccine, we invite you to visit the [employer] website for a list of frequently asked questions. [email or web address]-[email or web address]/[email or web address]-Rpbtvmjece _[email or web address]-Questions.pdf [facility] [employer] Patient Portal Access Instructions: Stay connected with your healthcare team and access your personal medical information anytime with the [facility] Patient Portal.If you would like a full copy of your medical records, please contact the [facility] Medical Records Department, Tuesday through Tuesday between 8a.m. and 4:30p.m. Please follow the directions below to access the portal: 1.Access the email account you provided upon registration to the [facility].2.Look for an invitation email from [facility].3.Open the email and access the invitation link: Accept Invitation to [employer]4.Fill in the required [place] to create your account. Sign into [email or web address] with your username and password that you created in the above steps to stay up to date. You can then view a summary of results, a summary of your visits, and the ability to download your summaries to your computer or send the information securely to a physician. Remember that your healthcare information is confidential, so carefully consider who you will allow to register on the [facility] [employer] Patient Portal for access to your information. You can also access the [facility] [employer] Patient Portal on the [employer]. Simply click on Health Records under [employer] and then click on the [facility] logo. HOW TO SAFELY DISPOSE OF PRESCRIPTION MEDICATIONS Please use one of the following methods to safely dispose of your unused medications. 1.Use a drug disposal kit: the drug disposal pouch allows you to safely discard your old and unuseddrugs. Ask your nurse to give you one when you are discharged.2.Visit a local take-back location: Many local pharmacies and police departments have programs that collect old and unwanted prescriptiondrugs. Call your local pharmacy or go to http://GroSocial.8D World/3W3Ok6v to find one close to you.3.Make use of household items: Use cat litter or old coffee grounds to dispose medications if other options arenot available. Mix your drugs with these household products, seal them in an airtight container andthrow it into the garbage. Call [facility]: [phone] to be sure your drugs can be disposed of in this way. Some medicines may require a different approach.4.Never flush your medications down the toilet. IF YOU HAVE BEEN PRESCRIBED AN OPIOID FOR PAIN If you have been prescribed an opioid (such as hydrocodone, oxycodone or morphine), it is critical to understand the possible side effects and risks of opioid pain medications. Even when taken as directed, opioids can have several side effects including: Tolerance, meaning you might need to take more of a medication for the same pain relief. Nausea, vomiting and/or constipation. Sleepiness, dizziness, dry mouth, confusion, depression or itching. Physical dependence, meaning you have withdrawal symptoms when a medication is stopped, can develop within a few days. KNOW YOUR RESPONSIBILITIES It is important to know exactly how much and how often to take the opioid pain medications you are prescribed. Never take opioids in higher amounts or more often than prescribed. Do not combine opioids with alcohol or other drugs that cause drowsiness, such as benzodiazepines, also known as benzos, including diazepam and alprazolam, muscle relaxants or sleep aids. Never sell or share prescription opioids. This is illegal. Store opioids in a secure place and out of reach of others (including children, family, friends and visitors). The last page of this document has been signed and retained as a CHART COPY. Signatures Patient Education Materials 9. [facility] (01-[facility]CUSTOM) Monitored Anesthesia Care, Care After Nausea and Vomiting, Adult Medication Leaflets My discharge plan and instructions have been reviewed and explained to me and I,JAMMIE TROY understand my current condition and have read and understand these discharge instructions. I have receiveda written copy of the plan/instructions. If I have questions, I am aware that I should contact my do ctor. Patient/Conservation Specialist Signature: Date/Time: Relationship to Patient: Witness Name/Signature: Date/Time: [facility]11[facility]11-2022 Anesthesiology Consult note Patient: JAMMIE TROY Age: 51 years Sex: Female : 1970 Associated Diagnoses: None Author: JASON MCRAE DIRECT ENTRY MIDWIFE-BMET Preoperative Information Time of last food or liquid consumption: 10/01/2022 00:00:00 Anesthesia history Patient's history: negative. Family's history: negative. Review of Systems Respiratory: asthma. Cardiovascular: leaky valve. Gastrointestinal: Reflux, MO. Genitourinary: Negative. Endocrine: hypothyroid. Musculoskeletal: Negative. Integumentary: Negative. Neurologic: panic attacks. Health Status Allergies: Allergic Reactions (Selected) Severity Not Documented Codeine- Hives. Flexeril- No reactions were documented. Naproxen- Disorientation. Sulfa drug- Fever and hives., Allergies (4) ActiveReaction codeineHives FlexerilNone Documented naproxenDisorientation sulfa drugFever Current medications: (Selected) Inpatient Medications Ordered LR 1,000 mL: 125 mL/hr, Intravenous LR 1000 mL: 20 mL/hr, Intravenous Zofran ( PACU ): 4 mg, 2 mL, IV Push, AsDirected, PRN: Nausea/Vomiting morphine ( PACU ): 2 mg, 1 mL, IV Push, q5min, PRN: Pain, scale 4-6 Documented Medications Documented Ozempic 2 mg/1.5 mL (0.25 mg or 0.5 mg dose) subcutaneous solution: 0.5 mg, Subcutaneous, qWeek, for 4 week(s), rotate injection sites, 1 EA, 0 Refill(s) albuterol MDI (90 mcg/inh) CFC free inhalation aerosol: 2 puff(s), Inhalation, q6h, PRN: as needed for wheezing, 8.5 gram(s), 0 Refill(s) escitalopram 20 mg oral tablet: 20 mg, 1 tab(s), Oral, Daily, 90 tab(s), 0 Refill(s) levothyroxine 137 mcg (0.137 mg) oral tablet: Oral, qDay, 0 Refill(s) meloxicam 15 mg oral tablet: 0 Refill(s) omeprazole 40 mg oral delayed release capsule: 40 mg, 1 cap(s), Oral, qDay, 30 cap(s), 0 Refill(s) sucralfate 1 g oral tablet: 1 gram(s), 1 tab(s), Oral, qDay, 0 Refill(s), Medications (4) Active Scheduled: (0) Continuous: (2) Lactated Ringers 1,000 mL 1,000 mL, Intravenous, 125 mL/hr Lactated Ringers Infusion 1000 mL 1,000 mL, Intravenous, 20 mL/hr PRN: (2) morphine 2 mg/mL 1 mL syringe 2 mg 1 mL, IV Push, q5min ondansetron 2 mg/ 1 mL 2 mL INJ 4 mg 2 mL, IV Push, AsDirected Problem list: Active Problems (7) Asthma Bursitis GERD (gastroesophageal reflux disease) Hypothyroid Leaky heart valve Panic attack Seasonal allergies Histories Past Medical History: No active or resolved past medical history items have been selected or recorded. Family History: Diabetes Father Cardiovascular disease Father Procedure history: Endoscopic plantar fasciotomy ([id number]) on 03/13/2021 at 50 Years. Comments: 03/13/2021 14:50 EDT - Sarah Garcia RN LEFT Tonsillectomy ([id number]). Arthroscopy of knee ([id number]). Comments: 03/10/2021 11:55 EDT - Izabela Ley RN LEFT Dilation and curettage ([id number]). Cholecystectomy ([id number]). Social History Social & Psychosocial Habits Alcohol 03/31/2020 Use: Never Substance Abuse 03/10/2021 Use: Never Tobacco 03/31/2020 Tobacco Use: Never (less than 100 in l Home/Environment 09/27/2022 Domestic Concerns None Lives In Single level home Spouse Name PRASANTH Marital Status of Patient if Patient Independent Adult: Nutrition/Health 09/27/2022 Type of diet: Regular Eating Difficulties None . Physical Examination Vital Signs 10/01/2022 9:15 EST Heart Rate Monitored 63 bpm bpm Respiratory Rate - Anes 17 br/min br/min Systolic Blood Pressure Non-Invasive 117 mmHg mmHg Diastolic Blood Pressure Non-Invasive 97 mmHg mmHg 10/01/2022 9:11 EST Systolic Blood Pressure Non-Invasive 120 mmHg mmHg Diastolic Blood Pressure Non-Invasive 69 mmHg mmHg 10/01/2022 7:46 EST Temperature Temporal Artery 36.4 DegC Apical Heart Rate 63 bpm Respiratory Rate 13 br/min LOW Systolic Blood Pressure Non-Invasive 112 mmHg Diastolic Blood Pressure Non-Invasive 75 mmHg Vital Signs(last 24 hrs) Last Charted Heart Rate [id number] bpm (OCT 01 09:15) Resp Rate L 13br/min (OCT 01 07:46) GAB896 mmHg (OCT 01:15) DBP97 mmHg (OCT 01:15) Measurements from flowsheet : Measurements 10/01/2022 7:46 EST Height 172.7 cm Admission Weight 127.3 kg [place] Body Weight 63.88 kg Admission Body Mass Index 42.68 m2 10/01/2022 7:43 EST Body Mass Index In Error kg/m2 (In Error) Pain assessment: Pain Assessment 10/01/2022 7:46 EST Primary Pain Intensity 0 Pain Scale Type 0-10 Pain scale . General: Alert and oriented. Airway: Normal temporomandibular joint mobility. Mallampati classification: III (soft palate, base of uvula visible). Head: Normocephalic. Dentition Evaluation: Own teeth. Neck: Supple. Respiratory: Lungs are clear to auscultation. Cardiovascular: Normal rate. Heart Sounds: Normal. Gastrointestinal: Soft. Musculoskeletal Normal range of motion. Integumentary: Intact. Neurologic: Alert, Oriented. Review / Management Results review: No qualifying data available , Lab results 10/01/2022 9:22 EST SN - CTm - Surgery Start 10/01/2022 9:21 10/01/2022 9:21 EST SN - [place] - Time Administered 10/01/2022 9:15 10/01/2022 9:15 EST Heart Rate Monitored 63 bpm bpm Respiratory Rate - Anes 17 br/min br/min Systolic Blood Pressure Non-Invasive 117 mmHg mmHg Diastolic Blood Pressure Non-Invasive 97 mmHg mmHg Oxygen Saturation 100 % % 10/01/2022 9:14 EST SN - Proc - Anesthesia Type MAC 10/01/2022 9:13 EST SN - Proc - Actual Procedure ENDOSCOPIC PLANTAR FASCIOTOMY, RIGHT FOOT 10/01/2022 9:13 EST SN - SP - Prep Agents Chloraprep SN - SP - HR - Method N/A 10/01/2022 9:12 EST SN - PP - Body Position Supine Standard Intra-op 10/01/2022 9:11 EST Systolic Blood Pressure Non-Invasive 120 mmHg mmHg Diastolic Blood Pressure Non-Invasive 69 mmHg mmHg 10/01/2022 9:04 EST SN - Assess - LOC Alert SN - Assess - Orientation Oriented X 3 SN - Assess - Post-op Skin Integrity Intact/Dry 10/01/2022 9:00 EST SN - [place] - Route of Administration Local SN - [place] - By (Single) SN - [place] - By (Single) 10/01/2022 9:00 EST SN - GCD - Post-operative Diagnosis RECALCITRANT PLANTAR FASCITIS, RIGHT FOOT SN - GCD - Case Level Level 3 10/01/2022 8:59 EST SN - Cul - Culture Type No Specimen per Surgeon 10/01/2022 8:59 EST SN - CAt - Case Attendee SN - CAt - Case Attendee SN - CAt - Case Attendee SN - CAt - Case Attendee SN - CAt - Case Attendee SN - CAt - Case Attendee SN - CAt - Case Attendee SN - CAt - Case Attendee SN - CAt - Case Attendee SN - CAt - Case Attendee SN - CAt - Role Performed Primary Surgeon SN - CAt - Role Performed BMET SN - CAt - Role Performed Fire Extinguisher Mechanic 1 SN - CAt - Role Performed Ring Rolling Machine Operator 1 SN - CAt - Role Performed Scrub 1 10/01/2022 8:06 EST Hope History and Physical 10/01/2022 8:03 EST SN - Preop - CTm Pt Ready for OR/Proced 10/01/2022 7:50 10/01/2022 7:59 EST Individuals Taught Patient, Family member Learning Readiness Willing to learn Barriers to Learning None evident Preferred Written Language Cameroonian Family/Caregiver Prefer Written Language Cameroonian Preferred Spoken Language Cameroonian Family/Caregiver Prefer Spoken Language Cam[place]onian Pre Procedure/Surgery Education Appropriate expectations Lactated Ringers Injection Begin Bag 1,000 mL mL 10/01/2022 7:46 EST Height 172.7 cm Admission Weight 127.3 kg [place] Body Weight 63.88 kg Admission Body Mass Index 42.68 m2 Temperature Temporal Artery 36.4 DegC Apical Heart Rate 63 bpm Respiratory Rate 13 br/min LOW Systolic Blood Pressure Non-Invasive 112 mmHg Diastolic Blood Pressure Non-Invasive 75 mmHg Primary Pain Intensity 0 Pain Scale Type 0-10 Pain scale Heart Sounds ICU S1S2 Heart Rhythm Regular Oxygen Therapy Room air Oxygen Saturation 95 % Abdomen Description Non-distended, Soft Bowel Sounds All Quadrants Present Urinary Elimination Voiding, no difficulties Skin Temperature Warm Skin Description [place], Normal for ethnicity, Dry Skin Integrity Intact Skin Moisture General Dry IV Present Present Neurological Symptoms Patient denies Extremity Movement Equal Characteristics of Speech Clear Level of Consciousness Alert Strength All Extremities Strong Affect/Behavior Appropriate, Calm, Cooperative Orientation Oriented x 4 Allergies Yes Metal Melter On Yes Consent Form Signed Yes Patient Dressed In Hospital gown CHG Preoperative Wash/Wipe Night before procedure, Day of procedure History & Physical Update On Chart Yes History & Physical On Chart Yes Obstructive Sleep Apnea Assess Completed Yes Orientation Assessment Oriented x 4 Belongings At Bedside Pants, Purse, Shirt, Shoes Activity Status ADL Ambulating in chan, Ambulating in room, Awake Assistive Device None SCD On/Re-applied left knee high NPO Status Maintained Standard Safety ID band on, Allergy Band on, Call device within reach, Bed in low position, Wheels locked, Visitor at bedside Allergy Band on and Verified Yes Patient ID Band on and Verified Yes Implants Verified Yes Pacemaker/AICD Verified Yes Blood Consent Signed Yes Last Fluid Intake 09/30/2022 23:00 Last Food Intake 09/30/2022 19:00 Last Void 10/01/2022 7:50 10/01/2022 7:43 EST Privacy Restrictions Requested None Body Mass Index In Error kg/m2 (In Error) Infectious Disease Symptoms Patient states no symptoms Infectious Disease Recent Exposure No Alcohol and Drug Use No Employee of Institutional Living No Health Care Employee No History of Exposure to TB No History of Positive Chest X-Ray for TB No History of Positive TB Skin Test No Homeless No Known Immunosuppression No Recent Immigrant No Resident of Institutional Living No Bloody Sputum No Fatigue No Fever No Loss of Appetite No Night Sweats No Persistent Cough > 3 Weeks No Weight Loss No Safety Brochure Information Reviewed Unable to complete [place] Jayme Video Viewed No Teaching Evaluation No further teaching needed Prev Test Positive/Diagnosis w/COVID-19 Yes Previous COVID-19 Positive 2019 Current Quarantine/Isolated any Illness No Any Contact with Sick Animals/Birds No Traveled Anywhere in Last 30 Days No Personal Devices, Patient Valuables None Admission Note-Nursing Same Day Patient History (Modified) 10/01/2022 7:37 EST Test Urine Negative test (u) int test (u) int QC PRGUN Negative QC PRGUP Positive 10/01/2022 7:32 EST SN - Preop - CTm Pt in SDS Room 10/01/2022 7:32 . Assessment and Plan [place] [employer] Anesthesiologists (ASA) physical status classification: Class III. Anesthetic Preoperative Plan Premedication: intravenous. Anesthetic technique: MAC. Induction: intravenously. Maintenance airway: 40% FM. Postoperative pain management: Per surgeon. Informed consent: signed by patient. Digitally Signed by JASON MCRAE on 10/01/2022 09:25 AM [facility]11-11-2022 Note GUEYDAN ADMISSION HISTORY AND PHYSICIAL CHIEF COMPLAINT: HISTORY OF PRESENT ILLNESS: REVIEW OF SYSTEMS: ACTIVE PROBLEMS: (7) Asthma (050679803) Bursitis ([id number]) GERD (gastroesophageal reflux disease) (880874641) Hypothyroid (07307331) Leaky heart valve (62016819) Panic attack (914051753) Seasonal allergies ([id number]) MEDICATIONS: Active Inpt Meds: None Active PRN Meds: None One Time Meds: None Active IV Meds: Lactated Ringers Infusion 1,000 mL (LR 1,000 mL) Start: 10/01/22 7:33:00 EST, Rate: 125 mL/hr, 10/01/22 7:33:00 EST ALLERGIES: (4) codeine Flexeril naproxen sulfa drug FAMILY HISTORY: SOCIAL HISTORY: PHYSICAL EXAM: VITALS: [id number](kg) 10/01 07:4636.4--[id number]/57758.3 24 Hr Tmax: 36.4 at 10/01 07:46 36 Hr Tmax: 36.4 at 10/01 07:46 Vital Signs are the last 5 in the past 48 hours. Weights display the last 5 within 7 days. Initial Wt: 10/01 127.3 kg 280 lb Current Wt: 10/01 127.3 kg 280 lb GENERAL: HEENT: CARDIOVASCULAR: RESPIRATORY: ABDOMEN: EXREMETIES: NEUROLOGICAL: PSYCHIATRIC: LABS: 36hr Labs 10/01 0737 TestSee Flowsheet testSee Flowsheet DIAGNOSTICS: IMPRESSION: PLAN: History and Physical Update I have examined the patient; reviewed the H&P and there are no changes to the H&P unless noted below. Digitally Signed by JEFF CHILDERS DPM on 10/01/2022 08:07 AM [facility]10-31-2022 Instructions* Patient Instructions* Earlene Lima, DI - 09/20/2022 12:52 PM EDT Modify type and amount of food at meals and snacks: Follow the Plate Method at lunch and dinner: Use a 9 plate - 1/2 plate vegetables-non starchy such as green beans, greens, broccoli, cauliflower, etc (1 serving of fruit optional outside of plate) - 1/4 plate lean protein-primarily chicken, turkey fish, lean red 1-2 x per week at most (size of palm) - 1/4 plate whole grain or starchy vegetable such as corn, peas, potatoes, beans (size of fist, 1 cup) 2. Make sure every meal has at least 20g of protein (beans, chickpeas, protein powder, protein shake) 3. Find high protein snacks 4. Incorporate exercise -- do what you can (seated exercise) 5. Track protein/calories 2 days per week [facility] History of Present illness Narrative* Earlene Lima RD - 09/20/2022 12:11 PM EDT Nutrition Therapy Initial Assessment Nutrition Diagnosis: Overweight/obesity, related to, excess energy intake, as evidenced by BMI above normative standard for age and gender. RECOMMENDED MALNUTRITION DIAGNOSIS: NO MALNUTRITION IDENTIFIED NUTRITION CARE PLAN Nutrition Intervention 09/20/2022: comprehensive nutrition education Modify type and amount of food at meals and snacks: Follow the Plate Method at lunch and dinner: Use a 9 plate - 1/2 plate vegetables-non starchy such as green beans, greens, broccoli, cauliflower, etc (1 serving of fruit optional outside of plate) - 1/4 plate lean protein-primarily chicken, turkey fish, lean red 1-2 x per week at most (size of palm) - 1/4 plate whole grain or starchy vegetable such as corn, peas, potatoes, beans (size of fist, 1 cup) 2. Make sure every meal has at least 20g of protein (beans, chickpeas, protein powder, protein shake) 3. Find high protein snacks 4. Incorporate exercise -- do what you can (seated exercise) 5. Track protein/calories 2 days per week Nutrition Monitoring & Evaluation: weight loss Need for Follow up: 4-6 weeks Patient presents for weight loss counseling with class 3 obesity Body mass index is 42.89 kg/m . Patient's diet appears low in protein and excessive in carbohydrate consumption. Patient states she has had issues with thyroid medication which leads her to be fatigued, note normal TSH. Patient has pre viously tried diets such as weight watchers and has lost weight but finds them hard to stick with. Patient seeking education for what plate should look like as well as other protein sources besides meat, has an aversion to meat. Patient is currently not doing any planned exercise however would liketo start incorporating depending on future foot surgery. Patient's symptoms are: Weight Concerns: failure to lose weight Diet History: Breakfast - eggs OR oatmeal (jehovah's witness) and toast (35 slice bread) with margarine with glass of milk (8oz) with chocolate Snack - sometimes snacks that kids have Lunch - Sub (could be 6-12 inch) Snack - none Dinner - beef stew OR chicken and mac and cheese Snack - none Beverages - skim milk, diet mountain dew, mellow yellow zero, sometimes water, nestle water Alcohol- none Vitamins/Supplements - none Preferences: does not like meat, like eggs whites/beaters, does not like tofu, likes beans Activity: Activities of Daily Living: Active 25% of the day. 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 Resting Metabolic Rate: 1950 Malnutrition Screening Significant unintentional weight loss? No Eating less than 75% of usual intake for more than 2 weeks? No Potential Signs of Inflammation: no identifiable sources Education Materials Provided: Healthy Lunch/Dinner Plate READINESS TO LEARN Cognitive ability: Alert and oriented Motivation to learn: Interested Family support: Unable to assess - Family not present Instruction provided to: Patient Patient learns best by: Multiple Methods Factors affecting learning: None Physical limitations affecting learning: Fatigue Visit performed in conjunction with Kira Davis R.D. Referred/Supervised by: Kelly MONTES DE OCA Billing Type: Initial Assess/15 min 3 units SIGNATURE: Kira Davis RD PATIENT NAME: Jammie Troy DATE: September 20, 2022 TIME: 12:15 PM documented in this encounterB[facility] Miscellaneous Notes* Telephone Encounter - Stephanie Tabares APRN.CNP - 09/08/2022 3:03 PM EDT New orders placed with moderate sedation. Stephanie Tabares APRN.CNP * Telephone Encounter - Moses Perea - 09/08/2022 1:31 PM EDT We do not offier anesthesia at the [place] location for colonoscopies. Patient will either need to have a consult with our general surgery office or be scheudled at another location that acccepts open access with anesthesia. Please advise, thank you! documented in this encounterBrecksville [facility]10-[facility] Instructions* Patient Instructions* Kristin Cabrera MD - 09/01/2022 9:35 AM EDT Ozempic (semaglutide) First four weeks: 0.25mg weekly Second four weeks: 0.5mg weekly Follow-up within 2 months PRACTICAL SUGGESTIONS TO INCORPORATE MEDITERRANEAN DIET CATEGORY CONSUME AVOID Fruits and vegetables Wide variety of whole fruits and vegetables; try for at least 7-10 servings per day Vegetables prepared in butter or cream sauce High-fiber breads, cereals, and pasta Whole grain bread and cereal, bran, brown rice Sweets, white bread, biscuits, breadsticks, and other refined carbohydrates Protein that is low in saturated fat Lean cuts of meat (fat trimmed) or poultry (no skin); low-fat dairy foods (skim mild, yogurt) Ken, sausage, other processed or high-fat meat, milk or cheese that is not low-fat, ice cream Fish or other source of omega-3 fatty acids, at least 1 or 2 times per week Foreman, trout, lugo,water-packed tuna, mackerel (or fish oil supplement); flaxseed, spinach, walnuts Fried fish ( except when lawson fried in olive oil) Healthy oils for cooking, salad dressing, and other uses Extra-virgin olive oil, canola oil, flaxseed oil ( high-oleic sunflower or safflower oil may also be an option) [place]-6 oils, (corn, sunflower, safflower, soybean, peanut) Peas, beans, legumes, and nuts Soybeans, lentils, or any kind of peas, beans, or legumes; tree nuts(eg. Almonds,pecans, walnuts, [place] nuts) Heavily salted or honey-roasted nuts; stale or rancid nuts Alcohol One 5-oz glass of wine, a 12-oz beer, or a 1.5oz drink containing distilled spirits with the evening meal Limit to no more than 1 drink daily for women, 2 drinks daily for men Fat Emphasize whole, natural foods as above; look for 'trans-fatty acid -free margarine and snack foods Fast food, fried food, margarine, chips, crackers, baked goods, doughnuts, any processed food made with partially hydrogenated oil documented in this encounterBrec[facility]ville [facility]10[facility] History of Present illness Narrative* Kristin Cabrera MD - 09/01/2022 9:00 AM EDT Images from the original note were not included. Endocrinology and Metabolism [facility] - Initial Visit SERVICE DATE: 08/31/2022 This nice patient was originally referred to us by Stephanie Tabares APRN.CNP for evaluation of obesityand associated medical problems. SUBJECTIVE: Jammie Troy is a 51 year old female who presents on August 31, 2022 for medical evaluation of Non-Surgical Metabolic Weight Management . Overweight: Age at onset - early adult years. Rate of weight gain is described as gradual over years. Family history positive for obesity in the patient's paternal grandfather and sister(s). She considers ideal weight to be 175-180 lbs. Weight at graduation from high school 160 lbs. Weight when 175 lbs. Previous treatments include self-directed dieting, Weight Watchers, TOPS, or similar program, and catering convention services manager consultation (lost 10lbs with WW), only- protein diet, lost 30lbs. Weight Graph: Target Weight : 180 lbs pounds (explained to patient that gastric bypass may be the route to go in this case, advised that 5-10% weight loss is more realistic) Motivation Level: ACTION DIET: denies to have issues with portion control denies issues with late evening snacking/eating at night denies issues with satiety. denies to be thinking constantly about food admits to to continue eating when full denies to binge eating admits to to eating out 2 times per week Admits to stress eating EXERCISE: Access to Exercise? Yes (bicycle, elliptical, gym) Barriers to Exercise? yes foot pain, knee pain, plantar fascitis, recent hx of mononucleosis QUALITY OF SLEEP PER NIGHT: Patient has no difficulty sleeping. LEVEL OF STRESS: is not acceptable, sometimes. APPETITE CONTROL: is 4 A score of 1 is uncontrolled, score of 10 is controlled. CO-MORBIDITIES: Anxiety, Reflux , and Asthma Chest pain, SOB, or MCMULLEN: No Stress test: yes: when 5 years ago History of eating disorders: negative Associated medical conditions: thyroid disease and pulmonary disease Associated medications: none Cardiovascular risk factors: smoking, positive family history, sedentary life style, and stress ALLERGIES: ALLERGIES Allergen Reactions Adhesive Tape (Aranza* Rash, Swelling Bactrim [Sulfametho* Flexeril [Cyclobenz* Minocycline GI Upset Severe nausea Nexium [Esomeprazol* Sulfa (Sulfonamide * Zithromaxz [Other] Current Outpatient Medications on File Prior to Visit Medication Sig omeprazole (PRILOSEC) 40 mg capsule Take 1 capsule by mouth once daily. levothyroxine (SYNTHROID) 137 mcg tablet Take 1 tablet by mouth daily before breakfast. sucralfate (CARAFATE) 1 gram tablet Take 1 tablet by mouth before meals and at bedtime. meloxicam (MOBIC) 15 mg tablet Take 1 tablet by mouth once daily. With food. escitalopram oxalate (LEXAPRO) 20 mg tablet Take 1 tablet by mouth once daily. tiZANidine (ZANAFLEX) 4 mg tablet Take 1 tablet by mouth every 8 hours as needed (pain). No current facility-administered medications on file prior to visit. 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 Diarrhea Esophageal reflux Hypothyroid Irritable bowel syndrome Irritable bowel Mitral valve disorders(424.0) PMH - PAST MEDICAL HISTORY OF lactose intolerance PAST SURGICAL HISTORY Procedure Laterality Date ARTHROSCOPY KNEE DIAGNOSTIC W/WO SYNOVIAL BX SPX Arthroscopy, knee, left knee DILATION & CURETTAGE DX&/THER NONOBSTETRIC Dilation & curettage DILATION & CURETTAGE DX&/THER NONOBSTETRIC Dilation & curettage LAPAROSCOPY SURG CHOLECYSTECTOMY Cholecystectomy, lap SIGMOIDOSCOPY FLX W/BIOPSY SINGLE/MULTIPLE 08/11/06 TONSILLECTOMY PRIMARY/SECONDARY <AGE 12 Tonsillectomy FAMILY HISTORY Problem Relation Age of Onset Arthritis Mother Diabetes Father Thyroid Father Coronary Artery Disease Father Stroke Maternal Grandmother TIA Cancer Paternal Grandmother Social History Tobacco Use Smoking status: Never Smokeless tobacco: Never Substance Use Topics Alcohol use: No Drug use: No REVIEW OF SYSTEMS: REVIEW OF SYSTEMS GENERAL: No weight loss, malaise or fevers HEENT: Negative for frequent or significant headaches, No changes in hearing or vision, no nose bleeds or other nasal problems NECK: Negative for lumps, goiter, pain and significant neck swelling RESPIRATORY: Negative for cough, hemoptysis, wheezing, COPD, dyspnea or shortness of breath CARDIOVASCULAR: Negative for chest pain, leg swelling, hypertension, CHF or palpitations GI: No nausea, vomiting, or diarrhea 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 for abnormal vaginal bleeding, abnormal vaginal discharge MUSCULOSKELETAL: Negative for joint pain or swelling, back pain or muscle pain SKIN: Negative for lesions, rash, and itching HEMATOLOGY/LYMPHOLOGY: Negative for prolonged bleeding, bruising easily or swollen nodes ENDOCRINE: Negative for cold or heat intolerance, polyuria, polydipsia and goiter NEURO: No history of headaches, syncope, paralysis, seizures or tremors OBJECTIVE: PHYSICAL EXAM: BP 116/76 Pulse 68 Ht 172.7 cm (5' 8 ) Wt 132 kg (291 lb) LMP 06/21/2022 (Approximate) SpO2 98% BMI 44.25 kg/m Skin: Skin color, texture, turgor normal, no suspicious rashes or lesions Eyes: Anicteric sclera. Pupils are equally round and reactive to light. Extraocular movements are intact. Neck: Supple, no adenopathy; thyroid symmetric, normal size, no bruits Lungs: Lungs clear to auscultation. No wheezing, rhonchi, rales. Heart: RRR without murmur, gallop, or rubs. No ectopy Abdomen: Normal abdominal exam, Abdomen soft, non-tender. Bowel sounds normal. No masses, organomegaly Peripheral pulses: Normal Extremities: No clubbing, cyanosis, or edema. LABS: Cholesterol, Total (mg/dL) Date Value 02/26/2021 187 Total Cholesterol, Nonfasting (mg/dL) Date Value 12/08/2021 188 HDL Cholesterol (mg/dL) Date Value 02/26/2021 42 HDL Cholesterol, Nonfasting (mg/dL) Date Value 12/08/2021 39 LDL Cholesterol (mg/dL) Date Value 02/26/2021 124 LDL Cholesterol, Nonfasting (mg/dL) Date Value 12/08/2021 113 Triglyceride (mg/dL) Date Value 02/26/2021 103 Triglycerides, Nonfasting (mg/dL) Date Value 12/08/2021 179 Lab Results Component Value Date HBA1C 5.3 07/21/2022 HBA1C 5.3 02/20/2021 Free T3 2.9 02/26/2021 T3 133 04/13/2022 FIB-4 Calculation: 1.13 at 07/21/2022 12:48 PM Calculated from: SGOT/AST: 24 U/L at 07/21/2022 12:48 PM SGPT/ALT: 13 U/L at 07/21/2022 12:48 PM Platelets: 295 k/uL at 07/21/2022 12:48 PM Age: 51 years IMPRESSION AND PLAN: is a very pleasant 51 year old female with a history of obesity is interested in weight loss and agrees to implement diet and lifestyle modifications. She also has PMHx of asthma (used steroids in the past), GERD, hypothyroidism and IBS. We discussed in detail about diet modifications and recommended Mediterranean diet and also counseled about limiting portion sizes. Written education material was given. Nutrition consult also placed, patient is interested in learning more about nutrition. She has agreed to start some moderate level of exercise for now. Appetite medication: In the past, patient attempt to lose weight with WW and other diets and had some success, lost 30lbs but rebounded soon after she stopped. We discussed the various options for weight loss along with prevention of diabetes and she opted for semaglutide. Prescribed Ozempic 0.25mgfirst four weeks and 0.5mg second four weeks. Adverse effects were discussed in detail, strongly encouraged to drink water to avoid constipation. Advised to add fiber supplements if constipation doesnot improve. ER precautions given in case of severe abdominal pain and/or nausea. I will see her back in a 2 month(s). She will give me a call in a couple of weeks to let me know how she is doing with the new treatments started. DIAGNOSIS: Encounter Diagnosis ICD-10-CM 1. Obesity, Class III, BMI 40-49.9 (morbid obesity) ([facility]) E66.01 CONSULT TO NUTRITION THERAPY 2. Weight gain R63.5 Kristin Cabrera MD [facility] [place] [facility] [phone] Medical Decision Making: Problems: Moderate: 1+ chronic illnesses with change Data: Unique source(s) for external note(s) reviewed: 2 Unique test result(s) reviewed: 3+ Risk: Moderate: Drug management Medical Decision Making Level: 4 - Moderate Answers submitted by the patient for this visit: Endocrine Review of Systems (Submitted on 08/31/2022) Fatigue: Yes Night Sweats: No Recent Unintentional Weight Change: No Skin Color Changes: No Post-Nasal Drip: No Thyroid Pain (lower neck): No Trouble Swallowing: No Vision Disturbance: No Chest Pain: No Leg Swelling: Yes Blood Clots?: No Leg Pain while walking?: No Difficulty Breathing?: No Heartburn: Yes Nausea: No Vomiting?: No Diarrhea: No Constipation: No Abdominal Pain: Yes Bone Pain?: No Muscle Aches: Yes Headaches: No Dizziness: No Numbness?: No Urgency to Urinate?: No Increased Urination?: No Slow or Small Urine Stream?: No Are your menstrual cycles regular?: No Are your menstrual cycles irregular?: Yes Have your menstrual cycles stopped?: No Flushing?: No Hot Flashes?: No Increased Thirst: No Change in Body Hair?: No Cold Intolerance: Yes Heat Intolerance?: No documented in this encounter[facility] History of Present illness Narrative* Margarita Pimentel RDMS - 08/25/2022 7:00 AM EDT Radiology Service Progress Note PATIENT NAME: Jammie Troy DATE OF SERVICE: August 25, 2022 TIME: 8:19 AM PATIENT IDENTITY VERIFICATION COMPLETED USING TWO (2) IDENTIFIERS: Name and Date of confirmedby patient verbally. FALL SCREENING: Has the patient had 2 falls in the last year or 1 fall with injury or currently using an Ambulatory Assistive Device (Walker, Cane, Wheelchair, Crutches, etc.)? No PATIENT GENDER DATA: Female. status: : No status: NO. PATIENT RELEVANT IMPLANT DATA REVIEWED: Not Applicable RADIOLOGY DEPARTMENT: Ultrasound PERIPHERAL IV DATA: Not applicable SIGNED BY: Margarita Pimentel RDMS August 25, 2022 8:19 AM documented in this encounterBrecksville [facility] Miscellaneous Notes* Telephone Encounter - Moses Mejia LPN - 08/16/2022 9:10 AM EDT TC to pt, notified of results/provider response. She verbalized understanding. Pt is out of town right now, but will call back when returns to schedule liver US. Moses Mejia LPN * Telephone Encounter - Leticia Amor APRN.CNP - 08/16/2022 6:48 AM EDT Can please let patient know that I receive the remainder if her lab results. It does show that the alk phos has lowered to nearly normal, but looks related to the liver. It could be related to recentinfection. Let's have her plan on getting an ultrasound of the liver. documented in this encounterBrecksville [facility] Instructions* Patient Instructions* Stephanie Tabares APRN.CNP - 08/12/2022 3:43 PM EDT Images from the original note were not included. Thank you for seeing me in clinic today. As we discussed, my recommendations are as follows: 1.EGD 2.Colonoscopy If you have any questions about the above treatment plan, please do not hesitate to call the officeor send me a [employer] message. Bowel Preparation Instructions for: Miralax-Gatorade Preparations IF YOU DO NOT FOLLOW THESE DIRECTIONS, YOUR COLONOSCOPY WILL BE CANCELLED. [place] Instructions: Your bowel must be empty so that your doctor can clearly view your colon. Follow all of the instructions in this handout EXACTLY as they are written. Do NOT eat any solid food the ENTIRE day before your colonoscopy. Buy your bowel preparation at least 5 days before your colonoscopy. Four (4) Dulcolax laxative tablets containing 5mg of bisacodyl each (NOT Dulcolax stool softener) One (1) 8.3oz. bottle Miralax (238 grams) or generic equivalent 2 x 32oz. Bottles of Gatorade (NOT RED) Diabetic Patients: Use G2 (Gatorade 2) TRANSPORTATION on the Day of Your Exam A responsible adult MUST be present with you at Check In prior to your colonoscopy and REMAIN in the endoscopy area until you are discharged. You are NOT ALLOWED to drive, take a taxi or bus, or leave the Endoscopy Center ALONE. If you do not have a responsible emergency vehicle driver (family member or friend) withyou to take you home, your exam cannot be done with sedation and will be cancelled. Please bring a list of all of your current medications, including any [id number] medications with you. Medications If you take insulin, diabetic medications or blood thinners such as Coumadin (warfarin), Plavix (clopidogrel), Ticlid (ticlopidine hydrochloride), Agrylin (anagrelide), Xarelto (Rivaroxaban), Pradaxa(Dabigatran), Eliquis (Apixaban), and Effient (Prasugrel). You MUST call the doctors who orders those medicines for instructions on altering the dosage before your colonoscopy. All other medications should be taken the day of the exam with a sip of water including ASPIRIN. Five (5) Days Before Your Colonoscopy Do NOT take medicines that stop diarrhea - such as Imodium, Kaopectate, or Pepto Bismol. Do NOT take fiber supplements - such as Metamucil, Citrucel, or Perdiem. Do NOT take products that contain iron - such as multi-vitamins (the label lists what is in the products). Three (3) Days Before Your Colonoscopy Do NOT eat high-fiber foods - such as popcorn, beans, seeds (flax, sunflower, quinoa), multigrain bread, nuts, salad/vegetables, or fresh and dried fruit. 1 Bowel Preparation Instructions for: Miralax-Gatorade Preparations One (1) Day Before Your Colonoscopy Only drink clear liquids the ENTIRE DAY before your colonoscopy. Do NOT eat any solid foods. Drink at least 8 ounces of clear liquids every hour after waking up. The clear liquids you can drink include: Clear Liquid (NO RED LIQUIDS) DO NOT DRINK Gatorade, Pedialyte or Powerade Clear broth or bouillon Coffee or tea (no milk or non-dairy creamer) Carbonated and non-carbonated soft drinks Ab-Aid or other fruit flavored drinks Strained fruit juices (no pulp) Jell-O, popsicles, hard candy Water Alcohol Milk or non-dairy creamers Noodles or vegetables in soup Juice with pulp Liquid you cannot see through Do not use tobacco/vaping products Mix 1/2 of Miralax bottle (119 grams) in each 32 ounces of Gatorade bottle until dissolved. Keep cool in the refrigerator. DO NOT ADD ICE. The bowel preparation solution will be consumed in two parts. Part 1 5:00 PM - Evening before your colonoscopy Take 4 Dulcolax tablets. 6 PM - Evening before your colonoscopy Drink 32 oz. of the mixed solution. Drink an 8 oz. glass of bowel preparation every 15 minutes for a total of 4 glasses. Fifteen (15) minutes later, drink an 8 oz. glass of of clear liquids every 15 minutes for a total of 2 glasses. You may continue to drink clear liquids till midnight. Part 2 On the day of your colonoscopy you may drink clear liquids up to (three) 3 hours prior to procedure. 4 1/2 hours before your colonoscopy Take another 32 oz. bottle of mixed solution. Drink an 8 oz. glass of bowel prep every 15 minutes for a total of 4 glasses. Fifteen (15) minutes later, drink an 8 oz. glass of clear liquids every 15 minutes for a total of 2glasses. You may continue to drink clear liquids up to (three) 3 hours before your exam. 2 10/2019 documented in this encounterBrecksville [facility] History and physical note * Stephanie Tabares APRN.CNP - 08/12/2022 3:30 PM EDT Consultation requested by Dr. Leticia Amor for an opinion regarding epigastric pain. My final recommendations will be communicated back to the requesting physician by way of shared medical record or fax. REASON FOR VISIT: epigastric pain. HPI: Jammie Troy is a 51 year old female who presents for epigastric pain. She admits to having epigastric pain for the past several weeks. She describes this pain as pouring salt into an open wound from the inside. She was seen by her PCP and her omeprazole was increased to 40 mg daily. She has been taking Carafate 4 times daily. She is taking the Carafate with her omeprazole. She was recently evaluated in the ED on 07/30/2022 for similar complaints. She underwent a CT scan that was negative for anacute process but did reveal a mild increase in stool. She endorses occasional NSAID use. Denies regular alcohol intake and smoking. She had an elevation in her alk phos. She is very anxious about this result as she states she had anephew who of liver cancer at the age of 16. Patient denies early satiety,vomiting, changes in appetite, change in bowel habits, unintentional weight loss, melena, hematochezia or hematemesis. No prior history of EGD. Past Clinical Work-Up: ASSESSMENT/PLAN: 1. Epigastric pain - ICD9: 789.06, ICD10: R10.13 (primary diagnosis) Suspect related to gastritis. We will go ahead and increase her omeprazole to 40 mg daily. We will go ahead and add Carafate to start 4 times daily. She has an upcoming vacation. Recheck patient later this week prior to vacation. We will also put in a referral for general surgery to consider scoping. - OMEPRAZOLE 40 MG CAPSULE,DELAYED RELEASE - SUCRALFATE 1 GRAM TABLET - CONSULT TO GENERAL SURGERY 2. Hypothyroidism, acquired - ICD9: 244.9, ICD10: E03.9 Refill: - LEVOTHYROXINE 137 MCG TABLET Discussed treatment plan and patient voices understanding. Patient's questions answered appropriately. Medications and potential side effects were discussed and patient voices understanding. Return to the office as scheduled or as needed for worsening/no improvement. No Recent Procedures EXTERNAL IMAGING - CT SCAN - 07/29/2022 IMPRESSION: No acute intra-abdominal process Mild increased stool. LABS: Component Latest Ref Rng & Units 07/21/2022 Protein, Total 6.3 - 8.0 g/dL 7.6 Albumin 3.9 - 4.9 g/dL 4.3 Calcium 8.5 - 10.2 mg/dL 9.6 Bilirubin, Total 0.2 - 1.3 mg/dL 0.3 Alkaline Phosphatase 34 - 123 U/L 151 (H) AST 13 - 35 U/L 24 ALT 7 - 38 U/L 13 Glucose 74 - 99 mg/dL 88 BUN 7 - 21 mg/dL 15 Creatinine 0.58 - 0.96 mg/dL 0.72 Sodium 136 - 144 mmol/L 136 Potassium 3.7 - 5.1 mmol/L 4.4 Chloride 97 - 105 mmol/L 100 CO2 22 - 30 mmol/L 22 Anion Gap 9 - 18 mmol/L 14 eGFR >=60 mL/min/1.73m 102 Component Latest Ref Rng & Units 07/21/2022 WBC 3.70 - 11.00 k/uL 6.68 RBC 3.90 - 5.20 m/uL 5.03 Hemoglobin 11.5 - 15.5 g/dL 14.3 Hematocrit 36.0 - 46.0 % 42.7 MCV 80.0 - 100.0 fL 84.9 MCH 26.0 - 34.0 pg 28.4 MCHC 30.5 - 36.0 g/dL 33.5 RDW-CV 11.5 - 15.0 % 13.8 Platelet Count 150 - 400 k/uL 295 MPV 9.0 - 12.7 fL 10.1 Neut% % 57.9 Abs Neut (ANC) 1.45 - 7.50 k/uL 3.86 Lymph% % 34.1 Abs Lymph 1.00 - 4.00 k/uL 2.28 [place]% % 7.0 Abs [place] <0.87 k/uL 0.47 Eosin% % 0.1 Abs Eosin <0.46 k/uL <0.03 Baso% % 0.6 Abs Baso <0.11 k/uL 0.04 Immature Gran % % 0.3 IMMATURE GRANS (ABS) <0.10 k/uL <0.03 NRBC /100 WBC 0.0 Absolute nRBC <0.01 k/uL <0.01 DTYPE Auto Component Latest Ref Rng & Units 07/21/2022 EBV VCA IgG, Qual Negative Positive (A) EBV VCA IgM, Qual Negative Equivocal (A) EBV EA Ab, Qual Negative Positive (A) EBV NA Ab, Qual Negative Positive (A) Interpretation (EBVPNL) Reactivation 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 Diarrhea Esophageal reflux Hypothyroid Irritable bowel syndrome Irritable bowel Mitral valve disorders(424.0) PMH - PAST MEDICAL HISTORY OF lactose intolerance PAST SURGICAL HISTORY Procedure Laterality Date ARTHROSCOPY KNEE DIAGNOSTIC W/WO SYNOVIAL BX SPX Arthroscopy, knee, left knee DILATION & CURETTAGE DX&/THER NONOBSTETRIC Dilation & curettage DILATION & CURETTAGE DX&/THER NONOBSTETRIC Dilation & curettage LAPAROSCOPY SURG CHOLECYSTECTOMY Cholecystectomy, lap SIGMOIDOSCOPY FLX W/BIOPSY SINGLE/MULTIPLE 08/11/06 TONSILLECTOMY PRIMARY/SECONDARY <AGE 13 Tonsillectomy FAMILY HISTORY Problem Relation Age of Onset Arthritis Mother Diabetes Father Thyroid Father Coronary Artery Disease Father Stroke Maternal Grandmother TIA Cancer Paternal Grandmother Social History Tobacco Use Smoking status: Never Smokeless tobacco: Never Substance Use Topics Alcohol use: No Drug use: No Current Outpatient Medications Medication Sig omeprazole (PRILOSEC) 40 mg capsule Take 1 capsule by mouth once daily. levothyroxine (SYNTHROID) 137 mcg tablet Take 1 tablet by mouth daily before breakfast. sucralfate (CARAFATE) 1 gram tablet Take 1 tablet by mouth before meals and at bedtime. meloxicam (MOBIC) 15 mg tablet Take 1 tablet by mouth once daily. With food. escitalopram oxalate (LEXAPRO) 20 mg tablet Take 1 tablet by mouth once daily. tiZANidine (ZANAFLEX) 4 mg tablet Take 1 tablet by mouth every 8 hours as needed (pain). No current facility-administered medications for this visit. I have confirmed and edited, if necessary, the PFSH obtained by others. REVIEW OF SYSTEMS: CONSTITUTIONAL: Negative for unintentional weight loss, malaise or fevers, +weight gain HEENT: Negative for frequent/significant headaches, changes in hearing/vision, nose bleeds or othernasal problems RESPIRATORY: Negative for cough, hemoptysis, wheezing or dyspnea CARDIOVASCULAR: Negative for chest pain, palpitations, syncope or lightheadedness GI: See HPI NEURO: Negative for encephalopathy, tremor or gait abnormality PSYCH: Negative for new changes in mood or affect I have confirmed and edited, if necessary, the PFSH obtained by others. PHYSICAL EXAM: BP 134/83 (BP Site: Left Arm, BP Position: Sitting, BP Cuff Size: Large Adult) Pulse 80 Wt 132 kg (291 lb) LMP 04/28/2022 (Approximate) BMI 43.60 kg/m Gen: Comfortable in NAD Head: Normocephalic, atraumatic Skin: No jaundice, rashes or skin lesions Eyes: Sclera anicteric, conjunctiva pink Heart: RRR Lungs: CTAB Abd: Soft, non-distended, bowel sounds present, no palpable masses or organomegaly, mild TTP mid epigastric pain Rectal Exam: Examination deferred by patient Neuro: Alert and oriented, no tremor or gross focal motor deficits Psych: Congruent mood and affect, appropriate insight and judgement ASSESSMENT/PLAN: Ms. Troy is a 51 year old female with a history of GARCIA,IBS, asthma, and history of cholecystectomy presents for epigastric pain. She admits to having epigastric pain for the past several weeks. She describes this pain as pouring salt into an open wound from the inside. She was seen by her PCP and her omeprazole was increased to 40 mg daily. She has been taking Carafate 4 times daily. She is taking the Carafate with her omeprazole. She was recently evaluated in the ED on 07/30/2022 for similar complaints. She underwent a CT scan that was negative for an acute process but did reveal a mild increase in stool. We will plan for EGD. Differential diagnosis include GERD, PUD, gastritis and H. pylori. A colonoscopy was also ordered as she is overdue for CRC screening. She had an elevation in her alk phos. She is very anxious about this result as she states she had a nephew who of liver cancer at the age of 16. We will consult hepatology at patient's request. Procedure/risks were discussed with the patient in great detail including the risk of sedation and bleeding. Patient is agree able with proceeding and instructed to call with any questions or concerns. 1. Epigastric pain - ICD9: 789.06, ICD10: R10.13 (primary diagnosis) -Continue omeprazole 40 mg daily 30 minutes prior to a meal - Discussed lifestyle modifications including losing weight, limiting caffeine, no meals three hours before sleep, and head of bed elevation - EGD DIAGNOSTIC 2. Colon cancer screening - ICD9: V76.51, ICD10: Z12.11 - COLONOSCOPY SCREENING 3. Elevated alkaline phosphatase level - ICD9: 790.5, ICD10: R74.8 - CONSULT TO HEPATOLOGY 4. Weight gain - ICD9: 783.1, ICD10: R63.5 - CONSULT TO ENDOCRINOLOGY This note was dictated using [employer] speech recognition software and may contain some errors that were a result of the program not accurately transcribing what was dictated. Stephanie Tabares APRN.CNP documented in this encounterBrecksville [facility] Miscellaneous Notes* Telephone Encounter - Moses Mejia LPN - 07/23/2022 3:53 PM EDT TC to pt, notified of results/provider instructions. She verbalized understanding. Moses Mejia LPN * Telephone Encounter - Leticia Amor APRN.CNP - 07/23/2022 3:41 PM EDT Can please let patient know that it does look like she may have a reactivation of the EBV, which definitely could be causing her fatigue. They are recommending to repeat this in 2-3 weeks. Her alk phos level was just a little elevated as well. This can be from a liver or bone source. I am going to recheck this at the same time. The orders are in. Please return in 2-3 weeks for labs. Leticia Amor APRN.CNP documented in this encounterBrecksville [facility]07-[facility] History of Present illness Narrative* Betty Anamaria, DIRECT ENTRY MIDWIFE.[employer] - 06/01/2022 2:58 PM EDT CC: Patient presents with: Sinus Problem: sinus pressure, drainage, sore throat and drainage x 10 days HPI: Jammie Troy is a 51 year old female who presents to the office with complaint of head congestion,cough, nonproductive, sore throat, sinus symptoms and ear symptoms for 10 days. Symptoms are worsening Associated symptoms includes cough. Denies fever, nausea, vomiting and diarrhea. Treatments tried include nothing so far. with no relief of symptoms. Sick contacts: unknown. History of asthma, frequent episodes of bronchitis, chronic bronchitis, bronchiectasis or COPD: No Smoker: No Seasonal/environmental allergies: No The ROS is otherwise negative. The patient's pmh, medications, allergies, and past visits are reviewed. PHYSICAL EXAM: BP 122/78 Pulse 68 Temp 36.6 C (97.8 F) Resp 16 Wt 130.6 kg (288 lb) LMP 02/26/2022 SpO2 96% BMI 43.15 kg/m General appearance: alert, cooperative, pleasant, in no acute distress Head: Normocephalic Eyes: EOM's intact, conjunctiva pink and moist, no icterus, sclera white, non-injected Ears: Right ear: External ear/canal- Normal, TM - clear with good landmarks. Left ear: External ear/canal- otitis externa, TM - clear with good landmarks Oropharynx:moist without lesions, No erythema, exudates or tonsillar hypertrophy. Heart: Negative. RRR without obvious murmur, gallop, or rubs. No ectopy. 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 Diarrhea Esophageal reflux Hypothyroid Irritable bowel syndrome Irritable bowel Mitral valve disorders(424.0) PMH - PAST MEDICAL HISTORY OF lactose intolerance PAST SURGICAL HISTORY Procedure Laterality Date ARTHROSCOPY KNEE DIAGNOSTIC W/WO SYNOVIAL BX SPX Arthroscopy, knee, left knee DILATION & CURETTAGE DX&/THER NONOBSTETRIC Dilation & curettage DILATION & CURETTAGE DX&/THER NONOBSTETRIC Dilation & curettage LAPAROSCOPY SURG CHOLECYSTECTOMY Cholecystectomy, lap SIGMOIDOSCOPY FLX W/BIOPSY SINGLE/MULTIPLE 08/11/06 TONSILLECTOMY PRIMARY/SECONDARY <AGE 12 Tonsillectomy ALLERGIES Adhesive Tape (Rosins), Bactrim [Sulfamethoxazole-Trimethoprim], Flexeril [Cyclobenzaprine Hcl], Minocycline, Nexium [Esomeprazole Magnesium], Sulfa (Sulfonamide Antibiotics), and Zithromaxz [Other] MEDICATIONS escitalopram oxalate (LEXAPRO) 20 mg tablet Take 1 tablet by mouth once daily. meloxicam (MOBIC) 15 mg tablet Take 1 tablet by mouth once daily. With food. tiZANidine (ZANAFLEX) 4 mg tablet Take 1 tablet by mouth every 8 hours as needed (pain). omeprazole (PRILOSEC) 20 mg capsule Take 1 capsule by mouth once daily. levothyroxine (SYNTHROID) 137 mcg tablet Take 1 tablet by mouth daily before breakfast. FAMILY HISTORY Problem Relation Age of Onset Arthritis Mother Diabetes Father Thyroid Father Coronary Artery Disease Father Stroke Maternal Grandmother TIA Cancer Paternal Grandmother Social History Tobacco Use Smoking status: Never Smoker Smokeless tobacco: Never Used Substance Use Topics Alcohol use: No Drug use: No ASSESSMENT/PLAN: 1. Acute cough - ICD9: 786.2, ICD10: R05.1 - XR CHEST 2V FRONTAL/LAT - XR CHEST 2V FRONTAL/LAT RESULT: Lines, tubes, and devices: None. Lungs and pleura: No consolidation. No lung mass. No pleural effusion. No pneumothorax. Cardiomediastinal silhouette: Normal cardiomediastinal silhouette. Bones and soft tissues: Unremarkable. IMPRESSION IMPRESSION: No acute radiographic abnormality. Retail Associate Manager Bilingual: BARBI Transcribe Date/Time: Jun 01 2022 3:11P Dictated by : DOMINICK PAZ MD Augmentin bid for 5 days and ofloxacin. Prescription instructions reviewed with patient as applicable. Potential red flag symptoms discussed with the patient. Reviewed appropriate action plan to take if red flag symptoms occur. Patient agreeable to treatment plan. Betty Veras APRN.CNP [facility] Instructions* Patient Instructions* Ole Alegria APRN.CNP - 05/24/2022 8:43 AM EDT How to Manage Common Symptoms Associated with COVID for Adults Fever- Fever is a temperature over 100.4 F and can occur when the body is fighting an infection. Tohelp treat a fever: Drink plenty of fluids and stay well hydrated. Eat small amounts of easy to digest food. Rest. Your body needs rest to recover, but getting up and moving around the house frequently is a good idea. You should try to continue doing your normal daily activities (bathing, toileting, grooming, cooking), though you will probably feel tired, and need to rest often. Avoid any heavy activity or exercise, as this will increase your body temperature. Dress in light clothing and stay covered in a light sheet. Keep the room temperature cool. Take a slightly warm (not cold or cool) bath, or apply damp washcloths to the forehead and wrists. Cough- Cough is a common symptom associated with COVID and can be bothersome. To help treat a cough: Stay well hydrated. Try warm water or tea with lemon and/or honey to help soothe the cough. Use a humidifier to add moisture to the air. Try a product with menthol, like a cough drop or a rub for your chest such as Vicks, which can helpreduce cough. Try cough drops. Avoid smoking and other strong odors or perfumes. Try breathing exercises to keep your lungs open and clear. Take a big deep breath through your noseand hold for 5 seconds before slowly releasing. Repeat frequently, while you are awake. Congestion- Runny nose or nasal congestion can occur with COVID. Treatment can help relieve symptoms: Try OTC nasal saline spray, or nasal saline rinse to relieve mucus congestion. Nasal strips can help keep nasal passages open, to increase airflow. Elevating your head with an extra pillow in bed can help reduce congestion. Using a humidifier can increase moisture in the air, and make breathing easier. Sore Throat- Another common symptom with COVID, can be managed at home by: Stay well hydrated. Gargle with salt water mix teaspoon salt with 1 cup of warm water and gargle. This helps to loosen mucus in the back of the throat and may reduce discomfort. Try ice chips, popsicles or lozenges to soothe the throat. Nausea/Vomiting/Diarrhea- These are common symptoms, and staying hydrated is most important. If you are nauseous or vomiting, start with small sips of water every 10-15 minutes and increase astolerated. You can try sucking an ice cube too. If tolerating, you can try pedialyte or Gatorade, or flat sprite or molly-laurie. Start slowly and increase as you are able to. Instead of meals, try smaller, more frequent snacks. Try eating bland foods like crackers, toast, rice, and applesauce. Avoid spicy, greasy or fried foods and dairy containing foods. Even if you aren't feeling hungry due to lack of smell or taste, it is important to try to take in some food when you are able. After drinking and eating, rest in an upright position for up to two hours as needed to help decrease nauseous feelings. Try closing your eyes, avoid moving and watching TV. Avoid strong odors that can make you feel more nauseated. When to seek emergency medical attention Look for emergency warning signs for COVID-19. If having any of these symptoms, seek emergency medical care immediately: Trouble breathing Persistent pain or pressure in the chest New confusion Inability to wake or stay awake Bluish lips or face *This list is not all possible symptoms. Please call your medical provider for any other symptoms that are severe or concerning to you. documented in this encounter[facility] History of Present illness Narrative* Ole Alegria APRN.CNP - 05/24/2022 8:29 AM EDT Subjective HPI Nontoxic-appearing female presents urgent care chief complaint chest congestion sore throat cough. Duration of symptoms 4 days. Most predominant symptom is sore throat. Patient states she does have atransient cough. Contributes this to postnasal drip. Denies any known sick contacts. Recently did return home from vacation. Does have asthma. Has not used inhaler more frequently. No OTC medicationstoday. Denies any fevers body aches chills productive cough chest pain shortness of breath pleuritic pain hemoptysis or change in bowel or bladder habits. Past medical history prescription medicationuse allergies reviewed. 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 Diarrhea Esophageal reflux Hypothyroid Irritable bowel syndrome Irritable bowel Mitral valve disorders(424.0) PMH - PAST MEDICAL HISTORY OF lactose intolerance PAST SURGICAL HISTORY Procedure Laterality Date ARTHROSCOPY KNEE DIAGNOSTIC W/WO SYNOVIAL BX SPX Arthroscopy, knee, left knee DILATION & CURETTAGE DX&/THER NONOBSTETRIC Dilation & curettage DILATION & CURETTAGE DX&/THER NONOBSTETRIC Dilation & curettage LAPAROSCOPY SURG CHOLECYSTECTOMY Cholecystectomy, lap SIGMOIDOSCOPY FLX W/BIOPSY SINGLE/MULTIPLE 08/11/06 TONSILLECTOMY PRIMARY/SECONDARY <AGE 13 Tonsillectomy ALLERGIES Adhesive Tape (Rosins), Bactrim [Sulfamethoxazole-Trimethoprim], Flexeril [Cyclobenzaprine Hcl], Minocycline, Nexium [Esomeprazole Magnesium], Sulfa (Sulfonamide Antibiotics), and Zithromaxz [Other] MEDICATIONS meloxicam (MOBIC) 15 mg tablet Take 1 tablet by mouth once daily. With food. tiZANidine (ZANAFLEX) 4 mg tablet Take 1 tablet by mouth every 8 hours as needed (pain). omeprazole (PRILOSEC) 20 mg capsule Take 1 capsule by mouth once daily. escitalopram oxalate (LEXAPRO) 10 mg tablet Take 1 tablet by mouth once daily. levothyroxine (SYNTHROID) 137 mcg tablet Take 1 tablet by mouth daily before breakfast. FAMILY HISTORY Problem Relation Age of Onset Arthritis Mother Diabetes Father Thyroid Father Coronary Artery Disease Father Stroke Maternal Grandmother TIA Cancer Paternal Grandmother Social History Tobacco Use Smoking status: Never Smoker Smokeless tobacco: Never Used Substance Use Topics Alcohol use: No Drug use: No BP 118/92 Pulse 90 Temp 36.3 C (97.4 F) Resp 20 Wt 130.1 kg (286 lb 12.8 oz) LMP 02/26/2022 SpO2 98% BMI 42.97 kg/m Review of Systems Constitutional: Positive for malaise/fatigue. Negative for chills and fever. HENT: Positive for congestion and sore throat. Negative for ear discharge, ear pain and sinus pain. Eyes: Negative for blurred vision, pain, discharge and redness. Respiratory: Positive for cough. Negative for hemoptysis, sputum production, shortness of breath, wheezing and stridor. Cardiovascular: Negative for chest pain. Gastrointestinal: Negative for abdominal pain, diarrhea, nausea and vomiting. Musculoskeletal: Positive for myalgias. Skin: Negative for itching and rash. Neurological: Negative for dizziness and headaches. Objective Physical Exam Constitutional: General: She is not in acute distress. Appearance: She is not diaphoretic. HENT: Head: Normocephalic. Nose: Congestion present. Mouth/Throat: Mouth: Mucous membranes are moist. Pharynx: Oropharynx is clear. No oropharyngeal exudate or posterior oropharyngeal erythema. Eyes: Conjunctiva/sclera: Conjunctivae normal. Pupils: Pupils are equal, round, and reactive to light. Cardiovascular: Rate and Rhythm: Normal rate and regular rhythm. Heart sounds: Normal heart sounds. Pulmonary: Effort: Pulmonary effort is normal. No tachypnea, accessory muscle usage or respiratory distress. Breath sounds: Normal breath sounds. No stridor. No wheezing, rhonchi or rales. Abdominal: Palpations: Abdomen is soft. Tenderness: There is no abdominal tenderness. Musculoskeletal: Cervical back: Normal range of motion and neck supple. No rigidity or tenderness. Lymphadenopathy: Cervical: No cervical adenopathy. Skin: General: Skin is warm and dry. Neurological: Mental Status: She is alert and oriented to person, place, and time. ASSESSMENT/PLAN: 1. Pharyngitis, unspecified etiology - ICD9: 462, ICD10: J02.9 (primary diagnosis) - STREP A MOLECULAR (POC) 2. Viral illness - ICD9: 079.99, ICD10: B34.9 - COVID WITH FLUA+B, ROUTINE Strep test negative. COVID-19 test ordered. Results pending. Alternative diagnosis discussed. Home quarantining recommended. Patient was educated on supportive therapies. Patient will follow up with primary care provider as needed. Patient was instructed to immediately proceed to emergency room forany new, worsening, or symptoms lasting longer than anticipated. The patient's clinical presentation is otherwise unremarkable at this time. Based on exam and clinical finding, the patient is stable for discharge. Plan of care was discussed with patient. Patient verbalizes understanding and agrees to plan of care. This note was generated using Sound Cl[employer] software. It may contain errors in wording, punctuation, or spelling. Ole Alegria APRN.EBONY documented in this encounterB[facility] Instructions* Patient Instructions* Leticia Amor APRN.CNP - 04/13/2022 8:56 AM EDT 1. Get labwork. 2. Start the meloxicam daily w/ food. 3. You can use the tizanidine as needed for muscle pain, but this can cause drowsiness. 4. Let me know if not working and we need to do the steroids. documented in this encounterBrec[facility] History of Present illness Narrative* Leticia Amor APRN.CNP - 04/13/2022 8:33 AM EDT This is a 51 year old female who presents today with: Patient presents with: Acute Visit: pain in joints/muscles HISTORY OF PRESENT ILLNESS: Jammie Troy is a 51 year old female. Patient presents with: Acute Visit: pain in joints/muscles Pt presents today with complaint of muscle pain and leg weakness. Muscle pain. Refers an all over feeling of pain and muscle weakness. Went for a massage a couple of months ago, which is usually very effective for helping her muscle pains. Doesn't feel like she has muscle strength in the right leg. Today feels like neck is tight, as well. Refers that her upper and lower back are painful to lay down. She will have days that arehard for her to move up the steps, she has a lot of lower joint pain. Has been taking ibuprofen 800 mg and that hasn't been working anymore. She had been using a ball to massage muscles, which also hasn't been helpful. Just feels sore. Like I was in a car accident sore. No recent sickness. Reports that she has a high pain tolerance, but is getting frustrated w/ the chronic nature of symptoms. She reports a family hx of fibromyalgia and concerned heading down this path. Mood/anxiety Lexapro is working. Hasn't needed any xanax recently. 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 Diarrhea Esophageal reflux Hypothyroid Irritable bowel syndrome Irritable bowel Mitral valve disorders(424.0) PMH - PAST MEDICAL HISTORY OF lactose intolerance PAST SURGICAL HISTORY Procedure Laterality Date ARTHROSCOPY KNEE DIAGNOSTIC W/WO SYNOVIAL BX SPX Arthroscopy, knee, left knee DILATION & CURETTAGE DX&/THER NONOBSTETRIC Dilation & curettage DILATION & CURETTAGE DX&/THER NONOBSTETRIC Dilation & curettage LAPAROSCOPY SURG CHOLECYSTECTOMY Cholecystectomy, lap SIGMOIDOSCOPY FLX W/BIOPSY SINGLE/MULTIPLE 08/11/06 TONSILLECTOMY PRIMARY/SECONDARY <AGE 13 Tonsillectomy ALLERGIES Adhesive Tape (Rosins), Bactrim [Sulfamethoxazole-Trimethoprim], Flexeril [Cyclobenzaprine Hcl], Minocycline, Nexium [Esomeprazole Magnesium], Sulfa (Sulfonamide Antibiotics), and Zithromaxz [Other] MEDICATIONS Current Outpatient Medications Medication Sig escitalopram oxalate (LEXAPRO) 10 mg tablet Take 1 tablet by mouth once daily. levothyroxine (SYNTHROID) 137 mcg tablet Take 1 tablet by mouth daily before breakfast. omeprazole (PRILOSEC) 20 mg capsule Take 20 mg by mouth once daily. Current Facility-Administered Medications Medication Dose Route Frequency perflutren lipid microspheres 1.3 mL in NaCl (PF) 0.9% 10 mL injection (DEFINITY) INTRAVENOUS DIRECTED PRN sodium chloride 0.9 % (flush) 10 mL (BD POSIFLUSH) 10 mL INTRAVENOUS DIRECTED PRN FAMILY HISTORY Problem Relation Age of Onset Arthritis Mother Diabetes Father Thyroid Father Coronary Artery Disease Father Stroke Maternal Grandmother TIA Cancer Paternal Grandmother Social History Tobacco Use Smoking status: Never Smoker Smokeless tobacco: Never Used Substance Use Topics Alcohol use: No Drug use: No EXAM: BP 118/86 Pulse 68 Resp 18 LMP 02/26/2022 SpO2 98% PHYSICAL EXAM: General Appearance: Well appearing, alert, in no acute distress, well-hydrated, well nourished.. Skin: Skin color, texture, turgor normal, no suspicious rashes or lesions. Head: Normocephalic, no masses, lesions, tenderness or abnormalities. Eyes: Anicteric sclera. Pupils are equally round and reactive to light. Extraocular movements are intact. . Neck: Supple, no adenopathy; thyroid symmetric Lungs: Lungs clear to auscultation. No wheezing, rhonchi, rales.. Heart: RRR without murmur, gallop, or rubs. No ectopy. Abdomen: Abdomen soft, non-tender. Bowel sounds normal. No masses, organomegaly. Extremities: No deformities, edema, skin discoloration, clubbing or cyanosis. Good capillary refill. Neurologic: Gait normal. ASSESSMENT/PLAN: 1. Myalgia - ICD9: 729.1, ICD10: M79.10 (primary diagnosis) We will get testing to rule out causes. We will go ahead and start meloxicam daily. We can also use tizanidine as needed for muscle pain/spasms. If symptoms do not improve with these interventions, patient will message for a short course of steroids. - CK CREATINE KINASE - SED RATE WESTERGREN - C-REACTIVE PROTEIN (CRP) - CBC + DIFF - COMP METABOLIC PANEL - VITAMIN D 25 HYDROXY - MAGNESIUM BLD - MELOXICAM 15 MG TABLET - TIZANIDINE 4 MG TABLET 2. Weakness of both lower extremities - ICD9: 729.89, ICD10: R29.898 - CK CREATINE KINASE - SED RATE WESTERGREN - C-REACTIVE PROTEIN (CRP) - CBC + DIFF - COMP METABOLIC PANEL - VITAMIN D 25 HYDROXY - MAGNESIUM BLD - MELOXICAM 15 MG TABLET - TIZANIDINE 4 MG TABLET 3. Hypothyroidism, unspecified type - ICD9: 244.9, ICD10: E03.9 - TSH BLD - T4 FREE/FREE THYROX - T3 BLD Discussed treatment plan and patient voices understanding. Patient's questions answered appropriately. Medications and potential side effects were discussed and patient voices understanding. Return to the office as scheduled or as needed for worsening/no improvement. Leticia Amor APRN.EBONY This note was partially generated using Sound Clips voice recognition system. Note was reviewed for accuracy. There may be minor misspellings or grammar miscues with Sound [employer]ips voice recognition. documented in this encounterB[facility]04[facility] History of Present illness Narrative* Ole Alegria APRN.EBONY - 03/04/2022 12:13 PM EDT Subjective HPI Nontoxic appearing female presents urgent care chief complaint cold for 2 weeks. Duration of symptoms 14 days. Associated symptoms chest congestion nonproductive cough sinus pressure fatigue. Most predominant symptoms sinus pressure fatigue. Patient states she does have a transient headache this has been present throughout the whole duration of this illness as well. Rates pain 2 out of 10. Deniesany OTC medication use recently. Has tried DayQuil. This is helped some. No known sick contacts. Denies any fever productive cough chest pain shortness of breath pleuritic pain hemoptysis nausea vomiting abdominal pain or change in bowel or bladder habits. Past medical history prescription medication use allergies reviewed. Significant medical history of asthma. 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 Diarrhea Esophageal reflux Hypothyroid Irritable bowel syndrome Irritable bowel Mitral valve disorders(424.0) PMH - PAST MEDICAL HISTORY OF lactose intolerance PAST SURGICAL HISTORY Procedure Laterality Date ARTHROSCOPY KNEE DIAGNOSTIC W/WO SYNOVIAL BX SPX Arthroscopy, knee, left knee DILATION & CURETTAGE DX&/THER NONOBSTETRIC Dilation & curettage DILATION & CURETTAGE DX&/THER NONOBSTETRIC Dilation & curettage LAPAROSCOPY SURG CHOLECYSTECTOMY Cholecystectomy, lap SIGMOIDOSCOPY FLX W/BIOPSY SINGLE/MULTIPLE 08/11/06 TONSILLECTOMY PRIMARY/SECONDARY <AGE 13 Tonsillectomy ALLERGIES Adhesive Tape (Rosins), Bactrim [Sulfamethoxazole-Trimethoprim], Flexeril [Cyclobenzaprine Hcl], Minocycline, Nexium [Esomeprazole Magnesium], Sulfa (Sulfonamide Antibiotics), and Zithromaxz [Other] MEDICATIONS escitalopram oxalate (LEXAPRO) 10 mg tablet Take 1 tablet by mouth once daily. levothyroxine (SYNTHROID) 137 mcg tablet Take 1 tablet by mouth daily before breakfast. omeprazole (PRILOSEC) 20 mg capsule Take 20 mg by mouth once daily. FAMILY HISTORY Problem Relation Age of Onset Arthritis Mother Diabetes Father Thyroid Father Coronary Artery Disease Father Stroke Maternal Grandmother TIA Cancer Paternal Grandmother Social History Tobacco Use Smoking status: Never Smoker Smokeless tobacco: Never Used Substance Use Topics Alcohol use: No Drug use: No BP 124/80 Temp 36.5 C (97.7 F) Resp 18 Wt 129.3 kg (285 lb) LMP 02/26/2022 SpO2 98% BMI42.70 kg/m Review of Systems Constitutional: Negative for chills, fever and malaise/fatigue. HENT: Positive for congestion and sinus pain. Negative for ear discharge, ear pain and sore throat. Eyes: Negative for blurred vision, pain, discharge and redness. Respiratory: Positive for cough. Negative for hemoptysis, sputum production, shortness of breath, wheezing and stridor. Cardiovascular: Negative for chest pain. Gastrointestinal: Negative for abdominal pain, diarrhea, nausea and vomiting. Musculoskeletal: Negative for myalgias. Skin: Negative for itching and rash. Neurological: Positive for headaches. Negative for dizziness. Objective Physical Exam Vitals and nursing note reviewed. Constitutional: General: She is not in acute distress. Appearance: She is not diaphoretic. HENT: Head: Normocephalic and atraumatic. Jaw: No trismus. Right Ear: Hearing, ear canal and external ear normal. No decreased hearing noted. No drainage, swelling or tenderness. No mastoid tenderness. Tympanic membrane is not perforated, erythematous or bulging. Left Ear: Hearing, tympanic membrane, ear canal and external ear normal. No decreased hearing noted. No drainage, swelling or tenderness. No mastoid tenderness. Tympanic membrane is not perforated, erythematous or bulging. Nose: Congestion present. Right Sinus: Maxillary sinus tenderness present. Left Sinus: Maxillary sinus tenderness present. Mouth/Throat: Lips: [place]. Mouth: Mucous membranes are moist. Pharynx: Oropharynx is clear. Uvula midline. No pharyngeal swelling, oropharyngeal exudate, posterior oropharyngeal erythema or uvula swelling. Eyes: General: Right eye: No discharge. Left eye: No discharge. Conjunctiva/sclera: Conjunctivae normal. Pupils: Pupils are equal, round, and reactive to light. Cardiovascular: Rate and Rhythm: Normal rate and regular rhythm. Heart sounds: Normal heart sounds. Pulmonary: Effort: Pulmonary effort is normal. No tachypnea, accessory muscle usage or respiratory distress. Breath sounds: No stridor. Wheezing present. No rhonchi or rales. Chest: Chest wall: No tenderness. Abdominal: Palpations: Abdomen is soft. Tenderness: There is no abdominal tenderness. Musculoskeletal: General: No tenderness. Normal range of motion. Cervical back: Normal range of motion and neck supple. No rigidity or tenderness. Lymphadenopathy: Head: Right side of head: No submental, submandibular, tonsillar, preauricular, posterior auricular or occipital adenopathy. Left side of head: No submental, submandibular, tonsillar, preauricular, posterior auricular or occipital adenopathy. Cervical: No cervical adenopathy. Right cervical: No superficial or posterior cervical adenopathy. Left cervical: No superficial or posterior cervical adenopathy. Skin: General: Skin is warm and dry. Findings: No rash. Neurological: Mental Status: She is alert and oriented to person, place, and time. ASSESSMENT/PLAN: 1. Sinobronchitis - ICD9: 473.9, 490, ICD10: J32.9, J40 (primary diagnosis) 2. Other acute sinusitis, recurrence not specified - ICD9: 461.8, ICD10: J01.80 - METHYLPREDNISOLONE 4 MG TABLETS IN A DOSE PACK Patient diagnosed with sinobronchitis. Patient did have some wheezing on auscultation of lungs. No rhonchi's rales or crackles noted. Chest x-ray offered declined x-ray at this time. Patiently placedon Augmentin and Medrol Dosepak. Patient was educated on supportive therapies. Patient will follow up with primary care provider as needed. Patient was instructed to immediately proceed to emergency room for any new, worsening, or symptoms lasting longer than anticipated. The patient's clinical presentation is otherwise unremarkable at this time. Based on exam and clinical finding, the patient isstable for discharge. Plan of care was discussed with patient. Patient verbalizes understanding andagrees to plan of care. This note was generated using Sound [employer] software. It may contain errors in wording, punctuation, or spelling. Ole Alegria APRN.EBONY [facility] Future App[facility]ments [facility]* Diagnosis Sinobronchitis- Primary Unspecified sinusitis (chronic) Other acute sinusitis, recurrence not specified [facility] Diagnosis Encounter for screening mammogram for breast cancer documented [facility]* Diagnosis Myalgia- Primary Mylagia and myositis, unspecified Weakness of both lower extremities Hypothyroidism, unspecified type [facility]* Diagnosis Pharyngitis, unspecified etiology- Primary Viral illness Unspecified viral infection, in conditions classified elsewhere and of unspecified site documented in this [facility]* Diagnosis Acute cough- [facility] [facility] Diagnosis Elevated alkaline phosphatase level- Primary Other nonspecific abnormal serum enzyme levels Fatigue, unspecified type [facility] Diagnosis Hypothyroidism, acquired Unspecified hypothyroidism documented in this encounter [facility] note* Diagnosis Epigastric pain- Primary Abdominal pain, epigastric Colon cancer screening Special screening for malignant neoplasms, colon Elevated alkaline phosphatase level Other nonspecific abnormal serum enzyme levels Weight gain Abnormal weight gain documented in this encounter [facility] note* Diagnosis Elevated alkaline phosphatase level- Primary Other nonspecific abnormal serum enzyme levels [facility] this [facility] Diagnosis Elevated alkaline phosphatase level Other nonspecific abnormal serum enzyme levels [facility] this [facility] Diagnosis Obesity, Class III, BMI 40-49.9 (morbid obesity) (HCC)- Primary Morbid obesity Weight gain Abnormal weight gain documented in this encounter [facility] note* Diagnosis Screening for colon cancer- Primary Special screening for malignant neoplasms, colon Epigastric pain Abdominal pain, epigastric documented in this encounter [facility] note* Diagnosis Dietary counseling- Primary Dietary surveillance and counseling Obesity, Class III, BMI 40-49.9 (morbid obesity) (HCC) Morbid obesity [facility] Diagnosis Obesity, Class III, BMI 40-49.9 (morbid obesity) (HCC)- Primary Morbid obesity Dietary counseling Dietary surveillance and counseling documented in this encounter 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 note* Diagnosis Obesity, Class III, BMI 40-49.9 (morbid obesity) (HCC)- Primary Morbid obesity [facility]* Diagnosis Foot pain, bilateral- Primary Pain in limb [facility] this [facility] Diagnosis Pain- Primary Generalized pain [facility] this [facility]* Diagnosis COVID-19- Primary documented in this encounter [facility] note* Diagnosis Plantar fasciitis- Primary Plantar fascial fibromatosis Foot pain, bilateral Pain in limb documented in this encounter [facility] note* Diagnosis Foot pain, bilateral Pain in limb Plantar fasciitis Plantar fascial fibromatosis documented in this encounter [facility] note* Diagnosis Plantar fasciitis- Primary Plantar fascial fibromatosis Foot pain, bilateral Pain in limb documented in this encounter [facility] note* Diagnosis Encounter for screening mammogram for breast cancer documented in this encounter [facility] note* Diagnosis Dermatitis of lip- Primary Elevated C-reactive protein (CRP) Bruising Contusion of unspecified site Acute pain of left knee Acute right ankle pain documented in this encounter [facility] note* Diagnosis Plantar fasciitis- Primary Plantar fascial fibromatosis Chronic pain of right ankle documented in this encounter [facility] note* Diagnosis Pain in left hip- Primary Pain in joint, pelvic region and thigh Acute pain of left knee Acute right ankle pain documented in this encounter [facility] note* Diagnosis Chronic pain of right ankle documented in this encounter [facility] note* Diagnosis Elevated C-reactive protein (CRP)- Primary Acute pain of left knee Acute right ankle pain Myalgia Mylagia and myositis, unspecified Arthralgia, unspecified joint documented in this encounter [facility] note* Diagnosis Acute pain of left knee Acute right ankle pain Pain in left hip Pain in joint, pelvic region and thigh documented in this encounter [facility] note* Diagnosis Wound infection- Primary Posttraumatic wound infection not elsewhere classified documented in this encounter [facility] note* Diagnosis Pain in right hip- Primary Pain in joint, pelvic region and thigh Chronic pain of right ankle Subjective muscle weakness Muscle weakness (generalized) documented in this encounter [facility] note* Diagnosis Sinobronchitis- Primary Unspecified sinusitis (chronic) Acute cough documented in this encounter [facility] note* Diagnosis Dermatitis of lip- Primary Epigastric pain Abdominal pain, epigastric Acute pain of left knee Acute right ankle pain Pain in left hip Pain in joint, pelvic region and thigh documented in this encounter [facility] note* Diagnosis Acute pain of left knee Acute right ankle pain Pain in left hip Pain in joint, pelvic region and thigh documented in this encounter [facility] note* Diagnosis Sinobronchitis- Primary Unspecified sinusitis (chronic) Perioral dermatitis Rosacea documented in this encounter [facility] note* Diagnosis SOB (shortness of breath)- Primary Shortness of breath Chest discomfort Other chest pain documented in this encounter [facility] note* Diagnosis Obesity, Class III, BMI 40-49.9 (morbid obesity) (HCC)- Primary Morbid obesity IFG (impaired fasting glucose) Impaired fasting glucose documented in this encounter [facility] note* Diagnosis Pain Generalized pain documented in this encounter [facility] note* Diagnosis Left ear pain- Primary Otalgia, unspecified Cochlear tumor documented in this encounter [facility] note* Diagnosis Left ear pain Otalgia, unspecified Cochlear tumor documented in this encounter [facility] note* Diagnosis Achilles tendinitis of right lower extremity- Primary Achilles bursitis or tendinitis Injury of right ankle, initial encounter documented in this encounter [facility] note* Diagnosis Influenza A- Primary Influenza with other respiratory manifestations Influenza-like illness Influenza with other respiratory manifestations documented in this encounter [facility] course Narrative No data available for this section [facility] Discharge instructions No data available for this section [facility] Progress note No data available for this section [facility] Reason for referral (narrative)* Diagnostic Procedure Only (Routine) - Pending Review Specialty Diagnoses / Procedures Referred By Carson t Referred To Contact BR IM[facility] Diagnoses Encounter for screening mammogram for breast cancer Procedures LISA SCREENING SCREENING MAMMOGRAPHY BI 2-VIEW BREAST INC CAD Machelle Harry MD [address] [place] [address] [facility] [address] [place] [address] Referral ID Status Reason Start Date Expiration Date Visits Requested Visits Authorized [id number] Pending Review Auto-Generat ed Referral 03/31/2022 04/30/2023 1 1 [facility] for referral (narrative)* Diagnostic Procedure Only (Routine) - Pending Review Specialty Diagnoses / Procedures Referred By Contac t Referred To Contact US IMAGING Diagnoses Elevated alkaline phosphatase level Procedures US ABD RT UPPER QUADRANT US ABDOMINAL REAL TIME W/IMAGE LIMITED Leticia Amor APRN.[employer] [address] [place] [address] Us Imaging Referral ID Status Reason Start Date Expiration Date Visits Requested Visits Authorized [id number] Pending Review Auto-Generat ed Referral 08/16/2022 09/15/2023 1 1 [facility] for referral (narrative)* Diagnostic Procedure Only (Routine) - Closed Specialty Diagnoses / Procedures Referred By Contac t Referred To Contact US IMAGING Diagnoses Elevated alkaline phosphatase level Procedures US ABD RT UPPER QUADRANT US ABDOMINAL REAL TIME W/IMAGE LIMITED Leticia Amor APRN.[employer] [address] [place] [address] Us Imaging Referral ID Status Reason Start Date Expiration Date V isits Requested Visits Authorized [id number] Closed Auto-Generate d Referral 08/16/2022 09/15/2023 1 1 [facility] for referral (narrative)* Outpatient Procedure (Routine) - Pending Review Specialty Diagnoses / Procedures Referred By Contac t Referred To Contact [facility] Diagnoses Screening for colon cancer Procedures COLONOSCOPY SCREENING COLONOSCOPY FLX DX W/COLLJ SPEC WHEN Stephanie Durán APRN.CNP [address] [place] [address] [facility] [address] [place] [address] Referral ID Status Reason Start Date Expiration Date Visits Requested Visits Authorized [id number] Pending Review Auto-Generat ed Referral 09/08/2023 1 1 * Outpatient Procedure (Routine) - Pending Review Specialty Diagnoses / Procedures Referred By Contac t Referred To Contact [facility] Diagnoses Epigastric pain Procedures EGD DIAGNOSTIC ESOPHAGOGASTRODUODENOSC OPY TRANSORAL Stephanie Sage APRN.CNP [address] [place] [address] [place] [address] [facility] [address] [place] [address] Referral ID Status Reason Start Date Expiration Date Visits Requested Visits Authorized [id number] Pending Review Auto-Generat ed Referral 09/08/2023 1 1 [facility] for referral (narrative)* Diagnostic Procedure Only (Routine) - Authorized Specialty Diagnoses / Procedures Referred By Carson huynh Referred To Contact XR IMAGING Diagnoses Pain Procedures XR FOOT GENERAL 3V AP/LAT/OBL BILATERAL RADEX FOOT COMPLETE MINIMUM 3 VIEWS Freddie Hanna [address] [place] [address] Xr Imaging Referral ID Status Reason Start Date Expiration Date Visits Requested Visits Authorized [id number] Authorized Auto-Generat ed Referral 01/26/2023 02/25/2024 1 1 [facility] [place] for referral (narrative)* Diagnostic Procedure Only (Routine) - Pending Review Specialty Diagnoses / Procedures Referred By Carson huynh Referred To Contact [facility] Diagnoses Encounter for screening mammogram for breast cancer Procedures LISA SCREENING SCREENING MAMMOGRAPHY BI 2-VIEW BREAST INC CAD Machelle Harry MD [address] [place] [address] [facility] [address] [place] [address] Referral ID Status Reason Start Date Expiration Date Visits Requested Visits Authorized [id number] Pending Review Auto-Generat ed Referral 03/02/2023 03/31/2024 1 1 [facility] for referral (narrative)* Diagnostic Procedure Only (Routine) - Closed Specialty Diagnoses / Procedures Referred By Contac t Referred To Contact XR IMAGING Diagnoses Pain Procedures XR FOOT GENERAL 3V AP/LAT/OBL BILATERAL RADEX FOOT COMPLETE MINIMUM 3 VIEWS Freddie Hanna [address] [place] [address] [place] [address] Referral ID Status Reason Start Date Expiration Date V isits Requested Visits Authorized [id number] Closed Auto-Generate d Referral 01/26/2023 02/25/2024 1 1 [facility] for referral (narrative)* Outpatient Procedure (Routine) - Authorized Specialty Diagnoses / Procedures Referred By Contac t Referred To Contact [facility] Diagnoses Left ear pain Cochlear tumor Procedures EPIL EEG LONG EEG EXTENDED MONITORING 61-119 MINUTES ELECTROENCEPHALOGRAM REC COMA/SLEEP ONLY Eva Griffith DO [address] [place] [address] [facility] [address] [place] [address] Referral ID Status Reason Start Date Expiration Date Visits Requested Visits Authorized [id number] Authorized Auto-Generat ed Referral 3 10/04/2024 1 1 * MRI/CT (Routine) - Authorized Specialty Diagnoses / Procedures [facility]erred To Contact [facility] Diagnoses Left ear pain Cochlear tumor Procedures MRI BRAIN WO/W IVCON MRI BRAIN BRAIN STEM W/O W/CONTRAST MATERIAL Eva Griffith DO [address] [place] [address] [place] [address] Referral ID Status Reason Start Date Expiration Date Visits Requested Visits Authorized [id number] Authorized Auto-Generat ed Referral 3 11/02/2024 1 1 [facility] for visit Narrative* Diagnostic Procedure Only (Routine) - Closed Specialty Diagnoses / Procedures Referred By Contac t Referred To Contact XR IMAGING Diagnoses Pain Procedures XR FOOT GENERAL 3V AP/LAT/OBL BILATERAL RADEX FOOT COMPLETE MINIMUM 3 VIEWS Freddie H[address] [place] [address] [place] [address] Referral ID Status Reason Start Date Expiration Date V isits Requested Visits Authorized [id number] Closed Auto-Generate d Referral 01/26/2023 02/25/2024 1 1 [facility] Procedure (Routine) - Closed Specialty Diagnoses / Procedures Referred By Contac t Referred To Contact [facility] Diagnoses Left ear pain Cochlear tumor Procedures EPIL EEG LONG EEG EXTENDED MONITORING 61-119 MINUTES ELECTROENCEPHALOGRAM REC COMA/SLEEP ONLY Eva Griffith DO [address] [place] [address] 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 Advance Directive(s) 05/01/2021 9:57 AM Documents on File Type Date Recorded Patient Conservation Specialist Expl anation Advance Directive(s) 05/01/2021 9:57 AM Reason for Referral Specialty Diagnoses / Procedures Referred By Contac t Referred To Contact Endocrinology Diagnoses Weight gain Procedures CONSULT TO ENDOCRINOLOGY OFFICE/OUTPATIENT NEW HIGH MDM 60-74 MINUTES Stephanie Tabares APRN.[employer] [email or web address] [place] [address] Referral ID Status Reason Start Date Expiration Date Visits Requested Visits Authorized [id number] Authorized PCP Requested Referral 08/12/2022 08/12/2023 1 1 Specialty Diagnoses / Procedures Referred By Contac t Referred To Contact Diagnoses Elevated alkaline phosphatase level Procedures CONSULT TO HEPATOLOGY OFFICE/OUTPATIENT NEW HIGH MDM 60-74 MINUTES Stephanie Tabares APRN.[employer] [address] [place] [address] Referral ID Status Reason Start Date Expiration Date Visits Requested Visits Authorized [id number] Authorized PCP Requested Referral 08/12/2022 08/12/2023 1 1 Specialty Diagnoses / Procedures Referred By Contac t Referred To Contact [facility] Diagnoses Colon cancer screening Procedures COLONOSCOPY SCREENING COLONOSCOPY FLX DX W/COLLJ SPEC WHEN PFRMD Stephanie Tabares APRN.[employer] [address] [place] [address] [facility] Disease [address] [address] Referral ID Status Reason Start Date Expiration Date Visits Requested Visits Authorized [id number] Pending Review Auto-Generat ed Referral 08/12/2022 08/12/2023 1 1 Specialty Diagnoses / Procedures Referred By Contac t Referred To Contact [facility] Diagnoses Epigastric pain Procedures EGD DIAGNOSTIC ESOPHAGOGASTRODUODENOSC OPY TRANSORAL DIAGNOSTIC Stephanie Tabares APRN.[employer] [address] [place] [address] [facility] Disease [address] [address] Referral ID Status Reason Start Date Expiration Date Visits Requested Visits Authorized [id number] Pending Review Auto-Generat ed Referral 08/12/2022 08/12/2023 1 1 Specialty Diagnoses / Procedures Referred By Contac t Referred To Contact Nutrition Diagnoses Obesity, Class III, BMI 40-49.9 (morbid obesity) (HCC) Procedures CONSULT TO NUTRITION THERAPY OFFICE/OUTPATIENT [facility] 60-[place] [address] [place] [address] Referral ID Status Reason Start Date Expiration Date Visits Requested Visits Authorized [id number] Authorized PCP Requested Referral 09/01/2023 1 1 Specialty Diagnoses / Procedures Referred By Contac t Referred To Contact Podiatry Diagnoses Foot pain, bilateral Procedures CONSULT TO PODIATRY OFFICE/OUTPATIENT [facility] MDM 60-74 MINUTES Leticia Amor APRN.[employer] [address] [place] [address] Referral ID Status Reason Start Date Expiration Date Visits Requested Visits Authorized [id number] Authorized PCP Requested Referral 01/24/2023 01/24/2024 1 1 Specialty Diagnoses / Procedures Referred By Contac t Referred To Contact PHYSICAL THERAPY Diagnoses Foot pain, bilateral Plantar fasciitis Procedures CONSULT TO PHYSICAL THERAPY PHYSICAL THERAPY EVALUATION HIGH COMPLEX 45 MINS Freddie Hanna [address] [place] [address] Pt [facility] [address] [place] [address] Referral ID Status Reason Start Date Expiration Date Visits Requested Visits Authorized [id number] Authorized Auto-Generat ed Referral 11/21/2022 11/20/2023 60 60 Specialty Diagnoses / Procedures Referred By Contac t Referred To Contact [facility] Diagnoses Foot pain, bilateral Plantar fasciitis Procedures PT REHAB FOLLOW UP ORDER THERAPEUTIC EXERCISES RE, EA 15 MIN. Pt [facility] [address] [place] [address] [facility] [address] [place] [address] Referral ID Status Reason Start Date Expiration Date Visits Requested Visits Authorized [id number] Pending Review PCP Requested Referral Auto-Generate d Referral 02/16/2023 05/17/2023 1 1 Specialty Diagnoses / Procedures Referred By Contac t Referred To Contact Orthopedics Diagnoses Acute pain of left knee Acute right ankle pain Procedures CONSULT TO ORTHOPAEDICS OFFICE/OUTPATIENT [facility] MDM 60-74 MINUTES Leticia Amor, MARGARITA.[employer] [address] [place] [address] Referral ID Status Reason Start Date Expiration Date Visits Requested Visits Authorized [id number] Authorized PCP Requested Referral 03/09/2023 03/08/2024 1 1 Specialty Diagnoses / Procedures Referred By Contac t Referred To Contact XR IMAGING Diagnoses Acute right ankle pain Procedures XR ANKLE GENERAL 3V AP/LAT/OBL RIGHT RADEX ANKLE COMPLETE MINIMUM 3 VIEWS Leticia Amor, DIRECT ENTRY MIDWIFE.[employer] [address] [place] [address] Xr Imaging Referral ID Status Reason Start Date Expiration Date V isits Requested Visits Authorized [id number] Closed Auto-Generate d Referral 03/09/2023 04/07/2024 1 1 Specialty Diagnoses / Procedures Referred By Contac t Referred To Contact XR IMAGING Diagnoses Acute pain of left knee Procedures XR KNEE GENERAL 4V AP BOTH/PA BOTH/LAT/MERC LEFT RADIOLOGIC EXAM KNEE COMPLETE 4/MORE VIEWS Leticia Amor, DIRECT ENTRY MIDWIFE.[employer] [address] [place] [address] Xr Imaging Referral ID Status Reason Start Date Expiration Date V isits Requested Visits Authorized [id number] Closed Auto-Generate d Referral 03/09/2023 04/07/2024 1 1 Specialty Diagnoses / Procedures Referred By Contac t Referred To Contact MR IMAGING Diagnoses Chronic pain of right ankle Procedures MRI ANKLE WO IVCON RIGHT MRI ANY JT LOWER EXTREM W/O CONTRAST Freddie Chavez [address] [place] [address] Mr Imaging Referral ID Status Reason Start Date Expiration Date Visits Requested Visits Authorized [id number] Authorized Auto-Generat ed Referral 03/16/2023 04/14/2024 1 1 Specialty Diagnoses / Procedures Referred By Contac t Referred To Contact [facility] Diagnoses Acute pain of left knee Pain in left hip Procedures CONSULT TO PHYSICAL THERAPY PHYSICAL THERAPY EVALUATION HIGH COMPLEX 45 MINS Antoine Nam MD [address] [place] [address] [facility] [address] [place] [address] Referral ID Status Reason Start Date Expiration Date Visits Requested Visits Authorized [id number] Pending Review Auto-Generat ed Referral 03/21/2023 03/20/2024 1 1 Referral ID Status Reason Start Date Expiration Date V isits Requested Visits Authorized [id number] Closed Auto-Generate d Referral 03/16/2023 04/14/2024 1 1 Specialty Diagnoses / Procedures Referred By Contac t Referred To Contact Rheumatology Diagnoses Elevated C-reactive protein (CRP) Myalgia Arthralgia, unspecified joint Procedures CONSULT TO RHEUM/IMMUN DISEASE OFFICE/OUTPATIENT [facility] MDM 60-74 MINUTES Lorenzo Mars APRN.[employer] [address] [place] [address] Referral ID Status Reason Start Date Expiration Date Visits Requested Visits Authorized [id number] Authorized PCP Requested Referral 05/09/2023 05/08/2024 1 1 Specialty Diagnoses / Procedures Referred By Contac t Referred To Contact [facility] Diagnoses Pain in right hip Chronic pain of right ankle Subjective muscle weakness Procedures CONSULT TO PHYSICAL THERAPY PHYSICAL THERAPY EVALUATION [facility] COMPLEX 45 MINS Neville Grullon PA-C [address] [facility] [place] [address] [facility] [address] [place] [address] Referral ID Status Reason Start Date Expiration Date Visits Requested Visits Authorized [id number] Pending Review Auto-Generat ed Referral 05/25/2023 05/24/2024 1 1 Specialty Diagnoses / Procedures Referred By Contac t Referred To Contact Dermatology Diagnoses Dermatitis of lip Procedures CONSULT TO DERMATOLOGY Leticia Amor APRN.[employer] [address] [place] [address] Referral ID Status Reason Start Date Expiration Date Visits Requested Visits Authorized [id number] Ref Not Required PCP Requested Referral 06/20/2023 06/19/2024 1 1 Specialty Diagnoses / Procedures Referred By Contac t Referred To Contact Diagnoses Obesity, Class III, BMI 40-49.9 (morbid obesity) (HCC) IFG (impaired fasting glucose) Lauren Crisostomo, DIRECT ENTRY [employer]WIFE.[employer] [address] [place] [address] Referral ID Status Reason Start Date Expiration Date V isits Requested Visits Authorized [id number] Authorized 07/20/2023 10/20/2023 1 1 Specialty Diagnoses / Procedures Referred By Contac t Referred To Contact Podiatry Diagnoses Injury of right ankle, initial encounter Achilles tendinitis of right lower extremity Procedures CONSULT TO PODIATRY OFFICE/OUTPATIENT [facility] MDM 60-74 MINUTES Silvia Thomas PA-C [address] [place] [address] Referral ID Status Reason Start Date Expiration Date Visits Requested Visits Authorized [id number] Authorized PCP Requested Referral 2023 10/27/2024 1 1 Specialty Diagnoses / Procedures Referred By Contac t Referred To Contact XR IMAGING Diagnoses Injury of right ankle, initial encounter Procedures XR ANKLE GENERAL 3V AP/LAT/OBL RIGHT RADEX ANKLE COMPLETE MINIMUM 3 VIEWS Silvia Thomas PA-C [address] [place] [address] [place] [address] Referral ID Status Reason Start Date Expiration Date V isits Requested Visits Authorized [id number] Closed Auto-Generate d Referral 2023 11/26/2024 1 1 Additional Source Comments INFORMATION SOURCE (unrecogn ized section and content) DATE CREATED AUTHOR AUTHOR'S ORGANIZ ATION 10/12/2022 [facility] ([place]) DATE CREATED AUTHOR AUTHOR'S ORGANIZ ATION 03/31/2023 [facility] DATE CREATED AUTHOR AUTHOR'S ORGANIZ ATION 12/06/2023 [facility] DATE CREATED AUTHOR AUTHOR'S ORGANIZ ATION 12/09/2023 [facility] Source Comments (unrecognize d section and content) In the event this informatio n is protected by the Federal Confidentiality of Alcohol and Drug Abuse Patient Records regulations: The Federal rules restrict any use of the information to criminally investigate or prosecute any alcohol or drug abuse patient.[facility] the event this information is protected by the Federal Confidentiality of Alcohol and Drug Abuse Patient Records regulations: The Federal rules restrict any use of the information to criminally investigate or prosecute any alcohol or drug abuse patient.[facility] the event this information is protected by the Federal Confidentiality of Alcohol and Drug Abuse Patient Records regulations: The Federal rules restrict any use of the information to criminally investigate or prosecute any alcohol or drug abuse patient.[facility]In the event this information is protected by the Federal Confidentiality of Alcohol and Drug Abuse Patient Records regulations: The Federal rules restrict any use of the information to criminally investigate or prosecute any alcohol or drug abuse patient.[facility]In the event this information is protected by the Federal Confidentiality of Alcohol and Drug Abuse Patient Records regulations: The Federal rules restrict any use of the information to criminally investigate or prosecute any alcohol or drug abuse patient.[facility]In the event this information is protected by the Federal Confidentiality of Alcohol and Drug Abuse Patient Records regulations: The Federal rules restrict any use of the information to criminally investigate or prosecute any alcohol or drug abuse patient.[facility] HospitalIn the event this information is protected by the Federal Confidentiality of Alcohol and Drug Abuse Patient Records regulations: The Federal rules restrict any use of the information to criminally investigate or prosecute any alcohol or drug abuse patient.[facility]In the event this information is protected by the Federal Confidentiality of Alcohol and Drug Abuse Patient Records regulations: The Federal rules restrict any use of the information to criminally investigate or prosecute any alcohol or drug abuse patient.[facility]In the event this information is protected by the Federal Confidentiality of Alcohol and Drug Abuse Patient Records regulations: The Federal rules restrict any use of the information to criminally investigate or prosecute any alcohol or drug abuse patient.[facility]In the event this information is protected by the Federal Confidentiality of Alcohol and Drug Abuse Patient Records regulations: The Federal rules restrict any use of the information to criminally investigate or prosecute any alcohol or drug abuse patient.[facility] HospitalIn the event this information is protected by the Federal Confidentiality of Alcohol and Drug Abuse Patient Records regulations: The Federal rules restrict any use of the information to criminally investigate or prosecute any alcohol or drug abuse patient.[facility] HospitalIn the event this information is protected by the Federal Confidentiality of Alcohol and Drug Abuse Patient Records regulations: The Federal rules restrict any use of the information to criminally investigate or prosecute any alcohol or drug abuse patient.[facility] HospitalIn the event this information is protected by the Federal Confidentiality of Alcohol and Drug Abuse Patient Records regulations: The Federal rules restrict any use of the information to criminally investigate or prosecute any alcohol or drug abuse patient.[facility] HospitalIn the event this information is protected by the Federal Confidentiality of Alcohol and Drug Abuse Patient Records regulations: The Federal rules restrict any use of the information to criminally investigate or prosecute any alcohol or drug abuse patient.[facility] HospitalIn the event this information is protected by the Federal Confidentiality of Alcohol and Drug Abuse Patient Records regulations: The Federal rules restrict any use of the information to criminally investigate or prosecute any alcohol or drug abuse patient.[facility] HospitalIn the event this information is protected by the Federal Confidentiality of Alcohol and Drug Abuse Patient Records regulations: The Federal rules restrict any use of the information to criminally investigate or prosecute any alcohol or drug abuse patient.[facility] HospitalIn the event this information is protected by the Federal Confidentiality of Alcohol and Drug Abuse Patient Records regulations: The Federal rules restrict any use of the information to criminally investigate or prosecute any alcohol or drug abuse patient.[facility] HospitalIn the event this information is protected by the Federal Confidentiality of Alcohol and Drug Abuse Patient Records regulations: The Federal rules restrict any use of the information to criminally investigate or prosecute any alcohol or drug abuse patient.[facility] HospitalIn the event this information is protected by the Federal Confidentiality of Alcohol and Drug Abuse Patient Records regulations: The Federal rules restrict any use of the information to criminally investigate or prosecute any alcohol or drug abuse patient.[facility]In the event this information is protected by the Federal Confidentiality of Alcohol and Drug Abuse Patient Records regulations: The Federal rules restrict any use of the information to criminally investigate or prosecute any alcohol or drug abuse patient.[facility] HospitalIn the event this information is protected by the Federal Confidentiality of Alcohol and Drug Abuse Patient Records regulations: The Federal rules restrict any use of the information to criminally investigate or prosecute any alcohol or drug abuse patient.[facility] HospitalIn the event this information is protected by the Federal Confidentiality of Alcohol and Drug Abuse Patient Records regulations: The Federal rules restrict any use of the information to criminally investigate or prosecute any alcohol or drug abuse patient.[facility] HospitalIn the event this information is protected by the Federal Confidentiality of Alcohol and Drug Abuse Patient Records regulations: The Federal rules restrict any use of the information to criminally investigate or prosecute any alcohol or drug abuse patient.[facility] HospitalIn the event this information is protected by the Federal Confidentiality of Alcohol and Drug Abuse Patient Records regulations: The Federal rules restrict any use of the information to criminally investigate or prosecute any alcohol or drug abuse patient.[facility]In the event this information is protected by the Federal Confidentiality of Alcohol and Drug Abuse Patient Records regulations: The Federal rules restrict any use of the information to criminally investigate or prosecute any alcohol or drug abuse patient.[facility] HospitalIn the event this information is protected by the Federal Confidentiality of Alcohol and Drug Abuse Patient Records regulations: The Federal rules restrict any use of the information to criminally investigate or prosecute any alcohol or drug abuse patient.[facility]In the event this information is protected by the Federal Confidentiality of Alcohol and Drug Abuse Patient Records regulations: The Federal rules restrict any use of the information to criminally investigate or prosecute any alcohol or drug abuse patient.[facility] HospitalIn the event this information is protected by the Federal Confidentiality of Alcohol and Drug Abuse Patient Records regulations: The Federal rules restrict any use of the information to criminally investigate or prosecute any alcohol or drug abuse patient.[facility]In the event this information is protected by the Federal Confidentiality of Alcohol and Drug Abuse Patient Records regulations: The Federal rules restrict any use of the information to criminally investigate or prosecute any alcohol or drug abuse patient.[facility] HospitalIn the event this information is protected by the Federal Confidentiality of Alcohol and Drug Abuse Patient Records regulations: The Federal rules restrict any use of the information to criminally investigate or prosecute any alcohol or drug abuse patient.[facility] HospitalIn the event this information is protected by the Federal Confidentiality of Alcohol and Drug Abuse Patient Records regulations: The Federal rules restrict any use of the information to criminally investigate or prosecute any alcohol or drug abuse patient.[facility]In the event this information is protected by the Federal Confidentiality of Alcohol and Drug Abuse Patient Records regulations: The Federal rules restrict any use of the information to criminally investigate or prosecute any alcohol or drug abuse patient.[facility]In the event this information is protected by the Federal Confidentiality of Alcohol and Drug Abuse Patient Records regulations: The Federal rules restrict any use of the information to criminally investigate or prosecute any alcohol or drug abuse patient.[facility]In the event this information is protected by the Federal Confidentiality of Alcohol and Drug Abuse Patient Records regulations: The Federal rules restrict any use of the information to criminally investigate or prosecute any alcohol or drug abuse patient.[facility]In the event this information is protected by the Federal Confidentiality of Alcohol and Drug Abuse Patient Records regulations: The Federal rules restrict any use of the information to criminally investigate or prosecute any alcohol or drug abuse patient.[facility]In the event this information is protected by the Federal Confidentiality of Alcohol and Drug Abuse Patient Records regulations: The Federal rules restrict any use of the information to criminally investigate or prosecute any alcohol or drug abuse patient.[facility]In the event this information is protected by the Federal Confidentiality of Alcohol and Drug Abuse Patient Records regulations: The Federal rules restrict any use of the information to criminally investigate or prosecute any alcohol or drug abuse patient.[facility]In the event this information is protected by the Federal Confidentiality of Alcohol and Drug Abuse Patient Records regulations: The Federal rules restrict any use of the information to criminally investigate or prosecute any alcohol or drug abuse patient.[facility]In the event this information is protected by the Federal Confidentiality of Alcohol and Drug Abuse Patient Records regulations: The Federal rules restrict any use of the information to criminally investigate or prosecute any alcohol or drug abuse patient.[facility]In the event this information is protected by the Federal Confidentiality of Alcohol and Drug Abuse Patient Records regulations: The Federal rules restrict any use of the information to criminally investigate or prosecute any alcohol or drug abuse patient.[facility]In the event this information is protected by the Federal Confidentiality of Alcohol and Drug Abuse Patient Records regulations: The Federal rules restrict any use of the information to criminally investigate or prosecute any alcohol or drug abuse patient.[facility]In the event this information is protected by the Federal Confidentiality of Alcohol and Drug Abuse Patient Records regulations: The Federal rules restrict any use of the information to criminally investigate or prosecute any alcohol or drug abuse patient.[facility]In the event this information is protected by the Federal Confidentiality of Alcohol and Drug Abuse Patient Records regulations: The Federal rules restrict any use of the information to criminally investigate or prosecute any alcohol or drug abuse patient.[facility]In the event this information is protected by the Federal Confidentiality of Alcohol and Drug Abuse Patient Records regulations: The Federal rules restrict any use of the information to criminally investigate or prosecute any alcohol or drug abuse patient.[facility]In the event this information is protected by the Federal Confidentiality of Alcohol and Drug Abuse Patient Records regulations: The Federal rules restrict any use of the information to criminally investigate or prosecute any alcohol or drug abuse patient.[facility]In the event this information is protected by the Federal Confidentiality of Alcohol and Drug Abuse Patient Records regulations: The Federal rules restrict any use of the information to criminally investigate or prosecute any alcohol or drug abuse patient.[facility]In the event this information is protected by the Federal Confidentiality of Alcohol and Drug Abuse Patient Records regulations: The Federal rules restrict any use of the information to criminally investigate or prosecute any alcohol or drug abuse patient.[facility]In the event this information is protected by the Federal Confidentiality of Alcohol and Drug Abuse Patient Records regulations: The Federal rules restrict any use of the information to criminally investigate or prosecute any alcohol or drug abuse patient.[facility]In the event this information is protected by the Federal Confidentiality of Alcohol and Drug Abuse Patient Records regulations: The Federal rules restrict any use of the information to criminally investigate or prosecute any alcohol or drug abuse patient.[facility]In the event this information is protected by the Federal Confidentiality of Alcohol and Drug Abuse Patient Records regulations: The Federal rules restrict any use of the information to criminally investigate or prosecute any alcohol or drug abuse patient.[facility]In the event this information is protected by the Federal Confidentiality of Alcohol and Drug Abuse Patient Records regulations: The Federal rules restrict any use of the information to criminally investigate or prosecute any alcohol or drug abuse patient.[facility] Reason for Visit (unrecogniz ed section and content) Reason Comments Acute Visit pain in joints/muscl es Reason Comments Chest Congestion sore throat, loss of voice for the past 4 days Reason Comments Sinus Problem sinus pressure, drai nage, sore throat and drainage x 10 days Reason Comments Results Reason Onset Date Comments Refill Request 08/07/2022 Reason Comments New Patient abdominal pain Specialty Diagnoses / Procedures Referred By Contac t Referred To Contact General Surgery Diagnoses Epigastric pain Procedures CONSULT TO GENERAL SURGERY OFFICE/OUTPATIENT [facility] 60-74 MINUTES Leticia Amor, DIRECT ENTRY MIDWIFE.[employer] [address] [place] [address] Referral ID Status Reason Start Date Expiration Date V isits Requested Visits Authorized [id number] Closed PCP Requested Referral 08/09/2022 08/09/2023 1 1 Reason Comments Results Reason Comments Radiology US Specialty Diagnoses / Procedures Referred By Contac t Referred To Contact US IMAGING Diagnoses Elevated alkaline phosphatase level Procedures US ABD RT UPPER QUADRANT US ABDOMINAL REAL TIME W/IMAGE LIMITED Leticia Amor, DIRECT ENTRY MIDWIFE.[employer] [address] [place] [address] Us Imaging Referral ID Status Reason Start Date Expiration Date V isits Requested Visits Authorized [id number] Closed Auto-Generate d Referral 08/16/2022 09/15/2023 1 1 Reason Comments Initial Consult Medical Weight Management Specialty Diagnoses / Procedures Referred By Contac t Referred To Contact Endocrinology Diagnoses Weight gain Procedures CONSULT TO ENDOCRINOLOGY OFFICE/OUTPATIENT [facility] 60-74 MINUTES Stephanie Tabares APRN.[employer] [address] [place] [address] Referral ID Status Reason Start Date Expiration Date V isits Requested Visits Authorized [id number] Closed PCP Requested Referral 08/12/2022 08/12/2023 1 1 Reason Comments Scheduling Reason Comments Assessment Patient Education Specialty Diagnoses / Procedures Referred By Contac t Referred To Contact Nutrition Diagnoses Obesity, Class III, BMI 40-49.9 (morbid obesity) (HCC) Procedures CONSULT TO NUTRITION THERAPY OFFICE/OUTPATIENT [facility] MDM 60-[place] [address] [place] [address] Referral ID Status Reason Start Date Expiration Date V isits Requested Visits Authorized [id number] Closed PCP Requested Referral 09/01/2022 09/01/2023 1 1 Reason Comments Reassessment Patient Education Reason Comments Orders Reason Comments Medication Follow-up Reason Comments Pain (foot) B/l foot pain; histo ry of foot surgery; would like to see a new Veterinary Medical Officer Reason Comments Telemedicine Reason Comments New Pain Specialty Diagnoses / Procedures Referred By Contac t Referred To Contact Podiatry Diagnoses Foot pain, bilateral Procedures CONSULT TO PODIATRY OFFICE/OUTPATIENT NEW [facility]IGH MDM 60-74 MINUTES Leticia Amor, MARGARITA.[employer] [address] [place] [address] Referral ID Status Reason Start Date Expiration Date V isits Requested Visits Authorized [id number] Closed PCP Requested Referral 01/24/2023 01/24/2024 1 1 Reason Comments PT Eval Patient Education Specialty Diagnoses / Procedures Referred By Contac t Referred To Contact PHYSICAL THERAPY Diagnoses Foot pain, bilateral Plantar fasciitis Procedures CONSULT TO PHYSICAL THERAPY PHYSICAL THERAPY EVALUATION HIGH COMPLEX 45 MINS Freddie Hanna [address] [facility] [place] [address] Pt [facility] [address] [place] [address] Referral ID Status Reason Start Date Expiration Date Visits Requested Visits Authorized [id number] Authorized Auto-Generat ed Referral 11/21/2022 11/20/2023 60 60 Reason Comments Physical Therapy Specialty Diagnoses / Procedures Referred By Contac t Referred To Contact PHYSICAL THERAPY Diagnoses Foot pain, bilateral Plantar fasciitis Procedures CONSULT TO PHYSICAL THERAPY PHYSICAL THERAPY EVALUATION HIGH COMPLEX 45 MINS Freddie Hanna [address] [facility] [place] [address] Pt [facility] [address] [place] [address] Reason Comments Pain (foot) R foot after falling on stairs going into house Left Knee Pain After falling on sta irs going into house Derm Problem Dry patch on upper l ip, has been using otc ointments without relief Reason Comments Established Patient Follow Up Pain Reason Comments New Knee Pain Referred by Leticia Amor Specialty Diagnoses / Procedures Referred By Carson huynh Referred To Contact Orthopedics Diagnoses Acute pain of left knee Acute right ankle pain Procedures CONSULT TO ORTHOPAEDICS OFFICE/OUTPATIENT [facility] 60-74 MINUTES Leticia Amor APRN.[employer] [address] [place] [address] Referral ID Status Reason Start Date Expiration Date V isits Requested Visits Authorized [id number] Closed PCP Requested Referral 03/09/2023 03/08/2024 1 1 Specialty Diagnoses / Procedures Referred By Carson t Referred To Contact MR IMAGING Diagnoses Chronic pain of right ankle Procedures MRI ANKLE WO IVCON RIGHT MRI ANY JT LOWER EXTREM W/O CONTRAST Freddie [address] [place] [id number] Mr Imaging Referral ID Status Reason Start Date Expiration Date V isits Requested Visits Authorized [id number] Closed Auto-Generate d Referral 03/16/2023 04/14/2024 1 1 Reason Comments Follow Up For Elevated labs; joint /muscle pain Reason Comments Refill Request Reason Comments Mouth/Lip Problem Pt reported upper (L T) lip burning, x1 mth. Reason Comments Joint Pain Abnormal Lab Specialty Diagnoses / Procedures Referred By Carson t Referred To Contact Rheumatology Diagnoses Elevated C-reactive protein (CRP) Myalgia Arthralgia, unspecified joint Procedures CONSULT TO RHEUM/IMMUN DISEASE OFFICE/OUTPATIENT [facility] 60-74 MINUTES Lorenzo Mars APRN.[employer] [address] [place] [address] Referral ID Status Reason Start Date Expiration Date V isits Requested Visits Authorized [id number] Closed PCP Requested Referral 05/09/2023 05/08/2024 1 1 Reason Comments Results Lab Reason Comments Cough Chest congestion x1 week Reason Comments Telemedicine Reason Comments Acute Visit URI sx- started Thur s; voice hoarseness; cough; chest congestion; no fever Reason Comments Recheck Follow up URI- worse dedrick symptoms Reason Comments discussion Discussion about haydee pex Reason Comments New Patient Left side of ear, ja w joint pain. Tingling sensation. Reason Comments Faxed to [facility] Reason Comments Ankle Injury R ankle injury x2 we eks Reason Comments Cough NAYAK, fever, sore thro at, chest congestion x 1 week Care Teams (unrecognized sec tion and content) Operator Electronic Warfare Relationship Specialty Start Date End Date Machelle Harry MD [address] [place] [address] PCP - General Family Practice 02/24/21 Operator Electronic Warfare Relationship Specialty Start Date End Date Machelle Harry MD [address] [place] [place] [address] PCP - General Family Practice 02/24/21 Operator Electronic Warfare Relationship Specialty Start Date End Date Machelle Harry MD [address] [place] [address] PCP - General Family Practice 02/24/21 Operator Electronic Warfare Relationship Specialty Start Date End Date Machelle Harry MD [address] [place] [place] [address] PCP - General Family Practice 02/24/21 Operator Electronic Warfare Relationship Specialty Start Date End Date Machelle Harry MD [address] [place] [address] PCP - General Family Practice 02/24/21 Operator Electronic Warfare Relationship Specialty Start Date End Date Machelle Harry MD [address] [place] [place] [address] PCP - General Family Practice 02/24/21 Operator Electronic Warfare Relationship Specialty Start Date End Date Machelle Harry MD [address] [place] [address] PCP - General Family Practice 02/24/21 Operator Electronic Warfare Relationship Specialty [place] [address] [place] [address] [place] [address] PCP - General Family Medicine 02/24/21 Operator Electronic Warfare Relationship Specialty Start Date End Date Machelle Harry MD [address] [place] [address] PCP - General Family Medicine 02/24/21 Operator Electronic Warfare Relationship Specialty Start Date End Date Machelle Harry MD [address] [place] [address] PCP - General Family Medicine 02/24/21 Operator Electronic Warfare Relationship Specialty Start Date End Date Machelle Harry MD [address] [place] [address] PCP - General Family Medicine 02/24/21 Operator Electronic Warfare Relationship Specialty Start Date End Date Machelle Harry MD [address] [place] [address] PCP - General Family Medicine 02/24/21 Operator Electronic Warfare Relationship Specialty Start Date End Date Machelle Harry MD [address] [place] [address] PCP - General Family Medicine 02/24/21 Operator Electronic Warfare Relationship Specialty Start Date End Date Machelle Harry MD [address] [place] [address] PCP - General Family Medicine 02/24/21 Operator Electronic Warfare Relationship Specialty Start Date End Date Machelle Harry MD [address] [place] [address] PCP - General Family Medicine 02/24/21 Operator Electronic Warfare Relationship Specialty Start Date End Date Machelle Harry MD [address] [place] [address] PCP - General Family Medicine 02/24/21 Operator Electronic Warfare Relationship Specialty Start Date End Date Machelle Harry MD [address] [place] [address] PCP - General Family Medicine 02/24/21 Operator Electronic Warfare Relationship Specialty Start Date End Date Machelle Harry MD [address] [place] [address] PCP - General Family Medicine 02/24/21 Operator Electronic Warfare Relationship Specialty Start Date End Date Machelle Harry MD [address] [place] [address] PCP - General Family Medicine 02/24/21 Operator Electronic Warfare Relationship Specialty Start Date End Date Machelle Harry MD [address] [place] [address] PCP - General Family Medicine 02/24/21 Operator Electronic Warfare Relationship Specialty Start Date End Date Machelle Harry MD [address] [place] [address] PCP - General Family Medicine 02/24/21 Operator Electronic Warfare Relationship Specialty Start Date End Date Machelle Harry MD [address] [place] [address] PCP - General Family Medicine 02/24/21 Operator Electronic Warfare Relationship Specialty Start Date End Date Machelle Harry MD [address] [place] [address] PCP - General Family Medicine 02/24/21 Operator Electronic Warfare Relationship Specialty Start Date End Date Machelle Harry MD [address] [place] [address] PCP - General Family Medicine 02/24/21 Operator Electronic Warfare Relationship Specialty Start Date End Date Machelle Harry MD [address] [place] [address] PCP - General Family Medicine 02/24/21 Operator Electronic Warfare Relationship Specialty Start Date End Date Machelle Harry MD [address] [place] [address] PCP - General Family Medicine 02/24/21 Operator Electronic Warfare Relationship Specialty Start Date End Date Machelle Harry MD [address] [place] [address] PCP - General Family Medicine 02/24/21 Operator Electronic Warfare Relationship Specialty Start Date End Date Machelle Harry MD [address] [place] [address] PCP - General Family Medicine 02/24/21 Operator Electronic Warfare Relationship Specialty Start Date End Date Machelle Harry MD [address] [place] [address] PCP - General Family Medicine 02/24/21 Operator Electronic Warfare Relationship Specialty Start Date End Date Machelle Harry MD [address] [place] [address] PCP - General Family Medicine 02/24/21 Operator Electronic Warfare Relationship Specialty Start Date End Date Machelle Harry MD [address] [place] [address] PCP - General Family Medicine 02/24/21 Operator Electronic Warfare Relationship Specialty Start Date End Date Machelle Harry MD [address] [place] [address] PCP - General Family Medicine 02/24/21 Operator Electronic Warfare Relationship Specialty Start Date End Date Machelle Harry MD [address] [place] [address] PCP - General Family Medicine 02/24/21 Operator Electronic Warfare Relationship Specialty Start Date End Date Machelle Harry MD [address] [place] [address] PCP - General Family Medicine 02/24/21 Operator Electronic Warfare Relationship Specialty Start Date End Date Machelle Harry MD [address] [place] [address] PCP - General Family Medicine 02/24/21 Operator Electronic Warfare Relationship Specialty Start Date End Date Machelle Harry MD [address] [place] [address] PCP - General Family Medicine 02/24/21 Operator Electronic Warfare Relationship Specialty Start Date End Date Machelle Harry MD [address] [place] [address] PCP - General Family Medicine 02/24/21 Care Team (unrecognized sect ion and content) Care Team Personnel Name: MACHELLE HARRY MD Member Role: Primary Care Physician Address: Address: [address] [place] [address]- Care Team Related Persons Name: VALERIA PRIETO Name: ANAMARIA TROY Address: Home [address] [place] [address] Care Team Personnel Name: MACHELLE HARRY MD Member Role: Primary Care Physician Address: Address: [address] [place] [address] Care Team Related Persons Name: VALERIA PRIETO Name: PRASANTH TROY Address: Home [address] [place] [address] [place] Name: ANAMARIA TROY Address: Home [address] [place] [address] FOR RECORDS PERTAINING TO PATIENTS WHO ARE OR HAVE BEEN ENROLLED IN A CHEMICAL DEPENDENCY/SUBSTANCEABUSE PROGRAM, SOME INFORMATION MAY BE OMITTED. This clinical summary was aggregated from multiple sources. Caution should be exercised in using it in the provision of clinical care. This summary normalizes information from multiple sources, and as a consequence, information in this document may materially change the coding, format and clinical context of patient data. In addition, data may be omitted in some cases. CLINICAL DECISIONS SHOULD BE BASED ON THE PRIMARY CLINICAL RECORDS. [employer] [facility] provides no warranty or guarantee of the accuracy or completeness of information in this document.
--- NOTE | 2023-12-14 07:26 | MRI_ITS ---
STUDY: MRI RIGHT ANKLE WITHOUT CONTRAST REASON FOR EXAM: Female, 53 years old. Ankle pain, evaluate for peroneal tendon tear versus Achilles tear versus OCD. TECHNIQUE: Standardized fat and water weighted pulse sequences were obtained in all 3 orthogonal planes. COMPARISON: Left ankle MRI dated 06/03/2014. FINDINGS: Normal posterior tibialis tendon. Normal flexor digitorum longus tendon. Normal flexor hallucis longus tendon. Normal peroneus longus and brevis tendons. Normal tibialis anterior tendon. Normal extensor hallucis longus tendon. Normal extensor digitorum longus tendons. Normal Achilles tendon and teno-osseous insertion. There is thickening of the central cord origin of the plantar fascia, without acute plantar fasciitis or plantar fascial tear, consistent with chronic plantar fascial degeneration. There is a stable tiny plantar calcaneal spur. Normal intrinsic muscles of the rearfoot. Normal distal tibiofibular syndesmotic ligamentous complex. Normal lateral ligamentous complex. Normal subtalar ligaments and sinus tarsi. Normal deltoid ligamentous complex. Normal plantar calcaneonavicular (spring) ligament. Normal tibiotalar articulation. Normal talar dome. Normal subtalar articulations. There is a small talonavicular joint effusion. Normal calcaneocuboid articulation. Normal navicular-cuneiform articulations. There is minimal subcutaneous soft tissue edema along the lateral aspect of the ankle. MRI/Lower Ext Joint Only (Routine) IMPRESSION: Chronic plantar fascial degeneration, with stable tiny plantar calcaneal spur. Small talonavicular joint effusion. Minimal subcutaneous soft tissue edema along the lateral aspect of the ankle. No peroneal tendon tear, Achilles tear, or discrete OCD lesion. Electronically Signed: Ryan Randall MD at 9:09 EST ,
--- NOTE | 2023-12-14 07:27 | MRI_ITS ---
STUDY: MRI RIGHT FOREFOOT WITHOUT CONTRAST REASON FOR EXAM: Female, 53 years old. Pain, tendinitis. Evaluate for peroneal tendon tear versus Achilles split/tear, versus OCD right ankle. TECHNIQUE: Standardized fat and water weighted pulse sequences were obtained in all 3 orthogonal planes. COMPARISON: None. FINDINGS: Normal bone marrow of the metatarsals, phalanges and visualized distal tarsal row, without fracture, periostitis, erosions or reactive bone edema. Normal sesamoids without sesamoiditis, fracture or avascular necrosis. There is a small talonavicular joint effusion. There are no extraarticular fluid collections. Normal visualized Chopart and Lisfranc joints and normal Lisfranc ligament. Normal intermetatarsal spaces without intermetatarsal (Santiago) neuroma or bursitis. Normal visualized distal anterior tibialis tendon. Normal visualized distal peroneus longus and brevis tendons. Normal visualized extensor digitorum longus, extensor hallucis longus, flexor digitorum brevis and flexor hallucis longus tendons. Normal visualized plantar fascia without fasciitis, fibromatosis or tear. Normal intrinsic muscles of the foot, without soft tissue masses or evidence of denervation atrophy. There is mild subcutaneous soft tissue edema along the dorsal aspect of the midfoot. MRI/Lower Ext/No Jt/w/o IMPRESSION: Small talonavicular joint effusion. Mild subcutaneous soft tissue edema along the dorsal aspect of the midfoot. No discrete tear of the visualized distal peroneal tendons. Electronically Signed: Ryan Randall MD at 9:13 EST ,
== END | disposition home or self-care (01) ==
LOC: MRI 07:13
PROVIDERS: PCP Registered Nurse; Referring Provider Student in an Organized Health Care Education/Training Program; Visit Provider Student in an Organized Health Care Education/Training Program
DX: M79.671 Pain in right foot (principal); M76.71 Peroneal tendinitis, right leg
CPT/HCPCS: 73718; 73721

== ENCOUNTER → 2024-01-10 | Outpatient (CLI) | payer BC, SELFPAY ==
--- OUTSIDE RECORDS SUMMARY | 2024-01-10 08:22 | XMS RPT_ITS | CCD ---
Author Name Unknown Address [address] [place] [address] Organization [facility] Care Team Providers Care Humanities And Languages Professor Name Role Phone ADE VICKI Unavailable Unavailable SIBSHANT, VICKI Unavailable Unavailable RENATE AUSTIN Unavailable Unavailable Machelle Harry MD Primary Care Provider Machelle Harry MD Primary Care Provider Machelle Harry MD Primary Care Provider DR MACHELLE HARRY MD Primary Care Physician PIERO AGUILLON., DR. CARTY Primary Care Unavail able JEFF CHILDERS Attending Unavailable PEIRO AMARAL, DR. CARTY Primary Care Unavail JEFF Campos Attending Unavailable Machelle Harry MD Primary Care Provider LETICIA AMOR Referring Unavailable MACHELLE HARRY Primary Care Unavailable FREDDIE HANNA Referring Unavailable MACHELLE HARRY Primary Care Unavailable PROVIDER, UNKNOWN Referring Unavailable MACHELLE HARRY Primary Care Unavailable PROVIDER, UNKNOWN Referring Unavailable MACHELLE HARRY Primary Care Unavailable MACHELLE HARRY Primary Care Unavailable PROVIDER, UNKNOWN Referring Unavailable MACHELLE HARRY Primary Care Unavailable DIOGENES LETICIA Referring Unavailable MACHELLE HARRY Primary Care Unavailable KRISTIN CABRERA Attending Unavailab le MACHELLE HARRY Primary Care Unavailable NAELAGEN LETICIA Attending Unavailable ANTOINE NAM Attending Unavailable MACHELLE HARRY Primary Care Unavailable DIOGENES LETICIA Referring Unavailable KATHE PARKER Attending Unavailable FREDDIE HANNA Referring Unavailable MACHELLE HARRY Primary Care Unavailable MACHELLE HARRY Primary Care Unavailable LORENZO MARS Attending Unavailable MACHELLE HARRY Primary Care Unavailable ELDERBROCK, MACHELLE D Primary Care Unavailable LORENZO MARS Referring Unavailable NEVILLE GRULLON Attending Unavailable ELDERBROCK, MACHELLE D Primary Care Unavailable EVA GRIFFITH Attending Unavailable ELDERBROCK, MACHELLE D Primary Care Unavailable HAAGEN, LETICIA Attending Unavailable TESTRAKE, FREDDIE Referring Unavailable ELDERBROCK, MACHELLE D Primary Care Unavailable ELDERBROCK, MACHELLE D Primary Care Unavailable ELDERBROCK, MACHELLE D Primary Care Unavailable CRISOSTOMOADDISON BRIDGESON Attending Unavailable ELDERBROCK, MACHELLE D Primary Care [...] Primary Care Unavailable HAAGEN, LETICIA Attending Unavailable KATHE PARKER Attending Unavailable TESTRAKE, FREDDIE Referring Unavailable ELDERBROCK, MACHELLE D Primary Care Unavailable PARKERKATHE COLE Attending Unavailable TESTRAKE, FREDDIE Referring Unavailable ELDERBROCK, MACHELLE D Primary Care Unavailable ELDERBROCK, MACHELLE D Primary Care Unavailable HAAGEN, LETICIA Attending Unavailable ELDERBROCK, MACHELLE D Primary Care Unavailable LORETTAEVA DESOUZA Attending Unavailable ELDERBROCK, MACHELLE D Primary Care Unavailable LORETTAEVA Referring Unavailable ELDERBROCK, MACHELLE D Primary Care Unavailable ELDERBROCK, MACHELLE D Primary Care Unavailable ATHBRIAN StevensonA R Referring Unavailable PARKERKATHE Attending Unavailable TESTRAKE, FREDDIE Referring Unavailable ELDERBROCK, MACHELLE D Primary Care Unavailable TESTRAKE, FREDDIE Attending Unavailable ELDERBROCK, MACHELLE D Primary Care Unavailable HAAGEN, LETICIA Referring Unavailable TESTRAKE, FREDDIE Attending Unavailable TESTRAKE, FREDDIE Referring Unavailable ELDERBROCK, MACHELLE D Primary Care Unavailable PARKER, KATHE Attending Unavailable TESTRAKE, FREDDIE Referring Unavailable ELDERBROCK, MACHELLE D Primary Care Unavailable ELDERBROCK, MACHELEL D Primary Care Unavailable HAAGEN, LETICIA Attending Unavailable ELDERBROCK, MACHELLE D Primary Care Unavailable HAAGEN, LETICIA Referring Unavailable Allergies Allergy Classification Reported Allergen(s) Allergy Type Date of Onset Reaction(s) Facility (20 sources) Adhesive Tape; Translations: [ADHESIVE TAPE (WINNIE)] Allergy to substance 07-15-20 11 Rash, Swelling [facility] Work Phone: (20 sources) cyclobenzaprine; Translations: [CYCLOBENZAPRINE HCL] Drug Allergy 07-07-20 [facility] Work Phone: (20 sources) Esomeprazole; Translations: [ESOMEPRAZOLE MAGNESIUM] Drug Allergy 07-07-20 [facility] Work Phone: (20 sources) Minocycline; Translations: [MINOCYCLINE] Drug Allergy 07-21-20 11 GI Upset [facility] (20 sources) Sulfamethoxazole / Trimethoprim; Translations: [SULFAMETHOXAZOLE-TR IMETHOPRIM] Drug Allergy 07-07-20 [facility] Work Phone: (20 sources) Sulfonamides (Antibiotic); Translations: [sulfa drugs] Propensity to adverse reactions 07-07-20 Fever, Hives [facility] Work Phone: (20 sources) zithromaxz [Other] Propensity to adverse reactions 07-07-20 [facility] Work Phone: (2 sources) Codeine; Translations: [codeine] Drug Allergy [facility] Medications Current Medications Medication Drug Class(es) Dates [...] Drug Class(es) Dates Sig (Normalized) Sig (Original) [id number] 200 actuat albuterol 0.09 mg/actuat metered dose inhaler (11 sources) beta2-Adrenergic Agonist Start: 11-09-2023 take 2 [...] Neoplasms of unspecified nature or uncertain behavior (4 sources) Neoplasm of ear; 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 [...] [Achilles tendinitis, right leg] 2023 Episodic Other inflammatory condition of skin (1 [...] 04-22-2021 04-22-2021 Episodic Other connective tissue disease (3 sources) Other symptoms and signs involving the musculoskeletal system; Translations: [Other musculoskeletal symptoms referable to limbs] Onset: 04-22-2021 04-22-2021 Episodic Other connective tissue disease (1 source) Myalgia, unspecified site; Translations: [Myalgia] Onset: 05-25-2023 Episodic Other connective tissue disease (1 source) Plantar fascial fibromatosis; Translations: [Plantar fasciitis] Onset: 02-16-2023 Episodic Other connective tissue disease (1 source) Pain in right foot; Translations: [Foot pain, bilateral] Onset: 01-24-2023 Episodic Other connective tissue disease (1 source) Pain in left foot; Translations: [Foot pain, bilateral] Onset: 01-24-2023 Episodic Other ear and sense organ disorders (12 sources) Otalgia, left ear; Translations: [Otalgia, unspecified] Onset: 10-04-2023 10-04-2023 Episodic Other gastrointestinal disorders (20 sources) Diarrhea; [...] Translations: [Pain in joint, lower leg] Onset: 03-21-2023 Episodic Other non-traumatic joint disorders (2 sources) Pain in right ankle and joints of right foot; Translations: [Chronic pain of right ankle] Onset: 03-21-2023 Episodic Other non-traumatic joint disorders (1 source) Pain in unspecified joint; Translations: [Arthralgia, unspecified joint] Onset: 05-25-2023 Episodic Other screening for suspected conditions (not mental disorders or infectious disease) (10 sources) Patient encounter status; Translations: [Encounter for screening mammogram for malignant neoplasm of breast] Onset: 03-30-2023 Episodic Residual codes; unclassified (1 source) Pain, unspecified; Translations: [Pain] Onset: 02-09-2023 Episodic Results Test Name Value Interpretation Reference Range Facil ity Vital Signs Date Time Vital Sign Value Performing Clinician Faci yasmine 11-10-2023 10:15-0500 Body temperature 99 [degF] Dallas Cardenas MD Work Phone: [facility] 11-10-2023 10:15-0500 Body weight 127.73 kg Dallas Cardenas MD Work Phone: [facility] 11-10-2023 10:15-0500 Diastolic blood pressure 90 mm[Hg] Dallas Cardenas MD Work Phone: [facility] 11-10-2023 10:15-0500 Heart rate 115 /min Dallas Cardenas MD Work Phone: [facility] 11-10-2023 10:15-0500 Respiratory rate 21 /min Dallas Cardenas MD Work Phone: [facility] 11-10-2023 10:15-0500 SaO2% (BldA) [Mass fraction] 97 % Dallas Cardenas MD Work Phone: [facility] 11-10-2023 10:15-0500 Systolic blood pressure 132 mm[Hg] Dallas Cardenas MD Work Phone: [facility] 2023 08:34-0500 Body temperature 97.3 [degF] Silvia Athy PA-C Work Phone: [facility] 2023 08:34-0500 Diastolic blood pressure 81 mm[Hg] Silvia Athy PA-C Work Phone: [facility] 2023 08:34-0500 Heart rate 76 /min Silvia Athy PA-C Work Phone: [facility] 2023 08:34-0500 Respiratory rate 18 /min Silvia Athy PA-C Work Phone: [facility] 2023 08:34-0500 SaO2% (BldA) [Mass fraction] 98 % Silvia Athy PA-C Work Phone: [facility] 2023 08:34-0500 Systolic blood pressure 119 mm[Hg] Silvia Athy PA-C Work Phone: [facility] 10-04-2023 09:30-0500 Body height 172.7 cm Eva Griffith DO Work Phone: [facility] 10-04-2023 09:30-0500 Body weight 127.01 kg Eva Griffith DO Work Phone: [facility] 10-04-2023 09:30-0500 Diastolic blood pressure 85 mm[Hg] Eva Griffith DO Work Phone: [facility] 10-04-2023 09:30-0500 Heart rate 67 /min Eva Griffith DO Work Phone: [facility] 10-04-2023 09:30-0500 Systolic blood pressure 124 mm[Hg] Eva Griffith DO Work Phone: [facility] 07-20-2023 08:36-0400 Body weight 133.18 kg Lauren Crisostomo [employer] TEACHER.C CERTIFIED LEGAL INVESTIGATOR Work Phone: [facility] 07-20-2023 08:36-0400 Diastolic blood pressure 70 mm[Hg] Lauren Crisostomo SECONDARY SCHOOL TEACHER.[employer] Work Phone: [facility] 07-20-2023 08:36-0400 Heart rate 64 /min Lauren Crisostomo [employer] SCHOOL TEACHER.C CERTIFIED LEGAL INVESTIGATOR Work Phone: [facility] 07-20-2023 08:36-0400 Respiratory rate 14 /min Lauren Crisostomo [employer] SCHOOL TEACHER.C CERTIFIED LEGAL INVESTIGATOR Work Phone: [facility] 07-20-2023 08:36-0400 Systolic blood pressure 138 mm[Hg] Lauren Crisostomo [employer]ONDARY SCHOOL TEACHER.[employer] Work Phone: [facility] 07-11-2023 17:26-0400 Diastolic blood pressure 92 mm[Hg] Leticai Haagen [employer]ARY SCHOOL TEACHER.[employer] Work Phone: [facility] 07-11-2023 17:26-0400 Heart rate 76 /min Leticia Haagen SECONDARY SCHOOL TEACHER.[employer] Work Phone: [facility] 07-11-2023 17:26-0400 Respiratory rate 16 /min Leticia Haagen SECONDARY SCHOOL TEACHER.[employer] Work Phone: [facility] 07-11-2023 17:26-0400 SaO2% (BldA) [Mass fraction] 96 % Leticia Haagen SECONDARY SCHOOL TEACHER.[employer] Work Phone: [facility] 08-21-2023 17:26-0400 Systolic blood pressure 138 mm[Hg] Leticia Haagen SECONDARY SCHOOL TEACHER.[employer] Work Phone: [facility] 07-04-2023 17:36-0400 Body temperature 98.71 [degF] Leticia Haagen SECONDARY SCHOOL TEACHER.[employer] Work Phone: [facility] 07-04-2023 17:36-0400 Diastolic blood pressure 90 mm[Hg] Leticia Haagen SECONDARY SCHOOL TEACHER.[employer] Work Phone: [facility] 07-04-2023 17:36-0400 Heart rate 64 /min Leticia Haagen SECONDARY SCHOOL TEACHER.[employer] Work Phone: [facility] 07-04-2023 17:36-0400 Respiratory rate 16 /min Leticia Haagen SECONDARY SCHOOL TEACHER.[employer] Work Phone: [facility] 07-04-2023 17:36-0400 SaO2% (BldA) [Mass fraction] 98 % Leticia Haagen SECONDARY SCHOOL TEACHER.[employer] Work Phone: [facility] 07-04-2023 17:36-0400 Systolic blood pressure 128 mm[Hg] Leticia Haagen SECONDARY SCHOOL TEACHER.[employer] Work Phone: [facility] 06-01-2023 14:33-0400 Body temperature 98.6 [degF] Krislyn Aberegg PA Work Phone: [facility] 06-01-2023 14:33-0400 Body weight 131.54 kg Krislyn Aberegg PA Work Phone: [facility] 06-01-2023 14:33-0400 Diastolic blood pressure 64 mm[Hg] Krislyn Aberegg PA Work Phone: [facility] 06-01-2023 14:33-0400 Heart rate 84 /min Krislyn Aberegg PA Work Phone: [facility] 06-01-2023 14:33-0400 Respiratory rate 18 /min Krislyn Aberegg PA Work Phone: [facility] 06-01-2023 14:33-0400 SaO2% (BldA) [Mass fraction] 97 % Mauricioakhillyliz Aberegg PA Work Phone: [facility] 06-01-2023 14:33-0400 Systolic blood pressure 106 mm[Hg] Krislyn Aberegg PA Work Phone: [facility] 05-25-2023 08:04-0400 Body temperature 98.01 [degF] Neville Ziganti PA-C Work Phone: [facility] 05-25-2023 08:04-0400 Body weight 131.72 kg Neville Ziganti PA-C Work Phone: [facility] 05-25-2023 08:04-0400 Diastolic blood pressure 74 mm[Hg] Neville Ziganti PA-C Work Phone: [facility] 05-25-2023 08:04-0400 Heart rate 74 /min Neville Ziganti PA-C Work Phone: [facility] 05-25-2023 08:04-0400 Systolic blood pressure 125 mm[Hg] Neville Ziganti PA-C Work Phone: [facility] 05-21-2023 13:02-0400 Body temperature 98.01 [degF] Betty Veras APRN.[employer] Work Phone: [facility] 05-21-2023 13:02-0400 Diastolic blood pressure 78 mm[Hg] Betty Veras APRN.[employer] Work Phone: [facility] 05-21-2023 13:02-0400 Heart rate 80 /min Betty Veras APRN.[employer] Work Phone: [facility] 05-21-2023 13:02-0400 Respiratory rate 16 /min Betty Veras APRN.[employer] Work Phone: [facility] 05-21-2023 13:02-0400 SaO2% (BldA) [Mass fraction] 97 % Betty Veras APRN.[employer] Work Phone: [facility] 05-21-2023 13:02-0400 Systolic blood pressure 132 mm[Hg] Betty Veras SECONDARY SCHOOL TEACHER.[employer] Work Phone: [facility] 05-09-2023 08:38-0400 Body temperature 98.6 [degF] Lorenzo Mars SECONDARY SCHOOL TEACHER.[employer] Work Phone: [facility] 05-09-2023 08:38-0400 Body weight 130.09 kg Lorenzo Mars SECONDARY SCHOOL TEACHER.[employer] Work Phone: [facility] 05-09-2023 08:38-0400 Diastolic blood pressure 83 mm[Hg] Lorenzo Mars SECONDARY SCHOOL TEACHER.[employer] Work Phone: [facility] 05-09-2023 08:38-0400 Heart rate 79 /min Lorenzo Mars SECONDARY SCHOOL TEACHER.[employer] Work Phone: [facility] 05-09-2023 08:38-0400 Respiratory rate 16 /min Lorenzo Mars SECONDARY SCHOOL TEACHER.[employer] Work Phone: [facility] 05-09-2023 08:38-0400 SaO2% (BldA) [Mass fraction] 97 % Lorenzo Mars SECONDARY SCHOOL TEACHER.[employer] Work Phone: [facility] 05-09-2023 08:38-0400 Systolic blood pressure 128 mm[Hg] Lorenzo Mars SECONDARY SCHOOL TEACHER.[employer] Work Phone: [facility] 03-21-2023 08:00-0400 Body height 174 cm Antoine Nam MD Work Phone: [facility] 03-21-2023 08:00-0400 Body weight 122.47 kg Antoine Nam MD Work Phone: [facility] 03-09-2023 08:39-0400 Diastolic blood pressure 82 mm[Hg] Leticia Amor SECONDARY SCHOOL TEACHER.[employer] Work Phone: [facility] 03-09-2023 08:39-0400 Heart rate 82 /min Leticia Amor SECOND[employer] SCHOOL TEACHER.[employer] Work Phone: [facility] 03-09-2023 08:39-0400 Respiratory rate 18 /min Leticia Haagen SECONDARY SCHOOL TEACHER.[employer] Work Phone: [facility] 03-09-2023 08:39-0400 SaO2% (BldA) [Mass fraction] 96 % Leticia Haagen SECONDARY SCHOOL TEACHER.[employer] Work Phone: [facility] 03-09-2023 08:39-0400 Systolic blood pressure 132 mm[Hg] Leticia Haagen SECONDARY SCHOOL TEACHER.[employer] Work Phone: [facility] 01-24-2023 18:47-0500 Diastolic blood pressure 88 mm[Hg] Leticia Haagen SECONDARY SCHOOL TEACHER.[employer] Work Phone: [facility] 01-24-2023 18:47-0500 Heart rate 73 /min Leticia Haagen SECONDARY SCHOOL TEACHER.[employer] Work Phone: [facility] 01-24-2023 18:47-0500 Respiratory rate 16 /min Leticia Haagen SECONDARY SCHOOL TEACHER.[employer] Work Phone: [facility] 01-24-2023 18:47-0500 SaO2% (BldA) [Mass fraction] 98 % Leticia Haagen SECONDARY SCHOOL TEACHER.[employer] Work Phone: [facility] 01-24-2023 18:47-0500 Systolic blood pressure 128 mm[Hg] Leticia Haagen SECONDARY SCHOOL TEACHER.[employer] Work Phone: [facility] 01-19-2023 09:42-0500 Body height 172.7 cm Kristin Montiel i, MD Work Phone: [facility] 01-19-2023 09:42-0500 Body weight 124.74 kg Kristin Montiel i, MD Work Phone: [facility] 01-19-2023 09:42-0500 Diastolic blood pressure 75 mm[Hg] Kristin Cabrera MD Work Phone: [facility] 01-19-2023 09:42-0500 Heart rate 75 /min Kristin Montiel i, MD Work Phone: [facility] 03-01-2023 09:42-0500 SaO2% (BldA) [Mass fraction] 98 % Kristin Cabrera MD Work Phone: [facility] 01-19-2023 09:42-0500 Systolic blood pressure 118 mm[Hg] Kristin Cabrera MD Work Phone: [facility] 10-18-2022 08:49-0500 Body height 172.7 cm Earlene Clarence SEVILLA [facility] 10-18-2022 08:49-0500 Body weight 125.[address] [facility] 10-01-2022 10:00-0500 Diastolic Blood Pressure Non-Invasive 71 1 JEFF SUPPAN DPM [facility] 10-01-2022 10:00-0500 Heart rate 56 /min JEFF SUPPAN DPM [facility] 10-01-2022 10:00-0500 Systolic Blood Pressure Non-Invasive 108 1 JEFF SUPPAN DPM [facility] 10-01-2022 09:45-0500 Diastolic Blood Pressure Non-Invasive 66 1 JEFF SUPPAN DPM [facility] 10-01-2022 09:45-0500 Heart rate 60 /min JEFF SUPPAN DPM [facility] 10-01-2022 09:45-0500 Systolic Blood Pressure Non-Invasive 112 1 JEFF SUPPAN DPM [facility] 10-01-2022 09:40-0500 Diastolic Blood Pressure Non-Invasive 57 1 JEFF SUPPAN DPM [facility] 10-01-2022 09:40-0500 Heart rate 60 /min JEFF SUPPAN DPM [facility] 10-01-2022 09:40-0500 Systolic Blood Pressure Non-Invasive 107 1 JEFF SUPPAN DPM [facility] 10-01-2022 09:30-0500 Body temperature 97.7 [degF] JEFF SUPPAN DPM [facility] 10-01-2022 09:30-0500 Respiratory Rate - Anes 0 br/min JEFF SUPPAN DPM [facility] 10-01-2022 09:25-0500 Respiratory Rate - Anes 10 br/min JEFF SUPPAN DPM [facility] 10-01-2022 09:20-0500 Respiratory Rate - Anes 10 br/min JEFF SUPPAN DPM [facility] 10-01-2022 07:46-0500 Body height 172.7 cm JEFF SUPPAN DPM [facility] 10-01-2022 07:46-0500 Body temperature 97.52 [degF] JEFF SUPPAN DPM [facility] 10-01-2022 07:46-0500 Body weight 127.3 kg JEFF SUPPAN DPM [facility] 10-01-2022 07:46-0500 Heart rate 63 /min JEFF SUPPAN DPM [facility] 10-01-2022 07:46-0500 Respiratory rate 13 /min JEFF SUPPAN DPM [facility] 09-27-2022 10:40-0500 Body height 172.7 cm JEFF SUPPAN DPM [facility] 09-27-2022 10:40-0500 Body weight 127.3 kg JEFF SUPPAN DPM [facility] 09-27-2022 10:40-0500 Body weight 42.68 kg/m2 JEFF SUPPAN DPM [facility] 09-27-2022 10:40-0500 diastolic 88 mm[Hg] JEFF SUPPAN DPM [facility] 09-27-2022 10:40-0500 Heart rate 72 /min JEFF SUPPAN DPM [facility] 09-27-2022 10:40-0500 Respiratory rate 16 /min JEFF SUPPAN DPM [facility] 09-27-2022 10:40-0500 systolic 120 mm[Hg] JEFF SUPPAN DPM [facility] 09-20-2022 12:12-0400 Body height 172.[address] [facility] 09-20-2022 12:12-0400 Body weight 127.[address] [facility] 09-01-2022 08:53-0400 Body height 172.7 cm Kristin Montiel i, MD Work Phone: [facility] 09-01-2022 08:53-0400 Body weight 132 kg Kristin Montiel i, MD Work Phone: [facility] 09-01-2022 08:53-0400 Diastolic blood pressure 76 mm[Hg] Kristin Cabrera MD Work Phone: [facility] 09-01-2022 08:53-0400 Heart rate 68 /min Kristin Montiel i, MD Work Phone: [facility] 09-01-2022 08:53-0400 SaO2% (BldA) [Mass fraction] 98 % Kristin Cabrera MD Work Phone: [facility] 09-01-2022 08:53-0400 Systolic blood pressure 116 mm[Hg] Kristin Cabrera MD Work Phone: [facility] 08-12-2022 15:20-0400 Body weight 132 kg Stephanie Pack SECONDARY SCHOOL TEACHER.[employer] Work Phone: [facility] 08-12-2022 15:20-0400 Diastolic blood pressure 83 mm[Hg] Stephanie Pack SECONDARY SCHOOL TEACHER.[employer] Work Phone: [facility] 08-12-2022 15:20-0400 Heart rate 80 /min Stephanie Pack SECONDARY SCHOOL TEACHER.[employer] Work Phone: [facility] 08-12-2022 15:20-0400 Systolic blood pressure 134 mm[Hg] Stephanie Pack SECONDARY SCHOOL TEACHER.[employer] Work Phone: [facility] 06-01-2022 14:40-0400 Body temperature 97.81 [degF] Betty Veras APRN.[employer] Work Phone: [facility] 06-01-2022 14:40-0400 Body weight 130.64 kg Betty Veras APRN.[employer] Work Phone: [facility] 06-01-2022 14:40-0400 Diastolic blood pressure 78 mm[Hg] Betty Veras APRN.[employer] Work Phone: [facility] 06-01-2022 14:40-0400 Heart rate 68 /min Betty Veras APRN.[employer] Work Phone: [facility] 06-01-2022 14:40-0400 Respiratory rate 16 /min Betty Veras APRN.[employer] Work Phone: [facility] 06-01-2022 14:40-0400 SaO2% (BldA) [Mass fraction] 96 % Betty Veras APRN.[employer] Work Phone: [facility] 06-01-2022 14:40-0400 Systolic blood pressure 122 mm[Hg] Betty Anamaria SECOND[employer] SCHOOL TEACHER.[employer] Work Phone: [facility] 05-24-2022 08:23-0400 Body temperature 97.39 [degF] Ole Cabreralematthew SECONDARY SCHOOL TEACHER.[employer] Work Phone: [facility] 05-24-2022 08:23-0400 Body weight 130.09 kg Ole Alegria SECONDARY SCHOOL TEACHER.[employer] Work Phone: [facility] 05-24-2022 08:23-0400 Diastolic blood pressure 92 mm[Hg] Ole Cabreralebury SECONDARY SCHOOL TEACHER.[employer] Work Phone: [facility] 05-24-2022 08:23-0400 Heart rate 90 /min Ole Pendlebury SECONDARY SCHOOL TEACHER.[employer] Work Phone: [facility] 05-24-2022 08:23-0400 Respiratory rate 20 /min Ole Cabreralematthew SECONDARY SCHOOL TEACHER.[employer] Work Phone: [facility] 05-24-2022 08:23-0400 SaO2% (BldA) [Mass fraction] 98 % Ole Alegria SECONDARY SCHOOL TEACHER.[employer] Work Phone: [facility] 05-24-2022 08:23-0400 Systolic blood pressure 118 mm[Hg] Ole Pendlebury SECONDARY SCHOOL TEACHER.[employer] Work Phone: [facility] 04-13-2022 08:26-0400 Diastolic blood pressure 86 mm[Hg] Leticia Haagen SEC[employer] SCHOOL TEACHER.[employer] Work Phone: [facility] 04-13-2022 08:26-0400 Heart rate 68 /min Leticia Haagen SECONDARY SCHOOL TEACHER.[employer] Work Phone: [facility] 04-13-2022 08:26-0400 Respiratory rate 18 /min Leticia Haagen SECONDARY SCHOOL TEACHER.[employer] Work Phone: [facility] 04-13-2022 08:26-0400 SaO2% (BldA) [Mass fraction] 98 % Leticia Haagen SECONDARY SCHOOL TEACHER.[employer] Work Phone: [facility] 04-13-2022 08:26-0400 Systolic blood pressure 118 mm[Hg] Leticia Haagen SECONDARY SCHOOL TEACHER.[employer] Work Phone: [facility] 03-04-2022 12:04-0400 Body temperature 97.7 [degF] Ole Alegria SECONDARY SCHOOL TEACHER.[employer] Work Phone: [facility] 03-04-2022 12:04-0400 Body weight 129.28 kg Ole Alegria SECONDARY SCHOOL TEACHER.[employer] Work Phone: [facility] 03-04-2022 12:04-0400 Diastolic blood pressure 80 mm[Hg] Ole Alegria SECONDARY SCHOOL TEACHER.[employer] Work Phone: [facility] 03-04-2022 12:04-0400 Respiratory rate 18 /min Ole Alegria SECONDARY SCHOOL TEACHER.[employer] Work Phone: [facility] 03-04-2022 12:04-0400 SaO2% (BldA) [Mass fraction] 98 % Ole Alegria SECONDARY SCHOOL TEACHER.[employer] Work Phone: [facility] 03-04-2022 12:04-0400 Systolic blood pressure 124 mm[Hg] Ole Alegria SECONDARY SCHOOL TEACHER.[employer] Work Phone: [facility] Encounters Encounter Date Encounter Type Care Provider Facility Start: 01-08-2024 Refill Leticia Amor APRN.[employer] Work Phone: [facility] Procedures Date Procedure Procedure Detail Performing Clinician [...] abdominal real time w/image limited Leticia Amor APRN.[employer] Work Phone: Start: 05-24-2022 STREP A MOLECULAR (POC) Ole infante SECONDARY SCHOOL TEACHER.[employer] Work Phone: Start: 12-08-2021 Lipid 1996 panel - Serum or Plasma Xr Mob Work Phone: Start: 03-13-2021 Endoscopic plantar fasciotomy JEFF DA SILVA DPM Plan of Treatment Date Care Activity Detail Author Start: 03-31-2030 Urine microalbumin profile [facility] Start: 12-08-2026 Lipid 1996 panel - S dc or Plasma Lipid Screening [facility] Start: 12-08-2026 Lipid panel Lipid Screening [facility] Start: 12-08-2026 LIPID SCREEN LIPID SCREEN [facility] Start: 07-21-2025 DIABETES SCREEN DIABETES SCREEN [facility] Start: 07-21-2025 Diabetes Screening Diabetes Screenin g [facility] Start: 04-13-2025 DIABETES SCREEN DIABETES SCREEN [facility] Start: 12-08-2024 DIABETES SCREEN DIABETES SCREEN [facility] Start: 11-16-2024 Annual PCP Team Dialysis Equipment Technician julio Disease Visit Annual PCP Team Chronic Disease Visit [facility] Start: 11-09-2024 Annual PCP Team Dialysis Equipment Technician julio Disease Visit Annual PCP Team Chronic Disease Visit [facility] Start: 09-19-2024 Annual PCP Team Dialysis Equipment Technician julio Disease Visit Annual PCP Team Chronic Disease Visit [facility] Start: 07-20-2024 ANNUAL PCP TEAM KICKING MACHINE OPERATOR JULIO DISEASE VISIT ANNUAL PCP TEAM CHRONIC DISEASE VISIT [facility] Start: 07-20-2024 COVID-19 VACCINE (3 - Pfizer series) COVID-19 VACCINE (3 - Pfizer series) [facility] Immunizations Immunization Date Immunization Notes Care Provider Fa cility 07-07-2021 COVID-19 vaccine, ag e 12+ yr (PFIZER-BIONTECH - PURPLE TOP) Ole Alegria SECONDARY SCHOOL TEACHER.[employer] Work Phone: [facility] 03-31-2020 tetanus toxoid, reduced diphtheria toxoid, and acellular pertussis vaccine, adsorbed Ole Alegria SECONDARY SCHOOL TEACHER.[employer] Work Phone: [facility] Work Phone: 03-31-2020 tetanus toxoid, reduced diphtheria toxoid, and acellular pertussis vaccine, adsorbed JEFF CHILDERS DPM [facility] 07-28-2007 measles, mumps and rubella virus vaccine Ole Alegria SECONDARY SCHOOL TEACHER.[employer] Work Phone: [facility] Work Phone: Payers Date Payer Category Payer Unknown [id number] 2022 Unknown [id number] 2021 Unknown [employer]ASW[employer]TON PPO [id number] 2021-Present [phone] [address] [place] [address] PPO [id number] 2021 Unknown [id number] 1971 Unknown [id number] 1971 Unknown [id number] Unknown [id number] Social History Date Type Detail Facility Start: 06-16-2011 End: 03-31-2020 Tobacco smoking status NHIS Never smoked tobacco [facility] Work Phone: Start: 03-04-2022 End: 12-23-2023 Alcohol intake Current non-drinker of alcohol (finding) [facility] Start: 02-24-2021 End: 02-02-2023 History SDOH Alcohol Frequency 1 [facility] Start: 02-24-2021 End: 02-02-2023 History SDOH Social Connections Phone 4 [facility] Start: 02-24-2021 End: 02-02-2023 History SDOH Social Connections Get Together 2 [facility] Start: 02-24-2021 End: 02-02-2023 History SDOH Social Connections Living 3 [facility] Start: 02-24-2021 History SDOH Physica l Activity MPS 6 [facility] Start: 02-24-2021 End: 02-02-2023 History SDOH Financial 5 [facility] Start: 02-24-2021 Education 17 [facility] Start: 1970 Sex Assigned At Female C [facility] Start: 02-22-2022 End: 09-01-2022 Exposure to SARS-CoV-2 (event) Not sure [facility] Start: 06-16-2011 Tobacco use and exposure Smoke less tobacco non-user [facility] Work Phone: Start: 02-02-2023 History SDOH Alcohol Std Drinks 0 [facility] Start: 02-02-2023 History SDOH Social Connections Meetings 98 [facility] Start: 02-02-2023 End: 05-09-2023 History of Social function [facility] Start: 02-02-2023 End: 05-09-2023 Social connection and isolation panel [facility] Do you belong to any clubs or organizations such as islam groups, unions, fraternal or athletic groups, or school groups? No [facility] How often do you att end meetings of the clubs or organizations you belong to? Patient refused [facility] Are you now , , , , never or living with a partner? [facility] How often to you hav e a drink containing alcohol? Never [facility] Do you feel stress - tense, restless, nervous, or anxious, or unable to sleep at night because your mind is troubled all the time - these days [OSQ] Only a little [facility] (I/We) worried whehome er (my/our) food would run out before (I/we) got money to buy more. Never true [facility] Start: 02-09-2021 Gender identity Identifies as female gender (finding) [facility] Functional Status Date Assessment Result Facility 10-01-2022 Functional Status Awake, Up ad olga [facility] 10-01-2022 Functional Status Maintained [facility] 09-27-2022 Functional Status Sensory Deficits None A [facility] Mental Status Date Assessment Result Facility 10-01-2022 Mental Status Oriented x 4 [facility] 10-01-2022 Mental Status [facility] Clinical Notes 03-04-2022 to 01-09-2024 Telephone Encounter - Lorenzo Mars APRN.EBONY - 01/09/2024 8:34 AM ESTTelephone Encounter - Eva Rowe LPN - 01/09/2024 8:13 AM ESTPatient InstructionsPatient InstructionsPatient Instructions Note Date & Type Note Facility 01-09-2024 Miscellaneous Notes The following approved medication requests have been transmitted electronically. Requested Prescriptions Pending Prescriptions Disp Refills levothyroxine (SYNTHROID) 137 mcg tablet 30 tablet 5 Sig: Take 1 tablet by mouth daily before breakfast. Lorenzo Mars APRN.EBONY RENAN-11/09/23 Labs-07/13/23 NOV-02/08/24 Eva Rowe LPN documented in this encounter [facility] 12-23-2023 Note HNO ID: [id number] Author: EVA GRIFFITH DO Service: ? Author Type: Physician Type: Progress Notes Filed: 12/23/2023 14:02 Note Text: [facility] Follow Up / Established Virtual Visit I have communicated my name and active licensure. The patient's identity and physical location were verified at the time of this visit. Either the patient or their legal indirect sales representative has been informed of the risks and benefits of -- and alternatives to -- treatment through a remote evaluation and consents to proceed with the evaluation remotely. Individuals who were included in, or assisted with the encounter were: Jammie Troy Eva Griffith DO Chief Complaint/Issues: Jammie Troy is a 53 year old female seen in the [facility] for: Unusual sensation in the left temporal and ear region. History of TMJ and right vestibular schwannoma. Diagnosis/Issues: Relevant Medical Issues: Reflux IBS (remote, related to lactose intolerance) Hypothyroid Right sided cochlear nerve tumor Left kneecap tissue/tumor, possible bursitis Plantar fasciitis b/l feet s/p surgery Multiple joint pain GARCIA BMI 43.99 Current Treatment and Relevant Treatment History: Phentermine Lexapro Prilosec Synthroid Zanaflex Imaging/Studies/Labs: MRI brain w/wo contrast 12/13/2023: IMPRESSION: Small enhancing extra-axial mass in the distal right internal auditory canal, compatible with a vestibular schwannoma. No evidence of of an acute intracranial process, other intracranial mass or pathologic enhancement, with attention to the left IAC, 7th and 8th cranial nerve complexes. Otherwise age-appropriate MRI of the brain. EEG 10/19/2023: Classifications: Normal Interictal: Normal Impression: This EEG is within normal limits. No epileptiform discharges or EEG seizures were seen during this recording. Most Recent Neurological Assessment and Plan: Last Filed Values Date of Most Recent Assessment and Plan 10/04/23 Specialty General Neurology Assessment Patient is 52-year-old right-handed female with history [...] right ear. My concern is for possible PHYSICAL THERAPY INSTRUCTOR structural abnormality. This could include mass effect, [...] like to see her back once completed. Plan I would like to rule out central nervous system cause by completing an MRI of the brain with and without contrast, ordered today, with medication to be administered at the appointment for anxiety. You will need a transfer driver. I have also ordered an EEG in the event these are small, atypical seizure events. The speech disruption is concerning for seizure as a cause. If the scan is normal, then this could be the TMJ causing symptoms. Lets see you back when testing is done. HPI/Interval History: Today, RHF returns, last seen 10/04/2023. History of right sided cochlear nerve tumor identified on prior imaging not available to me today, TMJ, hypothyroidism, reflux disease, anxiety. Today, she has had two episodes of the tingling crawling feeling on the left. Duration of each event is just a couple seconds. It was so disruptive to her day. It has calmed down in frequency and no longer painful since last visit. No other symptoms such as vision change. No tearing, no tinnitus. No rhinorrhea. Proposed diagnosis of trigeminal neuropathy. Previously described as events of left ear pain occur 6-12 times per day, location is left side of head, feels tingling wormlike sensation supra and infra auricular, and includes the external auditory canal. It feels weird , and described as a wa (more content not included)... [facility] 12-23-2023 Instructions Eva Griffith DO - 12/23/2023 1:55 PM EST Today we discussed that the left sided unusual, disturbing sensation has improved in frequency and is much less painful than at our last visit in September 2023. Since that time you had an MRI of the brain and an EEG. The MRI of the brain shows 4 mm vestibular schwannoma on the right side. This is very small and likely is an incidental finding since it is not causing symptoms such as vertigo or hearing loss on the right side. Fortunately your EEG shows no seizure waveforms or anything to suggest a seizure disorder as a cause of your symptoms On the left the radiology report notes vascular enhancement from the left superior cerebellar artery which loops into the left internal auditory canal. This is a normal anatomic variant and not likely to cause or explain your symptoms. We talked about trigeminal neuralgia as being very painful and this does not describe your symptoms. I suspect the diagnosis is trigeminal neuropathy which means an unusual sensation triggered by the trigeminal nerve. This is a benign condition. We decided not to treat today since taking medicine can cause slowing of cognitive function (gabapentin is the most common agent for treating this condition). We decided that if symptoms return or worsen in severity that she will let me know and a follow-up televideo visit. Although we do not a confirmed diagnosis, it is very reassuring that your MRI brain shows no pathologic abnormalities, and your EEG is normal. documented in this encounter [facility] 12-23-2023 History of Present illness Narrative [facility] Follow Up / Established Virtual Visit I have communicated my name and active licensure. The patient's identity and physical location were verified at the time of this visit. Either the patient or their legal indirect sales representative has been informed of the risks and benefits of -- and alternatives to -- treatment through a remote evaluation and consents to proceed with the evaluation remotely. Individuals who were included in, or assisted with the encounter were: Jammie Troy Eva Griffith DO Chief Complaint/Issues: Jammie Troy is a 53 year old female seen in the [facility] for: Unusual sensation in the left temporal and ear region. History of TMJ and right vestibular schwannoma. Diagnosis/Issues: Relevant Medical Issues: Reflux IBS (remote, related to lactose intolerance) Hypothyroid Right sided cochlear nerve tumor Left kneecap tissue/tumor, possible bursitis Plantar fasciitis b/l feet s/p surgery Multiple joint pain GARCIA BMI 43.99 Current Treatment and Relevant Treatment History: Phentermine Lexapro Prilosec Synthroid Zanaflex Imaging/Studies/Labs: MRI brain w/wo contrast 12/13/2023: IMPRESSION: Small enhancing extra-axial mass in the distal right internal auditory canal, compatible with a vestibular schwannoma. No evidence of of an acute intracranial process, other intracranial mass or pathologic enhancement, with attention to the left IAC, 7th and 8th cranial nerve complexes. Otherwise age-appropriate MRI of the brain. EEG 10/19/2023: Classifications: Normal Interictal: Normal Impression: This EEG is within normal limits. No epileptiform discharges or EEG seizures were seen during this recording. Most Recent Neurological Assessment and Plan: Last Filed Values Date of Most Recent Assessment and Plan 10/04/23 Specialty General Neurology Assessment Patient is 52-year-old right-handed female with history [...] right ear. My concern is for possible PHYSICAL THERAPY INSTRUCTOR structural abnormality. This could include mass effect, [...] like to see her back once completed. Plan I would like to rule out central nervous system cause by completing an MRI of the brain with and without contrast, ordered today, with medication to be administered at the appointment for anxiety. You will need a transfer driver. I have also ordered an EEG in the event these are small, atypical seizure events. The speech disruption is concerning for seizure as a cause. If the scan is normal, then this could be the TMJ causing symptoms. Lets see you back when testing is done. HPI/Interval History: Today, RHTerrell returns, last seen 10/04/2023. History of right sided cochlear nerve tumor identified on prior imaging not available to me today, TMJ, hypothyroidism, reflux disease, anxiety. Today, she has had two episodes of the tingling crawling feeling on the left. Duration of each event is just a couple seconds. It was so disruptive to her day. It has calmed down in frequency and no longer painful since last visit. No other symptoms such as vision change. No tearing, no tinnitus. No rhinorrhea. Proposed diagnosis of trigeminal neuropathy. Previously described as events of left ear pain occur 6-12 times per day, location is left side of head, feels tingling wormlike sensation supra and infra auricular, and includes the external auditory canal. It feels weird , and described as a wavy line that moves. Quality is tingling sensation that is not painful but disturbing, lasts 5 seconds when present. Treats by pushing on it and moving her jaw. During episodes, her speech pauses, with difficulty producing speech for a few seconds during events. She does not think that brushing her teeth, wind blowing on face, sleeping on left side, brushing hair triggers the episodes. Workup since last visit: MRI brain w/wo contrast 12/13/2023: IMPRESSION: Small enhancing extra-axial mass in the distal right internal auditory canal, compatible with a vestibular schwannoma. No evidence of of an acute intracranial process, other intracranial mass or pathologic enhancement, with attention to the left IAC, 7th and 8th cranial nerve complexes. Otherwise age-appropriate MRI of the brain. EEG 10/19/2023: Classifications: Normal Interictal: Normal Impression: This EEG is within normal limits. No epileptiform discharges or EEG seizures were seen during this recording. General Examination: She is alone. General: Awake, alert, interactive, no acute distress, good nutritional status, normal development, well-kept Neurological Exam Mental Status Alert, fully oriented, attentive, with normal cognition, memory, speech and affect. Cranial Nerves Extraocular movements normal. No nystagmus, no ptosis. Face symmetrical. Motor Examination and Coordination Grossly normal bulk, strength and tone. No drift. Normal movements and coordination. No tremor. Reflexes Not examined, distance exam Sensation Not examined Gait Not examined Assessment & Plan 12/23/2023 - General Neurology, Eva Griffith DO ASSESSMENT Patient is 53-year-old right-handed female with history of right sided vestibular schwannoma identified on prior imaging. Her other significant history includes TMJ, hypothyroidism, reflux disease, anxiety. She is returns via televideo for serial typical left periauricular sensory changes that have lessened in severity and frequency, now occurs only twice since our visit in September 2023. At that visit, it had occurred 5-15 times per day, lasting approximately 5 [...] worked up/treated by her dentist for TMJ. MRI brain shows vascular loop abutting the left IAC, and 4mm right vestibular schwannoma, but no other tumors, no strokes, no hemorrhages, no demyelinating lesions. EEG is also normal. 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 At this time she chooses not to try gabapentin trial. I reassure her that with normal MRI brain and EEG that this is likely a condition that is benign. She will return if symptoms worsen in severity or frequency. PLAN 1. Followup PRN, if symptoms worsen in frequency or severity. 2. Patient chooses not to treat with trial of gabapentin. 3. We discuss that the schwannoma is 4mm, benign, and not causing symptoms as it is on the right side. No diagnosis found. No follow-ups on file. Data Review Objective Current Outpatient Medications Medication Sig etodolac (LODINE) [...] Cancer Paternal Grandmother Review of Systems HENT: Negative for hearing loss, tinnitus and trouble swallowing. Musculoskeletal: Negative for neck pain and neck stiffness. Lab and Test Review: Results for orders placed or performed in visit on 11/10/23 INFLUENZA A&B MOLECULAR (POC) Specimen: NASOPHARYNGEAL SWAB; Nasal Swab Result Value Ref Range Flu A (POCT) Positive (A) Negative Procedural Control Valid Outside Data/Labs: Subjective Patient-Entered Data: 12/09/23 - GENERAL NEUROLOGY SCORES PROMIS 10 05/21/2023 09/19/2023 11/16/2023 In general, would you say your health is: Good Good Fair In general, would you say your quality of life is: Very good Good Very good In general, how would you rate your physical health? Fair Good Good In general, how would you rate your mental health, including your mood and your ability to think? Good Good Good In general, how would you rate your satisfaction with your social activities and relationships? Good Very good Very good To what extent are you able to carry out your everyday physical activities such as walking, climbing stairs, carrying groceries, or moving a chair? - Mostly Mostly In general, please rate how well you carry out your usual social activities and roles. (This includes activities at home, at work and in your community, and responsibilities as a parent, child, spouse, employee, friend, etc.) Fair Fair Very good How would you rate your pain on average? 5 5 0 - No Pain How would you rate your fatigue on average? Moderate Moderate Moderate How often have you been bothered by emotional problems such as feeling anxious, depressed or irritable? Rarely Rarely Rarely PROMIS Adult Short Form-Global Health Score (Physical) Incomplete 42.3 (Good) 47.7 (Good) PROMIS Adult Short Form-Global Health Score (Mental) 48.3 (Very Good) 48.3 (Very Good) 50.8 (Very Good) Depression Screening 02/24/2021 05/09/2023 05/21/2023 PHQ-2 Score 0 0 0 SLEEP APNEA SCORE 09/27/2023 Probability of moderate-severe sleep apnea (%) SAPS V2 22 (Sleep study not recommended) No flowsheet data found. No flowsheet data found. I spent a total of 25 minutes on the date of the service which included preparing to see the patient, [id number] patient care, completing clinical documentation, obtaining and/or reviewing separately obtained history, counseling and educating the patient/family/caregiver, independently interpreting results (not separately reported), and communicating results to the patient/family/caregiver. Eva Griffith DO documented in this encounter [facility] 12-06-2023 Note HNO ID: [id number] Author: EVA GRIFFITH DO Service: ? Author Type: Physician Type: Progress Notes Filed: 12/06/2023 07:26 Note Text: Opened in error [facility] 11-16-2023 Note HNO ID: [id number] Author: Leticia Amor APRN.[employer] Service: ? Author Type: Nurse Practitioner Type: Progress Notes Filed: 11/16/2023 1:25 PM Note Text: Chief Complaint Patient presents with: Telemedicine I have communicated my name and active licensure. The patient's identity and physical location were verified at the time of this visit. Either the patient or their legal indirect sales representative has been informed of the risks [...] agrees to the visit: Yes Patient Location: [facility] Jammie Troy is a 53 year [...] Cancer (more content not included)... [facility] 11-10-2023 Note HNO ID: [id number] Author: Dallas Cardenas MD Service: ? Author [...] and analgesia. Dallas Cardenas MD [facility] 11-10-2023 History of Present illness Narrative Patient [...] Dallas Cardenas MD documented in this encounter [facility] 11-09-2023 Note HNO ID: [id number] Author: Lauren Crisostomo APRN.[employer] Service: ? Author Type: Nurse Practitioner Type: Progress Notes Filed: 11/09/2023 9:29 AM Note Text: Chief Complaint Patient presents with: adipex check HPI Jammie Troy is a 53 year old [...] on 01/26/2023 Influenza Vaccine(1) Never done Covid-19 Vaccine( season) due on 07/22/2023 Shingrix Vaccine(1 of [...] re (more content not included)... [facility] 2023 Note HNO ID: [id number] Author: Kathi Metz RT(R) Service: Radiology Author Type: Technologist Type: Progress Notes Filed: 2023 9:08 AM Note Text: Radiology Service Progress Note PATIENT NAME: Jammie ROMANON: [id number] DATE OF SERVICE: 2023 TIME: 9:00 AM [...] RT Kike(R) 2023 9:00 AM [facility] 2023 Note HNO ID: [id number] Author: Silvia Vences PA-C Service: ? Author Type: Physician Sales Office Assistant Type: Progress Notes Filed: 2023 9:56 AM Note Text: This note was created using Coeurativeriter. Subjective Jammie Troy is a 53 year [...] AP/LAT/OBL RIGHT - CONSULT TO PODIATRY Silvia Vences PA-C [facility] 2023 History of Present illness Narrative This note was created using INBEP. Subjective Jammie Troy is a 53 year [...] AP/LAT/OBL RIGHT - CONSULT TO PODIATRY Silvia Vences PA-C documented in this encounter [facility] 10-20-2023 Note HNO ID: [id number] Author: Eva Griffith DO Service: ? Author Type: Physician Type: Progress Notes Filed: 10/20/2023 8:31 AM Note Text: Normal EEG study [facility] 10-20-2023 History of Present illness Narrative Normal EEG study documented in this encounter [facility] 10-19-2023 Miscellaneous Notes Please let Jammie know that her EEG is normal, no evidence of seizure-like patterns to explain her symptoms. documented in this encounter [facility] 10-04-2023 Note HNO ID: [id number] Author: Eva Griffith DO Service: ? Author Type: Physician Type: Progress Notes Filed: 10/04/2023 10:53 AM Note Text: [facility] New Patient Evaluation Consulting Provider: No referring provider defined for this encounter. Individuals who were included in, or assisted with the encounter were: Jammie Troy Eva Griffith DO Chief Complaint/Issues: Jammie Troy is a 52 year old female seen in the [facility] for: Extreme pain left ear and TMJ joint, pre auricular. Diagnosis/Issues: Relevant Medical Issues: Reflux IBS (remote, related to lactose intolerance) Hypothyroid Right sided cochlear nerve tumor Left kneecap tissue/tumor, possible bursitis Plantar fasciitis b/l feet s/p surgery Multiple joint pain GARCIA BMI 43.99 Current Treatment and Relevant Treatment History: Phentermine Lexapro Prilosec Synthroid Zanaflex Imaging/Studies/Labs: No PHYSICAL THERAPY INSTRUCTOR imaging on file HPI: Today, Terrell presents for first visit. History of right [...] 5 5 Elbow flexion 5 5 Finger flexion/industrial relations specialist 5 5 Lower Extremity Right Left Hip [...] AND Plan 10/04/2023 - General Neurology, Eva Griffith DO ASSESSMENT Patient is 52-year-old right-handed female [...] b (more content not included)... [facility] 10-04-2023 Instructions Eva Griffith DO - 10/04/2023 [...] appointment for anxiety. You will need a transfer driver. I have also ordered an EEG in the event these are small, atypical seizure events. The speech disruption is concerning for seizure as a cause. If the scan is normal, then this could be the TMJ causing symptoms. Lets see you back when testing is done. documented in this encounter [facility] 10-04-2023 History of Present illness Narrative Images from the original note were not included. [facility] New Patient Evaluation Consulting Provider: No referring provider defined for this encounter. Individuals who were included in, or assisted with the encounter were: Jammie Troy Eva Griffith DO Chief Complaint/Issues: Jammie Troy is a 52 year old female seen in the [facility] for: Extreme pain left ear and TMJ joint, pre auricular. Diagnosis/Issues: Relevant Medical Issues: Reflux IBS (remote, related to lactose intolerance) Hypothyroid Right sided cochlear nerve tumor Left kneecap tissue/tumor, possible bursitis Plantar fasciitis b/l feet s/p surgery Multiple joint pain GARCIA BMI 43.99 Current Treatment and Relevant Treatment History: Phentermine Lexapro Prilosec Synthroid Zanaflex Imaging/Studies/Labs: No PHYSICAL THERAPY INSTRUCTOR imaging on file HPI: Today, ROBBIN presents [...] 5 5 Elbow flexion 5 5 Finger flexion/industrial relations specialist 5 5 Lower Extremity Right Left Hip [...] & Plan 10/04/2023 - General Neurology, Eva Griffith DO ASSESSMENT Patient is 52-year-old right-handed female [...] right ear. My concern is for possible PHYSICAL THERAPY INSTRUCTOR structural abnormality. This could include mass effect, [...] appointment for anxiety. You will need a transfer driver. I have also ordered an EEG [...] which included preparing to see the patient, hxzs-ez-ggmr patient care, completing clinical documentation, obtaining and/or reviewing separately obtained history, performing a medically appropriate examination, counseling and educating the patient/family/caregiver, and ordering medications, tests, or procedures. Eva Griffith DO documented in this encounter [facility] 09-19-2023 Miscellaneous Notes Faxed demographics, most recent xray of left knee, and most recent ov notes to Darryl Siddiqui, per Silva request. . documented in this encounter [facility] 09-19-2023 Note HNO ID: [id number] Author: Leticia Amor APRN.[employer] Service: ? Author Type: Nurse Practitioner Type: Progress Notes Filed: 09/19/2023 8:22 AM Note Text: Chief Complaint Patient presents with: Telemedicine I have communicated my name and active licensure. The patient's identity and physical location were verified at the time of this visit. Either the patient or their legal indirect sales representative has been informed of the risks [...] agrees to the visit: Yes Patient Location: [place] Pt was driving and pulled off during visit. DINORAH Troy is a 52 year old female [...] further. She would like a referral to [facility]. Refers hurts on both sides of [...] conver (more content not included)... [facility] 07-20-2023 Note HNO ID: [id number] Author: Lauren Crisostomo APRN.[employer] Service: ? 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 Starting weight today: 293 lbs. Past [...] SCREE (more content not included)... 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 Starting weight today: 293 lbs. Past [...] activity was identified. 07/20/2023 by Lauren Crisostomo APRN.[employer] 2. IFG (impaired fasting glucose) - ICD9: 790.21, ICD10: R73.01 See above. - PHENTERMINE 37.5 MG CAPSULE RTO in 3 months, sooner if needed. Prescription instructions reviewed with patient as applicable. Potential red flag symptoms discussed with the patient. Reviewed appropriate action plan to take if red flag symptoms occur. Patient agreeable to treatment plan. Lauren eLiva APRN.[employer] [address] [place] [address] documented in this encounter [facility] 07-12-2023 Miscellaneous Notes PLEASE SEE MESSAGE 07/11/23. Jolanta Hodge MA documented in this encounter [facility] 07-11-2023 Note HNO ID: [id number] Author: Leticia Amor APRN.EBONY Service: ? Author [...] i (more content not included)... [facility] 07-11-2023 History of Present illness Narrative This [...] DX&/THER NONOBSTETRIC Dilation & curettage EGD W/O [facility] SPEC VARICIES INJ 11/01/2022 Dr. Christian [...] and difficulty breathing. She is going to [facility]. Passport complete. Will fax notes over. Discussed treatment plan and patient voices understanding. Patient's questions answered appropriately. Medications and potential side effects were discussed and patient voices understanding. Return to the office as scheduled or as needed for worsening/no improvement. Leticia Amor APRN.[employer] documented in this encounter [facility] 07-04-2023 Note HNO ID: [id number] Author: Leticia Amor APRN.[employer] Service: ? Author Type: Nurse Practitioner Type: [...] needed for worsening/no improvement. Leticia Amor APRN.EBONY [facility] 07-04-2023 Instructions Leticia Amor APRN.EBONY - 07/04/2023 6:05 PM EDT Start the doxycycline twice daily X 10 days, then continue once daily for a total of 8 weeks. Start the medrol dose pack. documented in this encounter [facility] 07-04-2023 History of Present illness Narrative 52 [...] Leticia Amor APRN.EBONY documented in this encounter [facility] 06-20-2023 Note HNO ID: [id number] Author: Leticia Amor APRN.CNP Service: ? Author Type: Nurse Practitioner Type: Progress Notes Filed: 06/20/2023 8:36 AM Note Text: Chief Complaint Patient presents with: Telemedicine I have communicated my name and active licensure. The patient's identity and physical location were verified at the time of this visit. Either the patient or their legal indirect sales representative has been informed of the risks [...] agrees to the visit: Yes Patient Location: [facility] Jammie Troy is a 52 year [...] left knee COLONOSCOPY SCREENING 11/01/2022 Dr. Christian Sarmietno- repeat colonoscopy in 6 months d/t poor bowel prep DILATION AND CURETTAGE DXAND/THER NONOBSTETRIC Dilation AND curettage DILATION AND CURETTAGE DXAND/THER NONOBSTETRIC Dilation AND curettage EGD W/O [facility] SPEC VARICIES INJ 11/01/2022 Dr. Christian Friend, small hiatal hernia LAPAROSCOPY SURG CHOLECYSTECTOMY [...] in (more content not included)... [facility] 06-20-2023 History of Present illness Narrative Chief Complaint Patient presents with: Telemedicine I have communicated my name and active licensure. The patient's identity and physical location were verified at the time of this visit. Either the patient or their legal indirect sales representative has been informed of the risks [...] agrees to the visit: Yes Patient Location: [facility] Jammie Troy is a 52 year [...] DX&/THER NONOBSTETRIC Dilation & curettage EGD W/O [facility] SPEC VARICIES INJ 11/01/2022 Dr. Gonzales [...] as needed for worsening/no improvement. Leticia Amor APRN.[employer] documented in this encounter [facility] 06-01-2023 Note HNO ID: [id number] Author: RT My(R) Service: Radiology Author Type: [...] June 01, 2023 2:48 PM [facility] 06-01-2023 Note HNO ID: [id number] Author: HEAVEN Galvan Service: ? Author Type: Physician Sales Office Assistant Type: Progress Notes Filed: 06/01/2023 3:13 PM Note Text: This note was created using Coeurativeriter. Subjective Jammie Troy is a 52 year [...] prompt ER evaluation. HEAVEN Galvan [facility] 06-01-2023 History of Present illness Narrative This note was created using [email or web address]. Subjective Jammie Troy is a 52 year [...] evaluation. HEAVEN Galvan documented in this encounter [facility] 05-26-2023 Miscellaneous Notes Phone call placed patient [...] Reina Vazquez LPN documented in this encounter [facility] 05-25-2023 Note HNO ID: [id number] Author: Neville Grullon PA-C Service: ? Author Type: Physician Sales Office Assistant Type: Progress Notes Filed: 05/25/2023 9:22 AM Note Text: Rheumatology Outpatient Clinic Date of Service: 05/25/2023 Patient: Jammie Troy Medical Record: [id number] Primary Care Physician: Machelle Harry MD Last Rheumatology visit: None at [facility] Referring Provider: Lorenzo Mars CNP [address] [facility] [address] Consultation requested by Lorenzo Mars CNP for [...] reports xrays are fine. 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 [facility] 05-25-2023 History of Present illness Narrative Images from the original note were not included. Rheumatology Outpatient Clinic Date of Service: 05/25/2023 Patient: Jammie Troy Medical Record: [id number] Primary Care Physician: Machelle Harry MD Last Rheumatology visit: None at [facility] Referring Provider: Lorenzo Mars CNP [address] [facility] [address] Consultation requested by Lorenzo Mars CNP for [...] reports xrays are fine. 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 ___ Neville Grullon PA-C [facility] Date: May 25, 2023 Time: 8:54 AM documented in this encounter [facility] 05-21-2023 Note HNO ID: [id number] Author: Betty Veras APRN.[employer] Service: ? Author Type: Nurse Practitioner Type: [...] her lip. Patient has tried all the gbnx-vae-eljlkjw creams and steroid all prescription cream prescribed by PCP. Patient says everything she puts on it makes it worse. Patient would like some testing done to see what it is. The history is provided by the patient. No speech language pathology assistant was used. Mouth/Lip Problem Review of Systems [...] was given at this time. Betty Veras APRN.[facility] 05-21-2023 History of Present illness Narrative [...] her lip. Patient has tried all the afdp-fbi-lbadojg creams and steroid all prescription cream prescribed by PCP. Patient says everything she puts on it makes it worse. Patient would like some testing done to see what it is. The history is provided by the patient. No speech language pathology assistant was used. Mouth/Lip Problem Review of Systems [...] Betty Veras APRN.EBONY documented in this encounter [facility] 05-09-2023 Note HNO ID: [id number] Author: Lorenzo Mars APRN.CNP Service: ? 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 She performs chair exercises [...] Abs Lymph 1.00 - 4.00 k/uL 1.84 Dent% % 7.3 Abs Dent <0.87 k/uL 0.45 Eosin% % 1.1 Abs [...] - CONSULT TO RHEUM/IMMUN DISEASE Lorenzo Mars, SECONDARY SCHOOL TEACHER.[employer] This note was partly generated using VisibleBrands voice recognition dictation and may contain some misspelled or inaccurate words missed on review. 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 documented in this encounter [facility] 05-04-2023 Miscellaneous Notes Patient informed and scheduled with Lorenzo for follow up. Katherin Pichardo Inflammatory markers are stable but mildly up. If still with a lot of joint pains etc. Follow up with one of the providers in her group. documented in this encounter [facility] 04-22-2023 Note HNO ID: [id number] Author: Kathe Parker PT Service: ? Author Type: Physical Therapist Type: Progress Notes Filed: 04/22/2023 8:56 AM Note Text: 04/22/2023 [facility] PHYSICAL THERAPY DISCONTINUANCE OF CARE Plan of Care Period: Start of Care Date: 02/16/23 Last Visit Date: 03/15/2023 Therapy Program: The following is a summary of the interventions provided for this episode of care; Therapeutic exercise, Self-penitentiary management, Patient/Family/Caregiver Education, and Modalities: Ultrasound Assessment: [...] therapy or scheduled additional follow-up appointments. Kathe Parker PT [facility] 03-30-2023 Note HNO ID: [id number] Author: RT Abdiaziz(R) Service: ? Author Type: Technologist Type: Progress [...] IV DATA: Not applicable SIGNED BY: Itzel Hutchinson March 30, 2023 8:30 AM [facility] 03-30-2023 History of Present illness Narrative Radiology Service Progress Note PATIENT NAME: Jammie [...] IV DATA: Not applicable SIGNED BY: Itzel Hutchinson March 30, 2023 8:30 AM documented in this encounter [facility] 03-21-2023 Note HNO ID: [id number] Author: Antoine Nam MD Service: ? Author Type: Physician Type: Progress Notes Filed: 03/21/2023 1:04 PM Note Text: Antoine Nam MD Department of Orthopaedics Orthopaedics [address] [facility] [address] Dept: [phone] Dept March 21, 2023 CHIEF COMPLAINT: New and Knee Pain of the Left Knee and Referred by Leticia COPELAND Patient here evaluation of right knee pain. No specific injury. Denies any pain today. Patient states she had a small meniscus tear in the past and feels it has progressed. She is having difficulty going and down steps. 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 IMAGING: IMPRESSION: No acute abnormality Briquetter Operator: BARBI Transcribe Date/Time: Mar 10 2023 8:40P [...] x 10 days following a fall (accession [id number]) TECHNIQUE: XR ANKLE 3V AP/LAT/OBL RT, XR [...] Thyroid (more content not included)... [facility] 03-21-2023 History of Present illness Narrative Antoine Nam MD Department of Orthopaedics Orthopaedics [address] [place] [address] Dept: [phone] Dept March 21, 2023 CHIEF COMPLAINT: New and Knee Pain of the Left Knee and Referred by Leticia COPELAND Patient here evaluation of right knee pain. No specific injury. Denies any pain today. Patient states she had a small meniscus tear in the past and feels it has progressed. She is having difficulty going and down steps. 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 IMAGING: IMPRESSION: No acute abnormality Briquetter Operator: PSCB Transcribe Date/Time: Mar 10 2023 8:40P Dictated [...] x 10 days following a fall (accession [id number]) TECHNIQUE: XR ANKLE 3V AP/LAT/OBL RT, XR [...] physician via US mail. Leticia Amor [address] [facility] [address] Machelle Harry MD [address] [facility] [address] Antoine Nam MD documented in this encounter [facility] 03-16-2023 Note HNO ID: [id number] Author: Freddie Hanna Service: ? Author Type: [...] 5.3 4.3 - 5.6 % Final Comment: [employer] guidelines indicate that patients with [...] icing for right ankle contusion [facility] 03-16-2023 Note HNO ID: [id number] Author: Deborah Jeffery RN Service: ? Author [...] she can walk stairs comfortably. [facility] 03-16-2023 Instructions Freddie Hanna - 03/16/2023 8:21 AM EDT Continue with inserts Consider hoka or williamson tennis shoe documented in this encounter [facility] 03-16-2023 History of Present illness Narrative Images [...] 5.3 4.3 - 5.6 % Final Comment: [employer] guidelines indicate that patients with [...] walk stairs comfortably. documented in this encounter [facility] 03-15-2023 Note HNO ID: [id number] Author: Kathe Parker PT Service: ? Author [...] THERAPY PHYSICAL THERAPY TREATMENT NOTE ASSESSMENT: Jammie Jose Manuel Troy tolerated the session with no issues. [...] (timed/untimed): 38 Kathe Parker PT [facility] 03-11-2023 Note HNO ID: [id number] Author: Kathe Parker PT Service: ? Author [...] (timed/untimed): 38 Kathe Parker, PT [facility] 03-11-2023 History of Present illness Narrative Episode [...] Kathe Parker PT documented in this encounter [facility] 03-09-2023 Note HNO ID: [id number] Author: RT My(R) Service: Radiology Author Type: [...] March 09, 2023 9:23 AM [facility] 03-09-2023 Note HNO ID: [id number] Author: Leticia Amor APRN.[employer] Service: ? Author Type: Nurse Practitioner Type: [...] Recently (more content not included)... [facility] 03-09-2023 History of Present illness Narrative This [...] as needed for worsening/no improvement. Leticia Amor APRN.[employer] documented in this encounter [facility] 03-08-2023 Note HNO ID: [id number] Author: Kathe Parker, CHRISTOPHER Service: ? Author [...] (timed/untimed): 39 Kathe Parker, PT [facility] 03-02-2023 Note Patient Outreach (IN TMMN) JAMMIE TROY ([id number]) 1970 F Date Time Provider Department 03/02/23 [...] for screening mammogram for breast cancer [Z12.31] Order(s):[facility] SCREENING [[id number]] Order #: [id number] FUTURE Prescriptions as of 03/07/2023 - semaglutide [...] by EPIC, PRODUSER on 03/07/23 [facility] 03-01-2023 Note HNO ID: [id number] Author: Kathe Parker, PT Service: ? Author Type: Physical Therapist [...] (timed/untimed): 39 Kathe Parker, PT [facility] 03-01-2023 History of Present illness Narrative Episode [...] Kathe Parker PT documented in this encounter [facility] documented as of this encounter (statuses as of 05/05/2023) [facility]-2023 History of Past illness Narrative* Problem Noted Date Resolved Date Foot pain, bilateral 02/16/2023 04/22/2023 Plantar fasciitis 02/16/2023 04/22/2023 documented as of this encounter (statuses as of 05/09/2023) [facility]2023 History of Past illness Narrative* Problem Noted Date Resolved Date Foot pain, bilateral 02/16/2023 04/22/2023 Plantar fasciitis 02/16/2023 04/22/2023 documented as of this encounter (statuses as of 05/15/2023) [facility]2023 History of Past illness Narrative* Problem Noted Date Resolved Date Foot pain, bilateral 02/16/2023 04/22/2023 Plantar fasciitis 02/16/2023 04/22/2023 documented as of this encounter (statuses as of 05/21/2023) [address]29-2023 History of Past illness Narrative* Problem Noted Date Resolved Date Foot pain, bilateral 02/16/2023 04/22/2023 Plantar fasciitis 02/16/2023 04/22/2023 documented as of this encounter (statuses as of 05/25/2023) [facility]2023 History of Past illness Narrative* Problem Noted Date Resolved Date Foot pain, bilateral 02/16/2023 04/22/2023 Plantar fasciitis 02/16/2023 04/22/2023 documented as of this encounter (statuses as of 05/27/2023) [address]29-2023 History of Past illness Narrative* Problem Noted Date Diagnosed Date Resolved Date Foot pain, bilateral 02/16/202304/22/ 023 Plantar fasciitis 02/16/2023 04/22/2023 documented as of this encounter (statuses as of 06/02/2023) [address]29-2023 History of Past illness Narrative* Problem Noted Date Diagnosed Date Resolved Date Foot pain, bilateral 02/16/2023 06//2 023 Plantar fasciitis 02/16/2023 04/22/2023 documented as of this encounter (statuses as of 06/20/2023) [address]29-2023 History of Past illness Narrative* Problem Noted Date Diagnosed Date Resolved Date Foot pain, bilateral 02/16/2023 023 Plantar fasciitis 02/16/2023 04/22/2023 documented as of this encounter (statuses as of 06/21/2023) [address]29-2023 History of Past illness Narrative* Problem Noted Date Diagnosed Date Resolved Date Foot pain, bilateral 02/16/2023 023 Plantar fasciitis 02/16/2023 04/22/2023 documented as of this encounter (statuses as of 07/05/2023) [address]29-2023 History of Past illness Narrative* Problem Noted Date Diagnosed Date Resolved Date Foot pain, bilateral 02/16/2023 023 Plantar fasciitis 02/16/2023 04/22/2023 documented as of this encounter (statuses as of 07/08/2023) [facility]03-29-2023 History of Past illness Narrative* Problem Noted Date Diagnosed Date Resolved Date Foot pain, bilateral 02/16/2023 023 Plantar fasciitis 02/16/2023 04/22/2023 documented as of this encounter (statuses as of 07/12/2023) [facility]03-29-2023 History of Past illness Narrative* Problem Noted Date Diagnosed Date Resolved Date Foot pain, bilateral 02/16/2023 023 Plantar fasciitis 02/16/2023 04/22/2023 documented as of this encounter (statuses as of 07/12/2023) [facility]03-29-2023 History of Past illness Narrative* Problem Noted Date Diagnosed Date Resolved Date Foot pain, bilateral 02/16/2023 023 Plantar fasciitis 02/16/2023 04/22/2023 documented as of this encounter (statuses as of 07/20/2023) [address]29-2023 History of Past illness Narrative* Problem Noted Date Diagnosed Date Resolved Date Foot pain, bilateral 02/16/2023 023 Plantar fasciitis 02/16/2023 04/22/2023 documented as of this encounter (statuses as of 10/04/2023) [address]29-2023 History of Past illness Narrative* Problem Noted Date Diagnosed Date Resolved Date Foot pain, bilateral 02/16/2023 023 Plantar fasciitis 02/16/2023 04/22/2023 documented as of this encounter (statuses as of 10/12/2023) [address]29-2023 History of Past illness Narrative* Problem Noted Date Diagnosed Date Resolved Date Foot pain, bilateral 02/16/2023 023 Plantar fasciitis 02/16/2023 04/22/2023 documented as of this encounter (statuses as of 10/20/2023) [address]29-2023 History of Past illness Narrative* Problem Noted Date Diagnosed Date Resolved Date Foot pain, bilateral 02/16/2023 023 Plantar fasciitis 02/16/2023 04/22/2023 documented as of this encounter (statuses as of 2023) [address]29-2023 History of Past illness Narrative* Problem Noted Date Diagnosed Date Resolved Date Foot pain, bilateral 02/16/2023 023 Plantar fasciitis 02/16/2023 04/22/2023 documented as of this encounter (statuses as of 11/11/2023) [address]29-2023 History of Past illness Narrative* Problem Noted Date Diagnosed Date Resolved Date Foot pain, bilateral 02/16/2023 023 Plantar fasciitis 02/16/2023 04/22/2023 documented as of this encounter (statuses as of 12/23/2023) [address]29-2023 History of Past illness Narrative* Problem Noted Date Diagnosed Date Resolved Date Foot pain, bilateral 02/16/2023 023 Plantar fasciitis 02/16/2023 04/22/2023 documented as of this encounter (statuses as of 01/09/2024) [address]29-2023 NoteHNO ID: [id number] Author: aKthe Parker PT Service: ? Author Type: Physical [...] of Care: created on 02/16/23 through 03/16/23 [place] in home exercise program. 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 Patient education as noted. Self-Long Term Management: 1: education on use of shoes [...] 40 Kathe Parker PT documented in this encounterA[facility]-2023 NoteHNO ID: [id number] Author: Freddie Hanna Service: ? Author Type: [...] old fema (more content not included)...[facility]03-22-2023 NoteHNO ID: [id number] Author: Maria D Schaffer LPN Service: ? [...] Patient had surgery done in September at [facility] with jeff childers. Maria D Schaffer, [facility]03-22-2023 NoteHNO ID: [id number] Author: RT Abel(R) Service: ? Author Type: [...] BY: RT Abel(R) February 09, 2023 9:35 [facility]03-22-2023 Instructions* Patient Instructions* Freddie Hanna - [...] time on their feet, such as nurses, box office agent/waiters, andmail carriers, often experience plantar fasciitis. Athletes [...] choose the one that fits the best. [place] with your athletic shoes to find a [...] and repeat the exercise. documented in this encounterAcmc [facility]03-[facility]-2023 History of Present illness Narrative* Freddie Hanna [...] Freddie Hanna DPM Podiatry [address] [facility] [address] Dept: [phone] Dept * Maria D Schaffer LPN - 02/09/2023 9:39 AM EDT AMB ROOMING INTAKE FLOWSHEET DATA Pain Pain Level: 7 Pain Location: Foot-Right Description: Sharp, Radiating Duration Amount of Time: 4 Duration Units: Months Frequency: Continuous Intervention/Comfort measure: Reposition, Relaxation, Medication Patient presents with: Right Foot - New, Pain Left Foot - New, Pain Patient had surgery done in September at [facility] with jeff childers. Maria D Schaffer LPN documented in this encounterAcmc [facility]03-[facility]-2023 History of Present illness Narrative* Daily Bush [...] 09, 2023 9:35 AM documented in this encounterAcmc [facility]03-15-2023 NoteHNO ID: [id number] Author: Leticia Amor APRN.[employer] Service: ? Author Type: Nurse Practitioner Type: [...] agrees to the visit: Yes Patient Location: [facility] Jammie Troy is a 52 year [...] series) N (more content not included)...[facility]03-15-2023 Instructions* Patient Instructions* Leticia Amor APRN.COATER BRAKE [employer]INGS - 02/02/2023 1:51 PM EDT FACT SHEET FOR PATIENTS, PARENTS, AND CAREGIVERS EMERGENCY USE AUTHORIZATION (EUA) OF PAXLOVID FOR CORONAVIRUS DISEASE 2019 (COVID-19) You are being given this Fact Sheet because your healthcare provider believes it is necessary to provide you with PAXLOVID for the treatment of dcwv-yg-blnztoyz coronavirus disease (COVID-19) caused by the SARS-CoV-2 [...] virus. COVID-19 illnesses have ranged from very pzkj-af-dkipil, including illness resulting in . While information [...] is an investigational medicine used to treat wymy-sk-xwwoiast COVID-19 in adults and children [12 years [...] of using PAXLOVID to treat people with vawk-vq-zhzzgcfp COVID-19. The FDA has authorized the emergency use of PAXLOVID for the treatment of oeks-xc-smrctnri COVID-19in adults and children [12 years of [...] the medicines you take, including prescription and gtyo-qqr-sfgdkms medicines, vitamins, and herbal supplements. Some medicines [...] oral midazolam Apalutamide Carbamazepine, phenobarbital, phenytoin Rifampin Bartlett s Wort (hypericum perforatum) Taking PAXLOVID with [...] (remdesivir) is FDA-approved for the treatment of njfe-nj-ewvarqdz COVID-19 in certain adults and children. Talk with your doctor to see if Veklury is appropriate for you. Like PAXLOVID, FDA may also allow for the emergency use of other medicines to treat people with COVID-19. Go to https://www.fda.gov/ynsnqvsew-ejcjvxuptuwg-dfbzmhcisze/hkv-jtesk-mgrnvvxxnk-and- policy-framework/joedgsaiw-bzb-gtboyulemiiwv for information on the emergency use of [...] if I am or ? There is pediatric immunologist treating women or mothers with PAXLOVID. For [...] not go away. Report side effects to [employer] at www.Forsitec.gov/medTransatomic Power Corporation or call 0-000-XBA1378 or you can reportside effects to [employer] at the contact information provided below. Website Fax number Telephone number Garden[employer] How should I store PAXLOVID? Store PAXLOVID [...] (EUA). The EUA is supported by a [employer] Technical Officer of Health and Human Service (HHS) declaration that circumstances exist to justify the emergency use of drugs and biological productsduring the COVID-19 pandemic. PAXLOVID for the treatment of kjhr-ii-hgoljnue COVID-19 in adults and children [12 years [...] telephone number provided below. Website Telephone number wwwCoeurative (8-755-C69-WWYK) You can also go to www.Angle or call for more information. Pfizer Distributed by [employer] Division [place] [address] [id number] Revised: 05 February 2022 documented in this encounterAcmc Healthcare [facility]03-15-2023 History of Present illness Narrative* Leticia Amor [...] agrees to the visit: Yes Patient Location: [place] DINORAH Troy is a 52 year old female who is contacted today for a virtual visit This is an established patient of Dr. Machelle Harry MD Reports: + covid. Went to work on Tuesday morning, and there was a resident that had covid. She helped do other tasks d/t being short staffed. Refers that she woke Tuesday morning around 2:00 feeling hot, and eyes hurt, [...] improvement. Nirmatrelvir/Ritonavir (Paxlovid) Eligibility and Patient Discussion [facility] Formulary Restriction Criteria: Adult outpatients 18 years [...] 02, 2023 1:52 PM documented in this encounterAcmc Healthcare [facility]03-06-2023 NoteHNO ID: [id number] Author: Leticia Amor APRN.CNP Service: ? Author Type: Nurse Practitioner Type: Progress Notes Filed: 01/24/2023 7:43 PM Note Text: This is a 52 year old female who presents today with: Patient presents with: Pain (foot): B/l foot pain; history of foot surgery; would like to see a new Processing Lead HISTORY OF PRESENT ILLNESS: Jammie Troy is a 52 year old female. Patient presents with: Pain (foot): B/l foot pain; history of foot surgery; would like to see a new Processing Lead Pt presents today for foot pain. Working [...] M79.672 Requesting to get established with a [facility] unisaw operator for ongoing care of her feet. She [...] APRN.CNP This note was partially generated using [employer] voice recognition system. Note was reviewed for accuracy. There may be minor misspellings or grammar miscues with [employer] voice recognition.[facility]03-06-2023 Instructions* Patient Instructions* Leticia Amor APRN.CNP - 01/24/2023 7:18 PM EST Schedule with podiatry. documented in this encounterAcmc [facility]03-06-2023 History of Present illness Narrative* Leticia Amor APRN.CNP - 01/24/2023 6:59 PM EST This is a 52 year old female who presents today with: Patient presents with: Pain (foot): B/l foot pain; history of foot surgery; would like to see a new Processing Lead HISTORY OF PRESENT ILLNESS: Jammie Troy is a 52 year old female. Patient presents with: Pain (foot): B/l foot pain; history of foot surgery; would like to see a new Processing Lead Pt presents today for foot pain. Working [...] M79.672 Requesting to get established with a [facility] unisaw operator for ongoing care of her feet. She [...] APRN.EBONY This note was partially generated using [employer] voice recognition system. Note was reviewed for accuracy. There may be minor misspellings or grammar miscues with [employer] voice recognition. documented in this encounterAcmc Healthcare [facility]03-01-2023 NoteHNO ID: [id number] Author: Kristin Cabrera MD Service: ? Author Type: Physician Type: Progress Notes Filed: 01/19/2023 11:06 AM Note Text: Endocrinology and Metabolism [place] [facility] - Follow-up Visit Last [...] on low carb diet, last met with roofing machine operator on 10/18/2022. - Appetite control: Improved - Support Merchandiser: not seen. - Sleep: Improved - Stress: [...] questions answ (more content not included)...[facility] 01-19-2023 Instructions* Patient Instructions* Kristin Cabrera MD [...] experience these side effects documented in this encounterAcmc Healthcare [facility]03-01-2023 History of Present illness Narrative* Kristin Cabrera MD - 01/19/2023 9:40 AM EST Images from the original note were not included. Endocrinology and Metabolism [facility] - Follow-up Visit Last [...] on low carb diet, last met with roofing machine operator on 10/18/2022. - Appetite control: Improved - Support Merchandiser: not seen. - Sleep: Improved - Stress: [...] today. Follow-up: 3 months Kristin Cabrera MD [facility] Endocrinology and Metabolism [place] [facility] [phone] Medical Decision Making: Problems: Moderate: 1+ chronic illnesses with change Data: Unique source(s) for external note(s) reviewed: 1 Risk: Moderate: Drug management Medical Decision Making Level: 4 - Moderate documented in this encounterAcmc Healthcare System [facility]igh01-12-2023 Miscellaneous Notes* Telephone Encounter - Masha Lara MA - 12/02/2022 12:34 PM EST Requester: Patient Patients last Endocrinology visit occurred 10/12/22. Follow-up evaluation has been established Yes. Requested Prescriptions No prescriptions requested or ordered in this encounter Masha Lara MA documented in this encounterAcmc Healthcare [facility]igh11-28-2022 Instructions* Patient Instructions* Earlene Lima RD - 10/18/2022 9:19 AM EST Changing to old fashioned oats at lunch, add protein (protein powder), then no additional carb, have veggies instead Change Fairlife skim milk As able get back to what we talked about previously documented in this encounterAcmc Healthcare [facility]11-28-2022 History of Present illness Narrative* Earlene Lima RD - 10/18/2022 8:48 AM EST The [facility] Nutrition Therapy: Virtual Consult - Re-assessment This [...] None Likelihood of Adherence: Moderate Referred/Supervised by: Vanessa MONTES DE OCA Billing Type: Re-assess/15 min 2 units SIGNATURE: Earlene Lima RD PATIENT NAME: Jammie Troy DATE: 10/18/2022 TIME: 8:54 AM documented in this encounterAcmc Healthcare [facility]11-11-2022 Evaluation + Plan note Extracted from: Title:Clinical Document Author:JEFF CHILDERS PM Date:10/01/22 [place] ADMISSION HISTORY AN D PHYSICIAL CHIEF COMPLAINT: HISTORY OF PRESENT ILLNESS: REVIEW OF SYSTEMS: ACTIVE PROBLEMS: (7) Asthma (487031092) Bursitis (998105466) GERD (gastroesophageal reflux disease) (898833662) Hypothyroid (60896057) Leaky heart valve (07678123) Panic attack (392815507) Seasonal allergies (3715771540) MEDICATIONS: Active Inpt Meds: None Active PRN Meds: None One Time Meds: None Active IV Meds: Lactated Ringers Infusion 1,000 mL (LR 1,000 mL) Start: 10/01/22 7:33:00 EST, Rate: 125 mL/hr, 10/01/22 7:33:00 EST ALLERGIES: (4) codeine Flexeril naproxen sulfa drug FAMILY HISTORY: SOCIAL HISTORY: PHYSICAL EXAM: VITALS: UopmmeUtatARYtijrHJEeA1PLH1RlpvKx(kg) 10/01 07:4636.4--712871NN85/78672.3 24 Hr Tmax: 36.4 at 10/01 07:46 [...] changes to the H&P unless noted below. [facility] 11-11-2022 Hospital Discharge instructions Patient Education 10/01/2022 09:56:28 9Denise SMITH [facility], Aftercare (01-19-2018)(CUSTOM) Homegoing Instructions Surgical Outpatient [...] THEM. Document Released: 09/07/2005 Document Re-Released: 11/29/2010 [facility] Patient Information 2010 [employer]. 10/01/2022 09:54:34 Monitored Anesthesia Care, Care After [...] before eating solid foods. General instructions Take mesk-zpa-gvmjbwk and prescription medicines only as told by [...] 02/27/2017 Document Revised: 02/05/2019 Document Reviewed: 02/27/2017 [employer] Patient Education 2020 DokDok. 10/01/2022 09:54:30 Nausea and Vomiting, Adult Nausea [...] water added (diluted fruit juice). Eat bland, htda-sv-cnjznu foods in small amounts as you are able. These foods include bananas, applesauce, rice, lean meats, toast, and crackers. Avoid fluids that contain a lot of sugar or caffeine, such as energy drinks, sports drinks, and soda. Avoid alcohol. Avoid spicy or fatty foods. General instructions Take kgsh-gkd-drwsurb and prescription medicines only as told by your health care provider. Drink enough fluid to keep your urine pale yellow. Wash your hands often using soap and water. If soap and water are not available, use hand liquor gallery operator. Make sure that all people in your [...] eating and drinking to prevent dehydration. Take sftg-lyk-soxvgoi and prescription medicines only as told by [...] 11/07/2006 Document Revised: 02/29/2020 Document Reviewed: 04/17/2019 [employer] Patient Education 2020 DokDok. Follow Up Care 09/20/2022 12:38:34 With:JEFF CHILDERS Address: Jeff Domínguez [address] [place] [address] [place] [address]- Business (1) When:10/07/2022 09:00:[address] [facility] 11-11-2022 Summary of episode note Discharge Instructions Thank you for allowing [facility] to assist you with your healthcare needs. The following is importantdischarge information regarding your hospital visit. Your Care Team MACHELLE HARRY MD Your Diagnosis Panic attack What to do next Follow Up Appointments Follow Up with JEFF CHILDERS When 10/07/2022 09:00 AM EST Where: Jeff Dom[facility]nguez [address] [place] [address] [place] [address]- Business (1) The Following Activity and Diet Have [...] THEM. Document Released: 09/07/2005 Document Re-Released: 11/29/2010 ExitCare Patient Information 2011 [facility] CenterThe [facility]. Monitored Anesthesia Care, Care After These instructions [...] before eating solid foods. General instructions Take zdqf-lqr-bnupzwv and prescription medicines only as told by [...] 02/27/2017 Document Revised: 02/05/2019 Document Reviewed: 02/27/2017 [employer] Patient Education 2020 DokDok. Nausea and Vomiting, Adult Nausea is the [...] water added (diluted fruit juice). Eat bland, ihya-yd-lflrxk foods in small amounts as you are able. These foods include bananas, applesauce, rice, lean meats, toast, and crackers. Avoid fluids that contain a lot of sugar or caffeine, such as energy drinks, sports drinks, and soda. Avoid alcohol. Avoid spicy or fatty foods. General instructions Take dtum-jhj-ohddpry and prescription medicines only as told by your health care provider. Drink enough fluid to keep your urine pale yellow. Wash your hands often using soap and water. If soap and water are not available, use hand liquor gallery operator. Make sure that all people in your [...] eating and drinking to prevent dehydration. Take pent-eis-tdcbkhn and prescription medicines only as told by [...] 11/07/2006 Document Revised: 02/29/2020 Document Reviewed: 04/17/2019 [employer] Patient Education 2020 DokDok. Additional Information VACCINATE! IT SAVES LIVES! Members of the community who have not yet received the COVID-19 vaccine and would like to receive it can visit one of [facility] vaccine clinics. There are many vaccine clinic locations within the [facility]. For locations and available times, please visit https://gettheshot.coronavirus.[place].gov/. It is important to note that some COVID mobile vaccine clinics are held outdoors and may be canceled in rainy or stormy conditions. To learn more about pediatric vaccinations (ages 5-11), we invite you to visit the [facility] webpage. https://www.[email or web address].org/pages/3588-Gqpxr-Diznlahxgzo-Pyywlbjzzr-Raopl-Eej stions.htmlTo learn more about the COVID-19 vaccine, we invite you to visit the [facility] website for a list of frequently asked questions. https://[email or web address]/assets/Lrgpvdjc-pkk-Xqakkddi/zgiwt-Vnpfjlv-Xfafnyjjgb _Asked-Questions.pdf [facility] [employer] Patient Portal Access Instructions: Stay connected with your healthcare team and access your personal medical information anytime with the [facility] Patient Portal.If you would like a full copy of your medical records, please contact the [facility] Medical Records Department, Tuesday through Tuesday between 8a.m. and 4:30p.m. Please follow the directions below to access the portal: 1.Access the email account you provided upon registration to the [facility] [address] [facility].2.Look for an invitation email from [facility].3.Open the email and access the invitation link: Accept Invitation to [employer]4.Fill in the required [place]pton to create your account. Sign into [email or web address] with your username and password that you [...] you will allow to register on the [employer] Patient Portal for access to your information. You can also access the [employer] Patient Portal on the thesixtyone. Simply click on Health Records under RunRev and then click on the [email or web address] logo. HOW TO SAFELY DISPOSE OF PRESCRIPTION [...] Call your local pharmacy or go to [email or web address] to find one close to you.3.Make use of household items: Use cat litter or old coffee grounds to dispose medications if other options arenot available. Mix your drugs with these household products, seal them in an airtight container andthrow it into the garbage. Call [facility]: [phone] to be sure your drugs can be [...] COPY. Signatures Patient Education Materials 9. [facility] Surgery, Aftercare (01-19-2018)(CUSTOM) Monitored Anesthesia Care, [...] that I should contact my do ctor. Patient/Contact Center Team Lead Signature: Date/Time: Relationship to Patient: Witness Name/Signature: Date/Time: [facility]11-11-2022 Anesthesiology Consult note Patient: JAMMIE TROY Age: 51 years Sex: Female : 1970 Associated Diagnoses: None Author: JASON MCRAE SECONDARY SCHOOL TEACHER-HUMAN RESOURCES BENEFITS COORDINATOR Preoperative Information Time of last food or [...] disease Father Procedure history: Endoscopic plantar fasciotomy (03754) on 03/13/2021 at 50 Years. Comments: 03/13/2021 14:50 EDT - Sarah Garcia RN LEFT Tonsillectomy ([id number]). Arthroscopy of knee ([id number]). Comments: 03/10/2021 11:55 EDT - Izabela Ley RN LEFT Dilation and curettage ([id number]). Cholecystectomy (82549255). Social History Social & Psychosocial Habits Alcohol [...] Signs(last 24 hrs) Last Charted Heart Rate Ixotacsxm05 bpm (OCT 01 09:15) Resp Rate L 13br/min (OCT 01 07:46) XYY214 mmHg (OCT 01:15) DBP97 mmHg (OCT 01:15) Measurements from flowsheet : Measurements 10/01/2022 7:46 EST Height 172.7 cm Admission Weight 127.3 kg [place] Body Weight 63.88 kg Admission Body Mass [...] 10/01/2022 9:21 10/01/2022 9:21 EST SN - UT - Time Administered 10/01/2022 9:15 10/01/2022 9:15 [...] Integrity Intact/Dry 10/01/2022 9:00 EST SN - UT - Route of Administration Local SN - UT - By (Single) SN - UT - By (Single) 10/01/2022 9:00 EST SN [...] Surgeon SN - CAt - Role Performed HUMAN RESOURCES BENEFITS COORDINATOR SN - CAt - Role Performed Dietary Service Aide 1 SN - CAt - Role Performed Communications Station Manager 1 SN - CAt - Role Performed Scrub 1 10/01/2022 8:06 EST Eliot History and Physical 10/01/2022 8:03 EST SN - Preop - CTm Pt Ready for OR/Proced 10/01/2022 7:50 10/01/2022 7:59 EST Individuals Taught Patient, Family member Learning Readiness Willing to learn Barriers to Learning None evident Preferred Written Language Stateless Family/Caregiver Prefer Written Language Stateless Preferred Spoken Language Stateless Family/Caregiver Prefer Spoken Language Stateless Pre Procedure/Surgery Education Appropriate expectations Lactated Ringers Injection Begin Bag 1,000 mL mL 10/01/2022 7:46 EST Height 172.7 cm Admission Weight 127.3 kg [place] Body Weight 63.88 kg Admission Body Mass [...] no difficulties Skin Temperature Warm Skin Description Metz, Normal for ethnicity, Dry Skin Integrity Intact Skin Moisture General Dry IV Present Present Neurological Symptoms Patient denies Extremity Movement Equal Characteristics of Speech Clear Level of Consciousness Alert Strength All Extremities Strong Affect/Behavior Appropriate, Calm, Cooperative Orientation Oriented x 4 Allergies Yes Senior Programmer On Yes Consent Form Signed Yes Patient [...] Safety Brochure Information Reviewed Unable to complete [facility] Video Viewed No Teaching Evaluation No further teaching needed Prev Test Positive/Diagnosis w/COVID-19 Yes Previous COVID-19 Positive Date 2019 Current Quarantine/Isolated any Illness No Any [...] Room 10/01/2022 7:32 . Assessment and Plan [place] [employer] (ASA) physical status classification: Class III. Anesthetic Preoperative Plan Premedication: intravenous. Anesthetic technique: MAC. Induction: intravenously. Maintenance airway: 40% FM. Postoperative pain management: Per surgeon. Informed consent: signed by patient. Digitally Signed by JASON MCRAE on 10/01/2022 09:[address] [facility]11-11-2022 Note [place] ADMISSION HISTORY AND PHYSICIAL CHIEF COMPLAINT: HISTORY OF PRESENT ILLNESS: REVIEW OF SYSTEMS: ACTIVE PROBLEMS: (7) Asthma (585185425) Bursitis (743412211) GERD (gastroesophageal reflux disease) (976320380) Hypothyroid (51657957) Leaky heart valve (66030785) Panic attack (297074255) Seasonal allergies (7260454440) MEDICATIONS: Active Inpt Meds: None Active PRN Meds: None One Time Meds: None Active IV Meds: Lactated Ringers Infusion 1,000 mL (LR 1,000 mL) Start: 10/01/22 7:33:00 EST, Rate: 125 mL/hr, 10/01/22 7:33:00 EST ALLERGIES: (4) codeine Flexeril naproxen sulfa drug FAMILY HISTORY: SOCIAL HISTORY: PHYSICAL EXAM: VITALS: [id number](kg) 10/01 07:4636.4--793800KQ18/03959.3 24 Hr Tmax: 36.4 at 10/01 07:46 [...] JEFF CHILDERS DPM on 10/01/2022 08:[address] [facility]10-31-2022 Instructions* Patient Instructions* Earlene Lima RD - 09/20/2022 12:52 PM EDT Modify type [...] 2 days per week [facility] History of Present illness Narrative* Earlene Lima [...] Diet History: Breakfast - eggs OR oatmeal (yazidism) and toast (35 slice bread) with margarine [...] 2022 TIME: 12:15 PM documented in this encounterA[facility]10-19-2022 Miscellaneous Notes* Telephone Encounter - Stephanie Tabares APRN.CNP - 09/08/2022 3:03 PM EDT New orders placed with moderate sedation. Stephanie Tabares APRN.CNP * Telephone Encounter - Moses Perea - 09/08/2022 1:31 PM EDT We do not offier anesthesia at the [place] location for colonoscopies. Patient will either need to have a consult with our general surgery office or be scheudled at another location that acccepts open access with anesthesia. Please advise, thank you! documented in this encounterAcmc [facility]10-12-2022 Instructions* Patient Instructions* Kristin Cabrera MD - [...] least 1 or 2 times per week [place], trout, lugo,water-packed tuna, mackerel (or fish oil supplement); flaxseed, spinach, walnuts Fried fish ( except when lawson fried in olive oil) Healthy oils for cooking, salad dressing, and other uses Extra-virgin olive oil, canola oil, flaxseed oil ( high-oleic sunflower or safflower oil may also be an option) [place]-6 oils, (corn, sunflower, safflower, soybean, peanut) Peas, beans, legumes, and nuts Soybeans, lentils, or any kind of peas, beans, or legumes; tree nuts(eg. Almonds,pecans, walnuts, [place] nuts) Heavily salted or honey-roasted nuts; stale [...] with partially hydrogenated oil documented in this encounterAcmc [facility]10-12-2022 History of Present illness Narrative* Kristin Cabrera MD - 09/01/2022 9:00 AM EDT Images from the original note were not included. Endocrinology and Metabolism [place] [facility] - Initial Visit SERVICE DATE: 08/31/2022 This nice patient was originally referred to us by Stephanie Tabares APRN.EBONY for evaluation of obesityand associated medical problems. [...] Weight Watchers, TOPS, or similar program, and horse and wagon driver consultation (lost 10lbs with WW), only- protein [...] palpitations GI: No nausea, vomiting, or diarrhea GRAIN PROCESSOR: Negative for abnormal vaginal bleeding, abnormal vaginal [...] Obesity, Class III, BMI 40-49.9 (morbid obesity) ([facility]) E66.01 CONSULT TO NUTRITION THERAPY 2. Weight gain R63.5 Kristin Cabrera MD [facility] Endocrinology and Metabolism [place] [facility] [phone] Medical Decision Making: Problems: Moderate: 1+ chronic [...] Yes Heat Intolerance?: No documented in this encounterAcmc [facility]10-05-2022 History of Present illness Narrative* Margarita Pimentel [...] 25, 2022 8:19 AM documented in this encounterAcmc [facility]09-26-2022 Miscellaneous Notes* Telephone Encounter - Moses Mejia [...] ultrasound of the liver. documented in this encounterAcmc [facility]09-22-2022 Instructions* Patient Instructions* Stephanie Tabares APRN.CNP - 08/12/2022 3:43 PM EDT Images from the original note were not included. Thank you for seeing me in clinic today. As we discussed, my recommendations are as follows: 1.EGD 2.Colonoscopy If you have any questions about the above treatment plan, please do not hesitate to call the officeor send me a Rev message. Bowel Preparation Instructions for: Miralax-Gatorade Preparations [...] If you do not have a responsible transfer driver (family member or friend) withyou to take you home, your exam cannot be done with sedation and will be cancelled. Please bring a list of all of your current medications, including any Htvy-fwd-Ixoimeh medications with you. Medications If you take [...] your exam. 2 10/2019 documented in this encounterAcmc [facility]09-22-2022 History and physical note * Stephanie aTbaresMARGARITA.[employer]INGS - 08/12/2022 3:30 PM EDT Consultation requested [...] Abs Lymph 1.00 - 4.00 k/uL 2.28 Dent% % 7.0 Abs Dent <0.87 k/uL 0.47 Eosin% % 0.1 Abs [...] TO ENDOCRINOLOGY This note was dictated using [employer] speech recognition software and may contain some errors that were a result of the program not accurately transcribing what was dictated. Stephanie Tabares APRN.CNP documented in this encounterAcmc [facility]09-02-2022 Miscellaneous Notes* Telephone Encounter - Moses Mejia [...] labs. Leticia Amor APRN.CNP documented in this encounterAcmc [facility]07-12-2022 History of Present illness Narrative* Betty Veras APRN.CNP - 06/01/2022 2:58 PM EDT CC: Patient [...] Unremarkable. IMPRESSION IMPRESSION: No acute radiographic abnormality. Briquetter Operator: BARBI Transcribe Date/Time: Jun 01 2022 3:11P Dictated by : DOMINICK PAZ MD Augmentin bid for 5 days and ofloxacin. Prescription instructions reviewed with patient as applicable. Potential red flag symptoms discussed with the patient. Reviewed appropriate action plan to take if red flag symptoms occur. Patient agreeable to treatment plan. Betty Veras APRN.CNP documented in this encounterAcmc [facility]07-04-2022 Instructions* Patient Instructions* Ole Alegria APRN.CNP - [...] or concerning to you. documented in this encounterAcmc Healthcare [facility]07-04-2022 History of Present illness Narrative* Ole Alegria [...] of care. This note was generated using [employer] software. It may contain errors in wording, punctuation, or spelling. Ole Alegria APRN.EBONY documented in this encounterAcmc Healthcare [facility]05-24-2022 Instructions* Patient Instructions* Leticia Amor APRN.CNP - 04/13/2022 8:56 AM EDT 1. Get labwork. 2. Start the meloxicam daily w/ food. 3. You can use the tizanidine as needed for muscle pain, but this can cause drowsiness. 4. Let me know if not working and we need to do the steroids. documented in this encounterAcmc Healthcare [facility]05-24-2022 History of Present illness Narrative* Leticia Amor APRN.EBONY - 04/13/2022 8:33 AM EDT This is [...] APRN.EBONY This note was partially generated using [employer] voice recognition system. Note was reviewed for accuracy. There may be minor misspellings or grammar miscues with [employer] voice recognition. documented in this encounterAcmc [facility]04-14-2022 History of Present illness Narrative* Ole Alegria APRN.CNP - 03/04/2022 12:13 PM EDT Subjective HPI [...] Sinus: Maxillary sinus tenderness present. Mouth/Throat: Lips: Metz. Mouth: Mucous membranes are moist. Pharynx: Oropharynx [...] of care. This note was generated using [employer] software. It may contain errors in wording, punctuation, or spelling. Ole Alegria APRN.EBONY [facility] Future Appointments [facility] Evaluation note* Diagnosis Sinobronchitis- Primary Unspecified sinusitis (chronic) Other acute sinusitis, recurrence not specified [facility]* Diagnosis Encounter for screening mammogram for breast cancer documented [facility] encounter [facility]* Diagnosis Myalgia- Primary Mylagia and myositis, unspecified Weakness of both lower extremities Hypothyroidism, unspecified type documented [facility]* Diagnosis Pharyngitis, unspecified etiology- Primary Viral illness Unspecified viral infection, in conditions classified elsewhere and of unspecified site documented [facility] encounter [facility]* Diagnosis Acute cough- Primary documented in this encounter [facility]* Diagnosis Elevated alkaline phosphatase level- Primary Other nonspecific abnormal serum enzyme levels Fatigue, unspecified type documented in this encounter [facility] note* Diagnosis Hypothyroidism, acquired Unspecified hypothyroidism [facility]* Diagnosis Epigastric pain- Primary Abdominal pain, epigastric Colon cancer screening Special screening for malignant neoplasms, colon Elevated alkaline phosphatase level Other nonspecific abnormal serum enzyme levels Weight gain Abnormal weight gain documented in this encounter [facility] note* Diagnosis Elevated alkaline phosphatase level- Primary Other nonspecific abnormal serum enzyme levels documented [facility]* Diagnosis Elevated alkaline phosphatase level Other nonspecific abnormal serum enzyme levels documented [facility] encounter [facility]* Diagnosis Obesity, Class III, BMI 40-49.9 (morbid obesity) (HCC)- Primary Morbid obesity Weight gain Abnormal weight gain documented [facility] this encounter [facility] note* Diagnosis Screening for colon cancer- Primary Special screening for malignant neoplasms, colon Epigastric pain Abdominal pain, epigastric [facility]* Diagnosis Dietary counseling- Primary Dietary surveillance and counseling Obesity, Class III, BMI 40-49.9 (morbid obesity) (HCC) Morbid obesity [facility]* Diagnosis Obesity, Class III, BMI 40-49.9 (morbid obesity) (HCC)- Primary Morbid obesity Dietary counseling Dietary surveillance and counseling documented [facility] this encounter [facility] note* Diagnosis 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 Elevated alkaline phosphatase level Other nonspecific abnormal serum enzyme levels [facility]* Diagnosis Obesity, Class III, BMI 40-49.9 (morbid obesity) (HCC)- Primary Morbid obesity documented [facility]* Diagnosis Foot pain, bilateral- Primary Pain in limb documented [facility]* Diagnosis Pain- Primary Generalized pain [facility]* Diagnosis COVID-19- Primary documented [facility]* Diagnosis Plantar fasciitis- Primary Plantar fascial fibromatosis Foot pain, bilateral Pain in limb documented [facility]* Diagnosis Foot pain, bilateral Pain in limb Plantar fasciitis Plantar fascial fibromatosis documented [facility]* Diagnosis Plantar fasciitis- Primary Plantar fascial fibromatosis Foot pain, bilateral Pain in limb documented [facility]* Diagnosis Encounter for screening mammogram for breast cancer documented [facility]* Diagnosis Dermatitis of lip- Primary Elevated C-reactive protein (CRP) Bruising Contusion of unspecified site Acute pain of left knee Acute right ankle pain documented [facility]* Diagnosis Plantar fasciitis- Primary Plantar fascial fibromatosis Chronic pain of right ankle [facility]* Diagnosis Pain in left hip- Primary Pain in joint, pelvic region and thigh Acute pain of left knee Acute right ankle pain documented [facility]* Diagnosis Chronic pain of right ankle documented in [facility]* Diagnosis Elevated C-reactive protein (CRP)- Primary Acute pain of left knee Acute right ankle pain Myalgia Mylagia and myositis, unspecified Arthralgia, unspecified joint documented [facility]* Diagnosis Acute pain of left knee Acute right ankle pain Pain in left hip Pain in joint, pelvic region and thigh documented [facility]* Diagnosis Wound infection- Primary Posttraumatic wound infection not elsewhere classified documented [facility]* Diagnosis Pain in right hip- Primary Pain in joint, pelvic region and thigh Chronic pain of right ankle Subjective muscle weakness Muscle weakness (generalized) documented [facility] this encounter [facility]* Diagnosis Sinobronchitis- Primary Unspecified sinusitis (chronic) Acute cough [facility]* Diagnosis Dermatitis of lip- Primary Epigastric pain Abdominal pain, epigastric Acute pain of left knee Acute right ankle pain Pain in left hip Pain in joint, pelvic region and thigh documented [facility]* Diagnosis Acute pain of left knee Acute right ankle pain Pain in left hip Pain in joint, pelvic region and thigh documented [facility]* Diagnosis Sinobronchitis- Primary Unspecified sinusitis (chronic) Perioral dermatitis Rosacea [facility]* Diagnosis SOB (shortness of breath)- Primary Shortness of breath Chest discomfort Other chest pain documented [facility]* Diagnosis Obesity, Class III, BMI 40-49.9 (morbid obesity) (HCC)- Primary Morbid obesity IFG (impaired fasting glucose) Impaired fasting glucose documented [facility]* Diagnosis Pain Generalized pain documented [facility] this encounter [facility] note* Diagnosis Left ear pain- Primary Otalgia, unspecified Cochlear tumor documented [facility] encounter [facility] note* Diagnosis Left ear pain Otalgia, unspecified Cochlear tumor documented in this encounter [facility] note* Diagnosis Achilles tendinitis of right lower extremity- Primary Achilles bursitis or tendinitis Injury of right ankle, initial encounter documented in this encounter [facility]* Diagnosis Influenza A- Primary Influenza with other respiratory manifestations Influenza-like illness Influenza with other respiratory manifestations documented [facility]* Diagnosis Left ear pain- Primary Otalgia, unspecified documented [facility] note* Diagnosis Hypothyroidism, acquired Unspecified hypothyroidism documented in this encounter [facility] course Narrative No data available for this section [facility] Hospital Discharge instructions No data available for this section [facility] Progress note No data available for this section [facility] Reason for referral (narrative)* Diagnostic Procedure Only (Routine) - Pending Review Specialty Diagnoses / Procedures Referred By Carson t Referred To Contact [facility] Diagnoses Encounter for screening mammogram for breast cancer Procedures LISA SCREENING SCREENING MAMMOGRAPHY BI 2-VIEW BREAST INC CAD Machelle Harry MD [address] [place] [address] [facility] [address] [place] [address] Referral ID Status Reason Start Date Expiration Date Visits Requested Visits Authorized [id number] Pending Review Auto-Generat ed Referral 03/31/2022 04/30/2023 1 1 [facility] for referral (narrative)* Diagnostic Procedure Only (Routine) - Pending Review Specialty Diagnoses / Procedures Referred By Contac t Referred To Contact [facility] Diagnoses Elevated alkaline phosphatase level Procedures US ABD RT UPPER QUADRANT US ABDOMINAL REAL TIME W/IMAGE LIMITED Leticia Amor APRN.[employer] [address] [place] [address] [facility] Referral ID Status Reason Start Date Expiration Date Visits Requested Visits Authorized [id number] Pending Review Auto-Generat ed Referral 08/16/2022 09/15/2023 1 1 [facility] for referral (narrative)* Diagnostic Procedure Only (Routine) - Closed Specialty Diagnoses / Procedures Referred By Contac t Referred To Contact [facility] Diagnoses Elevated alkaline phosphatase level Procedures US ABD RT UPPER QUADRANT US ABDOMINAL REAL TIME W/IMAGE LIMITED Leticia Amor APRN.[employer] [address] [place] [address] [facility] Referral ID Status Reason Start Date Expiration Date V isits Requested Visits Authorized [id number] Closed Auto-Generate d Referral 08/16/2022 09/15/2023 1 1 [facility] for referral (narrative)* Outpatient Procedure (Routine) - Pending Review Specialty Diagnoses / Procedures Referred By Contac t Referred To Contact [facility] Diagnoses Screening for colon cancer Procedures COLONOSCOPY SCREENING COLONOSCOPY FLX DX W/COLLJ SPEC WHEN Stephanie Durán APRN.CNP [address] [place] [address] [facility] [place] [address] [place] [address] Referral ID Status Reason Start Date Expiration Date Visits Requested Visits Authorized [id number] Pending Review Auto-Generat ed Referral 09/08/2023 1 1 * Outpatient Procedure (Routine) - Pending Review Specialty Diagnoses / Procedures Referred By Contac t Referred To Contact [facility] Diagnoses Epigastric pain Procedures EGD DIAGNOSTIC ESOPHAGOGASTRODUODENOSC OPY TRANSORAL Stephanie Sage APRN.CNP [address] [place] [address] [place] [address] [facility] [place] [address] [place] [address] Referral ID Status Reason Start Date Expiration Date Visits Requested Visits Authorized [id number] Pending Review Auto-Generat ed Referral 09/08/2023 1 1 [facility] for referral (narrative)* Diagnostic Procedure Only (Routine) - Authorized Specialty Diagnoses / Procedures Referred By Contac t Referred To Contact [facility] Diagnoses Pain Procedures XR FOOT GENERAL 3V AP/LAT/OBL BILATERAL RADEX FOOT COMPLETE MINIMUM 3 VIEWS Freddie Hanna [address] [place] [address] X[facility] Referral ID Status Reason Start Date Expiration Date Visits Requested Visits Authorized [id number] Authorized Auto-Generat ed Referral 01/26/2023 02/25/2024 1 1 [facility] for referral (narrative)* Diagnostic Procedure Only (Routine) - Pending Review Specialty Diagnoses / [facility] To Contact [facility] Diagnoses Encounter for screening mammogram for breast cancer Procedures LISA SCREENING SCREENING MAMMOGRAPHY BI 2-VIEW BREAST INC CAD Machelle Harry MD [address] [place] [address] [facility] [address] [place] [address] Referral ID Status Reason Start Date Expiration Date Visits Requested Visits Authorized [id number] Pending Review Auto-Generat ed Referral 03/02/2023 03/31/2024 1 1 [facility] for referral (narrative)* Diagnostic Procedure Only (Routine) - Closed Specialty Diagnoses / Procedures Referred By Contac t Referred To Contact XR IMAGING Diagnoses Pain Procedures XR FOOT GENERAL 3V AP/LAT/OBL BILATERAL RADEX FOOT COMPLETE MINIMUM 3 VIEWS Freddie Hanna [address] [place] [address] [place] [address] Referral ID Status Reason Start Date Expiration Date V isits Requested Visits Authorized [id number] Closed Auto-Generate d Referral 01/26/2023 02/25/2024 1 1 [facility] for referral (narrative)* Outpatient Procedure (Routine) - Authorized Specialty Diagnoses / Procedures Referred By Contac t Referred To Contact [facility] Diagnoses Left ear pain Cochlear tumor Procedures EPIL EEG LONG EEG EXTENDED MONITORING 61-119 MINUTES ELECTROENCEPHALOGRAM REC COMA/SLEEP ONLY Eva Griffith DO [address] [place] [address] [facility] [place] [address] [place] [address] Referral ID Status Reason Start Date Expiration Date Visits Requested Visits Authorized [id number] Authorized Auto-Generat ed Referral 3 10/04/2024 1 1 * MRI/CT (Routine) - Authorized Specialty Diagnoses / Procedures Referred By Yunac t Referred To Contact MR IMAGING Diagnoses Left ear pain Cochlear tumor Procedures MRI BRAIN WO/W IVCON MRI BRAIN BRAIN STEM W/O W/CONTRAST MATERIAL Eva Griffith DO [address] [id number] [id number] Referral ID Status Reason Start Date Expiration Date Visits Requested Visits Authorized [id number] Authorized Auto-Generat ed Referral 3 11/02/2024 1 1 [facility] for visit Narrative* Diagnostic Procedure Only (Routine) - Closed Specialty Diagnoses / Procedures Referred By Contac t Referred To Contact XR IMAGING Diagnoses Pain Procedures XR FOOT GENERAL 3V AP/LAT/OBL BILATERAL RADEX FOOT COMPLETE MINIMUM 3 VIEWS Freddie Hanna[address] [place] [address] [place] [address] Referral ID Status Reason Start Date Expiration Date V isits Requested Visits Authorized [id number] Closed Auto-Generate d Referral 01/26/2023 02/25/2024 1 1 [facility] Outpatient Procedure (Routine) - Closed Specialty Diagnoses / Procedures Referred By Contac t Referred To Contact [facility] Diagnoses Left ear pain Cochlear tumor Procedures EPIL EEG LONG EEG EXTENDED MONITORING 61-119 MINUTES ELECTROENCEPHALOGRAM REC COMA/SLEEP ONLY Eva Griffith DO [address] [place] [address] [facility] [address] [place] [id number] Referral ID Status Reason Start Date Expiration Date V isits Requested Visits Authorized [id number] Closed Auto-Generate d Referral 10/04/2023 10/04/2024 1 1 [facility] Summary Purpose Family History No Family History Records FoundNo Family History Records FoundNo Family History Records FoundNo Family History Records FoundNo Family History Records Found Advance Directives Documents on File Type Date Recorded Patient Contact Center Team Lead Expl anation Advance Directive(s) 05/01/2021 9:57 AM Documents on File Type Date Recorded Patient Contact Center Team Lead Expl anation Advance Directive(s) 05/01/2021 9:57 AM Reason for Referral Specialty Diagnoses / Procedures Referred By Contac t Referred To Contact Endocrinology Diagnoses Weight gain Procedures CONSULT TO ENDOCRINOLOGY OFFICE/OUTPATIENT [facility] 60-74 MINUTES Stephanie Tabares APRN.[employer] [address] [place] [address] Referral ID Status Reason Start Date Expiration Date Visits Requested Visits Authorized [id number] Authorized PCP Requested Referral 08/12/2022 08/12/2023 1 1 Specialty Diagnoses / Procedures Referred By Contac t Referred To Contact Diagnoses Elevated alkaline phosphatase level Procedures CONSULT TO HEPATOLOGY OFFICE/OUTPATIENT [facility] MDM 60-74 MINUTES Stephanie Tabares APRN.[employer] [address] [place] [address] Referral ID Status Reason Start Date Expiration Date Visits Requested Visits Authorized [id number] Authorized PCP Requested Referral 08/12/2022 08/12/2023 1 1 Specialty Diagnoses / Procedures Referred By Contac t Referred To Contact [facility] Diagnoses Colon cancer screening Procedures COLONOSCOPY SCREENING COLONOSCOPY FLX DX W/COLLJ SPEC WHEN PFRMD Stephanie Tabares APRN.[employer] [address] [place] [place] [address] [facility] [address] [address] Referral ID Status Reason Start Date Expiration Date Visits Requested Visits Authorized [id number] Pending Review Auto-Generat ed Referral 08/12/2022 08/12/2023 1 1 Specialty Diagnoses / Procedures Referred By Contac t Referred To Contact [facility] Diagnoses Epigastric pain Procedures EGD DIAGNOSTIC ESOPHAGOGASTRODUODENOSC OPY TRANSORAL DIAGNOSTIC Stephanie Tabares APRN.[employer] [address] [place] [address] [facility] [address] [address] Referral ID Status Reason Start Date Expiration Date Visits Requested Visits Authorized [id number] Pending Review Auto-Generat ed Referral 08/12/2022 08/12/2023 1 1 Specialty Diagnoses / Procedures Referred By Contac t Referred To Contact Nutrition Diagnoses Obesity, Class III, BMI 40-49.9 (morbid obesity) (HCC) Procedures CONSULT TO NUTRITION THERAPY OFFICE/OUTPATIENT [facility] 60-[place] [address] [place] [address] Referral ID Status Reason Start Date Expiration Date Visits Requested Visits Authorized [id number] Authorized PCP Requested Referral 09/01/2023 1 1 Specialty Diagnoses / Procedures Referred By Contac t Referred To Contact Podiatry Diagnoses Foot pain, bilateral Procedures CONSULT TO PODIATRY OFFICE/OUTPATIENT [facility] MDM 60-74 MINUTES Leticia Amor, MARGARITA.[employer] [address] [place] [address] Referral ID Status Reason Start Date Expiration Date Visits Requested Visits Authorized [id number] Authorized PCP Requested Referral 01/24/2023 01/24/2024 1 1 Specialty Diagnoses / Procedures Referred By Contac t Referred To Contact PHYSICAL THERAPY Diagnoses Foot pain, bilateral Plantar fasciitis Procedures CONSULT TO PHYSICAL THERAPY PHYSICAL THERAPY EVALUATION HIGH COMPLEX 45 MINS Freddie Hanna [address] [place] [address] [facility] [address] [place] [address] Referral ID Status Reason Start Date Expiration Date Visits Requested Visits Authorized [id number] Authorized Auto-Generat ed Referral 11/21/2022 11/20/2023 60 60 Specialty Diagnoses / Procedures Referred By Contac t Referred To Contact [facility] Diagnoses Foot pain, bilateral Plantar fasciitis Procedures PT REHAB FOLLOW UP ORDER THERAPEUTIC EXERCISES RE, EA 15 MIN. [facility] [address] [place] [address] [facility] [place] [address] [place] [address] Referral ID Status Reason Start Date Expiration Date Visits Requested Visits Authorized [id number] Pending Review PCP Requested Referral Auto-Generate d Referral 02/16/2023 05/17/2023 1 1 Specialty Diagnoses / Procedures Referred By Contac t Referred To Contact Orthopedics Diagnoses Acute pain of left knee Acute right ankle pain Procedures CONSULT TO ORTHOPAEDICS OFFICE/OUTPATIENT [facility] MDM 60-74 MINUTES Leticia Amor, MARGARITA.[employer] [address] [place] [address] Referral ID Status Reason Start Date Expiration Date Visits Requested Visits Authorized [id number] Authorized PCP Requested Referral 03/09/2023 03/08/2024 1 1 Specialty Diagnoses / Procedures Referred By Contac t Referred To Contact XR IMAGING Diagnoses Acute right ankle pain Procedures XR ANKLE GENERAL 3V AP/LAT/OBL RIGHT RADEX ANKLE COMPLETE MINIMUM 3 VIEWS Leticia Amor APRN.[employer] [address] [place] [address] [facility] Referral ID Status Reason Start Date Expiration Date V isits Requested Visits Authorized [id number] Closed Auto-Generate d Referral 03/09/2023 04/07/2024 1 1 Specialty Diagnoses / Procedures Referred By Contac t Referred To Contact XR IMAGING Diagnoses Acute pain of left knee Procedures XR KNEE GENERAL 4V AP BOTH/PA BOTH/LAT/MERC LEFT RADIOLOGIC EXAM KNEE COMPLETE 4/MORE VIEWS Leticia Amor, [employer] [address] [place] [address] [facility] Referral ID Status Reason Start Date Expiration Date V isits Requested Visits Authorized [id number] Closed Auto-Generate d Referral 03/09/2023 04/07/2024 1 1 Specialty Diagnoses / Procedures Referred By Contac t Referred To Contact MR IMAGING Diagnoses Chronic pain of right ankle Procedures MRI ANKLE WO IVCON RIGHT MRI ANY JT LOWER EXTREM W/O CONTRAST Freddie Chavez [address] [place] [address] Mr Imaging Referral ID Status Reason Start Date Expiration Date Visits Requested Visits Authorized [id number] Authorized Auto-Generat ed Referral 03/16/2023 04/14/2024 1 1 Specialty Diagnoses / Procedures Referred By Contac t Referred To Contact [facility] Diagnoses Acute pain of left knee Pain in left hip Procedures CONSULT TO PHYSICAL THERAPY PHYSICAL THERAPY EVALUATION HIGH COMPLEX 45 MINS Antoine Nam MD [address] [place] [address] [facility] [address] [place] [address] Referral ID Status Reason Start Date Expiration Date Visits Requested Visits Authorized [id number] Pending Review Auto-Generat ed Referral 03/21/2023 03/20/2024 1 1 Referral ID Status Reason Start Date Expiration Date V isits Requested Visits Authorized [id number] Closed Auto-Generate d Referral 03/16/2023 04/14/2024 1 1 Specialty Diagnoses / Procedures Referred By Contac t Referred To Contact Rheumatology Diagnoses Elevated C-reactive protein (CRP) Myalgia Arthralgia, unspecified joint Procedures CONSULT TO RHEUM/IMMUN DISEASE OFFICE/OUTPATIENT [facility] MDM 60-74 MINUTES Lorenzo Mars, [employer] [address] [place] [address] Referral ID Status Reason Start Date Expiration Date Visits Requested Visits Authorized [id number] Authorized PCP Requested Referral 05/09/2023 05/08/2024 1 1 Specialty Diagnoses / Procedures Referred By Contac t Referred To Contact [facility] Diagnoses Pain in right hip Chronic pain of right ankle Subjective muscle weakness Procedures CONSULT TO PHYSICAL THERAPY PHYSICAL THERAPY EVALUATION HIGH COMPLEX 45 MINS Neville Grullon PA-C [address] [facility] [place] [address] [facility] [address] [place] [address] Referral ID Status Reason Start Date Expiration Date Visits Requested Visits Authorized [id number] Pending Review Auto-Generat ed Referral 05/25/2023 05/24/2024 1 1 Specialty Diagnoses / Procedures Referred By Contac t Referred To Contact Dermatology Diagnoses Dermatitis of lip Procedures CONSULT TO DERMATOLOGY Leticia Amor, [employer] [address] [place] [address] Referral ID Status Reason Start Date Expiration Date Visits Requested Visits Authorized [id number] Ref Not Required PCP Requested Referral 06/20/2023 06/19/2024 1 1 Specialty Diagnoses / Procedures Referred By Contac t Referred To Contact Diagnoses Obesity, Class III, BMI 40-49.9 (morbid obesity) (HCC) IFG (impaired fasting glucose) Lauren Crisostomo, [employer] [address] [place] [address] Referral ID Status Reason Start Date Expiration Date V isits Requested Visits Authorized [id number] Authorized 07/20/2023 10/20/2023 1 1 Specialty Diagnoses / Procedures Referred By Contac t Referred To Contact Podiatry Diagnoses Injury of right ankle, initial encounter Achilles tendinitis of right lower extremity Procedures CONSULT TO PODIATRY OFFICE/OUTPATIENT [facility] 60-74 MINUTES Silvia Vences PA-C [address] [place] [address] Referral ID Status Reason Start Date Expiration Date Visits Requested Visits Authorized [id number] Authorized PCP Requested Referral 2023 10/27/2024 1 1 Specialty Diagnoses / Procedures Referred By Contac t Referred To Contact XR IMAGING Diagnoses Injury of right ankle, initial encounter Procedures XR ANKLE GENERAL 3V AP/LAT/OBL RIGHT RADEX ANKLE COMPLETE MINIMUM 3 VIEWS Silvia Vences PA-C [address] [place] [address] [place] [address] Referral ID Status Reason Start Date Expiration Date V isits Requested Visits Authorized [id number] Closed Auto-Generate d Referral 2023 11/26/2024 1 1 Additional Source Comments INFORMATION SOURCE (unrecogn ized section and content) DATE CREATED AUTHOR AUTHOR'S ORGANIZ ATION 10/12/2022 [facility] DATE CREATED AUTHOR AUTHOR'S ORGANIZ ATION 03/31/2023 [facility] DATE CREATED AUTHOR AUTHOR'S ORGANIZ ATION 12/14/2023 [facility] DATE CREATED AUTHOR AUTHOR'S ORGANIZ ATION 12/25/2023 [facility] Source Comments (unrecognize d section and content) In the event this informatio n is protected by the Federal Confidentiality of Alcohol and Drug Abuse Patient Records regulations: The Federal rules restrict any use of the information to criminally investigate or prosecute any alcohol or drug abuse patient.[facility] the event this information is protected by the Federal Confidentiality of Alcohol and Drug Abuse Patient Records regulations: The Federal rules restrict any use of the information to criminally investigate or prosecute any alcohol or drug abuse patient.[facility] the event this information is protected by the Federal Confidentiality of Alcohol and Drug Abuse Patient Records regulations: The Federal rules restrict any use of the information to criminally investigate or prosecute any alcohol or drug abuse patient.[facility] the event this information is protected by the Federal Confidentiality of Alcohol and Drug Abuse Patient Records regulations: The Federal rules restrict any use of the information to criminally investigate or prosecute any alcohol or drug abuse patient.[facility] the event this information is protected by the Federal Confidentiality of Alcohol and Drug Abuse Patient Records regulations: The Federal rules restrict any use of the information to criminally investigate or prosecute any alcohol or drug abuse patient.[facility] the event this information is protected by the Federal Confidentiality of Alcohol and Drug Abuse Patient Records regulations: The Federal rules restrict any use of the information to criminally investigate or prosecute any alcohol or drug abuse patient.[facility] the event this information is protected by the Federal Confidentiality of Alcohol and Drug Abuse Patient Records regulations: The Federal rules restrict any use of the information to criminally investigate or prosecute any alcohol or drug abuse patient.[facility] the event this information is protected by the Federal Confidentiality of Alcohol and Drug Abuse Patient Records regulations: The Federal rules restrict any use of the information to criminally investigate or prosecute any alcohol or drug abuse patient.[facility] the event this information is protected by the Federal Confidentiality of Alcohol and Drug Abuse Patient Records regulations: The Federal rules restrict any use of the information to criminally investigate or prosecute any alcohol or drug abuse patient.[facility] the event this information is protected by the Federal Confidentiality of Alcohol and Drug Abuse Patient Records regulations: The Federal rules restrict any use of the information to criminally investigate or prosecute any alcohol or drug abuse patient.[facility] the event this information is protected by the Federal Confidentiality of Alcohol and Drug Abuse Patient Records regulations: The Federal rules restrict any use of the information to criminally investigate or prosecute any alcohol or drug abuse patient.[facility] the event this information is protected by the Federal Confidentiality of Alcohol and Drug Abuse Patient Records regulations: The Federal rules restrict any use of the information to criminally investigate or prosecute any alcohol or drug abuse patient.[facility] the event this information is protected by the Federal Confidentiality of Alcohol and Drug Abuse Patient Records regulations: The Federal rules restrict any use of the information to criminally investigate or prosecute any alcohol or drug abuse patient.[facility] the event this information is protected by the Federal Confidentiality of Alcohol and Drug Abuse Patient Records regulations: The Federal rules restrict any use of the information to criminally investigate or prosecute any alcohol or drug abuse patient.[facility] the event this information is protected by the Federal Confidentiality of Alcohol and Drug Abuse Patient Records regulations: The Federal rules restrict any use of the information to criminally investigate or prosecute any alcohol or drug abuse patient.[facility] the event this information is protected by the Federal Confidentiality of Alcohol and Drug Abuse Patient Records regulations: The Federal rules restrict any use of the information to criminally investigate or prosecute any alcohol or drug abuse patient.[facility] the event this information is protected by the Federal Confidentiality of Alcohol and Drug Abuse Patient Records regulations: The Federal rules restrict any use of the information to criminally investigate or prosecute any alcohol or drug abuse patient.[facility] the event this information is protected by the Federal Confidentiality of Alcohol and Drug Abuse Patient Records regulations: The Federal rules restrict any use of the information to criminally investigate or prosecute any alcohol or drug abuse patient.[facility] the event this information is protected by the Federal Confidentiality of Alcohol and Drug Abuse Patient Records regulations: The Federal rules restrict any use of the information to criminally investigate or prosecute any alcohol or drug abuse patient.[facility] the event this information is protected by the Federal Confidentiality of Alcohol and Drug Abuse Patient Records regulations: The Federal rules restrict any use of the information to criminally investigate or prosecute any alcohol or drug abuse patient.[facility] the event this information is protected by the Federal Confidentiality of Alcohol and Drug Abuse Patient Records regulations: The Federal rules restrict any use of the information to criminally investigate or prosecute any alcohol or drug abuse patient.[facility] the event this information is protected by the Federal Confidentiality of Alcohol and Drug Abuse Patient Records regulations: The Federal rules restrict any use of the information to criminally investigate or prosecute any alcohol or drug abuse patient.[facility] the event this information is protected by the Federal Confidentiality of Alcohol and Drug Abuse Patient Records regulations: The Federal rules restrict any use of the information to criminally investigate or prosecute any alcohol or drug abuse patient.[facility] the event this information is protected by the Federal Confidentiality of Alcohol and Drug Abuse Patient Records regulations: The Federal rules restrict any use of the information to criminally investigate or prosecute any alcohol or drug abuse patient.[facility] the event this information is protected by the Federal Confidentiality of Alcohol and Drug Abuse Patient Records regulations: The Federal rules restrict any use of the information to criminally investigate or prosecute any alcohol or drug abuse patient.[facility] the event this information is protected by the Federal Confidentiality of Alcohol and Drug Abuse Patient Records regulations: The Federal rules restrict any use of the information to criminally investigate or prosecute any alcohol or drug abuse patient.[facility]igh[facility] the event this information is protected by the Federal Confidentiality of Alcohol and Drug Abuse Patient Records regulations: The Federal rules restrict any use of the information to criminally investigate or prosecute any alcohol or drug abuse patient.[facility]igh[facility] the event this information is protected by the Federal Confidentiality of Alcohol and Drug Abuse Patient Records regulations: The Federal rules restrict any use of the information to criminally investigate or prosecute any alcohol or drug abuse patient.[facility] the event this information is protected by the Federal Confidentiality of Alcohol and Drug Abuse Patient Records regulations: The Federal rules restrict any use of the information to criminally investigate or prosecute any alcohol or drug abuse patient.[facility] the event this information is protected by the Federal Confidentiality of Alcohol and Drug Abuse Patient Records regulations: The Federal rules restrict any use of the information to criminally investigate or prosecute any alcohol or drug abuse patient.[facility] the event this information is protected by the Federal Confidentiality of Alcohol and Drug Abuse Patient Records regulations: The Federal rules restrict any use of the information to criminally investigate or prosecute any alcohol or drug abuse patient.[facility] the event this information is protected by the Federal Confidentiality of Alcohol and Drug Abuse Patient Records regulations: The Federal rules restrict any use of the information to criminally investigate or prosecute any alcohol or drug abuse patient.[facility]igh[facility] the event this information is protected by the Federal Confidentiality of Alcohol and Drug Abuse Patient Records regulations: The Federal rules restrict any use of the information to criminally investigate or prosecute any alcohol or drug abuse patient.[facility]igh[facility] the event this information is protected by the Federal Confidentiality of Alcohol and Drug Abuse Patient Records regulations: The Federal rules restrict any use of the information to criminally investigate or prosecute any alcohol or drug abuse patient.[facility]igh[facility] the event this information is protected by the Federal Confidentiality of Alcohol and Drug Abuse Patient Records regulations: The Federal rules restrict any use of the information to criminally investigate or prosecute any alcohol or drug abuse patient.[facility]igh[facility] the event this information is protected by the Federal Confidentiality of Alcohol and Drug Abuse Patient Records regulations: The Federal rules restrict any use of the information to criminally investigate or prosecute any alcohol or drug abuse patient.[facility]ighIn the event this information is protected by the Federal Confidentiality of Alcohol and Drug Abuse Patient Records regulations: The Federal rules restrict any use of the information to criminally investigate or prosecute any alcohol or drug abuse patient.[facility]ighIn the event this information is protected by the Federal Confidentiality of Alcohol and Drug Abuse Patient Records regulations: The Federal rules restrict any use of the information to criminally investigate or prosecute any alcohol or drug abuse patient.[facility]ighIn the event this information is protected by the Federal Confidentiality of Alcohol and Drug Abuse Patient Records regulations: The Federal rules restrict any use of the information to criminally investigate or prosecute any alcohol or drug abuse patient.[facility] the event this information is protected by the Federal Confidentiality of Alcohol and Drug Abuse Patient Records regulations: The Federal rules restrict any use of the information to criminally investigate or prosecute any alcohol or drug abuse patient.[facility] the event this information is protected by the Federal Confidentiality of Alcohol and Drug Abuse Patient Records regulations: The Federal rules restrict any use of the information to criminally investigate or prosecute any alcohol or drug abuse patient.[facility] the event this information is protected by the Federal Confidentiality of Alcohol and Drug Abuse Patient Records regulations: The Federal rules restrict any use of the information to criminally investigate or prosecute any alcohol or drug abuse patient.[facility] [facility]ighIn the event this information is protected by the Federal Confidentiality of Alcohol and Drug Abuse Patient Records regulations: The Federal rules restrict any use of the information to criminally investigate or prosecute any alcohol or drug abuse patient.[facility]ighIn the event this information is protected by the Federal Confidentiality of Alcohol and Drug Abuse Patient Records regulations: The Federal rules restrict any use of the information to criminally investigate or prosecute any alcohol or drug abuse patient.[facility]ighIn the event this information is protected by the Federal Confidentiality of Alcohol and Drug Abuse Patient Records regulations: The Federal rules restrict any use of the information to criminally investigate or prosecute any alcohol or drug abuse patient.[facility]ighIn the event this information is protected by the Federal Confidentiality of Alcohol and Drug Abuse Patient Records regulations: The Federal rules restrict any use of the information to criminally investigate or prosecute any alcohol or drug abuse patient.[facility]ighIn the event this information is protected by the Federal Confidentiality of Alcohol and Drug Abuse Patient Records regulations: The Federal rules restrict any use of the information to criminally investigate or prosecute any alcohol or drug abuse patient.[facility]ighIn the event this information is protected by the Federal Confidentiality of Alcohol and Drug Abuse Patient Records regulations: The Federal rules restrict any use of the information to criminally investigate or prosecute any alcohol or drug abuse patient.[facility]ighIn the event this information is protected by the Federal Confidentiality of Alcohol and Drug Abuse Patient Records regulations: The Federal rules restrict any use of the information to criminally investigate or prosecute any alcohol or drug abuse patient.[facility]ighIn the event this information is protected by the Federal Confidentiality of Alcohol and Drug Abuse Patient Records regulations: The Federal rules restrict any use of the information to criminally investigate or prosecute any alcohol or drug abuse patient.[facility]ighIn the event this information is protected by the Federal Confidentiality of Alcohol and Drug Abuse Patient Records regulations: The Federal rules restrict any use of the information to criminally investigate or prosecute any alcohol or drug abuse patient.[facility]ighIn the event this information is protected by the Federal Confidentiality of Alcohol and Drug Abuse Patient Records regulations: The Federal rules restrict any use of the information to criminally investigate or prosecute any alcohol or drug abuse patient.[facility]ighIn the event this information is protected by the Federal Confidentiality of Alcohol and Drug Abuse Patient Records regulations: The Federal rules restrict any use of the information to criminally investigate or prosecute any alcohol or drug abuse patient.[facility] Reason for Visit (unrecogniz ed section and [...] pain Specialty Diagnoses / Procedures Referred By Carson huynh Referred To Contact General Surgery Diagnoses Epigastric pain Procedures CONSULT TO GENERAL SURGERY OFFICE/OUTPATIENT NEW HIGH MDM 60-74 MINUTES Leticia Amor, SEC[employer] S[employer]ER.[employer] [address] [place] [address] Referral ID Status Reason Start Date Expiration Date V isits Requested Visits Authorized [id number] Closed PCP Requested Referral 08/09/2022 08/09/2023 1 1 Reason Comments Results Reason Comments Radiology US Specialty Diagnoses / Procedures Referred By Carson t Referred To Contact US IMAGING Diagnoses Elevated alkaline phosphatase level Procedures US ABD RT UPPER QUADRANT US ABDOMINAL REAL TIME W/IMAGE LIMITED Leticia Amor, MARGARITA.[employer] [address] [place] [address] Us Imaging Referral ID Status Reason Start Date Expiration Date V isits Requested Visits Authorized [id number] Closed Auto-Generate d Referral 08/16/2022 09/15/2023 1 1 Reason Comments Initial Consult Medical Weight Management Specialty Diagnoses / Procedures Referred By Contac t Referred To Contact Endocrinology Diagnoses Weight gain Procedures CONSULT TO ENDOCRINOLOGY OFFICE/OUTPATIENT [facility] [employer] [facility] 60-74 MINUTES Stephanie Tabares APRN.[employer] [address] [place] [address] Referral ID Status Reason Start Date Expiration Date V isits Requested Visits Authorized [id number] Closed PCP Requested Referral 08/12/2022 08/12/2023 1 1 Reason Comments Scheduling Reason Comments Assessment Patient Education Specialty Diagnoses / Procedures Referred By Contac t Referred To Contact Nutrition Diagnoses Obesity, Class III, BMI 40-49.9 (morbid obesity) ([facility]) Procedures CONSULT TO NUTRITION THERAPY OFFICE/OUTPATIENT [facility] 60-[place] [address] [place] [address] Referral ID Status Reason Start Date Expiration Date V isits Requested Visits Authorized [id number] Closed PCP Requested Referral 09/01/2022 09/01/2023 1 1 Reason Comments Reassessment Patient Education Reason Comments Orders Reason Comments Medication Follow-up Reason Comments Pain (foot) B/l foot pain; histo ry of foot surgery; would like to see a new Processing Lead Reason Comments Telemedicine Reason Comments New Pain Specialty Diagnoses / Procedures Referred By Contac t Referred To Contact Podiatry Diagnoses Foot pain, bilateral Procedures CONSULT TO PODIATRY OFFICE/OUTPATIENT [facility] 60-74 MINUTES Leticia Amor, [employer]ER.[employer] [address] [place] [address] Referral ID Status Reason Start Date Expiration Date V isits Requested Visits Authorized [id number] Closed PCP Requested Referral 01/24/2023 01/24/2024 1 1 Reason Comments PT Eval Patient Education Specialty Diagnoses / Procedures Referred By Contac t Referred To Contact PHYSICAL THERAPY Diagnoses Foot pain, bilateral Plantar fasciitis Procedures CONSULT TO PHYSICAL THERAPY PHYSICAL THERAPY EVALUATION HIGH COMPLEX 45 MINS [address] [place] [place] [address] [facility] [address] [place] [address] Referral ID Status Reason Start Date Expiration Date Visits Requested Visits Authorized [id number] Authorized Auto-Generat ed Referral 11/21/2022 11/20/2023 60 60 Reason Comments Physical Therapy Specialty Diagnoses / Procedures Referred By Contac t Referred To Contact PHYSICAL THERAPY Diagnoses Foot pain, bilateral Plantar fasciitis Procedures CONSULT TO PHYSICAL THERAPY PHYSICAL THERAPY EVALUATION HIGH COMPLEX 45 MINS Freddie Hanna [address] [place] [address] [facility] [address] [place] [address] Reason Comments Pain (foot) R foot after falling on stairs going into house Left Knee Pain After falling on sta irs going into house Derm Problem Dry patch on upper l ip, has been using otc ointments without relief Reason Comments Established Patient Follow Up Pain Reason Comments New Knee Pain Referred by Leticia Amor Specialty Diagnoses / Procedures Referred By Contac t Referred To Contact Orthopedics Diagnoses Acute pain of left knee Acute right ankle pain Procedures CONSULT TO ORTHOPAEDICS OFFICE/OUTPATIENT NEW HIGH MDM 60-74 MINUTES Leticia Amor, SEC[employer] S[employer] TE[employer]ER.[employer] [address] [place] [address] Referral ID Status Reason Start Date Expiration Date V isits Requested Visits Authorized [id number] Closed PCP Requested Referral 03/09/2023 03/08/2024 1 1 Specialty Diagnoses / Procedures Referred By Contac t Referred To Contact MR IMAGING Diagnoses Chronic pain of right ankle Procedures MRI ANKLE WO IVCON RIGHT MRI ANY JT LOWER EXTREM W/O CONTRAST MATRL Freddie Hanna [address] [place] [address] Mr Imaging Referral ID Status Reason Start Date Expiration Date V isits Requested Visits Authorized [id number] Closed Auto-Generate d Referral 03/16/2023 04/14/2024 1 1 Reason Comments Follow Up For Elevated labs; joint /muscle pain Reason Comments Refill Request Reason Comments Mouth/Lip Problem Pt reported upper (L T) lip burning, x1 mth. Reason Comments Joint Pain Abnormal Lab Specialty Diagnoses / Procedures Referred By Carson huynh Referred To Contact Rheumatology Diagnoses Elevated C-reactive protein (CRP) Myalgia Arthralgia, unspecified joint Procedures CONSULT TO RHEUM/IMMUN DISEASE OFFICE/OUTPATIENT NEW HIGH MDM 60-74 MINUTES Lorenzo Mars APRN.[employer] [address] [place] [address] Referral ID Status Reason Start Date Expiration Date V isits Requested Visits Authorized [id number] Closed PCP Requested Referral 05/09/2023 05/08/2024 1 [...] pain. Tingling sensation. Reason Comments Faxed to [facility] Reason Comments Ankle Injury R ankle injury x2 we eks Reason Comments Cough NAYAK, fever, sore thro at, chest congestion x 1 week Reason Comments Follow Up Left ear dysesthesia Reason Onset Date Comments Refill Request 01/08/2024 Care Teams (unrecognized sec tion and content) Humanities And Languages Professor Relationship Specialty Start Date End Date Machelle Harry MD [address] [place], [place] [id number] PCP - General Family Practice 02/24/21 Humanities And Languages Professor Relationship Specialty Start Date End Date Machelle Harry MD [address] [place], [place] [id number] PCP - General Family Practice 02/24/21 Humanities And Languages Professor Relationship Specialty Start Date End Date Machelle Harry MD [address] [place], [place] [id number] PCP - General Family Practice 02/24/21 Humanities And Languages Professor Relationship Specialty Start Date End Date Machelle Harry MD [address] [place] [address] PCP - General Family Practice 02/24/21 Humanities And Languages Professor Relationship Specialty Start Date End Date Machelle Harry MD [address] [place] [address] PCP - General Family Practice 02/24/21 Humanities And Languages Professor Relationship Specialty Start Date End Date Machelle Harry MD [address] [place] [address] PCP - General Family Practice 02/24/21 Humanities And Languages Professor Relationship Specialty Start Date End Date Machelle Harry MD [address] [place] [address] PCP - General Family Practice 02/24/21 Humanities And Languages Professor Relationship Specialty Start Date End Date Machelle Harry MD [address] [place] [address] PCP - General Family Medicine 02/24/21 Humanities And Languages Professor Relationship Specialty Start Date End Date Machelle Harry MD [address] [place] [address] PCP - General Family Medicine 02/24/21 Humanities And Languages Professor Relationship Specialty Start Date End Date Machelle Harry MD [address] [place] [address] PCP - General Family Medicine 02/24/21 Humanities And Languages Professor Relationship Specialty Start Date End Date Machelle Harry MD [address] [place] [address] PCP - General Family Medicine 02/24/21 Humanities And Languages Professor Relationship Specialty Start Date End Date Machelle Harry MD [address] [place] [address] PCP - General Family Medicine 02/24/21 Humanities And Languages Professor Relationship Specialty Start Date End Date Machelle Harry MD [address] [place] [address] PCP - General Family Medicine 02/24/21 Humanities And Languages Professor Relationship Specialty Start Date End Date Machelle Harry MD [address] [place] [address] PCP - General Family Medicine 02/24/21 Humanities And Languages Professor Relationship Specialty Start Date End Date Machelle Harry MD [address] [place] [address] PCP - General Family Medicine 02/24/21 Humanities And Languages Professor Relationship Specialty Start Date End Date Machelle Harry MD [address] [place] [address] PCP - General Family Medicine 02/24/21 Humanities And Languages Professor Relationship Specialty Start Date End Date Machelle Harry MD [address] [place] [address] PCP - General Family Medicine 02/24/21 Humanities And Languages Professor Relationship Specialty Start Date End Date Machelle Harry MD [address] [place] [address] PCP - General Family Medicine 02/24/21 Humanities And Languages Professor Relationship Specialty Start Date End Date Machelle Harry MD [address] [place] [address] PCP - General Family Medicine 02/24/21 Humanities And Languages Professor Relationship Specialty Start Date End Date Machelle Harry MD [address] [place] [address] PCP - General Family Medicine 02/24/21 Humanities And Languages Professor Relationship Specialty Start Date End Date Machelle Harry MD [address] [place] [address] PCP - General Family Medicine 02/24/21 Humanities And Languages Professor Relationship Specialty Start Date End Date Machelle Harry MD [address] [place] [address] PCP - General Family Medicine 02/24/21 Humanities And Languages Professor Relationship Specialty Start Date End Date Machelle Harry MD [address] [place] [address] PCP - General Family Medicine 02/24/21 Humanities And Languages Professor Relationship Specialty Start Date End Date Machelle Harry MD [address] [place] [address] PCP - General Family Medicine 02/24/21 Humanities And Languages Professor Relationship Specialty Start Date End Date Machelle Harry MD [address] [place] [address] PCP - General Family Medicine 02/24/21 Humanities And Languages Professor Relationship Specialty Start Date End Date Machelle Harry MD [address] [place] [address] PCP - General Family Medicine 02/24/21 Humanities And Languages Professor Relationship Specialty Start Date End Date Machelle Harry MD [address] [place] [address] PCP - General Family Medicine 02/24/21 Humanities And Languages Professor Relationship Specialty Start Date End Date Machelle Harry MD [address] [place] [address] PCP - General Family Medicine 02/24/21 Humanities And Languages Professor Relationship Specialty Start Date End Date Machelle Harry MD [address] [place] [address] PCP - General Family Medicine 02/24/21 Humanities And Languages Professor Relationship Specialty Start Date End Date Machelle Harry MD [address] [place] [address] PCP - General Family Medicine 02/24/21 Humanities And Languages Professor Relationship Specialty Start Date End Date Machelle Harry MD [address] [place] [address] PCP - General Family Medicine 02/24/21 Humanities And Languages Professor Relationship Specialty Start Date End Date Machelle Harry MD [address] [place] [address] PCP - General Family Medicine 02/24/21 Humanities And Languages Professor Relationship Specialty Start Date End Date Machelle Harry MD [address] [place] [address] PCP - General Family Medicine 02/24/21 Humanities And Languages Professor Relationship Specialty Start Date End Date Machelle Harry MD [address] [place] [address] PCP - General Family Medicine 02/24/21 Humanities And Languages Professor Relationship Specialty Start Date End Date Machelle Harry MD [address] [place] [address] PCP - General Family Medicine 02/24/21 Humanities And Languages Professor Relationship Specialty Start Date End Date Machelle Harry MD [address] [place] [address] PCP - General Family Medicine 02/24/21 Humanities And Languages Professor Relationship Specialty Start Date End Date Machelle Harry MD [address] [place] [address] PCP - General Family Medicine 02/24/21 Humanities And Languages Professor Relationship Specialty Start Date End Date Machelle Harry MD [address] [place] [address] PCP - General Family Medicine 02/24/21 Humanities And Languages Professor Relationship Specialty Start Date End Date Machelle Harry MD [address] [place] [address] PCP - General [facility] Medicine 02/24/21 Care Team (unrecognized sect ion and content) Care Team Personnel Name: MACHELLE HARRY MD Member Role: Primary Care Physician Address: Address: [address] [place] [address] Care Team Related Persons Name: VALERIA PRIETO Name: ANAMARIA TROY Address: Home [address] [place] [address] Care Team Personnel Name: MACHELLE HARRY MD Member Role: Primary Care Physician Address: Address: [address] [place] [address] Care Team Related Persons Name: VALERIA PRIETO Name: PRASANTH TROY Address: Home [address] [place] [address] Name: ANAMARIA TROY Address: Home [address] [place] [address] FOR RECORDS PERTAINING TO PATIENTS WHO ARE [...] BE BASED ON THE PRIMARY CLINICAL RECORDS. [employer] provides no warranty or guarantee of the accuracy or completeness of information in this document.
== END | disposition home or self-care (01) ==
LOC: SL 08:10
PROVIDERS: PCP Registered Nurse; Referring Provider Nurse Practitioner Acute Care; Visit Provider Nurse Practitioner Acute Care
DX: R69 Illness, unspecified (principal)

== ENCOUNTER 2024-02-21 07:00 | Outpatient (RCR) | payer BC, SELFPAY ==
--- NOTE | 2024-01-11 09:58 | HP.PTEVAL_ITS ---
Patient's Visit Information Visit Information Visit Information: JAMMIE TROY is a 53 year old F referred to Physical Therapy by Dr. Tariq Jacobo DPM with a diagnosis of PERONEAL TENDONITITS,GASTROMUSCLE STRAIN ,RIGHT FOOT/ANKLE PAIN. Date of Evaluation: 01/11/24 Physical Therapist: Rito Banerjee, PT, Cert MDT, OCS Visit Plan Frequency: 3x /Week Duration: 6 Weeks Plan: PT INTERVTIONS MANUAL THERAPY STM /HAWK/STICK CALF/ACHILLES, FLEXABILITY CALF ,US ,AND STRENGTHENING ANKLD STABIILZERS Subjective Subjective: This 53 y/o female presents to physical therapy with right peroneal tendonitis. Patient has right foot pain since this past summer then in September twisted ankle . Seen Ortho DR starkey in boot. Tried to anti-inflammatory. Seen Donnell did MRI showed tendonitis . Repeated MRI ,tried compression sleeve on foot. Try PT . Patient had initial surgery bilateral plantar fasciectomy 2021. Pain located dorsal foot and Achilles. 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 Alleviating factors rest. Foot feels weak to patient. Denies paresthesia/ tingling. Pain described sharp pain MEDICATION: meloxicam. Patient sleeping good at night. Patient pain affects QOL and function/job demands. Patient goals to get stronger and decrease pain. Patient had fabricated orthotics. 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 Pain Right Foot: Pain Intensity (Out of 10): 4 Pain Intensity Range: 10 Objective Objective: POSTURE: ( frontal plane mechanics) calcaneal valgus ,pes planus GAIT: reciprocal pattern antalgic gait right side NEURO : denies paresthesia/tingling PALPATION: : tender Achilles ,G-S ,peroneal PROPRIOCEPTION: poor AROM: dorsiflexion -8 degrees ,plantar flexion 60 degrees ,inversion 5 degrees ,eversion 55 degrees MMT: ( peak force) peroneus 12.8,posterior tibialis 13.6,G-S 17.6 ,anterior tibialis Balance/Special Test Scores Lower Extremity Functional Score: 36 Goals Goal 1:: I with HEP for foot ankle Goal Time Frame: 4-6 Weeks Goal 2:: Patient to normalize gait Goal Time Frame: 4-6 Weeks Goal 3:: Patient to demonstrate 50 % improvement with increase function mark demands and less pain Goal Time Frame: 4-6 Weeks Goal 4:: Patient increase ROM dorsiflexion by 5 degrees to improve gait Goal Time Frame: 4-6 Weeks Goal 5:: Patient to improve peak force ankle stabilizers by 5-10 # to improve function Goal Time Frame: 4-6 Weeks Goal 6:: Patient to improve LFES score by 5 points to improve function Goal Time Frame: 4-6 Weeks Rehabilitation Potential Physical Therapy Diagnosis: This patient has right foot pain with inflammation with weakness ,poor proprioception ,decrease ROM except inversion impairs walling and standing affecting job demands thus benefit from skilled PT Rehabilitation Potential: Good Anticipated Interventions Patient/Client Instruction: Educate patient on: Condition and Plan of Care For the Purpose of:: To decrease pain, To increase ROM, To improve muscle performance and motor function, To improve ability to perform ADL's, To increase tolerance to activity/condition/position, To improve ability of physical actions for home/community/work/leisure, To improve gait and locomotor functions, To improve health of tissue, To decrease soft tissue restriction, To increase flexibility/ROM, To improve endurance and To prevent re-injury Therapeutic Exercise to Include: Strength training, Endurance training, Balance training, Flexibilty training and Active ROM Comment: ANKLE STABILZERS For the Purpose of:: To decrease pain, To decrease swelling/inflammation, To increase ROM, To improve nutrient delivery to tissue, To increase oxygenation perfusion, To improve muscle performance and motor function, To increase tolerance to activity/condition/position, To improve ability of physical actions for home/community/work/leisure, To improve health of tissue, To decrease soft tissue restriction, To increase flexibility/ROM and To reduce risk of recurrence Manual Therapy Techniques to Include: Mobilization and Soft tissue mobilization For the Purpose of:: To decrease pain, To increase ROM, To improve nutrient delivery to tissue, To increase oxygenation perfusion, To improve health of tissue and To decrease soft tissue restriction TENS: Yes IF ES: Yes Cryotherapy (ice pack, ice massage): Yes Thermo therapy (hot pack): Yes Ultrasound (thermal/non thermal): Yes For the Purpose of:: To decrease pain, To increase ROM, To improve nutrient delivery to tissue, To increase oxygenation perfusion, To improve health of tissue and To decrease soft tissue restriction Text: Thank you for the opportunity to evaluate your patient. For Medicare and Medicare HMO plans, please review the plan of care and approve it. It will need to be FAXED BACK to us at [phone] for Medicare purposes. For Medicare only, by signing this I certify the plan of care. Please let me know if there are questions or concerns regarding this plan of care. Physician Signature: Date:
== END 2024-02-21 19:00 | disposition home or self-care (01) ==
LOC: PT 07:00
PROVIDERS: PCP Registered Nurse; Referring Provider Student in an Organized Health Care Education/Training Program; Visit Provider Student in an Organized Health Care Education/Training Program
DX: M76.71 Peroneal tendinitis, right leg (principal); S86.119A Strain of other muscle(s) and tendon(s) of posterior muscle group at lower leg level, unspecified leg, initial encounter; X58.XXXA Exposure to other specified factors, initial encounter
CPT/HCPCS: 97110; 97140; 97162; 97530

== ENCOUNTER → 2024-05-22 | Outpatient (CLI) | payer BC, SELFPAY | END | disposition home or self-care (01) | LOC: SL 20:09 | PROVIDERS: PCP Registered Nurse; Referring Provider Nurse Practitioner Acute Care; Visit Provider Nurse Practitioner Acute Care | DX: G47.33 Obstructive sleep apnea (adult) (pediatric) (principal) | CPT/HCPCS: 95810 ==

== ENCOUNTER → 2024-09-26 | Outpatient (CLI) | payer BC, SELFPAY | END | disposition home or self-care (01) | LOC: RAD 08:56 | PROVIDERS: PCP Registered Nurse; Referring Provider Nurse Practitioner Acute Care; Visit Provider Nurse Practitioner Acute Care | DX: R06.02 Shortness of breath (principal); R07.1 Chest pain on breathing | CPT/HCPCS: 71046 ==